=== PATIENT | male | born 1960 | race Caucasian/White ===

== ENCOUNTER 2016-09-06 20:59 | Inpatient (IN) | payer OTHER ==
[2016-09-06] MEDS ORDERED: AZITHROMYCIN 500 MG in SODIUM CHLORIDE 0.9% 250 ML IVPB SCH (23:00)
[2016-09-06] MEDS ORDERED: IPRATROPIUM-ALBUTEROL 3 ML NEB INHALATION PRN (23:52)
[2016-09-07] MEDS: MORPHINE SULFATE 4 MG/ML SYRINGE IVP PRN ×4 (00:18→23:44)
[2016-09-07] MEDS: SODIUM CHLORIDE 0.9% 1,000 ML IV SCH ×3 (00:18→22:04)
[2016-09-07 02:56] VITALS: BMI 22.7
[2016-09-07 07:09] LABS: Basophils # (A) 0.1 k/uL (0-0.2); Basophils % (A) 1 %; CH 28.1; CHCM 31.7; Eosinophils # (A) 0.2 k/uL (0-0.7); Eosinophils % (A) 1 %; HCT 38.3 % (39.0-53.0); HDW 2.51; HGB 12.1 gm/dL (13.0-17.5); Hypochromasia Slight; Luc # (Auto) 0.29; Luc % (Auto) 3; Lymphocytes # (A) 1.7 k/uL (1.0-4.8); Lymphocytes % (A) 15 %; MCH 28.1 pg (25.0-35.0); MCHC 31.5 g/dL (31.0-37.0); MCV 89.2 fL (80.0-100.0); Mean Platelet Volume 6.6; Monocytes % (A) 9 %; Neutrophils % (A) 72 %; RDW 13.5 % (11.5-15.5); WBC 11.1 k/uL (3.8-10.6); WBC (Perox) 11.85
[2016-09-07 07:23] LABS: ALT 23 U/L (21-72); AST 15 U/L (17-59); Alkaline Phosphatase 71 U/L (38-126); Anion Gap 11 mmol/L; Blood Urea Nitrogen 13 mg/dL (9-20); Calcium 8.5 mg/dL (8.4-10.2); Carbon Dioxide 22 mmol/L (22-30); Chloride 108 mmol/L (98-107); Glucose 94 mg/dL (74-99); Non-African American GFR(MDRD) >60 (>60 ml/min/1.73 sqM); Potassium 4.1 mmol/L (3.5-5.1); Sodium 141 mmol/L (137-145); Total Bilirubin 0.6 mg/dL (0.2-1.3); Total Protein 6.2 g/dL (6.3-8.2)
--- NOTE | 2016-09-07 08:16 | XR ---
EXAMINATION TYPE: XR chest 1V portable DATE OF EXAM: 09/07/2016 7:37 AM COMPARISON: NONE HISTORY: COPD, lung mass TECHNIQUE: Single frontal view of the chest is obtained. FINDINGS: Interstitium is increased in the left lung, abnormal increased attenuation in the perihila r location on the left. There is no pneumothorax or pleural effusion. Cardiomediastinal silhouette wi thin normal limits. IMPRESSION: Perihilar increased density, prominence of interstitium on the left, consider chest CT f or better evaluation.
[2016-09-07] MEDS: predniSONE 50 MG TAB PO SCH (08:19)
[2016-09-07] MEDS: IPRATROPIUM-ALBUTEROL 3 ML NEB INHALATION SCH ×4 (08:49→19:30)
--- NOTE | 2016-09-07 11:28 | P.CNPUL ---
History of Present Illness Consult date: 09/07/16 Requesting physician: Heather Jaime Reason for consult: other (Left hilar mass) Chief complaint: Chest pain, shortness of breath, cough, and wheezing. History of present illness: This is a 56-year-old white male, smoker, patient presented to [place] [facility] yesterday with 2 months history of left sided chest pain mostly in the left parasternal area, radiating down to his left hemidiaphragm area. Patient also describes intermittent episodes of cough wheezing, shortness of breath, no fever , no chills, no hemoptysis, no nausea no vomiting no abdominal pain. 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 Upon evaluation in the ER, patient was found to have a left hilar mass and apparently arrangements were made for him to be transferred to [facility] last time. Workup in the ER at [place] was relatively unremarkable except for the abnormal CT of the chest. I did review the CT of the chest, there is evidence of left hilar mass, mediastinal adenopathy, and probably some areas of postobstructive pneumonitis involving the lingula. Patient again denies any hemoptysis, he describes about 14 pound weight loss over the last 2 months. Denies any aches and pains, no headache no blurred vision no dizziness. No dysuria frequency or urgency. Denies any symptoms of depression. Denies any symptoms of diabetes or thyroid disease. Review of Systems 14 point review of systems were obtained, refer to pertinent positives and negatives in HPI. His review of systems is mostly significant for weight loss, left-sided chest pain, cough wheezing and shortness of breath. Past Medical History Past Medical History: No Reported History, COPD History of Any Multi-Drug Resistant Organisms: None Reported Past Surgical History: No Surgical Hx Reported Past Anesthesia/Blood Transfusion Reactions: No Reported Reaction Past Psychological History: No Psychological Hx Reported Smoking Status: Current every day smoker Past Alcohol Use History: None Reported - Past Family History Mother Family Medical History: No Reported History Father Family Medical History: No Reported History Medications and Allergies Allergies Allergy/AdvReac Type Severity Reaction Status Date / Time No Known Allergies Allergy Verified 09/07/16 08:50 Physical Exam Vitals: Vital Signs Temp Pulse Pulse Resp BP Pulse Ox 09/07/16 08:56 68 09/07/16 08:47 68 09/07/16 07:00 98.5 F 67 18 111/71 98 Intake and Output 09/06/16 09/07/16 09/07/16 22:59 06:59 14:59 Intake Total 1280 400 Balance 1280 400 Intake: Intake, IV Titration 800 Amount Azithromycin 500 mg In 250 Sodium Chloride 0.9% 250 ml @ 125 mls/hr IVPB Q24H [facility] Rx#:[id number] Sodium Chloride 0.9% 1, 500 000 ml @ 100 mls/hr IV . Q10H [facility] Rx#:[id number] cefTRIAXone 1,000 mg In 50 Sodium Chloride 0.9% 50 ml @ 100 mls/hr IVPB Q24H [facility] Rx#:[id number] Oral 480 400 Other: # Voids 1 Weight 71.9 kg 71.9 kg Physical Exam: Revealed a 56-year-old white male in no distress HEENT:[Neck is supple.] [No neck masses.] [No thyromegaly.] [No JVD.] Chest: [Diminished breath sound bilaterally, some wheezing on forced expiratory maneuver..] Cardiac Exam: [Normal S1 and S2, no S3 gallop, no murmur.] Abdomen: [Soft, nontender, no megaly, no rebound, no guarding, normal bowel sounds.] Extremities: [No clubbing, no edema, no cyanosis.] Neurological Exam: [No focal neurologic deficit.] Results - Laboratory Findings CBC and BMP: 09/07/16 06:36 09/07/16 06:36 Abnormal lab findings: Abnormal Labs 09/07/16 09/07/16 06:36 06:36 WBC 11.1 H Hgb 12.1 L Hct 38.3 L Neutrophils # 8.0 H Chloride 108 H AST 15 L Total Protein 6.2 L Albumin 3.0 L - Diagnostic Findings Chest x-ray: image reviewed (Chest x-ray is suggestive of a left hilar mass) Assessment and Plan Plan: Impression: 1 left hilar mass strongly suspicious of bronchogenic carcinoma. 2 suspect moderate severe chronic obstructive pulmonary disease 3 postobstructive pneumonitis involving the lingula. 4 chronic tobacco dependence syndrome and nicotine addiction. Recommendation: Agree with the present treatment plan including bronchodilators , antibiotics, steroids, patient will need to have a tissue diagnosis, I will schedule the patient for tentative bronchoscopy at noontime by Dr. Gallego, however the final decision for him to make tomorrow. Discussed the patient's condition with the admitting physician Dr. Jaime, we'll continue to follow. Time with Patient: Greater than 30
--- NOTE | 2016-09-07 13:04 | HP ---
DATE OF ADMISSION: 09/06/2016 HISTORY AND PHYSICAL EXAMINATION/DISCHARGE SUMMARY: This dictation is both admission note and discharge summary. The patient is a very pleasant 56-year-old gentleman who does not have a primary care physician, was seen in [facility]. Subsequently transferred here with I was told patient has pneumonia and COPD exacerbation. Patient also has a hilar mass. Patient will need further evaluation with pulmonology because of which patient was transferred here. Patient was started on IV antibiotics in the form of ceftriaxone and azithromycin. The patient was given antibiotics Zosyn at the other hospital. Today when I evaluated the patient, patient is a very pleasant 56-year-old gentleman was having coughing and because of the cough, patient was having chest pain, because of the cough and chest soreness because of the cough. Because of that reason, the patient was seen at [facility]. Patient has clear to yellowish sputum production. Patient denied any fever or chills. Patient denied any significant shortness of breath. Patient is wheezing on exam. Patient may have a component of chronic obstructive pulmonary disease. CT of the chest that was sent from [place] was reviewed by me and Dr. Bernal, touring production manager. Patient appears to have hilar mass with mediastinal carinal lymphadenopathy significant for possible metastatic lung cancer, consistent with possible metastatic lung cancer. Patient has minimally leukocytosis which appears to be reactive. There is very limited infiltrate with very minimally air bronchogram. The patient most probably has with patchy atelectasis, low suspicion for pneumonia but cannot be completely ruled out. We will ambulate the patient in the hallways and see if he is strong enough and if patient is strong enough to go home, patient will be discharged today. We will get rid of the oxygen and see how his saturations are and we will try to use [employer] funds for his medications. I tried to set up PET scan for next Thursday unable to do that because of his lack of insurance. Because of Thursday we are unable to set up any follow-ups. Patient was clearly instructed to follow with Dr. Bernal and Dr. Gupta. Information will be provided. The patient's main issue is pain, because of coughing for which I am giving him tramadol and Linwood. REVIEW OF SYSTEMS: REVIEW OF SYSTEMS: CONSTITUTIONAL: No fever, no malaise, no fatigue. HEENT: No recent visual problems or hearing problems. Denied any sore throat. CARDIOVASCULAR: No chest pain, orthopnea, PND, no palpitations, no syncope. PULMONARY: As described in HPI. GASTROINTESTINAL: No diarrhea, no nausea, no vomiting, no abdominal pain. Normoactive bowel sounds. NEUROLOGICAL: No headaches, no weakness, no numbness. HEMATOLOGICAL: Denies any bleeding or petechiae. GENITOURINARY: Denies any burning micturition, frequency, or urgency. MUSCULOSKELETAL/RHEUMATOLOGICAL: Denies any joint pain, swelling, or any muscle pain. ENDOCRINE: Denies any polyuria or polydipsia. The rest of the 14 point review of systems is negative. PAST MEDICAL HISTORY: None. PAST SURGICAL HISTORY: None. SOCIAL HISTORY: The patient does smoke. Denied any alcohol abuse or any drug abuse. Used to smoke 1 pack per day until 3 weeks ago, patient has been smoking only 4 cigarettes per day. FAMILY HISTORY: Denied any significant history of cancer in the family. PHYSICAL EXAMINATION: Temperature 98.5, pulse of 67, respiratory rate of 18, blood pressure is 111/71, saturating at 98% on 2 liters of O2 nasal cannula. GENERAL: The patient is alert and oriented x3, not in any acute distress. Well developed, well nourished. HEENT: Pupils are round and equally reacting to light. EOMI. No scleral icterus. No conjunctival pallor. Normocephalic, atraumatic. No pharyngeal erythema. No thyromegaly. CARDIOVASCULAR: S1 and S2 present. No murmurs, rubs, or gallops. PULMONARY: Minimal expiratory wheezing was appreciated. No crackles were appreciated. Patient has some chest wall tenderness. ABDOMEN: Soft, nontender, nondistended, normoactive bowel sounds. No palpable organomegaly. MUSCULOSKELETAL: No joint swelling or deformity. EXTREMITIES: No cyanosis, clubbing, or pedal edema. NEUROLOGICAL: Gross neurological examination did not reveal any focal deficits. SKIN: No rashes. LABORATORY DATA: CBC and BMP abnormal for mildly elevated WBC count of 11,100. CT of the chest as mentioned above. Chest x-ray that was done here showed some infiltrate. Patient initially started on Rocephin and azithromycin. Patient will be discharged today. ASSESSMENT AND PLAN: 1. Chronic obstructive pulmonary disease exacerbation. 2. Chronic obstructive pulmonary disease exacerbation. Patient will be discharged on albuterol ipratropium, weaning dose of steroids and Symbicort, we will try to use indigent funds for that and we will also use gastrointestinal prophylaxis with ranitidine. 3. Possibility of minimal atelectasis versus minimal pneumonia. Patient has a very limited air bronchogram. Patient mostly has tracheobronchitis. Patient will be discharged on levofloxacin for seven days. 4. For chest pain which is musculoskeletal secondary to cough, we will use Linwood, and tramadol and patient will be given MiraLax for possible if he has constipation. 5. Hilar mass with lymphadenopathy. Follow with Dr. Bernal and Dr. Gupta as mentioned above. Patient will need a bronchoscopy. Will get a community case manager to work on insurance. After all pending work-up done, patient will be discharged today. This dictation is both admission note and discharge summary.
[2016-09-07] MEDS ORDERED: AZITHROMYCIN 500 MG TAB PO SCH (21:00)
[2016-09-08] MEDS: predniSONE 50 MG TAB PO SCH (07:54)
[2016-09-08] MEDS: IPRATROPIUM-ALBUTEROL 3 ML NEB INHALATION SCH ×4 (08:58→21:16)
[2016-09-08] MEDS: SODIUM CHLORIDE 0.9% 1,000 ML IV SCH ×2 (09:05→17:04)
[2016-09-08] MEDS: MORPHINE SULFATE 4 MG/ML SYRINGE IVP PRN (10:24)
--- NOTE | 2016-09-08 12:07 | P.PN ---
Subjective Progress note dated 09/08/2016 56-year-old male sent down from [place] emergency room with 2 months of left- sided chest pain mostly in the left parasternal area. The pain apparently radiates to his left [place] diaphragm area. I'll send and met intermittent episodes of cough wheezing shortness of breath. Not coughing up much or any phlegm. Does not have a primary care physician. Heavy smoker in the past up until recently. 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 He was found on evaluation in the emergency room to have a left hilar mass and apparently was sent down to [facility] for additional evaluation and workup. Computed tomography scan of the chest apparently showed a left hilar mass with mediastinal adenopathy and probably some areas of postobstructive pneumonitis involving the lingula. Denies any hemoptysis. Does have about a 14 pound weight loss over the last couple of months. The presumed diagnosis of lung cancer. Objective - Vital Signs Vital signs: Vital Signs Temp 97.8 F 09/08/16 07:00 Pulse 66 09/08/16 09:08 Resp 18 09/08/16 07:00 BP 116/63 09/08/16 07:00 Pulse Ox 99 09/08/16 08:59 Intake & Output 09/07/16 09/08/16 09/08/16 18:59 06:59 18:59 Intake Total 700 1480 Balance 700 1480 Weight 71.9 kg 71.9 kg Intake: Oral 700 1480 Other: # Voids 2 2 - Exam No acute distress, oriented 3. HEENT examination is grossly unremarkable. Mucous membranes are moist. Teeth are in poor repair. Neck supple. Full range of motion. No adenopathy thyromegaly. Neck veins are flat. Cardiovascular examination reveals regular rhythm rate. S1-S2 normal. No S3- S4 or murmur. Pulmonary examination reveals some mild coarse rhonchi and wheezes. Breath sounds diminished. This prolongation on forced maneuver. The patient wheezes and coughs on forced maneuver. Abdomen soft bowel sounds are heard. No masses or tenderness. Extremities are intact. No cyanosis clubbing or edema. - Labs CBC & Chem 7: 09/07/16 06:36 09/07/16 06:36 Labs: Microbiology - Last 24 Hours (Table) 09/07/16 06:36 Blood Culture - Preliminary Blood No Growth after 24 hours Assessment and Plan (1) COPD (chronic obstructive pulmonary disease) Status: Acute (2) Hilar mass Status: Acute Plan: Plan dated 09/08/2016 Patient was placed on bronchodilator steroids and antibiotics. The patient still quite bronchospastic. The patient will get another day or 2 of medication before we anticipate doing bronchoscopy. He was nothing by mouth after midnight. We'll allow him to eat. I'll schedule for Thursday or Thursday. Additional recommendations suggestions are forthcoming. Probably I will do his bronchoscopy on Thursday. Time with Patient: Less than 30
--- NOTE | 2016-09-08 12:08 | PN ---
The patient is a 56-year-old admitted with COPD exacerbation. Patient also has left hilar mass for which patient will need bronchoscopy, which will be scheduled for tomorrow as patient is still bronchospastic. REVIEW OF SYSTEMS: CARDIOVASCULAR: No chest pain, no orthopnea, no PND, no palpitations. RESPIRATORY: Continued shortness of breath. GASTROINTESTINAL: No diarrhea, nausea or vomiting. No abdominal pain. Normoactive bowel sounds. NEUROLOGIC: No headaches, no weakness, no numbness. Medications were reviewed. PHYSICAL EXAMINATION: VITAL SIGNS: Temperature 97.8, pulse of 66, respiratory rate of 18, blood pressure 116/63, saturating at 99% on 2 L of oxygen, which we will cut it down because he is saturating at 99%. GENERAL: The patient is alert and oriented x3, not in any acute distress. Well developed, well nourished. HEENT: Pupils are round and equally reacting to light. EOMI. No scleral icterus. No conjunctival pallor. Normocephalic, atraumatic. No pharyngeal erythema. No thyromegaly. CARDIOVASCULAR: S1 and S2 present. No murmurs, rubs, or gallops. LUNG EXAMINATION: Expiratory wheezing is still appreciated. No crackles are appreciated. Mild decreased air entry into bilateral lung michaels. ABDOMEN: Soft, nontender, nondistended, normoactive bowel sounds. No palpable organomegaly. MUSCULOSKELETAL: No joint swelling or deformity. EXTREMITIES: No cyanosis, clubbing, or pedal edema. NEUROLOGICAL: Gross neurological examination did not reveal any focal deficits. SKIN: No rashes. LAB DATA: None available from today. ASSESSMENT AND PLAN: 1. Acute hypercapnic respiratory failure secondary to chronic obstructive pulmonary disease exacerbation . 2. Possibility of minimal pneumonia versus bronchitis. 3. Chest pain, musculoskeletal secondary to cough. 4. Hilar mass for which patient will undergo bronchoscopy. Plan is to continue with systemic steroids, inhalational treatment, possible bronchoscopy tomorrow. After that, patient can be discharged. Medication reconciliation and discharge medications were taken care of already.
[2016-09-08] MEDS: LEVOFLOXACIN 500 MG TAB PO SCH (12:49)
[2016-09-09] MEDS: MORPHINE SULFATE 4 MG/ML SYRINGE IVP PRN ×3 (00:22→18:30)
[2016-09-09] MEDS: SODIUM CHLORIDE 0.9% 1,000 ML IV SCH ×3 (00:24→18:31)
[2016-09-09 08:51] LABS: CH 28.9; HCT 39.4 % (39.0-53.0); HDW 2.73; HGB 12.7 gm/dL (13.0-17.5); MCH 28.3 pg (25.0-35.0); MCHC 32.2 g/dL (31.0-37.0); Mean Platelet Volume 6.3; RBC 4.48 m/uL (4.30-5.90); RDW 13.5 % (11.5-15.5); WBC 13.4 k/uL (3.8-10.6)
[2016-09-09 09:09] LABS: Anion Gap 12 mmol/L; Blood Urea Nitrogen 13 mg/dL (9-20); Calcium 9.3 mg/dL (8.4-10.2); Carbon Dioxide 27 mmol/L (22-30); Chloride 106 mmol/L (98-107); Glucose 77 mg/dL (74-99); Non-African American GFR(MDRD) >60 (>60 ml/min/1.73 sqM); Potassium 3.9 mmol/L (3.5-5.1); Sodium 145 mmol/L (137-145)
[2016-09-09] MEDS: predniSONE 50 MG TAB PO SCH (09:19)
[2016-09-09] MEDS: IPRATROPIUM-ALBUTEROL 3 ML NEB INHALATION SCH ×4 (10:00→19:10)
[2016-09-09] MEDS: LEVOFLOXACIN 500 MG TAB PO SCH (12:02)
--- NOTE | 2016-09-09 13:28 | P.PN ---
Subjective Progress note dated 09/08/2016 56-year-old male sent down from [place] emergency room with 2 months of left- sided chest pain mostly in the left parasternal area. The pain apparently radiates to his left [place] diaphragm area. I'll send and met intermittent episodes of cough wheezing shortness of breath. Not coughing up much or any phlegm. Does not have a primary care physician. Heavy smoker in the past up until recently. 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 He was found on evaluation in the emergency room to have a left hilar mass and apparently was sent down to [facility] for additional evaluation and workup. Computed tomography scan of the chest apparently showed a left hilar mass with mediastinal adenopathy and probably some areas of postobstructive pneumonitis involving the lingula. Denies any hemoptysis. Does have about a 14 pound weight loss over the last couple of months. The presumed diagnosis of lung cancer.. Progress note dated 09/09/2016 56-year-old male sent down from [place] emergency room with 2 months of left- sided chest pain mostly in the left parasternal area. The pain radiates his left diaphragm area. In addition he had cough wheezing shortness of breath. Not coughing up much in way of phlegm or any blood. He does not have a primary care physician in that area. 70 smoker in the past up until recently. 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 He was found to have a left hilar mass and apparently sent down [facility] for additional evaluation and workup. He is on the schedule for bronchoscopy tomorrow. He is evidence of a left hilar mass with mediastinal adenopathy and probably some areas of postobstructive pneumonitis involving the lingula. He denies any hemoptysis as mentioned above but he does have a history of a 14 pound weight loss and decreased appetite. The presumptive diagnosis is lung cancer. Objective - Vital Signs Vital signs: Vital Signs Temp 97.7 F 09/09/16 07:00 Pulse 80 09/09/16 11:26 Resp 16 09/09/16 08:00 BP 116/66 09/09/16 07:00 Pulse Ox 95 09/09/16 07:00 Intake & Output 09/08/16 09/09/16 09/09/16 18:59 06:59 18:59 Intake Total 800 Balance 800 Weight 71.9 kg Intake: IV 800 Sodium Chloride 0.9% 1, 800 000 ml @ 100 mls/hr IV . Q10H [facility] Rx#:[id number] Other: Voiding Method Toilet # Voids 2 - Exam No acute distress, oriented 3. HEENT examination is grossly unremarkable. Mucous membranes are moist. Teeth are in poor repair. Neck supple. Full range of motion. No adenopathy thyromegaly. Neck veins are flat. Cardiovascular examination reveals regular rhythm rate. S1-S2 normal. No S3- S4 or murmur. Pulmonary examination reveals some mild coarse rhonchi. Wheezes have dissipated. Breath sounds are equal bilaterally but somewhat diminished. There is prolongation of on forced maneuver. Lung sounds are certainly improved compared to yesterday. Abdomen soft bowel sounds are heard. No masses or tenderness. Extremities are intact. No cyanosis clubbing or edema. - Labs CBC & Chem 7: 09/09/16 08:13 09/09/16 08:13 Labs: Abnormal Lab Results - Last 24 Hours (Table) 09/09/16 Range/Units 08:13 WBC 13.4 H (3.8-10.6) k/uL Hgb 12.7 L (13.0-17.5) gm/dL Microbiology - Last 24 Hours (Table) 09/07/16 06:36 Blood Culture - Preliminary Blood No Growth after 48 hours Assessment and Plan (1) COPD (chronic obstructive pulmonary disease) Status: Acute (2) Hilar mass Status: Acute Plan: Plan dated 09/08/2016 Patient was placed on bronchodilator steroids and antibiotics. The patient still quite bronchospastic. The patient will get another day or 2 of medication before we anticipate doing bronchoscopy. He was nothing by mouth after midnight. We'll allow him to eat. I'll schedule for Thursday or Thursday. Additional recommendations suggestions are forthcoming. Probably I will do his bronchoscopy on Thursday. Plan dated 09/09/2016 The patient placed on the Joey scheduled for tomorrow. We'll do his procedure with fluoroscopy. He may have endobronchial disease we may not need fluoroscopy. If not, we'll see if we can biopsy the area in the lingula. In the end, he may benefit from navigational bronchoscopy for Make a diagnosis. Anyway, we will go ahead and try this way first. The patient otherwise is doing better and breathing better. We spoke to him at the bedside today. Time with Patient: Less than 30
[2016-09-09] MEDS ORDERED: ALPRAZolam 0.25 MG TAB PO PRN (15:09)
[2016-09-09] MEDS ORDERED: TEMAZEPAM 15 MG CAP PO PRN (15:09)
[2016-09-09] MEDS: NICOTINE 14MG/24HR PATCH TRANSDERM SCH (18:30)
--- NOTE | 2016-09-09 18:39 | PN ---
DATE OF SERVICE: 09/09/2016 This 56-year-old gentleman admitted with COPD, acute exacerbation, was symptomatic since June. The patient went to [place]. The patient is being followed by Dr. Jose Antonio Babcock in the outpatient setting. The patient was found to have a left hilar mass. The patient was sent to [facility]. Currently the white count is elevated at 11.1. Patient patient is on broad-spectrum IV antibiotics. Dr. Gallego is following the patient closely. Past medical history reviewed. REVIEW OF SYSTEMS: CARDIOVASCULAR SYSTEM: No angina, palpitations. RESPIRATORY SYSTEM: As mentioned earlier. GI: As mentioned earlier. : No dysuria. NERVOUS SYSTEM: No numbness or weakness. Current medications are reviewed and include: 1. DuoNeb q.i.d. and p.r.n. 2. Levaquin 500 mg daily. 3. Prednisone 50 mg daily. PHYSICAL EXAMINATION: Patient is alert and oriented x3. Pulse is 80. Blood pressure 116/66, respiration 18, temperature 97.7, pulse ox 94% on room air. HEENT: Conjunctivae normal. NECK: No jugular venous distention. CARDIOVASCULAR SYSTEM: S1, S2 muffled. RESPIRATORY SYSTEM: Breath sounds diminished at the bases. Bilateral scattered rhonchi and crackles. Expiratory wheezing also present. ABDOMEN: Soft, non-tender. No mass palpable. LEGS: No edema. No swelling. NERVOUS SYSTEM: Higher functions as mentioned earlier. Moves all 4 limbs. No focal motor or sensory deficit. LYMPHATICS: No lymph node palpable in neck, axillae or groin. SKIN: No ulcer, rash, bleeding. LABS: WBC 13.4, hemoglobin 12.7. Sodium 145, potassium 3.9. Albumin 3. ASSESSMENT: 1. Left hilar mass. To rule out bronchogenic malignancy. 2. Chronic obstructive pulmonary disease, acute exacerbation, with acute hypercapnic hypoxic respiratory failure. 3. Possible minimal pneumonia, postobstructive versus purulent tracheobronchitis. 4. Chest pain, musculoskeletal and secondary to cough. 5. Increased white count. 6. Anemia, normocytic. 7. Increased chloride. 8. Hypoalbuminemia with mild to moderate protein-calorie malnutrition. 9. History of chronic obstructive pulmonary disease. 10. History of nicotine dependence, continued, ongoing. 11. FULL CODE. RECOMMENDATIONS AND DISCUSSION: In this 56-year-old gentleman who presented with multiple complex medical issues, we will monitor the patient closely, continue the current medication, continue symptomatic treatment. Otherwise at this time I would recommend DVT prophylaxis, incentive spirometry, empiric antibiotics, repeat labs. Closely follow with Pulmonary. Further recommendations to follow. MTDD
[2016-09-10] MEDS: MORPHINE SULFATE 4 MG/ML SYRINGE IVP PRN ×5 (00:31→22:37)
[2016-09-10] MEDS: IPRATROPIUM-ALBUTEROL 3 ML NEB INHALATION SCH ×4 (07:15→20:31)
[2016-09-10 08:28] LABS: Basophils % (A) 0 %; CH 28.6; CHCM 32.6; Eosinophils % (A) 0 %; HCT 37.8 % (39.0-53.0); HGB 12.2 gm/dL (13.0-17.5); Luc # (Auto) 0.23; Luc % (Auto) 2; Lymphocytes # (A) 2.6 k/uL (1.0-4.8); Lymphocytes % (A) 21 %; MCH 28.5 pg (25.0-35.0); MCHC 32.2 g/dL (31.0-37.0); MCV 88.4 fL (80.0-100.0); Mean Platelet Volume 6.4; Monocytes # (A) 0.9 k/uL (0-1.0); Monocytes % (A) 7 %; Neutrophils # (A) 8.7 k/uL (1.3-7.7); Neutrophils % (A) 70 %; RBC 4.27 m/uL (4.30-5.90); RDW 13.9 % (11.5-15.5); WBC 12.5 k/uL (3.8-10.6); WBC (Perox) 12.62
[2016-09-10] MEDS: PANTOPRAZOLE 40 MG TABLET PO SCH (09:37)
[2016-09-10] MEDS: NICOTINE 14MG/24HR PATCH TRANSDERM SCH (10:38)
[2016-09-10] MEDS: predniSONE 50 MG TAB PO SCH (10:38)
[2016-09-10] MEDS ORDERED: IV FLUID CONTINUATION 1,000 ML IV ONE (11:31)
[2016-09-10] MEDS ORDERED: LIDOCAINE 1% INJ 10MG/ML (20 ML MDV) ONE (11:36)
[2016-09-10] MEDS ORDERED: fentaNYL (PF) 50 MCG/ML 2 ML AMP ONE (11:36)
[2016-09-10] MEDS ORDERED: ETOMIDATE 2 MG/ML 10 ML VIAL ONE (11:36)
[2016-09-10] MEDS ORDERED: LIDOCAINE 2% INJ 20 MG/ML INTRATRACH ONE (11:42)
[2016-09-10] MEDS ORDERED: SODIUM CHLORIDE 0.9% 1,000 ML IV ONE (11:55)
--- NOTE | 2016-09-10 12:00 | P.PN ---
Subjective Principal diagnosis: Left lingula mass Progress note dated 09/08/2016 56-year-old male sent down from [place] emergency room with 2 months of left- sided chest pain mostly in the left parasternal area. The pain apparently radiates to his left ME diaphragm area. I'll send and met intermittent episodes of cough wheezing shortness of breath. Not coughing up much or any phlegm. Does not have a primary care physician. Heavy smoker in the past up until recently. 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 He was found on evaluation in the emergency room to have a left hilar mass and apparently was sent down to [facility] for additional evaluation and workup. Computed tomography scan of the chest apparently showed a left hilar mass with mediastinal adenopathy and probably some areas of postobstructive pneumonitis involving the lingula. Denies any hemoptysis. Does have about a 14 pound weight loss over the last couple of months. The presumed diagnosis of lung cancer.. Progress note dated 09/09/2016 56-year-old male sent down from [place] emergency room with 2 months of left- sided chest pain mostly in the left parasternal area. The pain radiates his left diaphragm area. In addition he had cough wheezing shortness of breath. Not coughing up much in way of phlegm or any blood. He does not have a primary care physician in that area. 70 smoker in the past up until recently. 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 He was found to have a left hilar mass and apparently sent down [facility] for additional evaluation and workup. He is on the schedule for bronchoscopy tomorrow. He is evidence of a left hilar mass with mediastinal adenopathy and probably some areas of postobstructive pneumonitis involving the lingula. He denies any hemoptysis as mentioned above but he does have a history of a 14 pound weight loss and decreased appetite. The presumptive diagnosis is lung cancer. This note dated 09/10/2016 The patient was seen again today in follow-up in the bronchoscopy suite. He is awake and alert in no acute distress. He does have continued shortness of breath with minimal exertion. He is feeling better today as compared to yesterday. Tinea to maintain good O2 saturations in the upper 90s on room air. He's been afebrile. Hemodynamically stable. The plan is for bronchoscopy with biopsy with Dr. Gallego today. Objective - Vital Signs Vital signs: Vital Signs Temp 97.8 F 09/10/16 10:07 Pulse 78 09/10/16 10:07 Resp 18 09/10/16 10:07 BP 131/64 09/10/16 10:07 Pulse Ox 97 09/10/16 07:00 Intake & Output 09/09/16 09/10/16 09/10/16 18:59 06:59 18:59 Weight 71.9 kg 71.9 kg Other: Voiding Method Toilet Toilet # Voids 2 - Exam GENERAL EXAM: Alert, comfortable in no apparent distress. HEAD: Normocephalic. EYES: Normal reaction of pupils, equal size. NOSE: Clear with pink turbinates. THROAT: No erythema or exudates. NECK: No masses, no JVD. CHEST: No chest wall deformity. LUNGS: Equal air entry with coarse rhonchi, diminished. CVS: S1 and S2 normal with no audible murmurs, regular rhythm. ABDOMEN: No hepatosplenomegaly, normal bowel sounds, no guarding or rigidity. SPINE: No scoliosis or deformity SKIN: No rashes CENTRAL NERVOUS SYSTEM: No focal deficits, tone is normal in all 4 extremities. - Labs CBC & Chem 7: 09/10/16 08:04 09/09/16 08:13 Labs: Abnormal Lab Results - Last 24 Hours (Table) 09/10/16 Range/Units 08:04 WBC 12.5 H (3.8-10.6) k/uL RBC 4.27 L (4.30-5.90) m/uL Hgb 12.2 L (13.0-17.5) gm/dL Hct 37.8 L (39.0-53.0) % Neutrophils # 8.7 H (1.3-7.7) k/uL Microbiology - Last 24 Hours (Table) 09/07/16 06:36 Blood Culture - Preliminary Blood No Growth after 72 hours Assessment and Plan Plan: Impression: #1 Acute exacerbation of chronic obstructive pulmonary disease. #2 Left hilar mass. Plan: The patient was seen and evaluated by Dr. Gallego. We did go ahead and perform a bronchoscopy with biopsies of the left lingular area. There was an endobronchial lesion noted and suspicion for bronchogenic carcinoma. We'll await biopsy results. In the interim we will consult oncology as well as radiation oncology as there was significant mass burden obstructing some of the lingula area and possibly a left lower lobe. In the interim we'll continue with his current medications. We'll continue to follow make further recommendations based on his clinical status.
[2016-09-10] MEDS: LEVOFLOXACIN 500 MG TAB PO SCH (17:44)
[2016-09-10 18:05] LABS: RBC, Body Fluid 171000 /uL
--- NOTE | 2016-09-10 20:33 | P.CONS ---
History of Present Illness - Reason for Consult Consult date: 09/10/16 work up for lung cancer Requesting physician: Tanya Lipscomb - Chief Complaint SOB, chest pain and persistent cough - History of Present Illness Mr. Dexter is a very pleasant 56-year-old male who for the last 2-3 months has been complaining of shortness of breath as well as left sided chest pain. Patient has had multiple chest x-rays and was treated for pneumonia without improvement in his symptoms. Patient has noticed a raspy voice, decreased appetite with a 14 pound weight loss in 2 months, denies night sweats but patient states he requires a fan in order to stay cool at night because he is so warm and will sweat. Patient has a persistent, nagging dry cough, he denies hemoptysis. Patient denies any pain with swallowing, indigestion or heartburn, nausea or vomiting, abdominal pain or distention, changes in bowel or bladder habits. 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 Patient's imaging is from Dr Arias. Dr. Bernal's notes reviewed as he reviewed the CT of the chest. He discusses a left hilar mass with mediastinal adenopathy and some areas of postobstructive pneumonitis involving the lingula Review of Systems All systems: negative Constitutional: Reports as per HPI Past Medical History Past Medical History: No Reported History, COPD History of Any Multi-Drug Resistant Organisms: None Reported Past Surgical History: No Surgical Hx Reported Past Anesthesia/Blood Transfusion Reactions: No Reported Reaction Past Psychological History: No Psychological Hx Reported Smoking Status: Current every day smoker Past Alcohol Use History: None Reported - Past Family History Mother Family Medical History: No Reported History Father Family Medical History: No Reported History Medications and Allergies Allergies Allergy/AdvReac Type Severity Reaction Status Date / Time No Known Allergies Allergy Verified 09/07/16 08:50 Physical Exam Vitals: Vital Signs Temp Pulse Pulse Resp BP Pulse Ox 09/10/16 16:44 80 09/10/16 16:34 76 09/10/16 16:00 84 18 09/10/16 15:00 98 F 84 18 117/69 97 09/10/16 13:00 84 18 09/10/16 12:52 77 09/10/16 12:51 97.8 F 98 18 125/80 09/10/16 12:42 100 09/10/16 12:28 97.6 F 101 H 20 158/78 93 L 09/10/16 10:07 97.8 F 78 18 131/64 09/10/16 07:27 80 09/10/16 07:15 84 09/10/16 07:00 97.9 F 84 16 128/83 97 09/10/16 00:00 97 18 09/09/16 23:00 98 F 97 18 123/75 97 Intake and Output 09/10/16 09/10/16 09/10/16 06:59 14:59 22:59 Intake Total 400 Balance 400 Intake: IV 400 Other: Voiding Method Toilet Toilet Toilet Weight 71.9 kg Patient Weight 09/11/16 06:59 Weight 71.9 kg - Constitutional General appearance: average body habitus, cooperative, mild distress - EENT Eyes: anicteric sclerae, EOMI, normal appearance ENT: hearing grossly normal, normal oropharynx - Neck Neck: no lymphadenopathy - Respiratory Respiratory: right: CTA, left: wheezing (expiratory) - Cardiovascular Rhythm: regular Heart sounds: normal: S1, S2 Abnormal Heart Sounds: no systolic murmur, no diastolic murmur, no rub, no S3 Gallop, no S4 Gallop, no click, no other leg Peripheral Edema: bilateral: None - Gastrointestinal General gastrointestinal: no absent bowel sounds, no decreased bowel sounds, no distended, no hepatomegaly, no hyperactive bowel sounds, normal bowel sounds, no organomegaly, no rigid, no scaphoid, soft, no splenomegaly, no tenderness, no umbilical hernia, no ventral hernia - Integumentary Integumentary: normal - Neurologic Neurologic: CNII-XII intact - Musculoskeletal Musculoskeletal: strength equal bilaterally - Psychiatric Psychiatric: A&O x's 3, appropriate affect, intact judgment & insight Results CBC & Chem 7: 09/10/16 08:04 09/09/16 08:13 Labs: Abnormal Lab Results - Last 24 Hours (Table) 09/10/16 Range/Units 08:04 WBC 12.5 H (3.8-10.6) k/uL RBC 4.27 L (4.30-5.90) m/uL Hgb 12.2 L (13.0-17.5) gm/dL Hct 37.8 L (39.0-53.0) % Neutrophils # 8.7 H (1.3-7.7) k/uL Microbiology - Last 24 Hours (Table) 09/10/16 10:00 Fungal Culture - Preliminary Bronchial Washings - Left 09/10/16 10:00 Acid Fast Bacilli Culture - Preliminary Bronchial Washings - Left 09/10/16 10:00 Bronchial Washings Culture - Preliminary Bronchial Washings - Left 09/07/16 06:36 Blood Culture - Preliminary Blood No Growth after 72 hours Chest x-ray: report reviewed Assessment and Plan (1) Hilar mass Narrative/Plan: Patient is status post bronchoscopy with biopsy, pathology pending. Did discuss with the patient that the findings are highly suggestive of malignancy. Did discuss with him that we will discuss treatment modalities, treatment options as well as prognosis once we have confirmed pathological diagnosis as well as staging. all patient's questions were answered to the best my ability at this time. Status: Acute
[2016-09-10] MEDS: SODIUM CHLORIDE 0.9% 1,000 ML IV SCH (20:38)
[2016-09-10] MEDS: BENZOCAINE/MENTHOL LOZENG 1 EACH LOZENGE MUCOUS MEM PRN (21:22)
[2016-09-10] MEDS: BENZONATATE 100 MG CAP PO SCH (21:24)
[2016-09-10] MEDS ORDERED: RX INFO: IV CONTRAST WAS GIVEN 1 EACH MISC MISCELLANE PRN (21:57)
--- NOTE | 2016-09-10 22:33 | PCN ---
DATE OF PROCEDURE: PROCEDURE PERFORMED: Bronchoscopy, airway examination, therapeutic lavage, BAL, brushes left lung, endobronchial biopsies, left lung pool cytology left lung. PREOPERATIVE DIAGNOSIS: Lung cancer. POSTOPERATIVE DIAGNOSIS: Lung cancer. Procedure was done by myself Dr. Gallego as well as Dr. Tanya Lipscomb. DESCRIPTION OF PROCEDURE: The procedure was done in Room #1 anesthesia was provided by Leena Pulido, [employer] there was informed consent. There was universal timeout. Sedation was unconscious sedation with general anesthesia. After the patient was adequately sedated, the bronchoscope was inserted. The patient was adequately sedated and fully monitored, the bronchoscope was inserted through the right nostril. It passed through the right nasopharynx into the oropharynx. The hypopharynx was identified and topicalized. The hypopharyngeal structures, including anterior commissure, true cords, false cords, arytenoids, piriform sinuses, right and left vallecula and epiglottis all appeared normal. After topicalization of the glottic opening, the bronchoscope was inserted through the glottic opening into the trachea. Trachea appeared normal. Anyway, after the trachea was evaluated, tracheal jarek was sharp. The right and left mainstem were topicalized. The right side including right upper lobe and its 3 segments, the right middle lobe and its 2 segments, the right lower lobe and its 5 segments were all found to be normal. On the left side, there was a significant fungating large mass obstructing really pretty much the entire left lung including the left upper lobe, the lingula and the left lower lobe. We expected to see more of an obstruction in the area of the lingula but it was actually more significantly obstructed in the left lower lobe. Anyway, under direct observation and direct visualization, we were able to do endobronchial biopsies in that area. The lesion seemed to be mostly involving the jarek that separates the left upper lobe proper from the left lower lobe. We did multiple biopsies there including 6 or 7 biopsies. Then we did brushes in that area and pool cytology in that area. There was some bleeding, but the bleeding sort of stopped spontaneously. There was no significant bleeding. We made sure that the bleeding had completely stopped before the bronchoscope was withdrawn. The patient tolerated the procedure well and after we were sure there was adequate hemostasis, the bronchoscope was withdrawn. There was no need for fluoro as the lesion was obviously identified with direct visualization.
--- NOTE | 2016-09-10 22:47 | CONS ---
DATE OF CONSULTATION: 09/10/2016 REASON FOR CONSULTATION: Lung cancer originating from the left lung. HISTORY OF PRESENT ILLNESS: Eddie Dexter is a 56-year-old male patient who underwent further management in [facility] after a persistent cough, shortness of breath and chest pain on the left side. Patient was treated with a course of antibiotics and supportive care without improvement. Chest x-ray showed left hilar mass and subsequent CT of the chest performed at that time demonstrated a mass involving the left hilum with associated lymphadenopathy in the mediastinum and associated post-obstructive pneumonitis. Based on the imaging findings, this was consistent with a malignant process and the patient was transferred to [facility] for further management, including bronchoscopy and biopsy. On 09/10/2016, bronchoscopy and biopsy were performed by Dr. Gallego. The findings showed malignant mass in the right upper lobe. Biopsies were taken and pathology is pending at this time. PAST MEDICAL HISTORY: As per HPI. PAST SURGICAL HISTORY: As per HPI. FAMILY HISTORY: Non-contributory for malignancy. MEDICATIONS: 1. Albuterol/ipratropium. 2. Xanax. 3. Levaquin. 4. Morphine sulfate. 5. Habitrol. 6. Protonix. 7. Prednisone. 8. Temazepam. 9. Restoril. SOCIAL HISTORY: Positive for tobacco more than 20 pack/years. Patient is an active smoker. 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 Negative for alcohol use or drug abuse. REVIEW OF SYSTEMS: CONSTITUTIONAL: Negative for fevers, chills, weight loss. Positive for fatigue. HEENT: Negative for odynophagia, dysphagia, neck masses. CARDIOVASCULAR: Positive for chest pain, dyspnea on exertion. PULMONARY: As per HPI. GASTROINTESTINAL: Negative for nausea, vomiting, hematochezia, hematemesis. GENITOURINARY: Negative for incontinence, hematuria, obstructive uropathy. NEUROLOGIC: Negative for severe headaches, loss of consciousness, extremity weakness, nausea, vomiting. PHYSICAL EXAMINATION: Well-developed, well-nourished middle-aged gentleman. No acute distress. Performance status is good to fair. VITAL SIGNS: Temperature 98, pulse 84, respiration 18, blood pressure 117/69. Oxygen saturation 97% on 2 L. HEENT: No scleral icterus. Oral cavity shows mucosal lesions. NECK: No izabela or lymphadenopathy. CHEST: Clear to auscultation with increased breath sounds heard in the left upper lung region. There are no audible wheezes. ABDOMEN: Round, soft, non-tender. There is no organomegaly or masses. HEART: Regular rate and rhythm. EXTREMITIES: No edema. Trace of cyanosis. NEUROLOGICAL EXAMINATION: He is alert and oriented x3. There are no gross deficits. Speech is slow. Gait not assessed. Sensation is intact. ASSESSMENT: [id number]-old male patient with a malignant originating from the left hilum with associated mediastinal lymphadenopathy and post-obstructive pneumonitis based on recent CT imaging from August 2016. Patient underwent bronchoscopy on 09/10/[address] Gallego and the results are pending. Most likely the patient has malignant carcinoma, type unknown at this time. So far respiratory status is stable with the exception of dyspnea on exertion requiring oxygen. RECOMMENDATION: I had a lengthy discussion with the patient and family members regarding appropriate care and management of his malignant mass. I recommended awaiting the final pathology. If this is indeed carcinoma, patient will need staging workup, including outpatient PET scan and MRI of the brain. I will assist patient in obtaining completion of workup once biopsy has been obtained. Patient was also given a tentative appointment to follow up in radiation oncology clinic on 09/17/2016 at 3 p.m. Patient will also undergo medical oncology consultation during this admission. I will continue to follow his case and I will have recommendations after results have become available. PATRICIA
[2016-09-11] MEDS: SODIUM CHLORIDE 0.9% 1,000 ML IV SCH ×3 (02:21→23:32)
[2016-09-11] MEDS: MORPHINE SULFATE 4 MG/ML SYRINGE IVP PRN ×3 (07:40→23:51)
[2016-09-11] MEDS: PANTOPRAZOLE 40 MG TABLET PO SCH (07:42)
[2016-09-11] MEDS: NICOTINE 14MG/24HR PATCH TRANSDERM SCH (07:42)
[2016-09-11] MEDS: predniSONE 50 MG TAB PO SCH (07:42)
[2016-09-11] MEDS: BENZONATATE 100 MG CAP PO SCH ×3 (07:42→21:54)
[2016-09-11] MEDS: IPRATROPIUM-ALBUTEROL 3 ML NEB INHALATION SCH ×4 (07:59→21:13)
[2016-09-11 08:18] LABS: Basophils # (A) 0.1 k/uL (0-0.2); Basophils % (A) 1 %; CH 28.7; CHCM 33.8; Eosinophils # (A) 0.2 k/uL (0-0.7); Eosinophils % (A) 1 %; HCT 37.2 % (39.0-53.0); HGB 12.3 gm/dL (13.0-17.5); Luc # (Auto) 0.27; Luc % (Auto) 2; Lymphocytes # (A) 2.4 k/uL (1.0-4.8); Lymphocytes % (A) 19 %; MCH 28.2 pg (25.0-35.0); MCHC 33.2 g/dL (31.0-37.0); MCV 85.2 fL (80.0-100.0); Mean Platelet Volume 6.4; Monocytes # (A) 0.9 k/uL (0-1.0); Monocytes % (A) 7 %; Neutrophils # (A) 8.8 k/uL (1.3-7.7); Neutrophils % (A) 70 %; RBC 4.36 m/uL (4.30-5.90); RDW 13.7 % (11.5-15.5); WBC 12.6 k/uL (3.8-10.6); WBC (Perox) 12.46
--- NOTE | 2016-09-11 09:15 | CT ---
EXAMINATION TYPE: CT brain w con DATE OF EXAM: 09/11/2016 7:31 AM COMPARISON: Correlation outside CT chest 09/06/2016 HISTORY: 56-year-old male with lung mass CT DLP: 943.80 mGycm Automated exposure control for dose reduction was used. CONTRAST: CT scan of the head is performed with IV Contrast, patient injected with 100 ml mL of Omnipaque 300. FINDINGS: There is no abnormal enhancing mass or midline shift identified. The ventricles and sulci are within normal limits in size. The globes are intact and the visualized sinuses are clear. IMPRESSION: No enhancing intracranial lesion seen. If persistent clinical concern, consider MRI for more sensitiv e evaluation.
--- NOTE | 2016-09-11 09:34 | PN ---
DATE OF SERVICE: 09/10/2016 This 56-year-old gentleman who was admitted with COPD, acute exacerbation as well as possibly lung mass on the left side underwent bronchoscopy by Dr. Gallego. The bronchoscopy revealed significant fungating large mass obstructing really pretty much the anterior left lung including the left upper lobe, the lingula and left lower lobe. Endobronchial biopsy was done. The patient was closely monitored at this time. No chest pain or palpitation. No fever. On exam, alert and oriented x2. Pulse 94, blood pressure 120/63, respirations 16, temperature 98.8, pulse ox 96% on 2 liters. HEENT: Conjunctivae normal. NECK: No jugular venous distention. CARDIOVASCULAR: S1 and S2, muffled. RESPIRATORY: Breath sounds diminished at the bases. Bilateral scattered rhonchi and crackles. ABDOMEN: Soft, nontender. LEGS: No edema, no swelling. NERVOUS SYSTEM: No focal deficits. LABS: WBC 12, hemoglobin 12.2. Lavage was noted. ASSESSMENT: 1. Left hilar mass, possibly bronchogenic malignancy, status post bronchoscopy and biopsy. 2. Chronic obstructive pulmonary disease, acute exacerbation, with hypercapnic hypoxic respiratory failure and acute respiratory failure. 3. Possible postobstructive pneumonia versus acute purulent tracheobronchitis. 4. Chest pain, musculoskeletal secondary to cough. 5. Increased WBC. 6. Anemia, normocytic. 7. chloride. 8. Hypoalbuminemia with mild to moderate protein calorie malnutrition. 9. History of chronic obstructive pulmonary disease. 10. History of nicotine dependence, continued ongoing. 11. FULL CODE. RECOMMENDATIONS AND DISCUSSION: I recommend to continue the current medications, continue monitoring and symptomatic treatment. Continue with bronchodilators. Continue with antibiotics. Closely monitor. Closely follow with multiple consultants. Further recommendations to follow. Await the biopsy reports. Closely follow with Dr. Gallego. [facility] HOSPITALJulia
[2016-09-11] MEDS: LEVOFLOXACIN 500 MG TAB PO SCH (11:30)
--- NOTE | 2016-09-11 11:32 | XR ---
EXAMINATION TYPE: XR chest 1V portable DATE OF EXAM: 09/11/2016 11:25 AM Comparison: 09/07/2016 Clinical History: 56-year-old male pneumonia, lung ca Findings: Heart is normal size. New obliquely oriented opacity in the retrocardiac region and patchy left basil ar opacity. The right lung and pleural space appear clear. No significant pleural effusion seen. Impression: Correlate for possible new left lower lobe atelectasis/collapse and increasing inferior lingular infi ltrate.
--- NOTE | 2016-09-11 15:58 | P.PN ---
Subjective Progress note dated 09/08/2016 56-year-old male sent down from [facility] emergency room with 2 months of left- sided chest pain mostly in the left parasternal area. The pain apparently radiates to his left CA diaphragm area. I'll send and met intermittent episodes of cough wheezing shortness of breath. Not coughing up much or any phlegm. Does not have a primary care physician. Heavy smoker in the past up until recently. 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 He was found on evaluation in the emergency room to have a left hilar mass and apparently was sent down to [facility] for additional evaluation and workup. Computed tomography scan of the chest apparently showed a left hilar mass with mediastinal adenopathy and probably some areas of postobstructive pneumonitis involving the lingula. Denies any hemoptysis. Does have about a 14 pound weight loss over the last couple of months. The presumed diagnosis of lung cancer.. Progress note dated 09/09/2016 56-year-old male sent down from [facility] emergency room with 2 months of left- sided chest pain mostly in the left parasternal area. The pain radiates his left diaphragm area. In addition he had cough wheezing shortness of breath. Not coughing up much in way of phlegm or any blood. He does not have a primary care physician in that area. 70 smoker in the past up until recently. 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 He was found to have a left hilar mass and apparently sent down [facility] for additional evaluation and workup. He is on the schedule for bronchoscopy tomorrow. He is evidence of a left hilar mass with mediastinal adenopathy and probably some areas of postobstructive pneumonitis involving the lingula. He denies any hemoptysis as mentioned above but he does have a history of a 14 pound weight loss and decreased appetite. The presumptive diagnosis is lung cancer Progress note dated 09/11/2016 This 56-year-old male underwent bronchoscopy. The biopsies are still pending. The patient has a history of a left hilar mass and also some lingular collapse. He likely has some postobstructive pneumonitis as well as mediastinal adenopathy which is malignant. He suffered a significant weight loss and is anorexic. Again I just checked the pathology of left date and everything else as far pending. The patient has been seen by medical oncology. We also recommend a radiation oncology consultation. He's had a chest x-ray done subsequent to the procedure he's also had a brain CT.. Objective - Vital Signs Vital signs: Vital Signs Temp 98.6 F 09/11/16 07:00 Pulse 74 09/11/16 11:51 Resp 20 09/11/16 15:46 BP 124/79 09/11/16 07:00 Pulse Ox 98 09/11/16 07:00 Intake & Output 09/10/16 09/11/16 09/11/16 18:59 06:59 18:59 Intake Total 400 1300 200 Balance 400 1300 200 Weight 71.9 kg Intake: IV 400 900 Sodium Chloride 0.9% 1, 900 000 ml @ 100 mls/hr IV . Q10H KEZIA Rx#:[id number] Oral 400 200 Other: Voiding Method Toilet Toilet Toilet # Voids 1 - Exam No acute distress, oriented 3. HEENT examination is grossly unremarkable. Mucous membranes are moist. Teeth are in poor repair. Neck supple. Full range of motion. No adenopathy thyromegaly. Neck veins are flat. Cardiovascular examination reveals regular rhythm rate. S1-S2 normal. No S3- S4 or murmur. Pulmonary examination reveals some mild wheezes. Breath sounds are diminished. Slight prolongation on forced maneuver. All in all, lung sounds have improved from his initial evaluation. Certainly still not back to baseline. Abdomen soft bowel sounds are heard. No masses or tenderness. Extremities are intact. No cyanosis clubbing or edema. - Labs CBC & Chem 7: 09/11/16 07:50 09/09/16 08:13 Labs: Abnormal Lab Results - Last 24 Hours (Table) 09/11/16 Range/Units 07:50 WBC 12.6 H (3.8-10.6) k/uL Hgb 12.3 L (13.0-17.5) gm/dL Hct 37.2 L (39.0-53.0) % Neutrophils # 8.8 H (1.3-7.7) k/uL Microbiology - Last 24 Hours (Table) 09/07/16 06:36 Blood Culture - Preliminary Blood No Growth after 96 hours 09/10/16 10:00 Acid Fast Bacilli Smear - Final Bronchial Washings - Left Acid Fast Bacilli Culture - Preliminary 09/10/16 10:00 Gram Stain - Preliminary Bronchial Washings - Left Bronchial Washings Culture - Preliminary 09/10/16 10:00 Fungal Culture - Preliminary Bronchial Washings - Left Assessment and Plan (1) COPD (chronic obstructive pulmonary disease) Status: Acute (2) Hilar mass Status: Acute Plan: Plan dated 09/08/2016 Patient was placed on bronchodilator steroids and antibiotics. The patient still quite bronchospastic. The patient will get another day or 2 of medication before we anticipate doing bronchoscopy. He was nothing by mouth after midnight. We'll allow him to eat. I'll schedule for Thursday or Thursday. Additional recommendations suggestions are forthcoming. Probably I will do his bronchoscopy on Thursday. Plan dated 09/09/2016 The patient placed on the Joey scheduled for tomorrow. We'll do his procedure with fluoroscopy. He may have endobronchial disease we may not need fluoroscopy. If not, we'll see if we can biopsy the area in the lingula. In the end, he may benefit from navigational bronchoscopy for Make a diagnosis. Anyway, we will go ahead and try this way first. The patient otherwise is doing better and breathing better. We spoke to him at the bedside today. Plan dated 09/11/2016 The patient is doing a bit better. Awaiting the results of his pathology specimens. He had a left hilar mass. There was endobronchial disease. I'm sure we have a diagnosis. He has been seen by medical and possibly radiation oncology. Breathing is improved. We'll continue to follow. Prognosis is guarded though. Time with Patient: Less than 30
[2016-09-11] MEDS: BENZOCAINE/MENTHOL LOZENG 1 EACH LOZENGE MUCOUS MEM PRN (19:41)
--- NOTE | 2016-09-11 22:20 | PN ---
DATE OF SERVICE: 09/11/2016 This 56-year-old gentleman who was admitted with a left hilar mass had a bronchoscopy and biopsy. Patient is still complaining of some intermittent chest pain on the right side. Otherwise, Dr. Gallego is following the patient closely. No fever. On exam, alert and oriented x3. Pulse 84, blood pressure 107/66, respirations 16, temperature 97.7, pulse ox 100% on 2L. HEENT: Conjunctivae normal. NECK: No jugular venous distension. CARDIOVASCULAR: S1 and S2 muffled. RESPIRATORY: Breath sounds diminished in the bases. A few scattered rhonchi and crackles. ABDOMEN: Soft, nontender. LEGS: No edema. No swelling. NERVOUS SYSTEM: No focal deficits. LABS: WBC 6.6, hemoglobin is 12.3. Biopsies are pending. pending. ASSESSMENT: 1. Left hilar mass, possibly bronchogenic malignancy, status post bronchoscopy and biopsy. 2. Chronic obstructive pulmonary disease acute exacerbation with hypercapnic hypoxic respiratory failure as well as acute respiratory failure. 3. Possible post obstructive pneumonia versus acute purulent tracheobronchitis. 4. Chest pain, musculoskeletal, secondary to cough. 5. Increased WBC. 6. Anemia, normocytic. 7. Hypoalbuminemia with mild to moderate protein-calorie malnutrition. 8. History of chronic obstructive pulmonary disease. 9. History of nicotine dependence; continued, ongoing. 10. FULL CODE. RECOMMENDATIONS AND DISCUSSION: I recommend to continue current medications. Continue with monitoring and symptomatic treatment. Otherwise, continue with bronchodilators. Continue with symptomatic treatment. Continue with empiric antibiotics. Otherwise, closely follow. Await biopsy. Further recommendations to follow. MTDD
[2016-09-12 08:15] LABS: Basophils # (A) 0.1 k/uL (0-0.2); Basophils % (A) 0 %; CH 28.4; CHCM 33.2; Eosinophils # (A) 0.1 k/uL (0-0.7); Eosinophils % (A) 1 %; HCT 36.9 % (39.0-53.0); HDW 2.68; HGB 12.2 gm/dL (13.0-17.5); Luc # (Auto) 0.22; Luc % (Auto) 2; Lymphocytes # (A) 2.9 k/uL (1.0-4.8); Lymphocytes % (A) 24 %; MCH 28.4 pg (25.0-35.0); MCV 86.1 fL (80.0-100.0); Mean Platelet Volume 6.3; Monocytes # (A) 0.9 k/uL (0-1.0); Monocytes % (A) 7 %; Neutrophils # (A) 8.1 k/uL (1.3-7.7); Neutrophils % (A) 66 %; RBC 4.29 m/uL (4.30-5.90); WBC 12.3 k/uL (3.8-10.6)
[2016-09-12 08:40] VITALS: BP 123/83; RESP 20; TEMP 97.6
[2016-09-12] MEDS: BENZONATATE 100 MG CAP PO SCH (08:50)
[2016-09-12] MEDS: NICOTINE 14MG/24HR PATCH TRANSDERM SCH (08:50)
[2016-09-12] MEDS: predniSONE 50 MG TAB PO SCH (08:50)
[2016-09-12] MEDS: PANTOPRAZOLE 40 MG TABLET PO SCH (08:50)
[2016-09-12] MEDS: MORPHINE SULFATE 4 MG/ML SYRINGE IVP PRN (08:58)
[2016-09-12] MEDS: IPRATROPIUM-ALBUTEROL 3 ML NEB INHALATION SCH ×3 (09:10→16:58)
[2016-09-12] MEDS: SODIUM CHLORIDE 0.9% 1,000 ML IV SCH (09:58)
--- NOTE | 2016-09-12 13:06 | P.PN ---
Subjective Progress note dated 09/08/2016 56-year-old male sent down from [place] emergency room with 2 months of left- sided chest pain mostly in the left parasternal area. The pain apparently radiates to his left [place] diaphragm area. I'll send and met intermittent episodes of cough wheezing shortness of breath. Not coughing up much or any phlegm. Does not have a primary care physician. Heavy smoker in the past up until recently. 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 He was found on evaluation in the emergency room to have a left hilar mass and apparently was sent down to [facility] for additional evaluation and workup. Computed tomography scan of the chest apparently showed a left hilar mass with mediastinal adenopathy and probably some areas of postobstructive pneumonitis involving the lingula. Denies any hemoptysis. Does have about a 14 pound weight loss over the last couple of months. The presumed diagnosis of lung cancer.. Progress note dated 09/09/2016 56-year-old male sent down from [place] emergency room with 2 months of left- sided chest pain mostly in the left parasternal area. The pain radiates his left diaphragm area. In addition he had cough wheezing shortness of breath. Not coughing up much in way of phlegm or any blood. He does not have a primary care physician in that area. 70 smoker in the past up until recently. 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 He was found to have a left hilar mass and apparently sent down [facility] for additional evaluation and workup. He is on the schedule for bronchoscopy tomorrow. He is evidence of a left hilar mass with mediastinal adenopathy and probably some areas of postobstructive pneumonitis involving the lingula. He denies any hemoptysis as mentioned above but he does have a history of a 14 pound weight loss and decreased appetite. The presumptive diagnosis is lung cancer Progress note dated 09/11/2016 This 56-year-old male underwent bronchoscopy. The biopsies are still pending. The patient has a history of a left hilar mass and also some lingular collapse. He likely has some postobstructive pneumonitis as well as mediastinal adenopathy which is malignant. He suffered a significant weight loss and is anorexic. Again I just checked the pathology of left date and everything else as far pending. The patient has been seen by medical oncology. We also recommend a radiation oncology consultation. He's had a chest x-ray done subsequent to the procedure he's also had a brain CT.. Progress note dated 09/12/2016 56-year-old male who underwent bronchoscopy. The biopsies were positive for squamous cell carcinoma the lung. He presented with a left hilar mass and some lingular collapse. He likely has some postobstructive pneumonitis as well as diffuse mediastinal adenopathy. Radiation therapy and medical oncology both have been consulted. He's had significant weight loss with anorexia. He is hoping to be able to go home. no particular complaints at this time. He is given my card. I do want to see him in the office sometime during my second week in clinic. At that time he'll need a 6 minute walk distance we'll assess his need for oxygen therapy will do pulmonary function testing. Again both radiation oncology and medical oncology is supposed to see him today. Objective - Vital Signs Vital signs: Vital Signs Temp 97.6 F 09/12/16 07:00 Pulse 90 09/12/16 07:00 Resp 20 09/12/16 07:00 BP 123/83 09/12/16 07:00 Pulse Ox 98 09/12/16 07:00 Intake & Output 09/11/16 09/12/16 09/12/16 18:59 06:59 18:59 Intake Total 200 900 Balance 200 900 Intake: IV 900 Sodium Chloride 0.9% 1, 900 000 ml @ 100 mls/hr IV . Q10H KEZIA Rx#:[id number] Oral 200 Other: Voiding Method Toilet Toilet # Voids 1 1 - Exam No acute distress, oriented 3. HEENT examination is grossly unremarkable. Mucous membranes are moist. Teeth are in poor repair. Neck supple. Full range of motion. No adenopathy thyromegaly. Neck veins are flat. Cardiovascular examination reveals regular rhythm rate. S1-S2 normal. No S3- S4 or murmur. Pulmonary examination reveals some mild wheezes. Breath sounds are diminished. Slight prolongation on forced maneuver. All in all, lung sounds have improved from his initial evaluation. Certainly still not back to baseline. Abdomen soft bowel sounds are heard. No masses or tenderness. Extremities are intact. No cyanosis clubbing or edema. - Labs CBC & Chem 7: 09/12/16 07:45 09/09/16 08:13 Labs: Abnormal Lab Results - Last 24 Hours (Table) 09/12/16 Range/Units 07:45 WBC 12.3 H (3.8-10.6) k/uL RBC 4.29 L (4.30-5.90) m/uL Hgb 12.2 L (13.0-17.5) gm/dL Hct 36.9 L (39.0-53.0) % Neutrophils # 8.1 H (1.3-7.7) k/uL Microbiology - Last 24 Hours (Table) 09/10/16 10:00 Gram Stain - Final Bronchial Washings - Left Bronchial Washings Culture - Final 09/07/16 06:36 Blood Culture - Preliminary Blood No Growth after 120 hours Assessment and Plan (1) COPD (chronic obstructive pulmonary disease) Status: Acute (2) Hilar mass Status: Acute Plan: Plan dated 09/08/2016 Patient was placed on bronchodilator steroids and antibiotics. The patient still quite bronchospastic. The patient will get another day or 2 of medication before we anticipate doing bronchoscopy. He was nothing by mouth after midnight. We'll allow him to eat. I'll schedule for Thursday or Thursday. Additional recommendations suggestions are forthcoming. Probably I will do his bronchoscopy on Thursday. Plan dated 09/09/2016 The patient placed on the Joey scheduled for tomorrow. We'll do his procedure with fluoroscopy. He may have endobronchial disease we may not need fluoroscopy. If not, we'll see if we can biopsy the area in the lingula. In the end, he may benefit from navigational bronchoscopy for Make a diagnosis. Anyway, we will go ahead and try this way first. The patient otherwise is doing better and breathing better. We spoke to him at the bedside today. Plan dated 09/11/2016 The patient is doing a bit better. Awaiting the results of his pathology specimens. He had a left hilar mass. There was endobronchial disease. I'm sure we have a diagnosis. He has been seen by medical and possibly radiation oncology. Breathing is improved. We'll continue to follow. Prognosis is guarded though. Plan dated 09/12/2016 The patient now has a diagnosis of squamous cell carcinoma the lung. He is currently in the process of being staged. The patient will need to see me in the office for a 6 minute walk distance so we can assess his oxygen requirements and needs as well as a pulmonary function test. I give the family a car today. He knows to call the office and make an appointment. He's given a wait around to medical oncology and radiation oncology see him today. Additional recommendations suggestions are forthcoming. Prognosis is guarded. Time with Patient: Less than 30
[2016-09-12] MEDS: LEVOFLOXACIN 500 MG TAB PO SCH (14:16)
--- NOTE | 2016-09-12 16:28 | DS ---
DATE OF ADMISSION: 09/06/2016 DATE OF DISCHARGE: DATE OF SERVICE: 09/12/2016 FINAL DIAGNOSES: 1. Left hilar mass, possibly bronchogenic malignancy, status post bronchoscopy and biopsy. 2. Chronic obstructive pulmonary disease, acute exacerbation, with acute hypercapnic hypoxic respiratory failure as well as acute respiratory failure. 3. Possible acute post-obstructive pneumonia versus pneumonia, possibly. 4. Chest pain, musculoskeletal, secondary to cough. 5. Increased white count. 6. Anemia, normocytic. 7. Hypoalbuminemia with mild to moderate protein-calorie malnutrition. 8. History of chronic obstructive pulmonary disease. 9. History of nicotine dependence, continued, ongoing. 10. FULL CODE. DISCHARGE DISPOSITION: The patient will be discharged in stable condition with guarded prognosis. HISTORY OF PRESENT ILLNESS: This 56-year-old gentleman with a past medical history of multiple medical problems was admitted with a left hilar mass. The patient underwent bronchoscopy and biopsy. Final reports are pending. The patient also has multiple complex medical issues, as mentioned earlier. Dr. Gallego recommended outpatient followup. On exam, vitals are stable. CARDIOVASCULAR SYSTEM: S1, S2, muffled. RESPIRATORY SYSTEM: Breath sounds diminished at the bases. A few rhonchi. NERVOUS SYSTEM: No focal deficit. DISCHARGE ADVICE AND MEDICATIONS: 1. Diet is cardiac. 2. Activity limited until followup. 3. Follow up with Dr. Babcock as advised in 2 to 3 days. 4. Follow up with Dr. Bernal in one week. 5. Follow up with Dr. Gupta in one week. 6. Follow up with Dr. Badillo as advised. 7. Albuterol 1 to 2 puffs q.6 p.r.n. 8. Symbicort 160/4.5 two puffs b.i.d. 9. Hydrocodone 10 mg q.4 p.r.n. 10. Atrovent 2 puffs q.i.d. p.r.n. 11. Albuterol Atrovent q.i.d. and p.r.n. 12. Levaquin 500 mg p.o. daily. 13. Habitrol 14 daily. 14. Protonix 40 mg mg daily. 15. Miralax 17 grams daily. 16. Prednisone taper: 40 mg daily for 3 days; 30 mg daily for 3 days; 20 mg daily for 3 days; 10 mg daily for 3 days; then discontinue. 17. Ultram 50 mg q.4 p.r.n.
[2016-09-12 17:58] VITALS: PULSE 90
--- NOTE | 2016-09-12 18:15 | P.PN ---
Subjective Principal diagnosis: new diagnosis of squamous cell non-small cell lung cancer. Patient is seen today in follow-up. He has multiple family members and his spouse at the bedside. Patient's cough is controlled, breathing is stable, he is tolerating oral intake without nausea or vomiting. Pain is controlled Objective - Vital Signs Vital signs: Vital Signs Temp 97.6 F 09/12/16 07:00 Pulse 90 09/12/16 16:00 Resp 20 09/12/16 16:00 BP 123/83 09/12/16 07:00 Pulse Ox 98 09/12/16 07:00 Intake & Output 09/11/16 09/12/16 09/12/16 18:59 06:59 18:59 Intake Total 200 900 Balance 200 900 Intake: IV 900 Sodium Chloride 0.9% 1, 900 000 ml @ 100 mls/hr IV . Q10H KEZIA Rx#:[id number] Oral 200 Other: Voiding Method Toilet Toilet Toilet # Voids 1 1 - Exam Well-developed, thin build male sitting up in the chair, he is in no acute distress, he is alert and oriented 4, no respiratory distress, occasional dry cough, patient is independently ambulatory. - Labs CBC & Chem 7: 09/12/16 07:45 09/09/16 08:13 Labs: Abnormal Lab Results - Last 24 Hours (Table) 09/12/16 Range/Units 07:45 WBC 12.3 H (3.8-10.6) k/uL RBC 4.29 L (4.30-5.90) m/uL Hgb 12.2 L (13.0-17.5) gm/dL Hct 36.9 L (39.0-53.0) % Neutrophils # 8.1 H (1.3-7.7) k/uL Microbiology - Last 24 Hours (Table) 09/10/16 10:00 Gram Stain - Final Bronchial Washings - Left Bronchial Washings Culture - Final 09/07/16 06:36 Blood Culture - Preliminary Blood No Growth after 120 hours Assessment and Plan (1) Hilar mass Status: Acute (2) Squamous cell carcinoma lung Narrative/Plan: it was discussed with the patient and family his diagnosis of what is highly suspect at least stage III non-small cell squamous cell lung cancer. CT of the head was negative. Does need a PET scan to complete staging. This was scheduled and patient will be having that tomorrow at 5 PM here at [facility]. Dr. Gupta discussed pathology, staging and treatment options that are available based on staging. Patient/family know that complete staging is required before entire treatment plan can be discussed and initiated. All questions were answered to their satisfaction. Pt will be contacted for follow-up appointment with Dr. Gupta early next week. Patient is okay for discharge from an oncology standpoint once he is cleared by attending and other consulting physicians. Status: Acute
== END 2016-09-12 18:40 | disposition home or self-care (01) | DRG 166 ==
LOC: 5ONC 22:49
PROVIDERS: ADMIT Internal Medicine; ATTEND Internal Medicine
PROC: 0B988ZX Drainage of Left Upper Lobe Bronchus, Via Natural or Artificial Opening Endoscopic, Diagnostic (ICD-10-PCS; principal; 2016-09-10 11:25)
PROC: 0BBL8ZX Excision of Left Lung, Via Natural or Artificial Opening Endoscopic, Diagnostic (ICD-10-PCS; principal; 2016-09-10 11:25)
PROC: 0B9B8ZX Drainage of Left Lower Lobe Bronchus, Via Natural or Artificial Opening Endoscopic, Diagnostic (ICD-10-PCS; principal; 2016-09-10 11:25)
DX: C34.02 Malignant neoplasm of left main bronchus (principal); J18.9 Pneumonia, unspecified organism; J96.01 Acute respiratory failure with hypoxia; J96.02 Acute respiratory failure with hypercapnia; E44.0 Moderate protein-calorie malnutrition; J44.0 Chronic obstructive pulmonary disease with (acute) lower respiratory infection; J44.1 Chronic obstructive pulmonary disease with (acute) exacerbation; D64.9 Anemia, unspecified; F17.210 Nicotine dependence, cigarettes, uncomplicated
CPT/HCPCS: 31623; 31624; 31625; 70460; 71010; 80048; 80053; 85025; 85027; 87040; 87070; 87102; 87116; 87205; 87206; 87252; 87496; 87498; 87502; 87529; 87798; 88104; 88108; 88305; 88341; 88342; 89050; 94640

== ENCOUNTER → 2016-09-13 | Outpatient (CLI) | payer OTHER ==
--- NOTE | 2016-09-14 12:50 | PE ---
EXAMINATION TYPE: PET CT fusion skull to thigh DATE OF EXAM: 09/13/2016 7:00 PM COMPARISON: CT thorax 09/06/2016 Prior PET/CT: None HISTORY: Lung cancer TECHNIQUE: Following the intravenous administration of 15.07 mCi of F-18 FDG, whole body images are performed from the skull base to the midthigh. Images are reviewed on the computer in the coronal, a xial, and sagittal planes. Reconstructed rotating images are created on independent workstation and reviewed on the computer. A localization and attenuation correction CT is performed in conjunction with the PET scan. DLP: 370.36 mGycm SCAN: Initial Blood glucose: 103 mg/dL Average Mediastinum SUV: 1.33 Average Liver SUV: 1.81 FINDINGS: NECK: No abnormal uptake THORAX: There is marked increased uptake within the mediastinal mass and left infrahilar mass measuri ng 10 SUV. At the superior mediastinum there is a small lymph node with an SUV value 2.75 which could be an early metastatic lesion. Within the superior mediastinum adjacent to the aortic arch and great vessels is a small lymph node with an SUV value 2.75 which can be an early metastatic lesion. More i nferior a pretracheal lymph node and periaortic lymph node are present with SUV values of 5.2 and 4.3 compatible with metastatic lesions aortopulmonic window the measures 8 point for SUV. Additional pre tracheal lymphadenopathy at the level of the jarke measures 5.5 SUV subcarinal lymph node measures 9 .1 SUV. ABDOMEN: The enlarged left adrenal gland has an SUV value of 11.6 compatible with metastatic lesion PELVIS: No abnormal uptake OSSEOUS STRUCTURES: No abnormal uptake LOCALIZATION CT: The ascending thoracic aorta at the level of the main pulmonary artery measures 3.9 cm the main pulmonary artery bifurcation is 2.5 cm. Consolidations in the left lower lung field may b e some postobstructive atelectasis or pneumonia. The large left adrenal gland measures 7.0 x 4.5 cm. The right adrenal gland is normal. Minimal prominence of the bilateral proximal ureters is noted. Wal l thickening of the urinary bladder is not excluded. COMPARISON: None IMPRESSION: 1. Lung cancer with multiple metastatic lymph nodes within the mediastinum. 2. An additional metastatic lesion of a markedly enlarged left adrenal gland is evident.
== END | disposition home or self-care (01) ==
LOC: RADPETMAIN 14:53
PROVIDERS: ATTEND Internal Medicine Hematology & Oncology
DX: C34.90 Malignant neoplasm of unspecified part of unspecified bronchus or lung (principal); E27.8 Other specified disorders of adrenal gland
CPT/HCPCS: 78815; A9552

== ENCOUNTER → 2016-09-15 | Outpatient (CLI) | payer SELFPAY ==
[2016-09-15 12:03] LABS: Basophils % (A) 0 %; CH 28.5; CHCM 32.6; Eosinophils % (A) 0 %; HDW 2.64; HGB 14.7 gm/dL (13.0-17.5); Luc # (Auto) 0.08; Luc % (Auto) 0; Lymphocytes # (A) 1.3 k/uL (1.0-4.8); Lymphocytes % (A) 7 %; MCH 28.8 pg (25.0-35.0); MCHC 32.7 g/dL (31.0-37.0); MCV 88.1 fL (80.0-100.0); Mean Platelet Volume 6.2; Monocytes # (A) 0.6 k/uL (0-1.0); Monocytes % (A) 3 %; Neutrophils # (A) 17.1 k/uL (1.3-7.7); Neutrophils % (A) 89 %; RDW 14.4 % (11.5-15.5); WBC 19.2 k/uL (3.8-10.6); WBC (Perox) 18.06
[2016-09-15 12:09] LABS: Anion Gap 14 mmol/L; Blood Urea Nitrogen 23 mg/dL (9-20); Calcium 9.8 mg/dL (8.4-10.2); Carbon Dioxide 24 mmol/L (22-30); Chloride 102 mmol/L (98-107); Glucose 178 mg/dL (74-99); Non-African American GFR(MDRD) >60 (>60 ml/min/1.73 sqM); Potassium 4.7 mmol/L (3.5-5.1); Sodium 140 mmol/L (137-145)
== END | disposition home or self-care (01) ==
LOC: LABWHC1 11:37
PROVIDERS: ATTEND Nurse Practitioner
DX: J44.9 Chronic obstructive pulmonary disease, unspecified (principal); J18.9 Pneumonia, unspecified organism; R91.8 Other nonspecific abnormal finding of lung field
CPT/HCPCS: 36415; 80048; 85025

== ENCOUNTER → 2016-11-18 | Outpatient (CLI) | payer SELFPAY ==
[2016-11-18 10:52] LABS: Blood Urea Nitrogen 17 mg/dL (9-20); Non-African American GFR(MDRD) >60 (>60 ml/min/1.73 sqM)
--- NOTE | 2016-11-18 12:09 | CT ---
EXAMINATION TYPE: CT ChestAbdPelvis w con DATE OF EXAM: 11/18/2016 COMPARISON: Previous PET/CT dated 09/13/2016. HISTORY: Lung Cancer CT DLP: 707.90 mGycm Automated exposure control for dose reduction was used. TECHNIQUE: Helical acquisition through the abdomen and pelvis was obtained without oral contrast but following the intravenous administration of 100 ml mL of Omnipaque 300. The data was formatted in th e axial, coronal and sagittal projections. FINDINGS: There is been marked improvement in the appearance of the chest with resolution of the lorri ent's left infrahilar mass. Postobstructive pneumonitis has resolved. There has developed a 7.2 mm no ncalcified nodule in the left lingula, best seen on image 33. No other pulmonary nodules are seen. There has been some progression of the patient's mediastinal adenopathy. One aortopulmonary windows l ymph node which previously measured 8.3 mm now measures 9.7 mm. A large right paratracheal lymph node which previously measured 2.6 cm now measures 3 cm. Subcarinal lymph node mass which previously jamaica ured 2.1 cm now measures 2.4 cm. There is still some fullness in the left hilum. There is no pleural or pericardial fluid. The heart is not enlarged. The aorta is normal in caliber. Within the abdomen, the liver is normal in size but fatty infiltrated. The gallbladder is partially c ontracted. The spleen is normal. The right adrenal gland is normal. There is a 5.8 x 4.4 cm left adrenal mass Both kidneys demonstrate function and are morphologically normal. The pancreas is unremarkable. There is no significant retroperitoneal, iliac or inguinal adenopathy. There is minor thickening of the bladder wall. There is no significant diverticular disease and there is no radiographic evidence of diverticulitis. The appendix is not visualized. Small bowel loops are normal. No free fluid and no free air is seen. There is facet arthropathy in the lower lumbar spine. This hypertrophic spondylosis in the dorsal spi ne. No bony destructive lesion is seen.. IMPRESSION: 1. IMPROVEMENT IN THE PATIENT'S LEFT INFRAHILAR MASS. 3. WORSENING MEDIASTINAL ADENOPATHY. 4. STABLE LEFT ADRENAL MASS. 5. MILD THICKENING OF THE BLADDER WALL. 6. MILD DEGENERATIVE CHANGE WITHIN THE SPINE.
== END | disposition home or self-care (01) ==
LOC: RADPROMAIN 09:57
PROVIDERS: ATTEND Internal Medicine Hematology & Oncology
DX: C34.12 Malignant neoplasm of upper lobe, left bronchus or lung (principal); E27.9 Disorder of adrenal gland, unspecified; N32.89 Other specified disorders of bladder; R59.0 Localized enlarged lymph nodes
CPT/HCPCS: 82565; 84520; 71260; 74177; 36415; Q9967

== ENCOUNTER 2017-01-14 10:57 | Inpatient (IN) | payer OTHER ==
[2017-01-14] MEDS ORDERED: SODIUM CHLORIDE 0.9% 1,000 ML IV STA ×2 (11:34→13:40)
[2017-01-14] MEDS ORDERED: HYDROmorphone 1 MG/ML 1 ML SYRINGE IVP STA ×2 (11:34→13:23)
[2017-01-14] MEDS ORDERED: ONDANSETRON 4 MG/2 ML VIAL IVP STA (11:35)
[2017-01-14 12:12] LABS: Basophils # (A) 0.1 k/uL (0-0.2); Basophils % (A) 0 %; CH 29.3; CHCM 32.3; Eosinophils # (A) 0.1 k/uL (0-0.7); Eosinophils % (A) 1 %; HCT 31.4 % (39.0-53.0); HGB 10.2 gm/dL (13.0-17.5); Hypochromasia Slight; Luc # (Auto) 0.27; Luc % (Auto) 2; Lymphocytes % (A) 9 %; MCH 29.6 pg (25.0-35.0); MCHC 32.5 g/dL (31.0-37.0); Mean Platelet Volume 6.9; Monocytes % (A) 9 %; Neutrophils # (A) 9.1 k/uL (1.3-7.7); Neutrophils % (A) 79 %; Poikilocytosis Slight; RBC 3.46 m/uL (4.30-5.90); RDW 15.9 % (11.5-15.5); WBC 11.6 k/uL (3.8-10.6); WBC (Perox) 11.33
--- NOTE | 2017-01-14 12:21 | ED ---
General Adult HPI - General Chief complaint: Weakness Stated complaint: OBSTRUCTIVE PNEUMONIA Time Seen by Provider: 01/14/17 11:05 Source: patient, RN notes reviewed Mode of arrival: wheelchair Limitations: no limitations - History of Present Illness Initial comments: This is a 56-year-old male who presents to the emergency room after having seen his radiologist oncologist today patient comes in because he has had chronic nausea for a month and cannot keep anything down and at this point he is becoming very dehydrated lightheaded and weak. The radiology oncologist wants the patient admitted the hospital because of the symptoms. Patient states he has pain all over his body secondary to his cancer. Patient states he was diagnosed with lung cancer any failed chemotherapy and he was over to get evaluated for possible radiation. Patient denies any fever chills per patient denies any difficulty breathing but he is coughing a bunch lately and coughing up some green sputum. - Related Data Home Medications Medication Instructions Recorded Confirmed Temazepam [Restoril] 30 mg PO HS 10/17/16 01/14/17 Morphine Sulfate 0.25 - 0.5 ml PO Q4H PRN 10/24/16 01/14/17 fentaNYL 25MCG/HR PATCH [Duragesic 75 mcg TRANSDERM Q72H 10/24/16 01/14/17 25MCG/HR] Ciprofloxacin HCl [Cipro] 500 mg PO BID 01/14/17 01/14/17 Metoclopramide HCl [Reglan] 10 mg PO Q6HR PRN 01/14/17 01/14/17 Previous Rx's Medication Instructions Recorded Albuterol Inhaler [Ventolin Hfa 1 - 2 puff INHALATION Q6HR PRN #1 09/07/16 Inhaler] inhaler Budesonide-Formot 160-4.5 Mcg 2 puff INHALATION BID #1 inhaler 09/07/16 [Symbicort 160-4.5 Mcg Inhaler] Ipratropium-Albuterol Nebulize 3 ml INHALATION RT-QID #120 09/12/16 [Duoneb 0.5 mg-3 mg/3 ml Soln] ampul.neb Allergies Allergy/AdvReac Type Severity Reaction Status Date / Time No Known Allergies Allergy Verified 01/14/17 12:27 Review of Systems ROS Statement: Those systems with pertinent positive or pertinent negative responses have been documented in the HPI. ROS Other: All systems not noted in ROS Statement are negative. Past Medical History Past Medical History: Cancer, COPD Additional Past Medical History / Comment(s): lung cancer History of Any Multi-Drug Resistant Organisms: None Reported Past Surgical History: No Surgical Hx Reported Past Anesthesia/Blood Transfusion Reactions: No Reported Reaction Past Psychological History: No Psychological Hx Reported Smoking Status: Former smoker Past Alcohol Use History: None Reported Past Drug Use History: None Reported - Past Family History Mother Family Medical History: No Reported History Father Family Medical History: No Reported History General Exam - General Exam Comments Initial Comments: GENERAL: Patient is well-developed and well-nourished. Patient is nontoxic and well- hydrated and is in mild distress. ENT: Neck is soft and supple. No significant lymphadenopathy is noted. Oropharynx is clear. Moist mucous membranes. Neck has full range of motion without eliciting any pain. EYES: The sclera were anicteric and conjunctiva were pink and moist. Extraocular movements were intact and pupils were equal round and reactive to light. Eyelids were unremarkable. PULMONARY: Unlabored respirations. Good breath sounds bilaterally. No audible rales rhonchi or wheezing was noted. CARDIOVASCULAR: There is a regular rate and rhythm without any murmurs gallops or rubs. ABDOMEN: Soft and nontender with normal bowel sounds. No palpable organomegaly was noted. There is no palpable pulsatile mass. SKIN: Skin is clear with no lesions or rashes and otherwise unremarkable. NEUROLOGIC: Patient is alert and oriented x3. Cranial nerves II through XII are grossly intact. Motor and sensory are also intact. Normal speech, volume and content. Symmetrical smile. MUSCULOSKELETAL: Normal extremities with adequate strength and full range of motion. LYMPHATICS: No significant lymphadenopathy is noted PSYCHIATRIC: Normal psychiatric evaluation. Normal interpersonal interactions appears functionally intact in deals appropriately with others. No signs of depression. No signs of anxiety. Limitations: no limitations Course Vital Signs 01/14/17 01/14/17 01/14/17 11:04 11:07 12:07 Temperature 98.4 F Pulse Rate 100 88 85 Respiratory 18 16 16 Rate Blood Pressure 110/68 126/74 106/73 O2 Sat by Pulse 96 99 98 Oximetry 01/14/17 01/14/17 01/14/17 13:32 13:54 14:30 Temperature 98.2 F Pulse Rate 79 77 78 Respiratory 18 18 18 Rate Blood Pressure 84/56 95/69 114/74 O2 Sat by Pulse 98 98 99 Oximetry 01/14/17 15:26 Temperature Pulse Rate 77 Respiratory 18 Rate Blood Pressure 105/56 O2 Sat by Pulse 98 Oximetry Medical Decision Making - Medical Decision Making EKG shows normal sinus rhythm at 85 bpm PA interval is 152 QRS is 84 QT interval 392 QTC is 466. Patient's EKG shows no ST segment elevation or depression or T wave normalities are noted - Lab Data Result diagrams: 01/14/17 11:40 01/14/17 11:40 Lab Results 01/14/17 01/14/17 01/14/17 Range/Units 11:40 11:40 11:40 WBC 11.6 H (3.8-10.6) k/uL RBC 3.46 L (4.30-5.90) m/uL Hgb 10.2 L (13.0-17.5) gm/dL Hct 31.4 L (39.0-53.0) % MCV 91.0 (80.0-100.0) fL MCH 29.6 (25.0-35.0) pg MCHC 32.5 (31.0-37.0) g/dL RDW 15.9 H (11.5-15.5) % Plt Count 308 (150-450) k/uL Neutrophils % 79 % Lymphocytes % 9 % Monocytes % 9 % Eosinophils % 1 % Basophils % 0 % Neutrophils # 9.1 H (1.3-7.7) k/uL Lymphocytes # 1.0 (1.0-4.8) k/uL Monocytes # 1.0 (0-1.0) k/uL Eosinophils # 0.1 (0-0.7) k/uL Basophils # 0.1 (0-0.2) k/uL Hypochromasia Slight Poikilocytosis Slight PT (9.0-12.0) sec INR (<1.2) APTT (22.0-30.0) sec Sodium 136 L (137-145) mmol/L Potassium 4.0 (3.5-5.1) mmol/L Chloride 99 (98-107) mmol/L Carbon Dioxide 26 (22-30) mmol/L Anion Gap 11 mmol/L BUN 13 (9-20) mg/dL Creatinine 0.80 (0.66-1.25) mg/dL Est GFR (MDRD) Af Amer >60 (>60 ml/min/1.73 sqM) Est GFR (MDRD) Non-Af >60 (>60 ml/min/1.73 sqM) Glucose 112 H (74-99) mg/dL Calcium 9.7 (8.4-10.2) mg/dL Magnesium 1.9 (1.6-2.3) mg/dL Total Bilirubin 0.6 (0.2-1.3) mg/dL AST 18 (17-59) U/L ALT 29 (21-72) U/L Alkaline Phosphatase 85 (38-126) U/L Total Creatine Kinase 35 L (55-170) U/L CK-MB (CK-2) 0.5 (0.0-2.4) ng/mL CK-MB (CK-2) Rel Index 1.4 Troponin I <0.012 (0.000-0.034) ng/mL Total Protein 6.5 (6.3-8.2) g/dL Albumin 3.3 L (3.5-5.0) g/dL 01/14/17 Range/Units 11:40 WBC (3.8-10.6) k/uL RBC (4.30-5.90) m/uL Hgb (13.0-17.5) gm/dL Hct (39.0-53.0) % MCV (80.0-100.0) fL MCH (25.0-35.0) pg MCHC (31.0-37.0) g/dL RDW (11.5-15.5) % Plt Count (150-450) k/uL Neutrophils % % Lymphocytes % % Monocytes % % Eosinophils % % Basophils % % Neutrophils # (1.3-7.7) k/uL Lymphocytes # (1.0-4.8) k/uL Monocytes # (0-1.0) k/uL Eosinophils # (0-0.7) k/uL Basophils # (0-0.2) k/uL Hypochromasia Poikilocytosis PT 12.1 H (9.0-12.0) sec INR 1.2 H (<1.2) APTT 27.2 (22.0-30.0) sec Sodium (137-145) mmol/L Potassium (3.5-5.1) mmol/L Chloride (98-107) mmol/L Carbon Dioxide (22-30) mmol/L Anion Gap mmol/L BUN (9-20) mg/dL Creatinine (0.66-1.25) mg/dL Est GFR (MDRD) Af Amer (>60 ml/min/1.73 sqM) Est GFR (MDRD) Non-Af (>60 ml/min/1.73 sqM) Glucose (74-99) mg/dL Calcium (8.4-10.2) mg/dL Magnesium (1.6-2.3) mg/dL Total Bilirubin (0.2-1.3) mg/dL AST (17-59) U/L ALT (21-72) U/L Alkaline Phosphatase (38-126) U/L Total Creatine Kinase (55-170) U/L CK-MB (CK-2) (0.0-2.4) ng/mL CK-MB (CK-2) Rel Index Troponin I (0.000-0.034) ng/mL Total Protein (6.3-8.2) g/dL Albumin (3.5-5.0) g/dL Disposition Clinical Impression: Lung cancer metastatic to bone, Intractable pain Disposition: ADMITTED IP TO THIS HOSP Referrals: Jose Antonio Babcock DO [Primary Care Provider] - 1-2 days Time of Disposition: 16:09
[2017-01-14 12:23] LABS: INR 1.2 (<1.2); Partial Thromboplastin Time 27.2 sec (22.0-30.0); Prothrombin Time 12.1 sec (9.0-12.0)
--- NOTE | 2017-01-14 12:34 | XR ---
EXAMINATION TYPE: XR chest 2V DATE OF EXAM: 01/14/2017 COMPARISON: 11/03/2016 TECHNIQUE: PA and lateral views submitted. HISTORY: Weakness FINDINGS: The lungs are clear and there is no pneumothorax, pleural effusion, or focal pneumonia. Mediport maru theter noted. Left perihilar subsegmental changes are seen. Arthropathy of the shoulders. IMPRESSION: 1. Left perihilar atelectasis or early infiltrate. Correlate clinically..
--- NOTE | 2017-01-14 13:02 | CT ---
EXAMINATION TYPE: CT brain wo con DATE OF EXAM: 01/14/2017 COMPARISON: Prior CT brain 09/11/2016 HISTORY: Obstructive pneumonia and history of lung cancer CT DLP: 999.80 mGycm Automated exposure control for dose reduction was used. Helical acquisition through the brain FINDINGS: There are soft tissue masses with bone erosion through the inner and outer table of the right parieta l calvarium, left parietal calvarium, frontal calvarium. There is no mass effect. No evident hemorrha ge or hydrocephalus. Brain density is thought to be maintained. IMPRESSION: NONCONTRAST EXAM MAY LIMIT SENSITIVITY. MULTIPLE METASTATIC FOCI TO THE CALVARIUM.
[2017-01-14 13:15] LABS: Creatine Kinase 35 U/L (55-170)
[2017-01-14 13:20] LABS: ALT 29 U/L (21-72); AST 18 U/L (17-59); Alkaline Phosphatase 85 U/L (38-126); Anion Gap 11 mmol/L; Blood Urea Nitrogen 13 mg/dL (9-20); Calcium 9.7 mg/dL (8.4-10.2); Carbon Dioxide 26 mmol/L (22-30); Chloride 99 mmol/L (98-107); Glucose 112 mg/dL (74-99); Magnesium 1.9 mg/dL (1.6-2.3); Non-African American GFR(MDRD) >60 (>60 ml/min/1.73 sqM); Sodium 136 mmol/L (137-145); Total Bilirubin 0.6 mg/dL (0.2-1.3); Total Protein 6.5 g/dL (6.3-8.2)
[2017-01-14 13:26] LABS: Creatine Kinase MB 0.5 ng/mL (0.0-2.4); Troponin I <0.012 ng/mL (0.000-0.034)
[2017-01-14] MEDS ORDERED: SODIUM CHLORIDE 0.9% 1,000 ML IV ONE (14:12)
[2017-01-14] MEDS ORDERED: HYDROmorphone 1 MG/ML 1 ML SYRINGE IVP PRN (14:15)
[2017-01-14 16:55] VITALS: BMI 21.7
[2017-01-14] MEDS ORDERED: MORPHINE ORAL SOLN 20 MG/1 ML ORAL SYRINGE PO PRN (17:12)
[2017-01-14] MEDS ORDERED: ALBUTEROL NEBULIZED 2.5 MG/3 ML INHALATION PRN (17:16)
[2017-01-14] MEDS ORDERED: METOCLOPRAMIDE 10 MG TAB PO PRN (17:16)
[2017-01-14] MEDS ORDERED: ONDANSETRON 4 MG/2 ML VIAL IVP PRN (17:25)
[2017-01-14] MEDS: DEXAMETHASONE 4 MG TAB PO SCH ×2 (17:52→22:03)
[2017-01-14] MEDS ORDERED: ZOLEDRONIC ACID 4 MG in SODIUM CHLORIDE 0.9% 100 ML IV ONE (18:00)
[2017-01-14] MEDS ORDERED: IPRATROPIUM-ALBUTEROL 3 ML NEB INHALATION PRN (18:37)
--- NOTE | 2017-01-14 18:48 | P.HPIM ---
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 Badillo for weakness. He has lost 21 pounds last 2 weeks. He has been nauseous and vomiting. He has been unable to keep any food down. He is able to drink some liquids. He also complains of pain all over. He states that the pain is diffuse and he is unable to further quantify it. He states the pain medications help but nothing else does. He also complains of worsening shortness of breath and wheezing over the past several weeks. He complains of being lightheaded and having a chronic cough. In the emergency department today he underwent extensive evaluation. He was found to have intractable pain, dehydration, and intractable nausea. Request was made for admission. He was initially admitted Dr. Gupta's service they have asked us to take over the admission and they will consult. Review of Systems General: no fever/chills, no rigors, lost 21 pounds in 2 weeks, + decreased appetite, + generalized weakness Eyes: No double vision, no unusual blurry vision, no loss of vision ENT: No rhinorrhea, congestion, no trush Cardiovascular: No chest pain, no palpitations, no syncope, no edema, Noo paroxysmal nocturnal dyspnea, No dizziness Pulmonary: + Shortness of breath, + positive wheezing, + nonproductive cough, no cough, hemoptysis Abdominal: No abdominal pain, no constipation, no diarrhea, no vomiting, no nausea, no distention Genitourinary: No dysuria, no urinary frequency, no hematuria, no unusual discharge/odor Neuro: No unusual paresthesias, no unusual paresis/paralysis, no headache Dermatologic: No unusual rashes, no unusual lesions, no unusual changes in nails Endocrinology: No intolerance to heat/cold, no excessive thirst,] no unusual fatigue Hematologic: No unusual bruising or bleeding, no unusual cervical lymphadenopathy Psychiatric: No changes in mood or behaviors, no changes in sleep pattern Past Medical History Past Medical History: Cancer, COPD Additional Past Medical History / Comment(s): 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 - Past Family History Mother Family Medical History: No Reported History Additional Family Medical History / Comment(s): Negative for lung cancer Father Family Medical History: Myocardial Infarction ([place]) Medications and Allergies Home Medications Medication Instructions Recorded Confirmed Type Temazepam [Restoril] 30 mg PO HS 10/17/16 01/14/17 History Morphine Sulfate 0.25 - 0.5 ml PO Q4H PRN 10/24/16 01/14/17 History fentaNYL 25MCG/HR PATCH [Duragesic 75 mcg TRANSDERM Q72H 10/24/16 01/14/17 History 25MCG/HR] Ciprofloxacin HCl [Cipro] 500 mg PO BID 01/14/17 01/14/17 History Metoclopramide HCl [Reglan] 10 mg PO Q6HR PRN 01/14/17 01/14/17 History Allergies Allergy/AdvReac Type Severity Reaction Status Date / Time No Known Allergies Allergy Verified 01/14/17 12:27 Physical Exam Osteopathic Statement: *. No significant issues noted on an osteopathic structural exam other than those noted in the History and Physical/Consult. Vitals: Vital Signs Temp Pulse Pulse Resp BP BP Pulse Ox 01/14/17 16:51 97.6 F 79 16 112/86 97 01/14/17 16:19 98.1 F 85 18 106/75 96 01/14/17 15:26 77 18 105/56 98 01/14/17 14:30 78 18 114/74 99 01/14/17 13:54 77 18 95/69 98 01/14/17 13:32 98.2 F 79 18 84/56 98 01/14/17 12:07 85 16 106/73 98 01/14/17 11:07 88 16 126/74 99 01/14/17 11:04 98.4 F 100 18 110/68 96 Intake and Output 01/14/17 01/14/17 01/14/17 06:59 14:59 22:59 Other: Weight 64.864 kg 64.864 kg Patient Weight 01/15/17 06:59 Weight 64.864 kg General: non toxic, no distress, appears older than stated age, cachectic, chronically ill-appearing Derm: no rashes, no lesions, no ulcers, no unusual ecchymoses Head: atraumatic, normocephalic, symmetric Eyes: EOMI, no lid lag, anicteric sclera, pupils equal round reactive to light ENT: no post nasal drip, no thrush , nearest patent, no pharyngeal erythema Neck: No thyromegaly, no cervical lymphadenopathy, trachea midline, supple Mouth: no lip lesion, dry mucous membranes Cardiovascular: S1S2 reg, no murmur, positive posterior tibial pulse bilateral, no edema , no JVD, no clubbing, no cyanosis, capillary refill less than 2 seconds, skin tenting Lungs: Diffuse wheezing bilaterally with rales, no accessory muscle use Abdominal: soft, nontender to palpation, no guarding, no appreciable organomegaly, normal bowel sounds Ext: no gross muscle atrophy, muscle strength 5 out of 5 in all 4 extremities grossly, no contractures, Neuro: CN II-XI grossly intact, light touch intact all 4 extremities, finger to nose within normal limits, Psych: Alert, oriented, appropriate affect Results CBC & Chem 7: 01/14/17 11:40 01/14/17 11:40 Labs: Abnormal Lab Results - Last 24 Hours (Table) 01/14/17 01/14/17 01/14/17 Range/Units 11:40 11:40 11:40 WBC 11.6 H (3.8-10.6) k/uL RBC 3.46 L (4.30-5.90) m/uL Hgb 10.2 L (13.0-17.5) gm/dL Hct 31.4 L (39.0-53.0) % RDW 15.9 H (11.5-15.5) % Neutrophils # 9.1 H (1.3-7.7) k/uL PT (9.0-12.0) sec INR (<1.2) Sodium 136 L (137-145) mmol/L Glucose 112 H (74-99) mg/dL Total Creatine Kinase 35 L (55-170) U/L Albumin 3.3 L (3.5-5.0) g/dL 01/14/17 Range/Units 11:40 WBC (3.8-10.6) k/uL RBC (4.30-5.90) m/uL Hgb (13.0-17.5) gm/dL Hct (39.0-53.0) % RDW (11.5-15.5) % Neutrophils # (1.3-7.7) k/uL PT 12.1 H (9.0-12.0) sec INR 1.2 H (<1.2) Sodium (137-145) mmol/L Glucose (74-99) mg/dL Total Creatine Kinase (55-170) U/L Albumin (3.5-5.0) g/dL CT Scan - head: report reviewed Thrombosis Risk Factor Assmnt - DVT/VTE Prophylaxis DVT/VTE Prophylaxis: Pharmacologic Prophylaxis ordered - Choose All That Apply Any of the Below Risk Factors Present?: Yes Each Factor Represents 1 point: Abnormal pulmonary function (COPD), Age 41-60 years Other Risk Factors: Yes Each Risk Factor Represents 2 Points: Malignancy Other congenital or acquired thrombophilia - If yes, enter type in comment: No Thrombosis Risk Factor Assessment Total Risk Factor Score: 4 Thrombosis Risk Factor Assessment Level: Moderate Risk Assessment and Plan (1) Dehydration Narrative/Plan: Secondary to poor oral intake, IV fluids, follow electrolytes Status: Acute (2) COPD with acute exacerbation Narrative/Plan: On steroids with Decadron, initiate Pulmicort via nebulizer, DuoNeb, and as needed albuterol. Placed on Augmentin with possible early infiltrate- he may have a component of postobstructive pneumonia but I feel clinically this is most likely just related to his lung cancer. Status: Acute (3) Lung cancer metastatic to bone Narrative/Plan: Treatment as per oncology recommendation, currently being set up for radiation Status: Acute (4) Intractable pain Narrative/Plan: Continue with oral pain control management as discussed with nurse practitioner. Please do not hesitate to call us if patient has breakthrough pain.. Status: Acute (5) Protein-calorie malnutrition, moderate Narrative/Plan: Discussed with patient small frequent meal, IV fluids, dietitian consult, anti- emetics. Status: Acute (6) Generalized weakness Narrative/Plan: Likely secondary to dehydration, IV fluids, PT/OT consultation, check TSH, check B12 Status: Acute Plan: Surrogate decision-maker: Krupa CODE STATUS: Full DVT prophylaxis: Lovenox Discussed with: Patient, , nurse, and Carol Ann Rosas nurse practitioner Anticipated discharge: 48-[address]: Home A total of 45 minutes was spent on the care of this complex patient more than 50 % of the time was spent in counseling and care coordination.
[2017-01-14] MEDS ORDERED: IPRATROPIUM-ALBUTEROL 3 ML NEB INHALATION SCH (20:00)
[2017-01-14] MEDS ORDERED: SYMBICORT 160-4.5 MCG INHALER INHALATION SCH (20:00)
--- NOTE | 2017-01-14 20:07 | P.CONS ---
History of Present Illness - Reason for Consult Consult date: 01/14/17 metastatic lung adenocarcinoma Requesting physician: Edwin King - Chief Complaint intractable pain - History of Present Illness Mr. Dexter is a very pleasant male pt of Dr. Gupta who was initially seen in consult 09/10/16, he had c/o 3-4 months progressive SOB and left chest pain. He was treated for pneumonia, without success, his voice became raspy, appetite diminished, he lost 14 pounds in 2 months, persistent, nagging dry cough. CT chest from [place] showed a left hilar mass, mediastinal adenopathy and postobstructive pneumonitis involving the lingula, CT brain was negative, bronchoscopy on 09/10/16, path positive for squamous cell cancer, staging PET intense uptake in the left hilar, infrahilar masses, upper mediastinum, AP window, pre-tracheal, carinal and subcarinal nodes, left adrenal gland was also positive, this was confirmed by biopsy to consistent with squamous cell cancer and not an another primary. He had 3 complete cycles of carbo/Gemzar and day 1 of cycle 4, he had dose adjustments with ongoing poor subjective tolerance, hematologically he tolerated fairly well other then severe anemia. On 12/25 chemo was stopped and pt was referred to Rad Onc for evaluation of treatment of residual disease. He missed initial appt due to pain, was being seen by Dr. Badillo today who sent pt in for pain management. CT of head showed bone mets. When seen pt was walking back from bathroom, he c/o pain "every where", 7/10, aching, stabbing, his current pain med regimen was not adequate. He denies fevers, difficulty swallowing, has nausea, poor appetite, fills up fast, mild indigestion, he is SOB on exertion but comfortable, not requiring O2, denies dysuria, diarrhea, swelling or rash. Review of Systems All systems: negative Constitutional: Reports as per HPI Past Medical History Past Medical History: Cancer, COPD Additional Past Medical History / Comment(s): lung cancer met to adrenal gland History of Any Multi-Drug Resistant Organisms: None Reported Past Surgical History: No Surgical Hx Reported Additional Past Surgical History / Comment(s): lung biopsy Past Anesthesia/Blood Transfusion Reactions: No Reported Reaction Past Psychological History: No Psychological Hx Reported Smoking Status: Former smoker Past Alcohol Use History: None Reported Past Drug Use History: None Reported Additional Drug Use History / Comment(s): Pt has not smoked for 1 month. - Past Family History Mother Family Medical History: No Reported History Father Family Medical History: No Reported History Medications and Allergies Home Medications Medication Instructions Recorded Confirmed Type Temazepam [Restoril] 30 mg PO HS 10/17/16 01/14/17 History Morphine Sulfate 0.25 - 0.5 ml PO Q4H PRN 10/24/16 01/14/17 History fentaNYL 25MCG/HR PATCH [Duragesic 75 mcg TRANSDERM Q72H 10/24/16 01/14/17 History 25MCG/HR] Ciprofloxacin HCl [Cipro] 500 mg PO BID 01/14/17 01/14/17 History Metoclopramide HCl [Reglan] 10 mg PO Q6HR PRN 01/14/17 01/14/17 History Allergies Allergy/AdvReac Type Severity Reaction Status Date / Time No Known Allergies Allergy Verified 01/14/17 12:27 Physical Exam Vitals: Vital Signs Temp Pulse Pulse Resp BP BP Pulse Ox 01/14/17 16:51 97.6 F 79 16 112/86 97 01/14/17 16:19 98.1 F 85 18 106/75 96 01/14/17 15:26 77 18 105/56 98 01/14/17 14:30 78 18 114/74 99 01/14/17 13:54 77 18 95/69 98 01/14/17 13:32 98.2 F 79 18 84/56 98 01/14/17 12:07 85 16 106/73 98 01/14/17 11:07 88 16 126/74 99 01/14/17 11:04 98.4 F 100 18 110/68 96 Intake and Output 01/14/17 01/14/17 01/14/17 06:59 14:59 22:59 Other: Weight 64.864 kg 64.864 kg Patient Weight 01/15/17 06:59 Weight 64.864 kg - Constitutional General appearance: cooperative, no acute distress, thin - EENT Eyes: anicteric sclerae, EOMI, PERRLA, normal appearance ENT: hearing grossly normal, normal oropharynx - Neck Neck: no lymphadenopathy, normal ROM - Respiratory Respiratory: bilateral: rhonchi - Cardiovascular Rhythm: regular Heart sounds: normal: S1, S2 Abnormal Heart Sounds: no systolic murmur, no diastolic murmur, no rub, no S3 Gallop, no S4 Gallop, no click, no other leg Peripheral Edema: bilateral: None - Gastrointestinal General gastrointestinal: no absent bowel sounds, no decreased bowel sounds, no distended, no hepatomegaly, no hyperactive bowel sounds, normal bowel sounds, no organomegaly, no rigid, no scaphoid, soft, no splenomegaly, tenderness, no umbilical hernia, no ventral hernia Localized gastrointestinal: tender: LUQ - Integumentary Integumentary: normal - Neurologic Neurologic: CNII-XII intact - Musculoskeletal Musculoskeletal: strength equal bilaterally - Psychiatric Psychiatric: A&O x's 3, appropriate affect, intact judgment & insight Results CBC & Chem 7: 01/14/17 11:40 01/14/17 11:40 Labs: Abnormal Lab Results - Last 24 Hours (Table) 01/14/17 01/14/17 01/14/17 Range/Units 11:40 11:40 11:40 WBC 11.6 H (3.8-10.6) k/uL RBC 3.46 L (4.30-5.90) m/uL Hgb 10.2 L (13.0-17.5) gm/dL Hct 31.4 L (39.0-53.0) % RDW 15.9 H (11.5-15.5) % Neutrophils # 9.1 H (1.3-7.7) k/uL PT (9.0-12.0) sec INR (<1.2) Sodium 136 L (137-145) mmol/L Glucose 112 H (74-99) mg/dL Total Creatine Kinase 35 L (55-170) U/L Albumin 3.3 L (3.5-5.0) g/dL 01/14/17 Range/Units 11:40 WBC (3.8-10.6) k/uL RBC (4.30-5.90) m/uL Hgb (13.0-17.5) gm/dL Hct (39.0-53.0) % RDW (11.5-15.5) % Neutrophils # (1.3-7.7) k/uL PT 12.1 H (9.0-12.0) sec INR 1.2 H (<1.2) Sodium (137-145) mmol/L Glucose (74-99) mg/dL Total Creatine Kinase (55-170) U/L Albumin (3.5-5.0) g/dL Comments: EKG reviewed Chest x-ray: report reviewed CT Scan - head: report reviewed Assessment and Plan (1) Intractable pain Narrative/Plan: Pain related to metastatic disease. Pt current pain med regimen was adjusted- long acting dose increased and immediate acting dose and frequency increased. Pt has also been started on steroids for bone mets and that can be helpful with pain. Pt has been seen by Rad/Onc outpatient, will ask them what plan of care is. Case was discussed with Internal Medicine Status: Acute (2) Protein-calorie malnutrition, moderate Narrative/Plan: Dietitian consult. Discussed with pt smaller more frequent meals and snacking, have bring food from home if he wants. Status: Acute (3) Financial problems Narrative/Plan: Case management and Social Work consults requested Status: Acute (4) Lung cancer metastatic to bone Narrative/Plan: Bone mets new finding. Dexamethasone and zometa prescribed Status: Acute (5) Squamous cell carcinoma lung Narrative/Plan: Bone mets new, Radiation was planning to treat residual disease. Will await recommendations as pt was just seen by Rad/Onc today and the bone mets were identified after that meeting. Status: Chronic
[2017-01-14] MEDS: MORPHINE ORAL SOLN 20 MG/1 ML ORAL SYRINGE PO PRN (20:32)
[2017-01-14] MEDS: PANTOPRAZOLE 40 MG/10 ML VIAL IVP SCH (20:34)
[2017-01-14] MEDS: AMOXIC-POT CLAV 875-125MG 1 EACH TAB PO SCH (20:34)
[2017-01-14] MEDS: BUDESONIDE 1 MG/2 ML NEBU INHALATION SCH (21:29)
[2017-01-14] MEDS: IPRATROPIUM-ALBUTEROL 3 ML NEB INHALATION SCH (21:29)
[2017-01-14] MEDS: TEMAZEPAM 30 MG CAP PO SCH (22:03)
[2017-01-14] MEDS: NYSTATIN 100,000 UNIT/ML SUSP 500,000 UNIT/5 ML CUP PO SCH (22:03)
[2017-01-15 06:35] LABS: Anisocytosis Slight; Basophils % (A) 0 %; CH 29.9; CHCM 31.2; Eosinophils % (A) 0 %; HCT 30.6 % (39.0-53.0); HDW 3.27; HGB 9.5 gm/dL (13.0-17.5); Hypochromasia Moderate; Luc # (Auto) 0.02; Luc % (Auto) 1; Lymphocytes # (A) 0.4 k/uL (1.0-4.8); Lymphocytes % (A) 10 %; MCH 29.7 pg (25.0-35.0); MCV 95.9 fL (80.0-100.0); Mean Platelet Volume 7.9; Monocytes # (A) 0.2 k/uL (0-1.0); Monocytes % (A) 4 %; Neutrophils # (A) 3.4 k/uL (1.3-7.7); Neutrophils % (A) 85 %; RBC 3.19 m/uL (4.30-5.90); RDW 16.1 % (11.5-15.5); WBC (Perox) 3.93
[2017-01-15 06:56] LABS: ALT 26 U/L (21-72); AST 17 U/L (17-59); Alkaline Phosphatase 65 U/L (38-126); Anion Gap 7 mmol/L; Blood Urea Nitrogen 8 mg/dL (9-20); Calcium 8.8 mg/dL (8.4-10.2); Carbon Dioxide 26 mmol/L (22-30); Chloride 106 mmol/L (98-107); Glucose 148 mg/dL (74-99); Magnesium 1.9 mg/dL (1.6-2.3); Non-African American GFR(MDRD) >60 (>60 ml/min/1.73 sqM); Phosphorous 3.7 mg/dL (2.5-4.5); Potassium 4.7 mmol/L (3.5-5.1); Sodium 139 mmol/L (137-145); Total Bilirubin 0.3 mg/dL (0.2-1.3); Total Protein 5.8 g/dL (6.3-8.2)
[2017-01-15] MEDS: BUDESONIDE 1 MG/2 ML NEBU INHALATION SCH ×2 (08:16→19:32)
[2017-01-15] MEDS: IPRATROPIUM-ALBUTEROL 3 ML NEB INHALATION SCH ×4 (08:16→19:32)
--- NOTE | 2017-01-15 09:18 | P.PN ---
Subjective Principal diagnosis: intractable pain from metastatic malignancy Pt seen today in follow up. He ate his entire breakfast, no current nausea, his pain is a little better controlled this am, he is starting to expectorate, little less congestion, he is ambulating to the bathroom, no BM today. Objective - Vital Signs Vital signs: Vital Signs Temp 97.3 F L 01/15/17 07:00 Pulse 71 01/15/17 08:29 Resp 18 01/15/17 07:00 BP 101/72 01/15/17 07:00 Pulse Ox 96 01/15/17 07:00 Intake & Output 01/14/17 01/15/17 01/15/17 18:59 06:59 18:59 Intake Total 1100 Balance 1100 Weight 64.864 kg Intake: IV 200 0.9 @ 20ml/hr 200 Intake, IV Titration 300 Amount Sodium Chloride 0.9% 1, 300 000 ml @ 100 mls/hr IV . Q10H ONE Rx#:[id number] Oral 600 Other: # Voids 2 - Constitutional General appearance: Present: cooperative, no acute distress, thin - EENT Eyes: Present: anicteric sclerae - Respiratory Respiratory: bilateral: rhonchi (better then yesterday) - Cardiovascular Heart sounds: normal: S1, S2 - Gastrointestinal General gastrointestinal: Present: normal bowel sounds - Neurologic Neurologic: Present: CNII-XII intact - Musculoskeletal Musculoskeletal: Present: strength equal bilaterally - Psychiatric Psychiatric: Present: A&O x's 3, appropriate affect, intact judgment & insight - Labs CBC & Chem 7: 01/15/17 06:15 01/15/17 06:15 Labs: Abnormal Lab Results - Last 24 Hours (Table) 01/14/17 01/14/17 01/14/17 Range/Units 11:40 11:40 11:40 WBC 11.6 H (3.8-10.6) k/uL RBC 3.46 L (4.30-5.90) m/uL Hgb 10.2 L (13.0-17.5) gm/dL Hct 31.4 L (39.0-53.0) % RDW 15.9 H (11.5-15.5) % Neutrophils # 9.1 H (1.3-7.7) k/uL Lymphocytes # (1.0-4.8) k/uL PT (9.0-12.0) sec INR (<1.2) Sodium 136 L (137-145) mmol/L BUN (9-20) mg/dL Creatinine (0.66-1.25) mg/dL Glucose 112 H (74-99) mg/dL Total Creatine Kinase 35 L (55-170) U/L Total Protein (6.3-8.2) g/dL Albumin 3.3 L (3.5-5.0) g/dL TSH (0.465-4.680) mIU/L 01/14/17 01/15/17 01/15/17 Range/Units 11:40 06:15 06:15 WBC (3.8-10.6) k/uL RBC 3.19 L (4.30-5.90) m/uL Hgb 9.5 L (13.0-17.5) gm/dL Hct 30.6 L (39.0-53.0) % RDW 16.1 H (11.5-15.5) % Neutrophils # (1.3-7.7) k/uL Lymphocytes # 0.4 L (1.0-4.8) k/uL PT 12.1 H (9.0-12.0) sec INR 1.2 H (<1.2) Sodium (137-145) mmol/L BUN 8 L (9-20) mg/dL Creatinine 0.57 L (0.66-1.25) mg/dL Glucose 148 H (74-99) mg/dL Total Creatine Kinase (55-170) U/L Total Protein 5.8 L (6.3-8.2) g/dL Albumin 2.8 L (3.5-5.0) g/dL TSH 0.353 L (0.465-4.680) mIU/L Assessment and Plan (1) Intractable pain Narrative/Plan: No additional changes to pain management, pt seems to be doing better this AM, he will continue on steroids for now and begin taper on discharge, this islikely helping with the bone pain from metastatic disease Status: Acute (2) Protein-calorie malnutrition, moderate Narrative/Plan: Pt ate much better this AM, Dietitian to see pt and give recommendations Status: Acute (3) Financial problems Narrative/Plan: Social Work consulted, they will likely see pt today Status: Acute (4) Lung cancer metastatic to bone Narrative/Plan: Dr. Gupta reviewed pt PET scan results. Unfortunately pt has widespread metastatic disease to the bones. This has changed the treatment plan. Pt is no longer a candidate for Radiation, Rad/Onc consult cancelled. Pt prognosis has changed as he is stage IV now. Pt tumor however did have high expression of PDL-1 so he is a candidate for pembrolizumab immunotherapy. We will start the process of drug approval [facility]. Status: Acute (5) Squamous cell carcinoma lung Status: Chronic Plan: Pain control and getting pt tolerant of oral intake with DC as soon as symptoms managed so he can begin therapy.
[2017-01-15] MEDS ORDERED: RX INFO: IV CONTRAST WAS GIVEN 1 EACH MISC MISCELLANE PRN (09:22)
[2017-01-15] MEDS: PANTOPRAZOLE 40 MG/10 ML VIAL IVP SCH (09:46)
[2017-01-15] MEDS: ENOXAPARIN 40 MG/0.4 ML SYRINGE SQ SCH (09:46)
[2017-01-15] MEDS: NYSTATIN 100,000 UNIT/ML SUSP 500,000 UNIT/5 ML CUP PO SCH ×4 (09:46→20:52)
[2017-01-15] MEDS: DOCUSATE 100 MG CAP PO SCH ×2 (09:47→20:52)
[2017-01-15] MEDS: DEXAMETHASONE 4 MG TAB PO SCH ×4 (09:48→20:52)
[2017-01-15] MEDS: AMOXIC-POT CLAV 875-125MG 1 EACH TAB PO SCH ×2 (09:49→20:53)
--- NOTE | 2017-01-15 11:24 | CT ---
EXAMINATION TYPE: CT brain w con DATE OF EXAM: 01/15/2017 COMPARISON: 01/14/2017 HISTORY: Patient denies head complaints at time of study. Patient has history of lung CA. CT DLP: 1067 mGycm Automated Exposure Control for Dose Reduction was Utilized. TECHNIQUE: CT scan of the head is performed with IV contrast.,CT scan of the head is performed withou t and with with IV Contrast, patient injected with 100 mL of Omnipaque 300. FINDINGS: No acute intracranial hemorrhage or midline shift. No mass effect, -axial mass, or midline shift. The ventricles and sulci are within normal limits in size. Postcontrast images show no suspici ous enhancing intraparenchymal mass. The globes are intact and the visualized sinuses are well aerate d. Numerous destructive soft tissue metastatic lesions are seen throughout the calvarium and diploic spa ce with the largest enhancing lesion demonstrating cortical breakthrough of the inner and outer table s of the left posterior parietal bone with extension into the soft tissues and abutting the dura. Con fluence of multiple soft tissue masses involve the right frontal bone near the skull vertex with hilario lar distraction of both inner and outer tables and abutment of the dural surface. IMPRESSION: 1. No enhancing intra-axial mass. 2. Multifocal osseous metastasis with the largest lesions of the right frontal bone near the vertex a nd left posterior parietal bone creating cortical erosion of the inner and outer tables with soft tis sreekanth extension and abutment of the dural surface.
[2017-01-15 13:18] LABS: Vitamin B12 >1000 pg/mL (239-931)
[2017-01-15] MEDS: MORPHINE ORAL SOLN 20 MG/1 ML ORAL SYRINGE PO PRN ×2 (14:23→19:30)
--- NOTE | 2017-01-15 14:34 | P.PN ---
Subjective Principal diagnosis: Intractable pain Patient is a 56-year-old male with a history of squamous cell lung cancer stage IV that failed chemotherapy, COPD, and prior tobacco abuse who presented here at the direction of Dr. Badillo for weakness. He has lost 21 pounds last 2 weeks. He has been nauseous and vomiting. He has been unable to keep any food down. He is able to drink some liquids. He also complains of pain all over. He states that the pain is diffuse and he is unable to further quantify it. He states the pain medications help but nothing else does. He also complains of worsening shortness of breath and wheezing over the past several weeks. He complains of being lightheaded and having a chronic cough. In the emergency department today he underwent extensive evaluation. He was found to have intractable pain, dehydration, and intractable nausea. Request was made for admission. He was initially admitted Dr. Gupta's service they have asked us to take over the admission and they will consult Patient has been seen and examined this morning, his pain is better controlled. Was able to tolerate breakfast, no nausea or vomiting. History this pain is 6 out of 10 in intensity. Objective - Vital Signs Vital signs: Vital Signs Temp 97.3 F L 01/15/17 07:00 Pulse 71 01/15/17 08:29 Resp 18 01/15/17 07:00 BP 101/72 01/15/17 07:00 Pulse Ox 96 01/15/17 07:00 Intake & Output 01/14/17 01/15/17 01/15/17 18:59 06:59 18:59 Intake Total 1100 Balance 1100 Weight 64.864 kg Intake: IV 200 0.9 @ 20ml/hr 200 Intake, IV Titration 300 Amount Sodium Chloride 0.9% 1, 300 000 ml @ 100 mls/hr IV . Q10H ONE Rx#:[id number] Oral 600 Other: # Voids 2 - Exam Physical exam: Gen.-Ill appearance, no acute distress. HEENT: Normocephalic and atraumatic, EOMI. Neck supple, trachea midline, no thyromegaly. Cardiovascular exam-normal S1-S2 regular rate. Chest-bilateral end expiratory wheezes, no rales or crackles. Abdomen-soft, nondistended, normoactive bowel sounds. Extremities-no edema or cyanosis, pulses 2+ bilaterally. Skin is warm and dry and intact. Neuro-alert and oriented 3. - Labs CBC & Chem 7: 01/15/17 06:15 01/15/17 06:15 Labs: Abnormal Lab Results - Last 24 Hours (Table) 01/14/17 01/14/17 01/14/17 Range/Units 11:40 11:40 11:40 WBC 11.6 H (3.8-10.6) k/uL RBC 3.46 L (4.30-5.90) m/uL Hgb 10.2 L (13.0-17.5) gm/dL Hct 31.4 L (39.0-53.0) % RDW 15.9 H (11.5-15.5) % Neutrophils # 9.1 H (1.3-7.7) k/uL Lymphocytes # (1.0-4.8) k/uL PT (9.0-12.0) sec INR (<1.2) Sodium 136 L (137-145) mmol/L BUN (9-20) mg/dL Creatinine (0.66-1.25) mg/dL Glucose 112 H (74-99) mg/dL Total Creatine Kinase 35 L (55-170) U/L Total Protein (6.3-8.2) g/dL Albumin 3.3 L (3.5-5.0) g/dL TSH (0.465-4.680) mIU/L 01/14/17 01/15/17 01/15/17 Range/Units 11:40 06:15 06:15 WBC (3.8-10.6) k/uL RBC 3.19 L (4.30-5.90) m/uL Hgb 9.5 L (13.0-17.5) gm/dL Hct 30.6 L (39.0-53.0) % RDW 16.1 H (11.5-15.5) % Neutrophils # (1.3-7.7) k/uL Lymphocytes # 0.4 L (1.0-4.8) k/uL PT 12.1 H (9.0-12.0) sec INR 1.2 H (<1.2) Sodium (137-145) mmol/L BUN 8 L (9-20) mg/dL Creatinine 0.57 L (0.66-1.25) mg/dL Glucose 148 H (74-99) mg/dL Total Creatine Kinase (55-170) U/L Total Protein 5.8 L (6.3-8.2) g/dL Albumin 2.8 L (3.5-5.0) g/dL TSH 0.353 L (0.465-4.680) mIU/L Assessment and Plan (1) Intractable pain Narrative/Plan: Pain improved since admission after fentanyl patch was increased to 100 mics. On by mouth Roxanol. Status: Acute (2) COPD with acute exacerbation Narrative/Plan: Continue with bronchodilators and dexamethasone. Status: Acute (3) Generalized weakness Narrative/Plan: Weakness secondary to cancer. PT evaluation. Status: Acute (4) Protein-calorie malnutrition, moderate Narrative/Plan: Consultations dietitian. Patient takes protein supplements at home. Status: Acute (5) Squamous cell carcinoma lung Narrative/Plan: Oncology managing, not candidate for radiation. Status: Chronic (6) DVT prophylaxis Narrative/Plan: Lovenox subcu. Status: Acute Plan: Possible discharge today or tomorrow after social studies teacher and dietitian evaluate patient and if pain better controlled.
[2017-01-15] MEDS: PANTOPRAZOLE 40 MG TABLET PO SCH (17:54)
[2017-01-15] MEDS: TEMAZEPAM 30 MG CAP PO SCH (21:27)
[2017-01-16 08:43] VITALS: BP 93/59; RESP 16; TEMP 97.4
[2017-01-16] MEDS: NYSTATIN 100,000 UNIT/ML SUSP 500,000 UNIT/5 ML CUP PO SCH ×2 (08:46→13:38)
[2017-01-16] MEDS: DOCUSATE 100 MG CAP PO SCH (08:46)
[2017-01-16] MEDS: ENOXAPARIN 40 MG/0.4 ML SYRINGE SQ SCH (08:46)
[2017-01-16] MEDS: DEXAMETHASONE 4 MG TAB PO SCH ×2 (08:46→12:31)
[2017-01-16] MEDS: PANTOPRAZOLE 40 MG TABLET PO SCH (08:46)
[2017-01-16] MEDS: AMOXIC-POT CLAV 875-125MG 1 EACH TAB PO SCH (08:46)
[2017-01-16] MEDS: BUDESONIDE 1 MG/2 ML NEBU INHALATION SCH (09:56)
[2017-01-16] MEDS: IPRATROPIUM-ALBUTEROL 3 ML NEB INHALATION SCH ×3 (09:56→16:26)
[2017-01-16] MEDS ORDERED: POLYETHYLENE GLYCOL 3350 17 GM POWD.PACK PO SCH (10:45)
--- NOTE | 2017-01-16 11:04 | P.PN ---
Progress Note - Text Patient s/e at bedside. Pain better controlled, tolerating diet without nausea. Wants to stay in the hospital to try new chemo and not as outpatient. Discussed with him that this may not be an option, will d/w Carol Ann. Plan on Discharge this afternoon. Formal note or discharge summary to follow pending course.
[2017-01-16] MEDS: MORPHINE ORAL SOLN 20 MG/1 ML ORAL SYRINGE PO PRN ×2 (12:40→16:18)
[2017-01-16 16:28] VITALS: PULSE 88
--- NOTE | 2017-01-16 22:06 | P.DS ---
Providers Date of admission: 01/14/17 14:12 Expected date of discharge: 01/16/17 Attending physician: Irina Mcintyre DO Consults: 01/14/17 14:12 Consult Physician Urgent Consulting Provider: Shahzad Gupta Consult Reason/Comments: Lung cancer with metastatic disease Do you want consulting provider notified?: Yes 01/14/17 17:36 Consult Physician Routine Consulting Provider: Irina Mcintyre Consult Reason/Comments: Medical Management Do you want consulting provider notified?: Already Contacted Primary care physician: Jose Antonio Babcock - Discharge Diagnosis(es) (1) COPD with acute exacerbation Status: Acute (2) Pneumonia Status: Acute (3) Dehydration Status: Acute (4) Lung cancer metastatic to bone Status: Acute Priority: High (5) Intractable pain Status: Acute Priority: High (6) Protein-calorie malnutrition, moderate Status: Acute Priority: High (7) Generalized weakness Status: Acute Hospital Course: Patient is a 56-year-old male with a history of squamous cell lung cancer stage IV that failed chemotherapy, COPD, and prior tobacco abuse who presented here at the direction of Dr. Badillo for weakness. He has lost 21 pounds last 2 weeks. He has been nauseous and vomiting. He has been unable to keep any food down. He is able to drink some liquids. He also complained of pain all over. He states that the pain is diffuse and he is unable to further quantify it. In the ED he was found to have acute exacerbation of COPD, PNA, dehydration, and generalized weakness. He was started on IVF, antiemetics for his nausea, and his pain regiment was adjusted. He met with the dietitian after admission. He was able to tolerate a diet after admission. His pain was controlled. His breathing improved. with adjustment in his pain meds he was doing much better. He was determined stable for discharge home. He was seen by social work to help with financial issues. His recent PET was reviewed by oncology and he was determined to have diffuse khushbu metastasis. He had been given zometa. He will be started pn PDL-1 therapy for his metastatic cancer. Plan of care was discussed with him and his family. He will follow up with Dr. Gupta once medication approved. VS: reviewed and stable General: non toxic, no distress, appears older than stated age, cachectic, chronically ill-appearing Head: atraumatic, normocephalic, symmetric Eyes: EOMI, no lid lag, anicteric sclera, Cardiovascular: S1S2 reg, no murmur, positive posterior tibial pulse bilateral, no edema , no JVD, no clubbing, no cyanosis, capillary refill less than 2 seconds, skin tenting Lungs: wheezing bilaterally bases, no accessory muscle use Abdominal: soft, nontender to palpation, no guarding, no appreciable organomegaly, normal bowel sounds Ext: no gross muscle atrophy, no contractures, Neuro: CN II-XI grossly intact, light touch intact all 4 extremities, finger to nose within normal limits, Psych: Alert, oriented, appropriate affect A total of 45 minutes was spent on the discharge of this complex patient. Plan - Discharge Summary New Discharge Prescriptions: New Dexamethasone [Hexadrol] 4 mg PO QID #60 tab fentaNYL 100MCG/HR PATCH [Duragesic 100MCG/HR] 1 patch TRANSDERM Q72H #10 patch MORPHINE ORAL SOLN 20mg/mL [Roxanol Oral Soln Conc 20MG/ML] 10 mg PO Q3H PRN #1 bottle PRN Reason: Pain Ranitidine HCl 300 mg PO HS #30 tab Levofloxacin [Levaquin] 750 mg PO DAILY #7 tab Continue Albuterol Inhaler [Ventolin Hfa Inhaler] 1 - 2 puff INHALATION Q6HR PRN #1 inhaler PRN Reason: Shortness Of Breath Or Wheezing Budesonide-Formot 160-4.5 Mcg [Symbicort 160-4.5 Mcg Inhaler] 2 puff INHALATION BID #1 inhaler Ipratropium-Albuterol Nebulize [Duoneb 0.5 mg-3 mg/3 ml Soln] 3 ml INHALATION RT-QID #120 ampul.neb Temazepam [Restoril] 30 mg PO HS Discontinued fentaNYL 25MCG/HR PATCH [Duragesic 25MCG/HR] 75 mcg TRANSDERM Q72H Morphine Sulfate 0.25 - 0.5 ml PO Q4H PRN PRN Reason: Pain Ciprofloxacin HCl [Cipro] 500 mg PO BID Metoclopramide HCl [Reglan] 10 mg PO Q6HR PRN PRN Reason: Heartburn Discharge Medication List Albuterol Inhaler [Ventolin Hfa Inhaler] 1 - 2 puff INHALATION Q6HR PRN #1 inhaler 09/07/16 [Rx] Budesonide-Formot 160-4.5 Mcg [Symbicort 160-4.5 Mcg Inhaler] 2 puff INHALATION BID #1 inhaler 09/07/16 [Rx] Ipratropium-Albuterol Nebulize [Duoneb 0.5 mg-3 mg/3 ml Soln] 3 ml INHALATION RT -QID #120 ampul.neb 09/12/16 [Rx] Temazepam [Restoril] 30 mg PO HS 10/17/16 [History] Dexamethasone [Hexadrol] 4 mg PO QID #60 tab 01/16/17 [Rx] Levofloxacin [Levaquin] 750 mg PO DAILY #7 tab 01/16/17 [Rx] MORPHINE ORAL SOLN 20mg/mL [Roxanol Oral Soln Conc 20MG/ML] 10 mg PO Q3H PRN #1 bottle 01/16/17 [Rx] Ranitidine HCl 300 mg PO HS #30 tab 01/16/17 [Rx] fentaNYL 100MCG/HR PATCH [Duragesic 100MCG/HR] 1 patch TRANSDERM Q72H #10 patch 01/16/17 [Rx] Follow up Appointment(s)/Referral(s): Shahzad Gupta MD [STAFF PHYSICIAN] - 1 Week (they will call you with an appointment ) Jose Antonio Babcock DO [Primary Care Provider] - 01/22/17 1:30 pm Discharge Disposition: HOME SELF-CARE Pending Studies Pending Results: none
== END 2017-01-16 17:35 | disposition home or self-care (01) | DRG 190 ==
LOC: EC 10:57 → 5ONC 14:12
PROVIDERS: ADMIT Internal Medicine Hematology & Oncology; ATTEND Internal Medicine
DX: J44.0 Chronic obstructive pulmonary disease with (acute) lower respiratory infection (principal); J18.9 Pneumonia, unspecified organism; C79.51 Secondary malignant neoplasm of bone; E44.0 Moderate protein-calorie malnutrition; C34.90 Malignant neoplasm of unspecified part of unspecified bronchus or lung; E86.0 Dehydration; D64.9 Anemia, unspecified; J44.1 Chronic obstructive pulmonary disease with (acute) exacerbation; G89.3 Neoplasm related pain (acute) (chronic); Z59.9 Problem related to housing and economic circumstances, unspecified; Z79.51 Long term (current) use of inhaled steroids; Z79.899 Other long term (current) drug therapy; Z82.49 Family history of ischemic heart disease and other diseases of the circulatory system; Z87.891 Personal history of nicotine dependence
CPT/HCPCS: 36415; 70450; 70460; 71020; 80053; 82550; 82553; 82607; 83735; 84100; 84439; 84443; 84484; 85025; 85610; 85730; 93005; 94640

== ENCOUNTER 2017-01-19 22:29 | Inpatient (IN) | payer OTHER ==
[2017-01-20] MEDS ORDERED: ONDANSETRON 4 MG/2 ML VIAL ONE (01:11)
[2017-01-20] MEDS ORDERED: IPRATROPIUM-ALBUTEROL 3 ML NEB INHALATION PRN (02:33)
[2017-01-20] MEDS: IPRATROPIUM-ALBUTEROL 3 ML NEB INHALATION SCH ×5 (02:49→20:03)
[2017-01-20 05:34] VITALS: BMI 21.1
[2017-01-20] MEDS: DEXAMETHASONE 4 MG TAB PO SCH ×3 (08:47→21:23)
[2017-01-20] MEDS: ONDANSETRON 4 MG/2 ML VIAL IVP PRN ×2 (08:47→18:25)
[2017-01-20] MEDS ORDERED: SYMBICORT 160-4.5 MCG INHALER INHALATION SCH ×2 (09:00→11:44)
[2017-01-20] MEDS ORDERED: MORPHINE ORAL SOLN 20 MG/1 ML ORAL SYRINGE PO PRN (11:42)
[2017-01-20] MEDS ORDERED: IV VANCOMYCIN PER PHARMACY 1 EACH MISC MISCELLANE PRN (11:44)
[2017-01-20] MEDS ORDERED: VANCOMYCIN 1,500 MG in SODIUM CHLORIDE 0.9% 250 ML IVPB ONE (12:30)
[2017-01-20] MEDS: MORPHINE ORAL SOLN 10 MG/5 ML CUP PO PRN ×4 (12:36→21:26)
[2017-01-20 12:40] LABS: Anisocytosis Slight; Basophils % (A) 0 %; CH 29.2; CHCM 30.8; Eosinophils # (A) 0.1 k/uL (0-0.7); Eosinophils % (A) 0 %; HCT 33.1 % (39.0-53.0); HDW 3.16; HGB 10.5 gm/dL (13.0-17.5); Hypochromasia Marked; Luc % (Auto) 1; Lymphocytes # (A) 0.6 k/uL (1.0-4.8); Lymphocytes % (A) 4 %; MCH 30.1 pg (25.0-35.0); MCHC 31.8 g/dL (31.0-37.0); MCV 94.8 fL (80.0-100.0); Mean Platelet Volume 6.8; Monocytes # (A) 0.7 k/uL (0-1.0); Monocytes % (A) 5 %; Neutrophils # (A) 12.2 k/uL (1.3-7.7); Neutrophils % (A) 89 %; RBC 3.49 m/uL (4.30-5.90); RDW 16.8 % (11.5-15.5); WBC 13.6 k/uL (3.8-10.6); WBC (Perox) 14.07
[2017-01-20 12:49] LABS: ALT 73 U/L (21-72); AST 48 U/L (17-59); Alkaline Phosphatase 76 U/L (38-126); Amylase <30 U/L (30-110); Anion Gap 10 mmol/L; Blood Urea Nitrogen 16 mg/dL (9-20); Calcium 7.6 mg/dL (8.4-10.2); Carbon Dioxide 24 mmol/L (22-30); Chloride 103 mmol/L (98-107); Glucose 92 mg/dL (74-99); Non-African American GFR(MDRD) >60 (>60 ml/min/1.73 sqM); Potassium 4.2 mmol/L (3.5-5.1); Sodium 137 mmol/L (137-145); Total Bilirubin 0.5 mg/dL (0.2-1.3); Total Protein 6.2 g/dL (6.3-8.2)
--- NOTE | 2017-01-20 13:46 | XR ---
EXAMINATION TYPE: XR chest 2V DATE OF EXAM: 01/20/2017 COMPARISON: 11/03/2016 TECHNIQUE: PA and lateral views submitted. HISTORY: Cough FINDINGS: Mediport catheter again noted. Hyperinflation suggests COPD. Is poor definition of the left seventh r ib laterally. Could not exclude metastases. Subsegmental consolidation within the lateral margin of t he right upper lobe. Hypertrophic and degenerative change of the spine noted. Left hilar soft tissue mass persists. IMPRESSION: 1. Poor definition of the posterior left rib the proximal level of the left seventh rib suspicious fo r metastases. 2. Subsegmental atelectasis or early infiltrate right upper lobe 3. Left hilar soft tissue mass persists.
--- NOTE | 2017-01-20 13:48 | XR ---
EXAMINATION TYPE: XR abdomen 2V DATE OF EXAM: 01/20/2017 COMPARISON: NONE HISTORY: Abdominal pain TECHNIQUE: One view abdominal series FINDINGS: The osseous structures are intact. The bowel gas pattern is nonspecific. Retained fecal debris throu ghout the colon. IMPRESSION: 1. Nonspecific abdomen. Extensive retained fecal debris throughout the colon.
--- NOTE | 2017-01-20 13:57 | US ---
EXAMINATION TYPE: US abdomen comp/pelvis limited DATE OF EXAM: 01/20/2017 COMPARISON: CLINICAL HISTORY: abdominal pain. Generalized abdomen pain. NPO. Stage 4 lung cancer EXAM MEASUREMENTS: Liver Length: 15.3 cm Gallbladder Wall: 0.2 cm CHD: 0.4 cm Spleen: 9.8 cm Right Kidney: 10.7 x 4.8 x 5.1 cm Left Kidney: 10.5 x 4.7 x 4.9 cm Pancreas: Obscured by bowel gas Liver: Appears echogenic and course Gallbladder: wnl as visualized CHD: wnl Spleen: wnl Right Kidney: wnl Left Kidney: wnl Upper IVC: seen Abd Aorta: Obscured by overlying bowel gas Bladder: distended, wnl Bilateral Jets not seen IMPRESSION: 1. Liver appears echogenic and coarse in correlate for fatty infiltration, hepatitis or diffuse hepat ocellular disease.
[2017-01-20] MEDS: SODIUM CHLORIDE 0.9% 1,000 ML IV SCH (13:59)
[2017-01-20] MEDS ORDERED: ALPRAZolam 0.25 MG TAB PO PRN (16:17)
[2017-01-20] MEDS ORDERED: LACTULOSE 20 GM/30 ML CUP PO ONE (16:20)
[2017-01-20] MEDS ORDERED: NA PHOS,M-B/NA PHOS,DI-BA 133 ML ENEMA RECTAL PRN (16:22)
[2017-01-20] MEDS: PIPERACILLIN-TAZOBACTAM 3.375 GM in DEXTROSE/WATER 1 50ML.BAG IVPB SCH (18:12)
[2017-01-20] MEDS: DOCUSATE 100 MG CAP PO SCH (19:16)
[2017-01-20] MEDS: FAMOTIDINE 20 MG TAB PO SCH (19:16)
[2017-01-20] MEDS: SYMBICORT 160-4.5 MCG INHALER INHALATION SCH (20:03)
[2017-01-20] MEDS: TEMAZEPAM 30 MG CAP PO SCH (21:23)
[2017-01-20] MEDS: VANCOMYCIN 1,000 MG in SODIUM CHLORIDE 0.9% 250 ML IVPB SCH (21:25)
[2017-01-21] MEDS: DEXAMETHASONE 4 MG TAB PO SCH ×5 (00:30→20:23)
[2017-01-21] MEDS: PIPERACILLIN-TAZOBACTAM 3.375 GM in DEXTROSE/WATER 1 50ML.BAG IVPB SCH ×3 (00:30→18:07)
[2017-01-21] MEDS: MEGESTROL 400 MG/10 ML CUP PO SCH ×2 (00:30→08:29)
[2017-01-21] MEDS: SODIUM CHLORIDE 0.9% 1,000 ML IV SCH ×2 (03:43→16:36)
[2017-01-21] MEDS: VANCOMYCIN 1,000 MG in SODIUM CHLORIDE 0.9% 250 ML IVPB SCH ×3 (06:06→22:29)
[2017-01-21 07:35] LABS: Anisocytosis Slight; Basophils % (A) 0 %; Eosinophils % (A) 0 %; HCT 31.6 % (39.0-53.0); HDW 3.01; HGB 9.7 gm/dL (13.0-17.5); Hypochromasia Moderate; Luc # (Auto) 0.05; Luc % (Auto) 1; Lymphocytes # (A) 0.4 k/uL (1.0-4.8); Lymphocytes % (A) 6 %; MCH 29.7 pg (25.0-35.0); MCHC 30.6 g/dL (31.0-37.0); Macrocytosis Slight; Mean Platelet Volume 7.3; Monocytes # (A) 0.4 k/uL (0-1.0); Monocytes % (A) 5 %; Neutrophils # (A) 6.4 k/uL (1.3-7.7); Neutrophils % (A) 88 %; RBC 3.26 m/uL (4.30-5.90); RDW 17.8 % (11.5-15.5); WBC 7.3 k/uL (3.8-10.6); WBC (Perox) 7.53
[2017-01-21 07:37] LABS: ALT 53 U/L (21-72); AST 25 U/L (17-59); Alkaline Phosphatase 64 U/L (38-126); Anion Gap 8 mmol/L; Blood Urea Nitrogen 11 mg/dL (9-20); Calcium 7.5 mg/dL (8.4-10.2); Carbon Dioxide 24 mmol/L (22-30); Chloride 107 mmol/L (98-107); Glucose 166 mg/dL (74-99); Non-African American GFR(MDRD) >60 (>60 ml/min/1.73 sqM); Potassium 4.4 mmol/L (3.5-5.1); Sodium 139 mmol/L (137-145); Total Bilirubin 0.3 mg/dL (0.2-1.3); Total Protein 5.5 g/dL (6.3-8.2)
[2017-01-21] MEDS: IPRATROPIUM-ALBUTEROL 3 ML NEB INHALATION SCH ×4 (07:55→19:54)
[2017-01-21] MEDS: SYMBICORT 160-4.5 MCG INHALER INHALATION SCH ×2 (07:55→19:54)
[2017-01-21] MEDS: DOCUSATE 100 MG CAP PO SCH ×2 (08:29→20:23)
[2017-01-21] MEDS: POLYETHYLENE GLYCOL 3350 17 GM POWD.PACK PO SCH (08:29)
[2017-01-21] MEDS: SALT AND SODA MOUTHWASH 1,000 ML PO SCH ×4 (12:06→20:24)
--- NOTE | 2017-01-21 14:17 | HP ---
CHIEF COMPLAINT: 56-year-old white male with lung cancer, metastases to the bone and skull, adrenal glands, admitted due to significant intractable pain and worsening breathing. HISTORY OF PRESENT ILLNESS: 56 -year-old white male with lung cancer Stage IV progressively worsening over the past seven to ten days with significant pain, unable to ambulate. He was sent here by his cancer doctor for treatment as he is severely malnourished and his albumin level 3.2. He is ordered peripheral nutrition. Wait for freight engineer in the morning. Oncology and radiation doctors will be ordered for cancer. Past medical history as mentioned earlier August 2016 diagnosed with lung cancer , Stage IV. Surgery: See old chart. Medicine: See old chart. Allergies are negative. 14 point review of systems negative except for endocrine: He has cachexia. Unable to eat or drink due to severe poor oral nutrition for which he was admitted to the hospital by his oncologist, radiation doctor today, Dr. Badillo. Cardiovascular: S1, S2. Lungs scattered wheeze. Hematological: Negative Homans. Abdomen soft, nontender. No mass or organomegaly. Ophthalmological: Pupils round and reactive to light and accommodation. ASSESSMENT AND PLAN: 1. Protein calorie malnutrition. 2. Stage IV lung cancer. 3. Chronic obstructive pulmonary disease. 4. Nicotine addiction. 5. Moderate protein calorie malnutrition. Will add ( ) to the regimen. ( ) will be done in the morning. Continue with oncology and hematology consults. MTDD
--- NOTE | 2017-01-21 18:07 | P.CONS ---
History of Present Illness - Reason for Consult Consult date: 01/21/17 NSCLC Requesting physician: Maya Breaux - Chief Complaint dehydration, weakness - History of Present Illness Please refer to consult dated 01/14-7 days ago-for complete malignancy history, pt has not started immunotherapy treatment yet, no other changes in his malignancy since 1 week ago. Mr. Rob was brought back to the hospital by his due to anorexia, nausea, abd pain and weakness. This AM pt is eating and tolerating clear liquid diet, he has an appetite, pain is relieved, nausea controlled. He denies headache, can be dizzy when he changes position, denies fever, oral irritation is mild, no chest pain, he has mild SOB with activity and he is orthopenic, he states he slept well with O2 on last night. No ascites, swelling or other physical c/o. Review of Systems 10 point ROS is negative except as stated in HPI Past Medical History Past Medical History: Cancer, COPD Additional Past Medical History / Comment(s): lung cancer met to adrenal gland History of Any Multi-Drug Resistant Organisms: None Reported Past Surgical History: No Surgical Hx Reported Additional Past Surgical History / Comment(s): lung biopsy Past Anesthesia/Blood Transfusion Reactions: No Reported Reaction Past Psychological History: No Psychological Hx Reported Smoking Status: Never smoker Past Alcohol Use History: None Reported Past Drug Use History: None Reported Additional Drug Use History / Comment(s): Pt has not smoked for 1 month. - Past Family History Mother Family Medical History: No Reported History Additional Family Medical History / Comment(s): Negative for lung cancer Father History Unknown: Yes Medications and Allergies Home Medications Medication Instructions Recorded Confirmed Type Temazepam [Restoril] 30 mg PO HS 10/17/16 01/20/17 History Budesonide-Formot 160-4.5 Mcg 2 puff INHALATION RT-BID 01/20/17 01/20/17 History [Symbicort 160-4.5 Mcg Inhaler] MORPHINE ORAL SOLN 20mg/mL 0.5 ml PO Q3H PRN 01/20/17 01/20/17 History [Roxanol Oral Soln Conc 20MG/ML] Allergies Allergy/AdvReac Type Severity Reaction Status Date / Time No Known Allergies Allergy Verified 01/20/17 06:58 Physical Exam Vitals: Vital Signs Temp Pulse Pulse Resp BP Pulse Ox 01/21/17 16:42 98 01/21/17 16:41 97 01/21/17 16:22 87 19 01/21/17 15:51 84 01/21/17 15:41 88 01/21/17 15:00 98.2 F 84 20 123/63 01/21/17 12:17 84 01/21/17 11:59 84 01/21/17 10:17 83 112/65 01/21/17 08:11 84 01/21/17 07:55 80 01/21/17 07:00 97.8 F 79 18 86/61 99 01/21/17 06:08 16 95 01/21/17 02:00 16 94 L 01/21/17 01:00 16 95 01/21/17 00:00 78 16 01/20/17 23:00 16 94 L 01/20/17 22:00 98.5 F 78 16 110/68 95 01/20/17 20:00 17 95 Intake and Output 01/21/17 01/21/17 01/21/17 06:59 14:59 22:59 Intake Total 250 Balance 250 Intake: Intake, IV Titration 250 Amount Vancomycin 1,500 mg In 250 Sodium Chloride 0.9% 250 ml @ 125 mls/hr IVPB ONCE ONE Rx#:[id number] Other: Voiding Method Toilet Toilet Toilet # Voids 2 3 - Constitutional General appearance: cooperative, no acute distress, thin - EENT Eyes: anicteric sclerae, PERRLA, poor dentition, normal appearance ENT: hearing grossly normal, normal oropharynx - Neck Neck: no lymphadenopathy - Respiratory Respiratory: bilateral: wheezing (scattered) - Cardiovascular Rhythm: regular Heart sounds: normal: S1, S2 Abnormal Heart Sounds: no systolic murmur, no diastolic murmur, no rub, no S3 Gallop, no S4 Gallop, no click, no other foot Peripheral Edema: bilateral: 1+ - Gastrointestinal General gastrointestinal: no absent bowel sounds, no decreased bowel sounds, no distended, no hepatomegaly, no hyperactive bowel sounds, normal bowel sounds, no organomegaly, no rigid, no scaphoid, soft, no splenomegaly, no tenderness, no umbilical hernia, no ventral hernia - Neurologic Neurologic: CNII-XII intact - Musculoskeletal Musculoskeletal: generalized weakness, strength equal bilaterally - Psychiatric Psychiatric: A&O x's 3, appropriate affect, intact judgment & insight Results CBC & Chem 7: 01/21/17 06:56 01/21/17 06:56 Labs: Abnormal Lab Results - Last 24 Hours (Table) 01/21/17 01/21/17 Range/Units 06:56 06:56 RBC 3.26 L (4.30-5.90) m/uL Hgb 9.7 L (13.0-17.5) gm/dL Hct 31.6 L (39.0-53.0) % MCHC 30.6 L (31.0-37.0) g/dL RDW 17.8 H (11.5-15.5) % Lymphocytes # 0.4 L (1.0-4.8) k/uL Creatinine 0.64 L (0.66-1.25) mg/dL Glucose 166 H (74-99) mg/dL Calcium 7.5 L (8.4-10.2) mg/dL Total Protein 5.5 L (6.3-8.2) g/dL Albumin 2.7 L (3.5-5.0) g/dL Microbiology - Last 24 Hours (Table) 01/20/17 20:34 Stool Culture - Preliminary Stool Chest x-ray: report reviewed Abdominal x-ray: report reviewed US - abdomen: report reviewed Assessment and Plan (1) Lung cancer metastatic to bone Status: Chronic (2) Squamous cell carcinoma lung Status: Chronic (3) Sleeps in sitting position due to orthopnea Narrative/Plan: Pt states sleeping better with O2, order placed to assesses for home O2 at HS. Status: Acute Plan: Pt is due to start immunotherapy as soon as approved by his insurance. He will be sched by the office [facility] once approved and be contacted with appt date and time. Did talk with pt about having what he needs in the home as he stated lack of fluids/food at home. He was assessed last visit by Social Work for financial assistance, will inquire as to what happened.
[2017-01-21] MEDS: ACETAMINOPHEN TAB 325 MG TAB PO PRN (18:08)
[2017-01-21] MEDS: FAMOTIDINE 20 MG TAB PO SCH (20:23)
[2017-01-21] MEDS: TEMAZEPAM 30 MG CAP PO SCH (20:28)
[2017-01-21] MEDS ORDERED: VANCOMYCIN TROUGH DUE 1 EACH MISC MISCELLANE ONE (21:00)
[2017-01-22] MEDS: PIPERACILLIN-TAZOBACTAM 3.375 GM in DEXTROSE/WATER 1 50ML.BAG IVPB SCH ×3 (00:26→17:25)
[2017-01-22] MEDS: SODIUM CHLORIDE 0.9% 1,000 ML IV SCH ×2 (05:06→20:57)
[2017-01-22] MEDS: VANCOMYCIN 1,000 MG in SODIUM CHLORIDE 0.9% 250 ML IVPB SCH ×3 (05:53→22:34)
[2017-01-22 06:50] LABS: Anion Gap 8 mmol/L; Blood Urea Nitrogen 15 mg/dL (9-20); Calcium 8.4 mg/dL (8.4-10.2); Carbon Dioxide 26 mmol/L (22-30); Chloride 105 mmol/L (98-107); Glucose 163 mg/dL (74-99); Non-African American GFR(MDRD) >60 (>60 ml/min/1.73 sqM); Potassium 4.4 mmol/L (3.5-5.1); Sodium 139 mmol/L (137-145)
[2017-01-22] MEDS: SYMBICORT 160-4.5 MCG INHALER INHALATION SCH ×2 (07:39→18:57)
[2017-01-22] MEDS: IPRATROPIUM-ALBUTEROL 3 ML NEB INHALATION SCH ×4 (07:39→18:57)
[2017-01-22] MEDS: POLYETHYLENE GLYCOL 3350 17 GM POWD.PACK PO SCH (09:30)
[2017-01-22] MEDS: DOCUSATE 100 MG CAP PO SCH ×2 (09:31→20:57)
[2017-01-22] MEDS: MEGESTROL 400 MG/10 ML CUP PO SCH (09:31)
[2017-01-22] MEDS: DEXAMETHASONE 4 MG TAB PO SCH ×4 (09:31→20:57)
[2017-01-22] MEDS: SALT AND SODA MOUTHWASH 1,000 ML PO SCH ×4 (09:32→20:57)
--- NOTE | 2017-01-22 09:52 | CDI ---
In responding to this query, please exercise your independent professional judgment. The [facility] Coding Staff and Clinical Documentation Specialists appreciate your assistance in clarifying documentation, maintaining compliance with coding guidelines, accurately documenting patients condition and capturing severity of illness. The fact that a question is asked does not imply that any particular answer is desired or expected. Communication forms are a method of clarifying documentation and are not made part of the Legal Health Record. Thank you in advance for your clarification. Last Revision, March 2015 Lucian Kim [address] [place] [address] Documentation Clarification Form Date: 01/22/2017 9:29:00 AM From: Tanya Dozier RN, CDS Admit Date: 01/20/2017 12:56:00 AM Patient Name: Eddie Dexter Visit Number: [id number] Dr. Paramjit Brizuela, 56 year old patient admitted for intractable pain. 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 Per Dietitian consult patient has had "poor appetite for 1 month, weight loss of 22 pound over 3 weeks, inadequate energy intake, 89 % of ideal body weight, increased metabolic demands". History/Risk Factors: Clinical Indicators: Total Protein 5.5, Albumin 2.7 BMI 21.1, "severely malnourished" and "Moderate protein calorie malnutrition" per H&P Treatment: Dietitian consult, Ensure compact TID, Magic cup BID, Megace, In your professional opinion, can you please clarify if these findings signify one of the following conditions? Severe Protein-Calorie Malnutrition Moderate Protein-Calorie Malnutrition Mild Protein-Calorie Malnutrition Other condition, please specify Unable to determine Please document in your progress notes and discharge summary in order to capture severity of illness and risk of mortality. Include clinical findings that support your diagnosis. FYI: Press F11 to launch patient chart. Thank you. PATRICIA
--- NOTE | 2017-01-22 11:47 | CONS ---
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 Gallego. A staging PET-CT scan showed a left hilar mass, lymphadenopathy in the hilum and mediastinum and distant metastasis to the left adrenal gland stage IV (T3 N2 M1 B). The patient was treated under the supervision of Dr. Gupta with carboplatin and Gemzar chemotherapy starting in September and most recently completed in November 2016. Patient had a difficult time with 3rd cycle of chemotherapy with subsequent nausea, vomiting, fatigue and dehydration. Patient subsequently admitted approximately 1 week ago for dehydration, of poor performance status and respiratory inflammation versus infection. Managed with supportive care and antibiotic therapy. Patient's overall performance status continued to decline and was readmitted on 01/19/2017. A chest x-ray from 01/20/2017 showed subsegmental atelectasis or early infiltrate in the right upper lobe. There was a suspicion for metastasis involving the ribs and the left hilar soft-tissue mass was known and persists on imaging. Prior CT scan of the brain from 01/15/2017 showed no enhancing intra-axial masses. There were skull metastases particularly in the right frontal bone. There was an associated soft tissue extension with the associated bony lesion. Patient is admitted and receiving best supportive care including IV hydration, nutritional support and antibiotic therapy. Overall performance status has slightly improved. PAST MEDICAL HISTORY: As per HPI. PAST SURGICAL HISTORY: As per HPI. FAMILY HISTORY: Noncontributory for malignancy. MEDICATIONS: Alprazolam, budesonide, dexamethasone, docusate, famotidine, fentanyl, ipratropium- albuterol, Megace, morphine, Zofran. REVIEW OF SYSTEMS: CONSTITUTIONAL: Positive for fatigue. Negative for fevers, chills. Positive for generalized weakness. HEENT: Negative for odynophagia, dysphagia, neck masses. CHEST: Positive for chest pain in the left upper chest with shortness of breath and cough and blood-tinged sputum. CARDIOVASCULAR: Positive for dyspnea on exertion. Negative for orthopnea, leg edema. GASTROINTESTINAL: Positive for nausea and vomiting. Negative for hematemesis and incontinence. GENITOURINARY: Negative for incontinence, hematuria, obstructive uropathy. NEUROLOGIC: Positive for headache, falls. Negative for seizure activity, loss of consciousness and extremity weakness. LABORATORY DATA: CBC from 01/21/2017 showed WBC of 7.3, hemoglobin of 9.7, hematocrit 31.6. Platelet count of 232,008. Basic metabolic profile from 01/21/2017 showed a sodium of 139, potassium 4.4, BUN 11, creatinine 0.64, calcium 7.5, AST and ALT normal at 25 and 53. PHYSICAL EXAM: Well-developed, well-nourished, middle-aged gentleman in no acute distress. Performance status is fair. VITAL SIGNS: Pulse 88, O2 saturation 97% on room air, respiratory rate 16, pulse 72. Patient is afebrile. HEENT exam shows no mucosal lesions. Neck is supple. No adenopathy. Sclerae is nonicteric. Chest is clear with increased breath sounds heard throughout the bilateral lower lobe regions. Heart is regular rate and rhythm. Abdomen is round, soft, nontender. There is no organomegaly or masses. Extremities shows no edema or cyanosis. Neurologic exam shows no gross deficits. 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 Diagnosed by bronchoscopy and treated with 3/4 cycles of chemotherapy from September to November of 2016. Patient tolerated third cycle of chemotherapy poorly with subsequent fatigue, lethargy, nausea requiring inpatient support and supportive care. Patient also had a pulmonary infiltrate and has been treated with antibiotics. Currently, he is readmitted with declining performance status. Chest x-ray showed questionable infiltrate and known lung mass. Prior CT head shows a new osseous metastasis with a soft tissue extension. Currently patient is asymptomatic regarding head pain. He does report pain in the chest which is left upper chest which could be related to the known lung mass. He denies abdominal pain at this time. RECOMMENDATIONS: Discussed with the patient and regarding proper plan of action and appropriate care. I recommend continue with the inpatient management for best supportive care in an attempt to previous performance status. Patient will also follow with Dr. Gupta to ascertain whether he is a candidate for further systemic therapy based on his performance status. In addition, palliative radiation therapy can be instituted at any time, particularly as an outpatient basis, directed to the left upper lobe mass which is known. Also radiation therapy could be delivered to the areas of bone metastasis with a soft tissue component, particularly if the patient has symptoms related to these findings. I will continue to follow his case on an inpatient and outpatient basis as well. GISELLE / SHUN: [id number] / PATRICIA
--- NOTE | 2017-01-22 13:02 | P.GSCN ---
History of Present Illness Consult date: 01/22/17 Reason for Consult: Malnutrition History of present illness: Patient was previously diagnosed with colon cancer. He's had a poor appetite. Apparently he is responded to medical therapy. There was question of whether he needed a PEG tube. Past Medical History Past Medical History: Cancer, COPD Additional Past Medical History / Comment(s): lung cancer met to adrenal gland History of Any Multi-Drug Resistant Organisms: None Reported Past Surgical History: No Surgical Hx Reported Additional Past Surgical History / Comment(s): lung biopsy Past Anesthesia/Blood Transfusion Reactions: No Reported Reaction Past Psychological History: No Psychological Hx Reported Smoking Status: Never smoker Past Alcohol Use History: None Reported Past Drug Use History: None Reported Additional Drug Use History / Comment(s): Pt has not smoked for 1 month. - Past Family History Mother Family Medical History: No Reported History Additional Family Medical History / Comment(s): Negative for lung cancer Father History Unknown: Yes Family Medical History: No Reported History Medications and Allergies Home Medications Medication Instructions Recorded Confirmed Type Temazepam [Restoril] 30 mg PO HS 10/17/16 01/20/17 History Budesonide-Formot 160-4.5 Mcg 2 puff INHALATION RT-BID 01/20/17 01/20/17 History [Symbicort 160-4.5 Mcg Inhaler] MORPHINE ORAL SOLN 20mg/mL 0.5 ml PO Q3H PRN 01/20/17 01/20/17 History [Roxanol Oral Soln Conc 20MG/ML] Allergies Allergy/AdvReac Type Severity Reaction Status Date / Time No Known Allergies Allergy Verified 01/20/17 06:58 Surgical - Exam Vital Signs Temp Pulse Resp BP Pulse Ox 97.6 F 76 16 121/64 99 01/20/17 00:58 01/20/17 00:58 01/20/17 00:58 01/20/17 00:58 01/20/17 00:58 - General well developed, no distress - Eyes PERRL - ENT normal pinna - Neck no masses - Cardiovascular Rhythm: regular - Abdomen Abdomen: soft, non tender Results - Labs 01/21/17 06:56 01/22/17 05:30 Abnormal Lab Results - Last 24 Hours (Table) 01/22/17 Range/Units 05:30 Glucose 163 H (74-99) mg/dL Diabetes panel 01/22/17 Range/Units 05:30 Sodium 139 (137-145) mmol/L Potassium 4.4 (3.5-5.1) mmol/L Chloride 105 (98-107) mmol/L Carbon Dioxide 26 (22-30) mmol/L BUN 15 (9-20) mg/dL Creatinine 0.70 (0.66-1.25) mg/dL Glucose 163 H (74-99) mg/dL Calcium 8.4 (8.4-10.2) mg/dL Calcium panel 01/22/17 Range/Units 05:30 Calcium 8.4 (8.4-10.2) mg/dL Pituitary panel 01/22/17 Range/Units 05:30 Sodium 139 (137-145) mmol/L Potassium 4.4 (3.5-5.1) mmol/L Chloride 105 (98-107) mmol/L Carbon Dioxide 26 (22-30) mmol/L BUN 15 (9-20) mg/dL Creatinine 0.70 (0.66-1.25) mg/dL Glucose 163 H (74-99) mg/dL Calcium 8.4 (8.4-10.2) mg/dL Adrenal panel 01/22/17 Range/Units 05:30 Sodium 139 (137-145) mmol/L Potassium 4.4 (3.5-5.1) mmol/L Chloride 105 (98-107) mmol/L Carbon Dioxide 26 (22-30) mmol/L BUN 15 (9-20) mg/dL Creatinine 0.70 (0.66-1.25) mg/dL Glucose 163 H (74-99) mg/dL Calcium 8.4 (8.4-10.2) mg/dL Assessment and Plan Plan: Recent diagnosis of lung cancer. Patiently undergoing immunotherapy. If he has malnutrition and has poor oral intake we can place a PEG tube at that time. Currently he'll be observed.
--- NOTE | 2017-01-22 16:18 | CONS ---
CONSULTATION Date of Consultation: DATE OF SERVICE: 01/21/2017. REASON FOR CONSULTATION: Bacteremia. HISTORY OF PRESENT ILLNESS: The patient is a 56-year-old, male, with past medical history significant for stage IV lung cancer with mets to the skull adrenal gland and bone who was recently admitted to this facility where the patient was treated for generalized weakness and debility. The patient on Thursday last week. However, the patient started getting worse by Thursday. He was feeling very weak and tired and no energy. The patient was complaining of pain in the left lower ribcage area. Some pain in the abdominal area. The pain described to be dull, aching, 5 to 6 out of 10 and no radiation. The patient did feel nauseated but no vomiting. Has been feeling anorexic. The patient did have some cough and bringing up some sputum but no hemoptysis and no worsening of the same. With these symptoms, the patient presented to [facility] where the patient was evaluated. The patient subsequently has been transferred to the [facility] for further evaluation. The patient did have a chest x-ray, which showed left hilar soft tissue mass persists with right upper lobe infiltrate and question of pneumonia and left 7th rib metastasis. The patient also had an ultrasound which was negative for any acute disease. The patient blood cultures that were drawn at the [facility] came with positive gram-positive cocci. The patient was started on vancomycin in addition to Zosyn and ID was consulted for further recommendation regarding antibiotic therapy. The patient has been here at this facility no fever has been recorded and has been breathing comfortably on room air. The patient also did have elevated white count 13.6 that came down to 7.3 as of this morning. REVIEW OF SYSTEMS: Constitutional: Positive for weakness and some chills. EYES: No complaint. ENT: No complaint. Respiratory: As per HPI. Cardiovascular: No complaint. : No complaint. Gastrointestinal: as per HPI. Musculoskeletal: As per HPI. Integument: No complaint. Psychological: No complaint. Endocrine: No complaint. Neurological: No complaint. PAST MEDICAL HISTORY: Significant for metastatic lung cancer, COPD. PAST SURGICAL HISTORY:: Lung biopsy. SOCIAL HISTORY: Remote history of smoking. No drinking or drug use. FAMILY HISTORY: No pertinent findings were noticed. ALLERGIES: No known drug allergies. MEDICATIONS: Include the patient is currently on: 1. Tylenol. 2. DuoNeb. 3. Xanax. 4. Colace. 5. Pepcid. 6. Symbicort. 7. Colace. 8. Pepcid. 9. Duragesic patch. 10.Vancomycin pharmacy to dose. 11.Piptazobactam. PHYSICAL EXAMINATION: Blood pressure 123/63 with a pulse of 84, temperature 98.2. General description is a middle aged male up in the bed in no distress. No tachypnea, no accessory muscles of respiration use. HEENT: Pallor. No scleral icterus. Oral mucosal membranes dry. NECK: Trachea central. No thyromegaly. LUNGS: Unlabored breathing. No decreased breath sounds at the bases. No wheeze. Heart: S1, S2 regular rate and rhythm. ABDOMEN: Soft. Mild tenderness. No rebound, rigidity, no organomegaly. Extremities: No edema of the feet. SKIN: no rash or mass palpable. Neurological: Patient is awake, alert, oriented, times three. Mood and affect normal. LABS: Hemoglobin 9.7, white count 7.3, admission white count 13.6, BUN of 11, creatinine 0.64. Blood cultures at [facility] was positive for gram-positive cocci. DIAGNOSTIC IMPRESSION AND PLAN: Patient with a positive blood culture with gram-positive cocci in a patient who does have stage IV lung cancer this facility with some left upper lobe with question of possible pneumonia versus skin contamination especially if the organism is finalized as coagulase negative Staph. The did have however, left side looks clean. No evidence of any cellulitis. PLAN: 1. Blood cultures will be repeated to make sure no evidence of any persistent bacteremia. 2. Obtain sputum for gram stain culture and sensitivity. 3. The patient will be continued on Vancomycin, pharmacy to dose while waiting for the culture to finalize. Thank you for this consultation. Will follow this patient with you. MMODL / IJN: [id number] /
--- NOTE | 2017-01-22 17:45 | PN ---
PROGRESS NOTE Date of Service: SUBJECTIVE: A 56-year-old, white male admitted with dehydration pneumonia, lung cancer with metastatic disease to the bones. Dr. Badillo or his partner will be in today to discuss palliative chemotherapy. Possible Marinol will be started for poor appetite and possible TPN. Await oncology and radiation oncology consultation and nutrition consult. PT/OT. GISELLE / SHUN: [id number] /
[2017-01-22] MEDS: FAMOTIDINE 20 MG TAB PO SCH (20:56)
[2017-01-22] MEDS: TEMAZEPAM 30 MG CAP PO SCH (21:05)
[2017-01-23] MEDS: PIPERACILLIN-TAZOBACTAM 3.375 GM in DEXTROSE/WATER 1 50ML.BAG IVPB SCH ×3 (00:30→18:07)
[2017-01-23] MEDS ORDERED: VANCOMYCIN TROUGH DUE 1 EACH MISC MISCELLANE ONE (05:00)
[2017-01-23 06:02] LABS: Anion Gap 10 mmol/L; Blood Urea Nitrogen 18 mg/dL (9-20); Calcium 8.8 mg/dL (8.4-10.2); Carbon Dioxide 24 mmol/L (22-30); Chloride 105 mmol/L (98-107); Glucose 160 mg/dL (74-99); Non-African American GFR(MDRD) >60 (>60 ml/min/1.73 sqM); Potassium 4.4 mmol/L (3.5-5.1); Sodium 139 mmol/L (137-145)
[2017-01-23] MEDS: VANCOMYCIN 1,000 MG in SODIUM CHLORIDE 0.9% 250 ML IVPB SCH (06:24)
[2017-01-23] MEDS: SODIUM CHLORIDE 0.9% 1,000 ML IV SCH ×2 (06:26→20:52)
[2017-01-23] MEDS: IPRATROPIUM-ALBUTEROL 3 ML NEB INHALATION SCH ×4 (07:05→20:47)
[2017-01-23] MEDS: SYMBICORT 160-4.5 MCG INHALER INHALATION SCH ×2 (07:05→20:47)
[2017-01-23] MEDS: DEXAMETHASONE 4 MG TAB PO SCH ×4 (07:59→20:54)
[2017-01-23] MEDS: MEGESTROL 400 MG/10 ML CUP PO SCH (07:59)
[2017-01-23] MEDS: SALT AND SODA MOUTHWASH 1,000 ML PO SCH ×4 (07:59→22:12)
[2017-01-23] MEDS: DOCUSATE 100 MG CAP PO SCH ×2 (07:59→20:53)
[2017-01-23] MEDS: POLYETHYLENE GLYCOL 3350 17 GM POWD.PACK PO SCH (07:59)
[2017-01-23] MEDS: ACETAMINOPHEN TAB 325 MG TAB PO PRN (08:10)
--- NOTE | 2017-01-23 13:58 | PN ---
PROGRESS NOTE DATE OF SERVICE: 01/22/2017 REASON FOR FOLLOWUP: Bacteremia, possible pneumonia. INTERVAL HISTORY: The patient is afebrile. He is breathing comfortably. He did have some cough and bringing up some sputum. No chest pain, no abdominal pain, no nausea, no vomiting. PHYSICAL EXAMINATION: Blood pressure is 111/70 with a pulse of 78, temperature 97.8, He is 98% on 2 L. GENERAL DESCRIPTION: Middle-aged male, up in bed in no distress. RESPIRATORY SYSTEM: Unlabored breathing. Decreased breath sounds in the bases. HEART: S1, S2. Regular rate. ABDOMEN: Soft. No tenderness. LABS: BUN of 15 with the creatinine of 0.70. Culture done here has been pending so far. IMPRESSION: Patient admitted to the hospital with generalized weakness with question of possible pneumonia in a patient who did have a stage IV lung cancer without culture done at [facility], positive for the gram-positive. We are waiting for final ID of that positive blood culture. Blood culture here is negative so far. He is currently covered with vanco and Zosyn that will be continued, adjusting it further on the basis of the culture report. MMODL / IJN: [id number] /
[2017-01-23] MEDS: VANCOMYCIN 1,250 MG in SODIUM CHLORIDE 0.9% 250 ML IVPB SCH ×2 (15:17→22:12)
--- NOTE | 2017-01-23 17:55 | PN ---
PROGRESS NOTE SUBJECTIVE: 36-year-old white male. He was [[facility] ]with metastatic colon cancer throughout the liver. He has severe jaundice. He is requesting comfort care at this time although apparently there are some family difficulties about this, who wants something else for the patient. Hemoglobin is 9.7, white count 7.3. Sodium and potassium normal. ASSESSMENT: Metastatic colon cancer. The patient may need PEG tube placement versus comfort care. Awaiting family recommendations/ MMODL / IJN: [id number] /
[2017-01-23] MEDS: MORPHINE ORAL SOLN 10 MG/5 ML CUP PO PRN (18:15)
[2017-01-23] MEDS: FAMOTIDINE 20 MG TAB PO SCH (20:52)
[2017-01-23] MEDS: TEMAZEPAM 30 MG CAP PO SCH (20:53)
[2017-01-24] MEDS: PIPERACILLIN-TAZOBACTAM 3.375 GM in DEXTROSE/WATER 1 50ML.BAG IVPB SCH ×4 (00:17→23:27)
[2017-01-24] MEDS: VANCOMYCIN 1,250 MG in SODIUM CHLORIDE 0.9% 250 ML IVPB SCH (06:03)
--- NOTE | 2017-01-24 06:04 | PN ---
PROGRESS NOTE DATE OF SERVICE: 01/23/2017. REASON FOR FOLLOWUP: Pneumonia and bacteremia. INTERVAL HISTORY: The patient is afebrile. Has been breathing more comfortably. Denies significant chest pain. Occasional cough, less productive. No abdominal pain. No nausea, vomiting or any diarrhea. PHYSICAL EXAMINATION: On examination, blood pressure 116/55 with a pulse of 82, temperature 98. He is 99% on room air. General description is a middle aged male up in the chair in no distress. RESPIRATORY SYSTEM: Unlabored breathing with decreased breath sounds at the bases. No wheeze. HEART: S1, S2. Regular rate and rhythm. ABDOMEN: Soft, no tenderness. LABS: BUN of 18 with a creatinine 0.80. Vanco was 14. Blood culture has been negative. Sputum culture currently pending. DIAGNOSTIC IMPRESSION AND PLAN: The patient with positive blood culture in outpatient facility. Blood culture has been negative so far in a patient with possible pneumonia. Currently covered with vancomycin and Zosyn, will adjust antibiotic further based on the culture report. Continue supportive care. MMODL / IJN: [id number] /
[2017-01-24 07:06] LABS: Anion Gap 5 mmol/L; Blood Urea Nitrogen 18 mg/dL (9-20); Calcium 8.3 mg/dL (8.4-10.2); Carbon Dioxide 29 mmol/L (22-30); Chloride 105 mmol/L (98-107); Glucose 178 mg/dL (74-99); Non-African American GFR(MDRD) >60 (>60 ml/min/1.73 sqM); Potassium 4.4 mmol/L (3.5-5.1); Sodium 139 mmol/L (137-145)
[2017-01-24] MEDS: MEGESTROL 400 MG/10 ML CUP PO SCH (09:09)
[2017-01-24] MEDS: DOCUSATE 100 MG CAP PO SCH ×2 (09:09→20:47)
[2017-01-24] MEDS: DEXAMETHASONE 4 MG TAB PO SCH ×4 (09:09→20:47)
[2017-01-24] MEDS: POLYETHYLENE GLYCOL 3350 17 GM POWD.PACK PO SCH (09:10)
[2017-01-24] MEDS: SALT AND SODA MOUTHWASH 1,000 ML PO SCH ×4 (09:11→20:47)
[2017-01-24] MEDS: IPRATROPIUM-ALBUTEROL 3 ML NEB INHALATION SCH ×4 (09:49→19:30)
[2017-01-24] MEDS: SYMBICORT 160-4.5 MCG INHALER INHALATION SCH ×2 (09:49→19:30)
[2017-01-24] MEDS: ACETAMINOPHEN TAB 325 MG TAB PO PRN (16:11)
[2017-01-24] MEDS: SODIUM CHLORIDE 0.9% 1,000 ML IV SCH (17:14)
[2017-01-24] MEDS: TEMAZEPAM 30 MG CAP PO SCH (20:46)
[2017-01-24] MEDS: FAMOTIDINE 20 MG TAB PO SCH (20:47)
[2017-01-24] MEDS ORDERED: VANCOMYCIN TROUGH DUE 1 EACH MISC MISCELLANE ONE (21:00)
--- NOTE | 2017-01-24 21:56 | PN ---
PROGRESS NOTE DATE OF SERVICE: 01/24/2017. REASON FOR FOLLOW UP: 1. Positive blood culture. 2. Pneumonia. INTERVAL HISTORY: The patient is afebrile. He is breathing comfortably. He did have some cough, but less productive. No chest pain. No abdominal pain, no nausea or any vomiting, diarrhea. EXAMINATION: Blood pressure 105/56 with a pulse of 67, temperature 99.4. He is 99% on 2 L nasal cannula. General description is a middle aged male, lying in bed, in no distress. Respiratory system unlabored breathing. Coarse breath sounds in the bases. No wheeze. Heart is S1, S2. Regular rate and rhythm. Abdomen soft, no tenderness. LABS: BUN of 18, creatinine 0.63. Blood cultures done were negative. The blood cultures that were done at the [facility] finalized Staphylococcus hominis, sputum with Jeanie albicans. DIAGNOSTIC IMPRESSION AND PLAN: 1. Patient with a positive blood culture at [facility] more likely skin contamination as he has no clinical disease to go along with it. Blood culture done has been negative. Vanco will be discontinued. 2. Patient with pneumonia currently on Zosyn. Sputum showing Jeanie albicans. Likely colonized. Has noticed as no organism has been grown hopefully he will be able to finish therapy with oral antibiotic in the form of Augmentin. MMODL / IJN: [id number] /
[2017-01-25] MEDS: SODIUM CHLORIDE 0.9% 1,000 ML IV SCH ×2 (04:39→23:31)
[2017-01-25 07:31] LABS: Anion Gap 6 mmol/L; Blood Urea Nitrogen 21 mg/dL (9-20); Calcium 8.5 mg/dL (8.4-10.2); Carbon Dioxide 26 mmol/L (22-30); Chloride 104 mmol/L (98-107); Glucose 219 mg/dL (74-99); Non-African American GFR(MDRD) >60 (>60 ml/min/1.73 sqM); Potassium 4.5 mmol/L (3.5-5.1); Sodium 136 mmol/L (137-145)
[2017-01-25] MEDS: DOCUSATE 100 MG CAP PO SCH ×2 (08:25→23:32)
[2017-01-25] MEDS: POLYETHYLENE GLYCOL 3350 17 GM POWD.PACK PO SCH (08:25)
[2017-01-25] MEDS: DEXAMETHASONE 4 MG TAB PO SCH ×4 (08:25→23:32)
[2017-01-25] MEDS: PIPERACILLIN-TAZOBACTAM 3.375 GM in DEXTROSE/WATER 1 50ML.BAG IVPB SCH ×3 (08:25→23:46)
[2017-01-25] MEDS: MEGESTROL 400 MG/10 ML CUP PO SCH (08:25)
[2017-01-25] MEDS: SALT AND SODA MOUTHWASH 1,000 ML PO SCH ×4 (08:26→23:33)
[2017-01-25] MEDS: IPRATROPIUM-ALBUTEROL 3 ML NEB INHALATION SCH ×4 (09:37→19:39)
[2017-01-25] MEDS: SYMBICORT 160-4.5 MCG INHALER INHALATION SCH ×3 (09:37→19:39)
--- NOTE | 2017-01-25 11:45 | PN ---
PROGRESS NOTE DATE OF SERVICE: 01/24/17 I am covering for Dr. Paramjit Brizuela. INTERVAL HISTORY: This 56-year-old gentleman admitted with metastatic colon cancer also had pneumonia and bacteremia. Patient on broad-spectrum IV antibiotics. The patient is on IV vancomycin and Zosyn. The patient is feeling slightly better. Patient closely monitored. PAST MEDICAL HISTORY: Past medical history reviewed. REVIEW OF SYSTEMS: Cardio system: No angina or palpitations. Respiratory As mentioned earlier. GI: As mentioned earlier. : No dysuria. Central nervous system: Diffusely weak. CURRENT MEDICATIONS ARE: Reviewed and include: 1. Tylenol 650 q.4h p.r.n. 2. DuoNeb q.i.d. and p.r.n. 3. Xanax. 4. Symbicort b.i.d. 5. Maxitrol. 6. Duragesic patch. 7. Morphine sulfate. 8. Zosyn. 9. Restoril. PHYSICAL EXAM: Patient is alert, oriented times three. Pulse 76, blood pressure 118/60, respiratory 20, temperature is 97.2, pulse ox 98% on room air. HEENT: Conjunctivae normal. Neck: No jugular venous distention. Cardiovascular: S1, S2. Respiratory: Breath sounds diminished at the bases. A few scattered rhonchi and crackles. ABDOMEN: Soft, nontender. Legs: No edema. No swelling. Central nervous system: No focal deficits. LABS: WBC 7.8, hemoglobin 9.7. Other are noted. ASSESSMENT: 1. Acute pneumonia. 2. Anemia normocytic. 3. Metastatic lung cancer. 4. Chronic obstructive pulmonary disease exacerbation. 5. Jeanie in the sputum. RECOMMENDATIONS AND DISCUSSION: In this 56-year-old gentleman presents with multiple complex medical issues, we will monitor the patient closely. Continue symptomatic treatment. Continue IV antibiotics. Increase ambulation. The patient is able to ambulate. The patient might be able to go home once cleared by Infectious Disease. Please note that the sputum culture showed Jeanie. Continue current medications. Further recommendations to follow. MMODL / IJN: [id number] /
[2017-01-25] MEDS: ACETAMINOPHEN TAB 325 MG TAB PO PRN (16:54)
--- NOTE | 2017-01-25 20:00 | XR ---
EXAMINATION TYPE: XR chest 1V portable DATE OF EXAM: 01/25/2017 COMPARISON: 01/20/2017 INDICATION: Short of breath TECHNIQUE: Single frontal view of the chest is obtained. FINDINGS: The heart size is normal. The pulmonary vasculature is increasing in prominence.. Some mild plate atelectasis is developing at the left midlung Port is present on the right with the tip in the superior vena cava region IMPRESSION: 1. Conical correlation recommended for volume overload. 2. Mild left lower lobe plate atelectasis
[2017-01-25] MEDS: FAMOTIDINE 20 MG TAB PO SCH (23:32)
[2017-01-25] MEDS: TEMAZEPAM 30 MG CAP PO SCH (23:35)
[2017-01-26] MEDS: SODIUM CHLORIDE 0.9% 1,000 ML IV SCH ×3 (05:11→17:58)
--- NOTE | 2017-01-26 08:16 | PN ---
PROGRESS NOTE DATE OF SERVICE: 01/25/2007 I am covering for Dr. Brizuela. INTERVAL HISTORY: This 56-year-old gentleman admitted with metastatic cancer also on broad-spectrum IV antibiotics for acute pneumonia. Yesterday the patient is feeling weak and tired and clammy for some time. The patient improved significantly. Patient on IV Zosyn. At this time the patient is keen on going home. Dr. Obrien is following the patient closely as well as surgery. PAST MEDICAL HISTORY: Past medical history reviewed. REVIEW OF SYSTEMS: Cardiovascular: No angina or palpitations. Respiratory: As mentioned earlier. Gastrointestinal: No nausea or vomiting. no dysuria, no retention. Nervous system: No numbness or weakness. CURRENT MEDICATIONS: Reviewed and include: 1. Tylenol 650 q.4h p.r.n. 2. DuoNeb q.i.d. and p.r.n. 3. Xanax 0.25 b.i.d. 4. Symbicort b.i.d. 5. Pepcid. 6. Fentanyl patch. 7. Morphine sulfate. 8. Zosyn 3.375 IV q.8h. 9. Restoril p.r.n. PHYSICAL EXAMINATION: Patient is alert oriented times three. Pulse 83, blood pressure 156/72, temp is 98.1, pulse ox 98% on room air. HEENT: Conjunctivae normal. Neck no jugular venous distention. No carotid bruit. Cardiovascular S1, S2. Respiratory breath sounds diminished in the bases. Bilateral scattered rhonchi and crackles. Expiratory wheezing also present. Abdomen is soft, nontender. Legs no edema. Central nervous system: No focal deficits. LABORATORY DATA: Sodium 136. ASSESSMENT: 1. Acute pneumonia on IV antibiotics. 2. Anemia normocytic. 3. Metastatic lung cancer. 4. Chronic obstructive pulmonary disease acute exacerbation. 5. Jeanie in sputum. RECOMMENDATIONS AND DISCUSSION: Continue the current medications. Continue symptomatic treatment. Continue with broad spectrum IV antibiotics. Increase ambulation. Continue to monitor. Dr. Brizuela will follow. Dyspnea office thank. MMODL / ALEAN: [id number] /
[2017-01-26] MEDS: MEGESTROL 400 MG/10 ML CUP PO SCH (08:40)
[2017-01-26] MEDS: POLYETHYLENE GLYCOL 3350 17 GM POWD.PACK PO SCH (08:40)
[2017-01-26] MEDS: DEXAMETHASONE 4 MG TAB PO SCH ×4 (08:40→22:27)
[2017-01-26] MEDS: DOCUSATE 100 MG CAP PO SCH ×2 (08:40→20:31)
[2017-01-26] MEDS: PIPERACILLIN-TAZOBACTAM 3.375 GM in DEXTROSE/WATER 1 50ML.BAG IVPB SCH ×2 (08:40→16:57)
[2017-01-26] MEDS: SALT AND SODA MOUTHWASH 1,000 ML PO SCH ×4 (08:41→22:27)
[2017-01-26] MEDS: SYMBICORT 160-4.5 MCG INHALER INHALATION SCH ×3 (09:06→19:41)
[2017-01-26] MEDS: IPRATROPIUM-ALBUTEROL 3 ML NEB INHALATION SCH ×4 (09:06→19:33)
--- NOTE | 2017-01-26 12:37 | PN ---
PROGRESS NOTE DATE OF SERVICE: 01/25/2017. REASON FOR FOLLOW UP: 1. Positive blood cultures. 2. Pneumonia. INTERVAL HISTORY: The patient is afebrile. He is breathing more comfortably. Denies significant chest pain or shortness of breath. Very minimal cough, not brining up any sputum. No nausea, vomiting. No abdominal pain or any diarrhea. EXAMINATION: Blood pressure is 111/52 with a pulse of 70, temperature of 98.7. He is 97% on room air. General description is a middle-aged male lying in bed in no distress. RESPIRATORY SYSTEM: Unlabored breathing. Clear to auscultation anteriorly. HEART: S1, S2. Regular rate and rhythm. ABDOMEN: Soft, no tenderness. LAB: BUN of 21, creatinine is 0.60. DIAGNOSTIC IMPRESSION AND PLAN: 1. Patient with a positive blood culture for Staphylococcus hominis likely contamination. No need for further workup for the same. 2. Possible pneumonia. Sputum so far gram-negative pathogen although plan to finish therapy with oral Augmentin. Continue supportive care. MMODL / IJN: [id number] /
[2017-01-26 15:48] LABS: ALT 43 U/L (21-72); AST 15 U/L (17-59); Alkaline Phosphatase 88 U/L (38-126); Anion Gap 6 mmol/L; Blood Urea Nitrogen 23 mg/dL (9-20); Calcium 8.3 mg/dL (8.4-10.2); Carbon Dioxide 27 mmol/L (22-30); Chloride 101 mmol/L (98-107); Glucose 261 mg/dL (74-99); Magnesium 2.2 mg/dL (1.6-2.3); Non-African American GFR(MDRD) >60 (>60 ml/min/1.73 sqM); Potassium 4.5 mmol/L (3.5-5.1); Sodium 134 mmol/L (137-145); Total Bilirubin 0.2 mg/dL (0.2-1.3); Total Protein 5.5 g/dL (6.3-8.2)
[2017-01-26 15:54] LABS: Anisocytosis Slight; Basophils # (A) 0.1 k/uL (0-0.2); Basophils % (A) 0 %; CH 30.4; CHCM 31.9; Eosinophils % (A) 0 %; HCT 34.1 % (39.0-53.0); HDW 2.67; HGB 10.6 gm/dL (13.0-17.5); Luc # (Auto) 0.12; Luc % (Auto) 1; Lymphocytes # (A) 0.5 k/uL (1.0-4.8); Lymphocytes % (A) 3 %; MCH 29.8 pg (25.0-35.0); MCHC 31.1 g/dL (31.0-37.0); MCV 95.8 fL (80.0-100.0); Macrocytosis Slight; Mean Platelet Volume 8.3; Monocytes # (A) 0.8 k/uL (0-1.0); Monocytes % (A) 4 %; Neutrophils # (A) 17.3 k/uL (1.3-7.7); Neutrophils % (A) 92 %; RBC 3.56 m/uL (4.30-5.90); RDW 19.2 % (11.5-15.5); WBC 18.8 k/uL (3.8-10.6); WBC (Perox) 19.16
[2017-01-26] MEDS ORDERED: VANCOMYCIN 1,000 MG in SODIUM CHLORIDE 0.9% 250 ML IVPB STA (16:30)
--- NOTE | 2017-01-26 16:43 | XR ---
EXAMINATION TYPE: XR chest 2V DATE OF EXAM: 01/26/2017 COMPARISON: 01/25/2017 INDICATION: COPD, hilar mass TECHNIQUE: Frontal and lateral views of the chest are obtained. FINDINGS: The heart size is normal. The pulmonary vasculature is normal. Port is present on the right with the tip in the superior vena c jennifer region. Streak opacities within the left base compatible some atelectasis, increasing from prior study.. No obvious hilar mass is evident. IMPRESSION: 1. Left basilar atelectasis.
[2017-01-26] MEDS ORDERED: VANCOMYCIN 1,250 MG in SODIUM CHLORIDE 0.9% 250 ML IVPB SCH (17:00)
--- NOTE | 2017-01-26 17:02 | CT ---
EXAMINATION TYPE: CT chest wo con DATE OF EXAM: 01/26/2017 COMPARISON: 11/18/2016 HISTORY: Patient has no complaints at time of study. Follow up for pneumonia. CT DLP: 216.8 mGycm, Automated exposure control for dose reduction was used. CONTRAST: Performed injected with 0 mL of Omnipaque 350. TECHNIQUE: Axial images were obtained at 5 mm thick sections. Reconstructed images are reviewed on [employer] computer in the coronal plane. FINDINGS: Portion of the thyroid visualized is normal. Small area of pneumonitis in the periphery of the right upper lobe. Series 4 image 14. Additional are a of pneumonitis within the right middle lobe. Series 4 image 25. Left infrahilar mass surrounding th e lower lobe and lingular bronchus appears to be present. Some peribronchial thickening is present. L ingular infiltrate is present. Differential could include underlying mass. Pneumonia is considered le ss likely. Postobstructive pneumonia could be considered. Findings have worsened in the left infrahil ar region compared to the previous study. Mediastinal lymphadenopathy is increased over the interval. Small nodular densities in the periphery of the lingula. Series 3 image 35. There is a 1.2 cm lymph node adjacent to the aortic arch. There is an enlarged pretracheal lymph nod e measuring 2.6 cm a smaller shotty lymph nodes in the aortopulmonic window. There is an enlarged sub carinal lymph node measuring 2.2 cm. Additional pretracheal node is somewhat prominent 1.3 cm. The ascending aorta diameter at the level of the main pulmonary artery is 3.5 cm. The main pulmonary artery diameter at the bifurcation is 3.[address] sections are obtained through the upper abdomen. There is marked enlargement of the left a drenal gland measuring 4.9 cm transverse dimension. Upper abdomen is otherwise unremarkable. Adrenal gland is enlarged over the interval IMPRESSIONS: 1. Findings suggestive for recurrent infrahilar mass which is increasing in size, enlarging mediastin al lymph nodes and enlarging left adrenal gland.
[2017-01-26 17:31] LABS: Appearance,Urine Clear (Clear); Bilirubin,Urine Negative (Negative); Glucose,Urine (UA) 3+ (Negative); Ketones,Urine Negative (Negative); Leukocyte Esterase,Urine Negative (Negative); Nitrite,Urine Negative (Negative); PH, Urine 7.5 (5.0-8.0); Protein,Urine Negative (Negative); Specific Gravity,Urine 1.014 (1.001-1.035); UA Billing (MACRO vs. MICRO) CHEM; Urobilinogen,Urine <2.0 mg/dL (<2.0)
[2017-01-26] MEDS: VANCOMYCIN 1,250 MG in SODIUM CHLORIDE 0.9% 250 ML IVPB SCH (20:27)
[2017-01-26] MEDS: FAMOTIDINE 20 MG TAB PO SCH (20:31)
[2017-01-26] MEDS ORDERED: FLUCONAZOLE 100 MG TAB PO ONE (22:00)
[2017-01-26] MEDS ORDERED: SODIUM CHLORIDE 0.9% 500 ML IV ONE (22:34)
[2017-01-26] MEDS: TEMAZEPAM 30 MG CAP PO SCH (23:11)
[2017-01-27] MEDS: PIPERACILLIN-TAZOBACTAM 3.375 GM in DEXTROSE/WATER 1 50ML.BAG IVPB SCH ×4 (00:52→23:56)
[2017-01-27] MEDS: VANCOMYCIN 1,250 MG in SODIUM CHLORIDE 0.9% 250 ML IVPB SCH ×3 (04:37→21:24)
[2017-01-27 07:30] LABS: Anisocytosis Slight; Basophils % (A) 0 %; CH 29.1; CHCM 30.1; Eosinophils % (A) 0 %; HCT 33.9 % (39.0-53.0); HDW 2.69; HGB 10.6 gm/dL (13.0-17.5); Hypochromasia Marked; Luc # (Auto) 0.12; Luc % (Auto) 1; Lymphocytes # (A) 0.5 k/uL (1.0-4.8); Lymphocytes % (A) 3 %; MCH 30.4 pg (25.0-35.0); MCHC 31.5 g/dL (31.0-37.0); MCV 96.8 fL (80.0-100.0); Macrocytosis Slight; Mean Platelet Volume 7.4; Monocytes # (A) 0.8 k/uL (0-1.0); Monocytes % (A) 4 %; Neutrophils # (A) 19.7 k/uL (1.3-7.7); Neutrophils % (A) 93 %; RDW 18.4 % (11.5-15.5); WBC 21.3 k/uL (3.8-10.6); WBC (Perox) 22.23
[2017-01-27 07:46] LABS: Anion Gap 8 mmol/L; Blood Urea Nitrogen 20 mg/dL (9-20); Calcium 8.3 mg/dL (8.4-10.2); Carbon Dioxide 27 mmol/L (22-30); Chloride 102 mmol/L (98-107); Glucose 159 mg/dL (74-99); Non-African American GFR(MDRD) >60 (>60 ml/min/1.73 sqM); Potassium 4.4 mmol/L (3.5-5.1); Sodium 137 mmol/L (137-145)
[2017-01-27] MEDS: POLYETHYLENE GLYCOL 3350 17 GM POWD.PACK PO SCH (07:54)
[2017-01-27] MEDS: DEXAMETHASONE 4 MG TAB PO SCH ×4 (07:54→21:24)
[2017-01-27] MEDS: MEGESTROL 400 MG/10 ML CUP PO SCH (07:54)
[2017-01-27] MEDS: DOCUSATE 100 MG CAP PO SCH ×2 (07:54→21:24)
[2017-01-27] MEDS: SALT AND SODA MOUTHWASH 1,000 ML PO SCH ×4 (07:55→22:56)
--- NOTE | 2017-01-27 08:11 | PN ---
PROGRESS NOTE SUBJECTIVE: 56-year-old, white male, who was eating breakfast and feeling better this morning but now is more somnolent this afternoon. Medications have been changed for pain. Since he has been admitted he is on his regular home pain medicine. He has been treated for pneumonia and positive blood cultures for sepsis secondary to pneumonia. That could be contamination. Remains on Zosyn. He has elevated lactic acid. White count 18.8 today. What I am going to do is add vancomycin to his regimen and await further labs and then will do a CT scan of the chest to reassess his pneumonia. LUNGS: Transmitted upper sounds. HEMATOLOGICAL: Negative Homans. PSYCH: Fair mood and affect. NEUROLOGIC: Alert and oriented x3. When I examined him this morning he was up in the bed eating and talking normal. Possibly fluid bolus will be given if he appears to be dehydrated on his lab work or BNP is normal. Await CT of the chest report also. Prognosis extremely guarded. Possibly will be sent home once cleared from Infectious Disease standpoint. MMODL / IJN: [id number] /
[2017-01-27] MEDS: SYMBICORT 160-4.5 MCG INHALER INHALATION SCH ×2 (08:19→18:32)
[2017-01-27] MEDS: IPRATROPIUM-ALBUTEROL 3 ML NEB INHALATION SCH ×4 (08:19→18:34)
--- NOTE | 2017-01-27 11:17 | PN ---
PROGRESS NOTE SUBJECTIVE: 56-year-old, white male admitted with dehydration, pneumonia. He has metastatic cancer. He wants to go to rehab area since he is still on IV antibiotics. He feels weak and wants to get up and maybe go to [facility] in [place] up by where he lives. Vital signs are reviewed. Positive lactic acid is reviewed. Labs reviewed. Add vancomycin back to his Unasyn for broad-spectrum antibiotics and positive lactic acid. Fluid boluses given last night also for positive lactic acid. He is awake and alert. He is talking appropriately today. CARDIOVASCULAR: S1, S2. LUNGS: Scattered rhonchi and wheeze. HEMATOLOGIC: Negative Homans. ASSESSMENT: 1. Metastatic cancer. 2. Pneumonia. 3. Dehydration. 4. Sepsis secondary to pneumonia. Continue with vancomycin and Zosyn. Possible rehab center with IV antibiotics with a PICC line in 2-3 days. MMODL / IJN: [id number] /
--- NOTE | 2017-01-27 11:34 | PN ---
PROGRESS NOTE DATE OF SERVICE: 01/26/2017. REASON FOR FOLLOW UP: 1. Positive blood culture. 2. Possible pneumonia. INTERVAL HISTORY: The patient is afebrile. He was seen later on this afternoon and the patient said he was not feeling very great, though denies any chest pain or shortness of breath. He did have some cough, but not bringing up any sputum. No abdominal pain or any diarrhea. PHYSICAL EXAMINATION: Blood pressure is 114/63 with a pulse of 68, temperature 97.9. He is at 99% on 2 L nasal cannula. General description is a middle-aged male, lying in bed in no distress. RESPIRATORY SYSTEM: Unlabored breathing with decreased breath sounds at the bases. HEART: S1, S2. Regular rate and rhythm. ABDOMEN: Soft, no tenderness. LABS: Hemoglobin is 10.6, white count of 18.8 with a BUN of 23, creatinine 0.60. Blood cultures from yesterday are negative so far. DIAGNOSTIC IMPRESSION AND PLAN: 1. Patient with a positive blood culture of Staphylococcus hominis not taken in the hospital, blood culture here has been negative. Likely contamination and no need for therapy for the same. 2. Patient with possible pneumonia, sputum has been showing a Jeanie albicans and patient did have elevated white count with a question of possible . Nystatin swish and swallow and Diflucan will be added and will repeat a CBC tomorrow. MMODL / IJN: [id number] /
[2017-01-27] MEDS: SODIUM CHLORIDE 0.9% 1,000 ML IV SCH ×2 (18:17→20:57)
[2017-01-27] MEDS: FAMOTIDINE 20 MG TAB PO SCH (21:24)
[2017-01-27] MEDS: TEMAZEPAM 30 MG CAP PO SCH (21:24)
--- NOTE | 2017-01-27 22:49 | PN ---
PROGRESS NOTE DATE OF SERVICE: 01/27/2017 REASON FOR FOLLOW UP: Pneumonia possible postobstructive. INTERVAL HISTORY: The patient was noticed to have elevated lactic acid yesterday for which a CT scan of the chest has been done which is now showing left infrahilar mass surrounding the lower lobe and lingular bronchus appears to be present. Some peribronchial thickening and underlying mass in the differential. Pneumonia less likely but possible aspiration pneumonia not entirely excluded. Vancomycin was added. White count still elevated. However, the patient is also on dexamethasone. The patient remains to be feeling weak and tired. Denies any chest pain. He did have a cough but not bringing up any sputum. No abdominal pain. No nausea, no vomiting and no diarrhea. EXAMINATION: Blood pressure is 124/78, pulse of 82, temperature 97.9, he is 99% on 2 L nasal cannula. General description is a middle aged male, lying in bed, in no distress. RESPIRATORY SYSTEM: Unlabored breathing. Coarse breath sounds bilaterally. No wheezes. Heart is S1, S2. Regular rate and rhythm. Abdomen soft. No tenderness. Extremities: No edema of the feet. LABS: Hemoglobin 10.6, 1.3 with a BUN of 20, creatinine 1.64. Blood cultures repeated today so far negative. Urine is negative. DIAGNOSTIC IMPRESSION AND PLAN: The patient admitted to the hospital with weakness. The patient will also have an outpatient blood culture positive with Staphylococcus hominis, blood culture here has been negative. The patient did have stage IV lung cancer now with worsening infiltrate seen on the CT, likely worsening cancer, underlying pneumonia less likely but cannot be entirely excluded. Did have jump in the white count that could be related to the steroids the patient is already on or . Diflucan will be continued. The patient needs to be reevaluated by Pulmonary and Oncology Services. Continue supportive care. MMODL / IJN: [id number] /
[2017-01-28] MEDS: VANCOMYCIN 1,250 MG in SODIUM CHLORIDE 0.9% 250 ML IVPB SCH ×3 (04:38→20:03)
[2017-01-28] MEDS: IPRATROPIUM-ALBUTEROL 3 ML NEB INHALATION SCH ×4 (07:40→20:15)
[2017-01-28] MEDS: SYMBICORT 160-4.5 MCG INHALER INHALATION SCH ×2 (07:40→20:15)
--- NOTE | 2017-01-28 08:18 | CDI ---
In responding to this query, please exercise your independent professional judgment. The [facility] Coding Staff and Clinical Documentation Specialists appreciate your assistance in clarifying documentation, maintaining compliance with coding guidelines, accurately documenting patients condition and capturing severity of illness. The fact that a question is asked does not imply that any particular answer is desired or expected. Communication forms are a method of clarifying documentation and are not made part of the Legal Health Record. Thank you in advance for your clarification. Last Revision, March 2015 Lucian Kim [address] [place] [address] Documentation Clarification Form Date: 01/22/2017 9:29:00 AM From: Tanya Dozier RN, CDS Admit Date: 01/20/2017 12:56:00 AM Patient Name: Eddie Dexter Visit Number: [id number] Dr. Paramjit Brizuela, 56 year old patient admitted for intractable pain. 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 Per Dietitian consult patient has had "poor appetite for 1 month, weight loss of 22 pound over 3 weeks, inadequate energy intake, 89 % of ideal body weight, increased metabolic demands". History/Risk Factors: Clinical Indicators: Total Protein 5.5, Albumin 2.7 BMI 21.1, "severely malnourished" and "Moderate protein calorie malnutrition" per H&P, 01/26 Albumin 2.8, Total Protein 5.5 Treatment: Dietitian consult, Ensure compact TID, Magic cup BID, Megace, In your professional opinion, can you please clarify if these findings signify one of the following conditions? Severe Protein-Calorie Malnutrition Moderate Protein-Calorie Malnutrition Mild Protein-Calorie Malnutrition Other condition, please specify Unable to determine Please document in your progress notes and discharge summary in order to capture severity of illness and risk of mortality. Include clinical findings that support your diagnosis. FYI: Press F11 to launch patient chart. Thank you. PATRICIA
[2017-01-28] MEDS: PIPERACILLIN-TAZOBACTAM 3.375 GM in DEXTROSE/WATER 1 50ML.BAG IVPB SCH ×2 (08:57→16:03)
[2017-01-28] MEDS: DEXAMETHASONE 4 MG TAB PO SCH ×4 (08:58→22:01)
[2017-01-28] MEDS: MEGESTROL 400 MG/10 ML CUP PO SCH (08:58)
[2017-01-28] MEDS: SALT AND SODA MOUTHWASH 1,000 ML PO SCH ×4 (08:59→21:59)
[2017-01-28] MEDS: DOCUSATE 100 MG CAP PO SCH ×2 (08:59→20:34)
[2017-01-28] MEDS: POLYETHYLENE GLYCOL 3350 17 GM POWD.PACK PO SCH (08:59)
[2017-01-28] MEDS ORDERED: VANCOMYCIN TROUGH DUE 1 EACH MISC MISCELLANE ONE (11:00)
[2017-01-28 12:34] LABS: ALT 98 U/L (21-72); AST 45 U/L (17-59); Alkaline Phosphatase 91 U/L (38-126); Anion Gap 11 mmol/L; Blood Urea Nitrogen 28 mg/dL (9-20); Calcium 8.3 mg/dL (8.4-10.2); Carbon Dioxide 26 mmol/L (22-30); Chloride 99 mmol/L (98-107); Glucose 298 mg/dL (74-99); Non-African American GFR(MDRD) >60 (>60 ml/min/1.73 sqM); Potassium 4.4 mmol/L (3.5-5.1); Sodium 136 mmol/L (137-145); Total Bilirubin 0.4 mg/dL (0.2-1.3); Total Protein 5.9 g/dL (6.3-8.2)
[2017-01-28 12:37] LABS: Anisocytosis Slight; CH 30.6; CHCM 31.8; HCT 35.9 % (39.0-53.0); HDW 2.64; HGB 11.1 gm/dL (13.0-17.5); MCH 29.8 pg (25.0-35.0); MCHC 30.9 g/dL (31.0-37.0); MCV 96.6 fL (80.0-100.0); Macrocytosis Slight; Mean Platelet Volume 8.1; RBC 3.72 m/uL (4.30-5.90); RDW 19.2 % (11.5-15.5); WBC 24.4 k/uL (3.8-10.6)
[2017-01-28] MEDS: SODIUM CHLORIDE 0.9% 1,000 ML IV SCH (19:20)
--- NOTE | 2017-01-28 19:20 | PN ---
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 He was diagnosed with bronchoscopy and biopsy in September 2016. Patient started systemic chemotherapy from September 2016 to November 2016 under the supervision of Dr. Gupta. The patient tolerated chemotherapy fairly well, with last cycle including symptoms of declining performance status with nausea, vomiting and decreased appetite. Patient was recently admitted with a chest x-ray showing infiltrates requiring antibiotics and supportive care. Further imaging including CT scan of the brain shows skull metastasis; however, patient denied pain relating to his skull metastasis. Follow-up CT scan of the chest from 01/26/2017 was compared to imaging from 11/18/2016. The findings show interval enlargement of the known left hilar mass and associated mediastinal lymph nodes. There is also interval enlargement of the known left adrenal gland metastasis, which now measures 4.9 cm. Currently the patient denies interval increased shortness of breath, chest pain, hemoptysis, skull pain and abdominal pain. He is receiving ( ) of supportive care. He has met with Dr. Gupta and [facility] Rosas of Medical Oncology regarding consideration for immunotherapy on an outpatient basis. If the patient is not a candidate for any form of immunotherapy or systemic chemotherapy, then palliative radiation therapy can be instituted. CURRENT MEDICATIONS: 1. Acetaminophen. 2. Alprazolam. 3. Symbicort. 4. Dexamethasone. 5. Colace. 6. Pepcid. 7. Fentanyl 100 mcg patch. 8. Ipratropium-albuterol. 9. Megace. 10.Morphine. 11.Zofran. 12.Zosyn. 13.Miralax. 14.Restoril. PHYSICAL EXAM: Well-developed, well-nourished, middle-aged gentleman, in no acute distress. Performance status is fair. Pulse 73, oxygen saturation 98%. Temperature 98.2, blood pressure 118/69. HEENT examination is within normal limits. Sclerae are anicteric. Oral cavity shows no mucosal lesions. Neck is without palpable adenopathy. CHEST: Clear with decreased ( ) heard in the left lung region. There are no audible wheezes. Heart is regular rate and rhythm. Abdomen is round, soft, non-tender. There is no organomegaly or masses. Extremities show no edema, tenderness or cyanosis. Neurologic exam shows no gross deficits. 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 He was treated with systemic chemotherapy under the supervision of Dr. Gupta from September 2016 to November 2016. ( ) patient tolerated last cycle of chemotherapy poorly secondary to decline in performance status, including nausea, weight loss. Subsequently admitted for decline in his performance status. He was noted to have a pulmonary infiltrate and is receiving antibiotic and best supportive care. CT imaging shows progression of his metastasis, particularly in the bone of the skull, which is asymptomatic. He also has interval enlargement of left hilar mass, mediastinal lymph nodes and left adrenal gland. Patient does not have associated pain or symptoms in there regions; however, he is receiving best supportive care for pneumonia as well. Overall performance status is fair. He is in the process of starting immunotherapy under the supervision of Dr. Gupta once discharged; however, hospitalization has been prolonged. RECOMMENDATIONS: I had a lengthy discussion with the patient regarding current medical status and management. I do agree with continued close followup with Dr. Gupta regarding immunotherapy options. I also recommend inpatient rehabilitation in the meantime. The patient is not a candidate for chemotherapy or immunotherapy; therefore palliative radiation therapy can be considered. I will continue follow his case as well. MMODL / IJN: [id number] /
[2017-01-28] MEDS: FAMOTIDINE 20 MG TAB PO SCH (20:34)
[2017-01-28] MEDS: TEMAZEPAM 30 MG CAP PO SCH (20:35)
[2017-01-28 20:38] LABS: Glucose,Whole Blood 233 mg/dL (75-99)
[2017-01-28] MEDS: INSULIN LISPRO (humaLOG) 300 UNIT/3 ML VIAL SQ SCH (21:59)
[2017-01-29] MEDS: PIPERACILLIN-TAZOBACTAM 3.375 GM in DEXTROSE/WATER 1 50ML.BAG IVPB SCH ×3 (00:53→16:49)
[2017-01-29] MEDS: VANCOMYCIN 1,250 MG in SODIUM CHLORIDE 0.9% 250 ML IVPB SCH ×3 (04:26→21:46)
[2017-01-29 07:30] LABS: Glucose,Whole Blood 171 mg/dL (75-99)
[2017-01-29 07:39] LABS: Anisocytosis Slight; Basophils % (A) 0 %; CHCM 32.3; Eosinophils % (A) 0 %; HCT 35.1 % (39.0-53.0); HDW 2.58; Luc # (Auto) 0.07; Luc % (Auto) 0; Lymphocytes # (A) 0.4 k/uL (1.0-4.8); Lymphocytes % (A) 2 %; MCH 30.3 pg (25.0-35.0); MCHC 31.5 g/dL (31.0-37.0); MCV 96.2 fL (80.0-100.0); Macrocytosis Slight; Mean Platelet Volume 8.1; Monocytes # (A) 0.7 k/uL (0-1.0); Monocytes % (A) 4 %; Neutrophils # (A) 19.1 k/uL (1.3-7.7); Neutrophils % (A) 94 %; RBC 3.65 m/uL (4.30-5.90); RDW 19.3 % (11.5-15.5); WBC 20.4 k/uL (3.8-10.6); WBC (Perox) 21.03
[2017-01-29 07:54] LABS: ALT 91 U/L (21-72); AST 21 U/L (17-59); Alkaline Phosphatase 82 U/L (38-126); Anion Gap 8 mmol/L; Blood Urea Nitrogen 26 mg/dL (9-20); Calcium 8.3 mg/dL (8.4-10.2); Carbon Dioxide 25 mmol/L (22-30); Chloride 100 mmol/L (98-107); Glucose 184 mg/dL (74-99); Non-African American GFR(MDRD) >60 (>60 ml/min/1.73 sqM); Potassium 4.5 mmol/L (3.5-5.1); Sodium 133 mmol/L (137-145); Total Bilirubin 0.3 mg/dL (0.2-1.3); Total Protein 5.7 g/dL (6.3-8.2)
[2017-01-29] MEDS: SYMBICORT 160-4.5 MCG INHALER INHALATION SCH ×2 (08:17→20:20)
[2017-01-29] MEDS: IPRATROPIUM-ALBUTEROL 3 ML NEB INHALATION SCH ×4 (08:17→20:20)
[2017-01-29] MEDS: MEGESTROL 400 MG/10 ML CUP PO SCH (09:11)
[2017-01-29] MEDS: SALT AND SODA MOUTHWASH 1,000 ML PO SCH ×4 (09:12→21:42)
[2017-01-29] MEDS: DOCUSATE 100 MG CAP PO SCH ×2 (09:12→21:39)
[2017-01-29] MEDS: DEXAMETHASONE 4 MG TAB PO SCH ×4 (09:12→21:39)
[2017-01-29] MEDS: POLYETHYLENE GLYCOL 3350 17 GM POWD.PACK PO SCH ×2 (09:12→09:13)
--- NOTE | 2017-01-29 09:26 | CONS ---
CONSULTATION DATE OF SERVICE: 01/28/2017 HISTORY OF PRESENT ILLNESS: The patient is a 56-year-old male, recently diagnosed in August of this year with squamous cell lung cancer stage IV, where recently he has been having problems with increased intractable pain and difficulty with ambulation and anorexia. He also noted to have problems with metastatic disease to the bone and left adrenal gland. He is from [facility]. He had not been following with PCP and had significant history of smoking for many years, 1 pack daily, and recently quit smoking for one month now. 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 He is seen. He is sitting up in a chair. Nursing students are drawing blood from him. He is voicing no particular distress at this time. He has not ever had any surgeries and prior to his recent diagnosis had not been on any home medications. He denies any problems with nausea, vomiting, diarrhea, or constipation. He denies any problems with chest pain. He states that his breathing is okay right now. He is not on any oxygen at this time. ALLERGIES: Patient's allergies are none known. MEDICATIONS: Home medications include fentanyl patch 100 mcg every 72 hours; Restoril 30 mg at bedtime; Zantac 300 mg at bedtime; morphine, Roxanol 0.5 mL every 3 hours as needed; Levaquin 750 mg daily; DuoNeb nebulizer treatments q.i.d.; Hexadrol 4 mg q.i.d.; Symbicort 160/4.5 two puffs twice a day and albuterol inhaler as needed. SOCIAL HISTORY: Patient is . 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 He has been a smoker for many years, one pack daily. He quit smoking about 1 month ago. He denies any recreational drugs, alcohol, or marijuana. FAMILY HISTORY: Significant for father having an HI. Mother history is unknown, but no history of cancer. PAST SURGICAL HISTORY: Past surgical history is port to right chest and bronchoscopy and biopsy of lung. PAST MEDICAL HISTORY: 1. Essentially negative until he was diagnosed with lung cancer, squamous cell, stage IV. 2. COPD. REVIEW OF SYSTEMS: Completed with patient. Head to toe assessment was done and is negative other than what was noted in his HPI. PHYSICAL EXAMINATION: His vital signs show temperature 98.2, heart rate 75, blood pressure 118/69, oxygen saturation on room air 98%. LABS: WBC 24.4, hemoglobin 11.1, hematocrit 35.9, platelets 168. Sodium is 136, potassium 4.4, chloride 99, carbon dioxide 26, BUN 28, creatinine is 0.72. Glucose 298. Calcium is 8.3. Total bilirubin 0.4, AST 45, ALT 98, alkaline phosphatase 91. Total protein 5.9. Albumin 3.3. Blood cultures with no growth. Sputum showed Jeanie. GENERAL: Patient is a 56-year-old male, sitting up in chair, appears in no acute respiratory distress at this time. HEENT: Head is atraumatic, normocephalic. Pupils are reactive. Mucous membranes are moist. Neck is supple. Trach is midline. Lung sounds diminished throughout with port to right upper chest. CARDIOVASCULAR: S1, S2 is heard, tachy. ABDOMEN: Soft. Bowel sounds are heard. Nontender. EXTREMITIES: With no significant edema. He is able to move all extremities. NEUROLOGIC: He is awake, alert. IMPRESSION: 1. Stage IV squamous cell lung cancer. 2. Possible post obstruction pneumonia. 3. Protein calorie malnutrition, moderate. 4. Acute exacerbation of chronic obstructive pulmonary disease. 5. Dehydration. 6. Sepsis. 7. Anemia. 8. Jeanie in sputum. 9. Dehydration with weakness, on admission. PLAN: The patient should continue with his present medications. Oxygen to be titrated to keep sats 92% or better. Continue with GI and DVT prophylaxis. The patient is waiting for immunotherapy to be approved by insurance. Continue with antibiotics as ordered. Continue with smoking cessation. Thank you for the consultation. We will continue to follow patient closely with you. Dr. Toribio has been made aware of patient's case. MMODL / IJN: [id number] /
--- NOTE | 2017-01-29 10:32 | PN ---
PROGRESS NOTE DATE OF SERVICE: 01/28/2017 REASON FOR FOLLOWUP: Possible pneumonia. INTERVAL HISTORY: The patient is afebrile. Has been breathing more comfortably. Patient denies significant chest pain. Minimal cough. Not bringing up any sputum. No nausea, vomiting, or any diarrhea. PHYSICAL EXAMINATION: On examination, blood pressure is 119/67 with a pulse 86, temperature 98.2. He is 98% on room air. General description is a middle age male lying in bed in no distress. RESPIRATORY SYSTEM; Unlabored breathing with decreased breath sounds in the bases. No wheeze. HEART: S1, S2. Regular rate and rhythm. ABDOMEN: Soft. No tenderness. LABS: White cell count 24,000. DIAGNOSTIC IMPRESSION AND PLAN: Patient with metastatic lung cancer now with worsening of the tumor and a question of possible pneumonia though clinically not behaving as such. Patient with no fever. Elevated white count could be related to steroid effect. Plus-minus oral thrush on nystatin swish and swallow. Diflucan will be added. Will keep the patient on the Zosyn at this point. Repeat sputum has been ordered. Continue supportive care. MMODL / IJN: [id number] /
[2017-01-29 11:12] LABS: Glucose,Whole Blood 288 mg/dL (75-99)
[2017-01-29 11:15] LABS: Hemoglobin A1C 5.5 % (4.2-6.1)
[2017-01-29] MEDS: MORPHINE ORAL SOLN 10 MG/5 ML CUP PO PRN (12:21)
[2017-01-29] MEDS: INSULIN LISPRO (humaLOG) 300 UNIT/3 ML VIAL SQ SCH ×3 (12:24→21:43)
[2017-01-29] MEDS ORDERED: diphenhydrAMINE 25 MG CAP PO PRN (13:43)
--- NOTE | 2017-01-29 15:23 | PN ---
PROGRESS NOTE DATE OF SERVICE: 01/29/2017 The patient has been hemodynamically stable. He is less short of breath. His blood pressure is 137/70, respiratory rate of 14, pulse rate of 60, temperature 97.7 degrees Fahrenheit. HEENT is unremarkable. Chest with decreased breath sounds on the left with wheeze, inspiratory and expiratory. Cardiovascular system reveals an S1, S2. Abdomen is soft. There is no pedal edema. IMPRESSION: Postobstructive pneumonia is less likely. Progression of metastatic disease with partial obstruction of the left sided airway is more likely. Continue antibiotics per Infectious Disease. Agree with possible discharge planning. Depending on how he does, we shall make further changes to his care. He was counseled regarding his condition and this approach. . LELAL / IJN: [id number] /
[2017-01-29] MEDS: SODIUM CHLORIDE 0.9% 1,000 ML IV SCH ×7 (16:49→21:52)
[2017-01-29 16:57] LABS: Glucose,Whole Blood 258 mg/dL (75-99)
[2017-01-29 21:30] LABS: Glucose,Whole Blood 218 mg/dL (75-99)
[2017-01-29] MEDS: FAMOTIDINE 20 MG TAB PO SCH (21:39)
[2017-01-29] MEDS: NYSTATIN 100,000 UNIT/ML SUSP 500,000 UNIT/5 ML CUP PO SCH (21:41)
[2017-01-29] MEDS: TEMAZEPAM 30 MG CAP PO SCH (21:43)
[2017-01-29 23:21] LABS: Glucose,Whole Blood 194 mg/dL (75-99)
[2017-01-29 23:28] VITALS: TEMP 98.5
--- NOTE | 2017-01-29 23:35 | P.PN ---
Subjective The patient overall feels better compared to his admission. He states that pain is reduced. He is able to get out of bed, bear weight and walk short distances. Appetite is somewhat improved Objective - Vital Signs Vital signs: Vital Signs Temp 97.9 F 01/29/17 15:00 Pulse 72 01/29/17 20:35 Resp 18 01/29/17 15:00 BP 125/70 01/29/17 15:00 Pulse Ox 100 01/29/17 15:00 Intake & Output 01/29/17 01/29/17 01/30/17 06:59 18:59 06:59 Intake Total 1765 Balance 1765 Intake: IV 1175 Piperacillin-Tazobactam 3 50 .375 gm In Dextrose/Water 1 50ml.bag @ 12.5 mls/hr IVPB Q8HR KEZIA Rx#: [id number] Sodium Chloride 0.9% 1, 625 000 ml @ 75 mls/hr IV . [id number] KEZIA Rx#:[id number] Vancomycin 1,250 mg In 500 Sodium Chloride 0.9% 250 ml @ 125 mls/hr IVPB Q8H KEZIA Rx#:[id number] Oral 590 Other: Voiding Method Toilet Toilet # Voids 1 3 - Constitutional General appearance: Present: no acute distress - EENT Eyes: Present: EOMI, PERRLA ENT: Present: hearing grossly normal, normal oropharynx - Respiratory Respiratory: bilateral: CTA - Cardiovascular Rhythm: regular Heart sounds: normal: S1, S2 - Gastrointestinal General gastrointestinal: Present: normal bowel sounds, soft - Integumentary Integumentary: Present: normal - Neurologic Neurologic: Present: CNII-XII intact - Musculoskeletal Musculoskeletal: Present: generalized weakness, strength equal bilaterally - Psychiatric Psychiatric: Present: A&O x's 3, appropriate affect - Labs CBC & Chem 7: 01/29/17 07:05 01/29/17 07:05 Labs: Abnormal Lab Results - Last 24 Hours (Table) 01/29/17 01/29/17 01/29/17 Range/Units 07:05 07:05 07:18 WBC 20.4 H (3.8-10.6) k/uL RBC 3.65 L (4.30-5.90) m/uL Hgb 11.0 L (13.0-17.5) gm/dL Hct 35.1 L (39.0-53.0) % RDW 19.3 H (11.5-15.5) % Neutrophils # 19.1 H (1.3-7.7) k/uL Lymphocytes # 0.4 L (1.0-4.8) k/uL Sodium 133 L (137-145) mmol/L BUN 26 H (9-20) mg/dL Glucose 184 H (74-99) mg/dL POC Glucose (mg/dL) 171 H (75-99) mg/dL Plasma Lactic Acid Clif (0.7-2.0) mmol/L Calcium 8.3 L (8.4-10.2) mg/dL ALT 91 H (21-72) U/L Total Protein 5.7 L (6.3-8.2) g/dL Albumin 3.1 L (3.5-5.0) g/dL 01/29/17 01/29/17 01/29/17 Range/Units 11:10 16:54 17:29 WBC (3.8-10.6) k/uL RBC (4.30-5.90) m/uL Hgb (13.0-17.5) gm/dL Hct (39.0-53.0) % RDW (11.5-15.5) % Neutrophils # (1.3-7.7) k/uL Lymphocytes # (1.0-4.8) k/uL Sodium (137-145) mmol/L BUN (9-20) mg/dL Glucose (74-99) mg/dL POC Glucose (mg/dL) 288 H 258 H (75-99) mg/dL Plasma Lactic Acid Clif 2.2 H* (0.7-2.0) mmol/L Calcium (8.4-10.2) mg/dL ALT (21-72) U/L Total Protein (6.3-8.2) g/dL Albumin (3.5-5.0) g/dL 01/29/17 01/29/17 01/29/17 Range/Units 21:29 22:03 23:09 WBC (3.8-10.6) k/uL RBC (4.30-5.90) m/uL Hgb (13.0-17.5) gm/dL Hct (39.0-53.0) % RDW (11.5-15.5) % Neutrophils # (1.3-7.7) k/uL Lymphocytes # (1.0-4.8) k/uL Sodium (137-145) mmol/L BUN (9-20) mg/dL Glucose (74-99) mg/dL POC Glucose (mg/dL) 218 H 194 H (75-99) mg/dL Plasma Lactic Acid Clif 3.1 H* (0.7-2.0) mmol/L Calcium (8.4-10.2) mg/dL ALT (21-72) U/L Total Protein (6.3-8.2) g/dL Albumin (3.5-5.0) g/dL Microbiology - Last 24 Hours (Table) 01/25/17 14:15 Blood Culture - Preliminary Blood No Growth after 96 hours 01/25/17 13:55 Blood Culture - Preliminary Blood No Growth after 96 hours Assessment and Plan (1) Pneumonia Narrative/Plan: The patient was found to have bacteremia, which is presumably related to pneumonia. He is currently on broad-spectrum antibiotics, and is improved clinically. W BC has been normal. Defer to the admitting service and infectious diseases, for continued antibiotics including transitioned to oral for outpatient therapy Status: Acute (2) Intractable pain Narrative/Plan: The patient states that his pain is better. This is cancer related, due to multiple areas of bone metastasis. He is on long-acting opioids, states that he is not really needing to use breakthrough pain medications. I suspect that this is due to the onset of affect of the IV bisphosphonate Status: Acute (3) Squamous cell carcinoma lung Narrative/Plan: The patient has stage IV disease, and has progressed on first-line chemotherapy. The plan is for second line treatment with immunotherapy, consisting of PD-L1 inhibitor. We're in the process of obtaining this for him, It was discussed with the patient, that if he is transferred to rehab , he likely will not be able to treat him while he is deciding there, due to coverage issues Status: Chronic
--- NOTE | 2017-01-29 23:47 | CT ---
EXAM: CT Head Without Intravenous Contrast CLINICAL HISTORY: Reason: Injury, status post fall. There is a history of lung cancer. TECHNIQUE: Axial computed tomography images of the head/brain without intravenous contrast. CTDI is 59.58 mGy and DLP is 1166.34 mGy-cm (including millwright topogram). This CT exam was performed using one or more of the following dose reduction techniques: automated exposure control, adjustment of the mA and/or kV according to patient size, and/or use of iterative reconstruction technique. COMPARISON: Recent 01/15/[address] FINDINGS: Brain: Stable. No hemorrhage. No midline shift, mass effect or edema. Ventricles: Unremarkable. No hydrocephalus. Bones/joints: There are again multifocal lytic and destructive osseous lesions including associated soft tissue components most notably at the right vertex and left posterior parietal levels. No acute fracture. Soft tissues: See above. Sinuses: Unremarkable as visualized. No acute sinusitis. Mastoid air cells: Unremarkable as visualized. No mastoid effusion. IMPRESSION: 1. No acute intracranial sequela from trauma seen. 2. Multifocal osseous metastatic disease is again present. EXAM: CT Cervical Spine Without Intravenous Contrast CLINICAL HISTORY: Reason: fell hit head TECHNIQUE: Axial computed tomography images of the cervical spine without intravenous contrast. CTDI is 31.13 mGy and DLP is 856.17 mGy-cm. This CT exam was performed using one or more of the following dose reduction techniques: automated exposure control, adjustment of the mA and/or kV according to patient size, and/or use of iterative reconstruction technique. COMPARISON: No relevant prior studies available. FINDINGS: Vertebrae: Vertebral body heights and alignment are maintained, without acute fracture. Well-defined ossification the posterior midline soft tissues at C5-6 consistent with remote injury. There is nonspecific straightening of the normal cervical lordosis. Discs/spinal canal/neural foramina: Degenerative changes greatest at the C5-6 and C6-7 levels, with moderate central canal stenosis at both levels. Multilevel foraminal stenosis, most notably right-sided at C5-6 through C7-T1, and left-sided at C6-7. Soft tissues: The prevertebral soft tissues are within normal limits. Lymph nodes: As partially included there is mediastinal adenopathy including right pretracheal, presumably related to the patient's history of lung cancer. Lung apices: Unremarkable as visualized. IMPRESSION: 1. Degenerative changes, without acute osseous abnormality seen, as above. 2. Clinical clearance of the cervical spine is still recommended. 3. Mediastinal adenopathy presumably related to the patient's known lung cancer.
[2017-01-29] MEDS ORDERED: SODIUM CHLORIDE 0.9% 1,000 ML IV ONE (23:52)
--- NOTE | 2017-01-29 23:54 | CT ---
EXAM: CT Orbits Without Intravenous Contrast CLINICAL HISTORY: Reason: Injury, status post fall. History of lung cancer. TECHNIQUE: Axial computed tomography images of the orbits without intravenous contrast. Axial soft tissue, coronal bone and soft tissue windows were provided. CTDI is 31.41 mGy and DLP is 430.38 mGy-cm. This CT exam was performed using one or more of the following dose reduction techniques: automated exposure control, adjustment of the mA and/or kV according to patient size, and/or use of iterative reconstruction technique. COMPARISON: 01/15/[address] exams. FINDINGS: Orbits: Globes and orbits are intact. Sinuses: Trace posterior left ethmoid mucosal thickening. No air-fluid levels. Bones/joints: There are again multiple lytic osseous lesions present including involvement of the left supraorbital region without associated intraorbital extension. Soft tissues: Now included are scattered small bilateral parotid gland calcifications. There is a small right cheek subcutaneous calcification without surrounding fat stranding to suggest a small foreign body. This could be correlated clinically. IMPRESSION: 1. No evidence of acute global or orbital injury. 2. Multifocal osseous metastatic disease. 3. Additional findings, including small bilateral parotid gland calcifications, and small right cheek subcutaneous calcification, as above.
[2017-01-30] MEDS: PIPERACILLIN-TAZOBACTAM 3.375 GM in DEXTROSE/WATER 1 50ML.BAG IVPB SCH ×2 (01:33→10:02)
[2017-01-30] MEDS: SODIUM CHLORIDE 0.9% 1,000 ML IV SCH ×4 (03:17→10:01)
[2017-01-30] MEDS: VANCOMYCIN 1,250 MG in SODIUM CHLORIDE 0.9% 250 ML IVPB SCH ×2 (05:07→12:14)
[2017-01-30 07:16] VITALS: BP 126/71; RESP 12
[2017-01-30 07:32] LABS: Glucose,Whole Blood 138 mg/dL (75-99)
[2017-01-30] MEDS: SYMBICORT 160-4.5 MCG INHALER INHALATION SCH (07:48)
[2017-01-30] MEDS: IPRATROPIUM-ALBUTEROL 3 ML NEB INHALATION SCH ×3 (07:48→16:37)
[2017-01-30] MEDS: INSULIN LISPRO (humaLOG) 300 UNIT/3 ML VIAL SQ SCH ×2 (08:10→12:14)
[2017-01-30 08:20] LABS: Anisocytosis Slight; Basophils % (A) 0 %; CH 29.8; CHCM 31.3; Eosinophils % (A) 0 %; HCT 33.9 % (39.0-53.0); HDW 2.56; HGB 10.8 gm/dL (13.0-17.5); Hypochromasia Slight; Luc # (Auto) 0.08; Luc % (Auto) 1; Lymphocytes # (A) 0.4 k/uL (1.0-4.8); Lymphocytes % (A) 3 %; MCH 30.4 pg (25.0-35.0); MCHC 31.9 g/dL (31.0-37.0); MCV 95.5 fL (80.0-100.0); Macrocytosis Slight; Mean Platelet Volume 7.7; Monocytes # (A) 0.7 k/uL (0-1.0); Monocytes % (A) 5 %; Neutrophils # (A) 13.9 k/uL (1.3-7.7); Neutrophils % (A) 92 %; RBC 3.55 m/uL (4.30-5.90); RDW 18.4 % (11.5-15.5); WBC 15.1 k/uL (3.8-10.6); WBC (Perox) 15.21
[2017-01-30] MEDS ORDERED: FLUCONAZOLE 100 MG TAB PO SCH (09:00)
--- NOTE | 2017-01-30 09:09 | PN ---
PROGRESS NOTE DATE OF SERVICE: 01/29/2017. REASON FOR FOLLOWUP VISIT: Possible pneumonia. INTERVAL HISTORY: The patient is afebrile. Has been breathing comfortably. Denies significant chest pain. Very minimal cough. Just drainage. No abdominal pain. No nausea, vomiting, diarrhea. EXAMINATION: Blood pressure 125/70 with a pulse of 68 beats per minute. Temperature 97.9. He is 100% on 2 L nasal cannula. General description is a middle aged male up in the bed in no distress. RESPIRATORY SYSTEM: Unlabored breathing. Decreased breath sounds at the bases. No wheeze. Heart: S1, S2 regular rate and rhythm. Abdomen soft. No tenderness. LABS: Hemoglobin is 11, white count 20,000, BUN of 26, creatinine 0.68. DIAGNOSTIC IMPRESSION AND PLAN: Patient admitted to the hospital with weakness, lethargy with a question of pneumonia, positive blood culture. Repeat cultures has been negative. The patient likely had an extension for progression of his underlying lung cancer. Clinically doubt any postobstructive pneumonia. Possibly component of oropharyngeal candidiasis for which Diflucan Nystatin swish and swallow will be added. As further antibiotic therapy, able to be discharged on a short course of oral Augmentin. Continue supportive care. MMODL / IJN: [id number] /
--- NOTE | 2017-01-30 09:33 | PN ---
PROGRESS NOTE SUBJECTIVE: Eddie Dexter admitted with dehydration and pneumonia, remains on broad-spectrum antibiotics. White count of 20,000. Awaiting Infectious Disease recommendations for possible discharge home in the morning. CARDIOVASCULAR: S1, S2. PSYCH: Fair mood and affect. NEUROLOGIC: Alert and oriented x3. PULMONARY: Scattered rhonchi and wheeze. ASSESSMENT: 1. Dehydration. 2. Pneumonia. 3. Metastatic cancer. 4. Generalized debility. Switch to oral antibiotics, oral steroids and possible are chemotherapy, radiation therapy as an outpatient. MMODL / IJN: [id number] /
[2017-01-30] MEDS: DEXAMETHASONE 4 MG TAB PO SCH ×2 (10:03→12:19)
[2017-01-30] MEDS: MEGESTROL 400 MG/10 ML CUP PO SCH (10:04)
[2017-01-30] MEDS: NYSTATIN 100,000 UNIT/ML SUSP 500,000 UNIT/5 ML CUP PO SCH ×2 (10:04→12:19)
[2017-01-30] MEDS: DOCUSATE 100 MG CAP PO SCH (10:04)
[2017-01-30] MEDS: SALT AND SODA MOUTHWASH 1,000 ML PO SCH ×2 (10:05→12:19)
[2017-01-30] MEDS: POLYETHYLENE GLYCOL 3350 17 GM POWD.PACK PO SCH (10:05)
[2017-01-30 11:44] LABS: Glucose,Whole Blood 166 mg/dL (75-99)
--- NOTE | 2017-01-30 14:17 | P.DS ---
Providers Date of admission: 01/20/17 00:56 Expected date of discharge: 01/30/17 Attending physician: Paramjit Brizuela Consults: 01/20/17 16:16 Consult Physician Routine Consulting Provider: Shahzad Gupta Consult Reason/Comments: Lung CA Do you want consulting provider notified?: Yes 01/20/17 22:51 Consult Physician Routine Consulting Provider: Mckay Badillo Consult Reason/Comments: lung cancer Do you want consulting provider notified?: Yes 01/21/17 07:31 Consult Physician Routine Consulting Provider: Kodak Obrien Consult Reason/Comments: positive blood cultures Do you want consulting provider notified?: Yes 01/21/17 13:37 Consult Physician Urgent Consulting Provider: Mckay Badilol Consult Reason/Comments: radiation rx Do you want consulting provider notified?: Yes 01/22/17 08:16 Consult Physician Routine Consulting Provider: Juan Pablo Lorenzo Consult Reason/Comments: poss peg tube Do you want consulting provider notified?: Already Contacted 01/28/17 07:02 Consult Physician Routine Consulting Provider: Verona Sotelo Consult Reason/Comments: pneumonia Do you want consulting provider notified?: Yes Primary care physician: [facility] Course: 56 year cachexic white male with lung cancer stage IV progressively worsening over the past 7-10 significant pain, unable to ambulate sent to hospital from oncology doctor has had a poor appetite appetite improved pain reduced able to ambulate was felt to be ready for discharge impression discharge Present on admission oropharyngeal candidiasis Lung cancer with metastatic to the bone bacteremia ruled out Present on admission intractable pain suspect due to multiple areas of bone and adrenal metastasis Squamous cell carcinoma of the lung stage IV Present on admission moderate protein calorie malnutrition suspect due to poor caloric intake Sleeps in sitting position due to orthopnea Chronic debility due to chronic illness stage IV lung cancer with metastasis to the bone and adrenal glands Chronic nicotine dependency 1 pack a day greater than 20 years recently quit within the last month Acute exacerbation COPD Present on admission clinical dehydration Postobstructive pneumonia not ruled out The above impression and plan of care have been discussed and directed by signing physician. Melita Graham nurse practitioner acting as scribe for signing physician. Plan - Discharge Summary New Discharge Prescriptions: New Fluconazole [Diflucan] 100 mg PO DAILY #7 tablet Fluconazole [Diflucan] 100 mg PO DAILY tab Nystatin 100,000 Unit/ml Susp [Mycostatin Oral Susp] 500,000 unit PO QID # 300 dose Amoxicillin/Potassium Clav [Augmentin 875-125 Tablet] 1 tab PO Q12HR #14 tab Continue Albuterol Inhaler [Ventolin Hfa Inhaler] 1 - 2 puff INHALATION Q6HR PRN #1 inhaler PRN Reason: Shortness Of Breath Or Wheezing Ipratropium-Albuterol Nebulize [Duoneb 0.5 mg-3 mg/3 ml Soln] 3 ml INHALATION RT-QID #120 ampul.neb Temazepam [Restoril] 30 mg PO HS Dexamethasone [Hexadrol] 4 mg PO QID #60 tab fentaNYL 100MCG/HR PATCH [Duragesic 100MCG/HR] 1 patch TRANSDERM Q72H #10 patch Ranitidine HCl 300 mg PO HS #30 tab Levofloxacin [Levaquin] 750 mg PO DAILY #7 tab MORPHINE ORAL SOLN 20mg/mL [Roxanol Oral Soln Conc 20MG/ML] 0.5 ml PO Q3H PRN PRN Reason: Pain Budesonide-Formot 160-4.5 Mcg [Symbicort 160-4.5 Mcg Inhaler] 2 puff INHALATION RT-BID Discharge Medication List Albuterol Inhaler [Ventolin Hfa Inhaler] 1 - 2 puff INHALATION Q6HR PRN #1 inhaler 09/07/16 [Rx] Ipratropium-Albuterol Nebulize [Duoneb 0.5 mg-3 mg/3 ml Soln] 3 ml INHALATION RT -QID #120 ampul.neb 09/12/16 [Rx] Temazepam [Restoril] 30 mg PO HS 10/17/16 [History] Dexamethasone [Hexadrol] 4 mg PO QID #60 tab 01/16/17 [Rx] Levofloxacin [Levaquin] 750 mg PO DAILY #7 tab 01/16/17 [Rx] Ranitidine HCl 300 mg PO HS #30 tab 01/16/17 [Rx] fentaNYL 100MCG/HR PATCH [Duragesic 100MCG/HR] 1 patch TRANSDERM Q72H #10 patch 01/16/17 [Rx] Budesonide-Formot 160-4.5 Mcg [Symbicort 160-4.5 Mcg Inhaler] 2 puff INHALATION RT-BID 01/20/17 [History] MORPHINE ORAL SOLN 20mg/mL [Roxanol Oral Soln Conc 20MG/ML] 0.5 ml PO Q3H PRN [History] Amoxicillin/Potassium Clav [Augmentin 875-125 Tablet] 1 tab PO Q12HR #14 tab 01/08 [Rx] Fluconazole [Diflucan] 100 mg PO DAILY tab 01/30/17 [Rx] Fluconazole [Diflucan] 100 mg PO DAILY #7 tablet 01/30/17 [Rx] Nystatin 100,000 Unit/ml Susp [Mycostatin Oral Susp] 500,000 unit PO QID #300 dose 01/30/17 [Rx] Follow up Appointment(s)/Referral(s): Shahzad Gupta MD [STAFF PHYSICIAN] - 1 Week (OFFICE WILL CALL PT WITH APPT DATE AND TIME TO BEGIN IMMUNOTHERAPY) [facility], [NON-STAFF] - As Needed Mckay Badillo MD [STAFF PHYSICIAN] - 01/28/17 12:30 pm Paramjit Brizuela MD [STAFF PHYSICIAN] - 1 Week Discharge Disposition: HOME WITH HOME HEALTH SERVICES
--- NOTE | 2017-01-30 15:39 | PN ---
PROGRESS NOTE DATE OF SERVICE: 01/30/2017 REASON FOR FOLLOWUP: Possible pneumonia and thrush with oropharyngeal candidiasis. INTERVAL HISTORY: The patient is afebrile, has been breathing comfortably with minimal cough. Denies any chest pain. No abdominal pain. No nausea, vomiting or any diarrhea. PHYSICAL EXAMINATION: Blood pressure is 126/71 with a pulse of 68, temperature 98.5. He is 95% on room air. General description is a middle-aged male lying in bed in no distress. RESPIRATORY SYSTEM: Unlabored breathing with mild expiratory wheeze. HEART: S1, S2. Regular rate and rhythm. ABDOMEN: Soft. No tenderness. LABS: White count down to 15,000. Cultures remain negative. DIAGNOSTIC IMPRESSION AND PLAN: 1. Patient with lung cancer with worsening ( ) also ( ) pneumonia. Antibiotic can be switched over to a short course oral Augmentin at discharge. 2. Patient with thrush and possible oropharyngeal candidiasis. Nystatin Swish and Swallow and Diflucan for about 10 days. MMODL / IJN: [id number] /
[2017-01-30 16:39] VITALS: PULSE 78
== END 2017-01-30 17:50 | disposition home health service (06) | DRG 180 ==
LOC: 5ONC 01-20 00:56
PROVIDERS: ADMIT Family Medicine; ATTEND Family Medicine
DX: C34.90 Malignant neoplasm of unspecified part of unspecified bronchus or lung (principal); J18.9 Pneumonia, unspecified organism; A41.9 Sepsis, unspecified organism; B37.0 Candidal stomatitis; E44.0 Moderate protein-calorie malnutrition; C79.51 Secondary malignant neoplasm of bone; C79.72 Secondary malignant neoplasm of left adrenal gland; J44.0 Chronic obstructive pulmonary disease with (acute) lower respiratory infection; J44.1 Chronic obstructive pulmonary disease with (acute) exacerbation; C18.9 Malignant neoplasm of colon, unspecified; E86.0 Dehydration; G89.3 Neoplasm related pain (acute) (chronic); F17.200 Nicotine dependence, unspecified, uncomplicated; R53.1 Weakness; R06.01 Orthopnea; D64.9 Anemia, unspecified; R53.81 Other malaise; Z68.21 Body mass index [BMI] 21.0-21.9, adult; Z79.891 Long term (current) use of opiate analgesic; Z79.51 Long term (current) use of inhaled steroids; Z79.899 Other long term (current) drug therapy; Z82.49 Family history of ischemic heart disease and other diseases of the circulatory system
CPT/HCPCS: 70450; 70480; 71010; 71020; 71250; 72125; 74020; 76700; 76857; 80048; 80053; 80202; 81003; 82150; 83036; 83605; 83690; 83735; 83880; 84439; 84443; 85025; 85027; 87040; 87045; 87046; 87070; 87086; 87205; 94640; 94760

== ENCOUNTER 2017-03-04 15:02 | Inpatient (IN) | payer OTHER ==
--- NOTE | 2017-03-04 15:54 | ED ---
General Adult HPI - General Chief complaint: Shortness of Breath Stated complaint: diff breathing Time Seen by Provider: 03/04/17 15:05 Source: patient, EMS, RN notes reviewed Mode of arrival: EMS Limitations: no limitations - History of Present Illness Initial comments: This a 56-year-old male presents emergency Department for any difficulty breathing. Patient also complains of increased fluid in his legs. Patient has stage IV lung cancer and is being treated by Dr. Gupta currently. Patient went to [facility] today because of increased swelling and difficulty breathing. Patient states she also has a cough patient denies any fever chills per patient denies any chest pain or palpitations. Patient was diagnosed with 2 lobe pneumonia and was started on Levaquin and Zosyn. Patient wanted to be admitted to our facility because his oncologist go see her. Patient states since leaving the other hospital he has felt fine he does not feel that the short of breath is any worsening was when he first presented. Patient denies any abdominal pain patient denies nausea vomiting diarrhea. - Related Data Home Medications Medication Instructions Recorded Confirmed Budesonide-Formot 160-4.5 Mcg 2 puff INHALATION RT-BID 01/20/17 03/04/17 [Symbicort 160-4.5 Mcg Inhaler] Albuterol Inhaler [Ventolin Hfa 1 - 2 puff INHALATION RT-QID PRN 03/04/17 Inhaler] Albuterol Nebulized [Ventolin 2.5 mg INHALATION RT-QID PRN 03/04/17 03/04/17 Nebulized] Cephalexin [Keflex] 500 mg PO TID 03/04/17 03/04/17 Previous Rx's Medication Instructions Recorded fentaNYL 100MCG/HR PATCH 1 patch TRANSDERM Q72H #10 patch 01/16/17 [Duragesic 100MCG/HR] Nystatin 100,000 Unit/ml Susp 500,000 unit PO QID #300 dose 01/30/17 [Mycostatin Oral Susp] Allergies Allergy/AdvReac Type Severity Reaction Status Date / Time No Known Allergies Allergy Verified 03/04/17 15:44 Review of Systems ROS Statement: Those systems with pertinent positive or pertinent negative responses have been documented in the HPI. ROS Other: All systems not noted in ROS Statement are negative. Past Medical History Past Medical History: Cancer, COPD Additional Past Medical History / Comment(s): lung cancer met to adrenal gland History of Any Multi-Drug Resistant Organisms: None Reported Past Surgical History: No Surgical Hx Reported Additional Past Surgical History / Comment(s): lung biopsy Past Anesthesia/Blood Transfusion Reactions: No Reported Reaction Past Psychological History: No Psychological Hx Reported Smoking Status: Former smoker Past Alcohol Use History: None Reported Past Drug Use History: None Reported - Past Family History Mother Family Medical History: No Reported History Additional Family Medical History / Comment(s): Negative for lung cancer Father History Unknown: Yes Family Medical History: No Reported History General Exam - General Exam Comments Initial Comments: GENERAL: Patient is well-developed and well-nourished. Patient is nontoxic and well- hydrated and is in mild distress. ENT: Neck is soft and supple. No significant lymphadenopathy is noted. Oropharynx is clear. Moist mucous membranes. Neck has full range of motion without eliciting any pain. EYES: The sclera were anicteric and conjunctiva were pink and moist. Extraocular movements were intact and pupils were equal round and reactive to light. Eyelids were unremarkable. PULMONARY: Patient has crackles in the left base CARDIOVASCULAR: There is a regular rate and rhythm without any murmurs gallops or rubs. ABDOMEN: Soft and nontender with normal bowel sounds. No palpable organomegaly was noted. There is no palpable pulsatile mass. SKIN: Skin is clear with no lesions or rashes and otherwise unremarkable. NEUROLOGIC: Patient is alert and oriented x3. Cranial nerves II through XII are grossly intact. Motor and sensory are also intact. Normal speech, volume and content. Symmetrical smile. MUSCULOSKELETAL: Normal extremities with adequate strength and full range of motion. No lower extremity swelling or edema. No calf tenderness. LYMPHATICS: No significant lymphadenopathy is noted PSYCHIATRIC: Normal psychiatric evaluation. Normal interpersonal interactions appears functionally intact in deals appropriately with others. No signs of depression. No signs of anxiety. N Limitations: no limitations Course Vital Signs 03/04/17 03/04/17 15:05 16:34 Temperature 97.2 F L Pulse Rate 101 H 97 Respiratory 18 20 Rate Blood Pressure 117/59 111/75 O2 Sat by Pulse 100 99 Oximetry Medical Decision Making - Lab Data Lab Results 03/04/17 Range/Units 16:15 Plasma Lactic Acid Clif 1.2 (0.7-2.0) mmol/L Disposition Clinical Impression: Pneumonia Disposition: ADMITTED IP TO THIS HOSP Referrals: Jose Antonio Babcock DO [Primary Care Provider] - 1-2 days Time of Disposition: 17:24
[2017-03-04] MEDS ORDERED: PNEUMONIA PROTOCOL UTILIZED 1 EACH MISC PO PRN (17:24)
[2017-03-04] MEDS ORDERED: IPRATROPIUM-ALBUTEROL 3 ML NEB INHALATION PRN (18:02)
[2017-03-04] MEDS ORDERED: VANCOMYCIN IV PER PHARMACY 1 EACH MISC MISCELLANE PRN (18:03)
--- NOTE | 2017-03-04 18:08 | P.HPIM ---
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 where earlier if he presented with complaints of chest pain worsening shortness of breath and bilateral lower extremity swelling worsening over the last 2 weeks. The patient is followed in oncology clinic by Dr. Gupta, the patient has previously been hospitalized here for anorexia dehydration and possible postobstructive pneumonia. The patient has become increasingly fatigued and weak, and needing more help to complete his daily ADLs , patient's is at bedside and reports increasing confusion, memory lapses. She reports a recent PET scan approximately 6 weeks ago that revealed some metastasis to his skull. In the ER at [place] of the patient had a chest x- ray that was consistent with worsening left lower lobe consult station suspicious for both pneumonia and atelectasis subsequent CT of the chest showed worsening adenopathy left hilar mass and adenopathy and new multifocal consolidations concerning for bilateral multifocal pneumonia and underlying neoplasm versus lytic left rib lesion a large left adrenal mass. Remarkable labs included a leukocytosis of 12.12 elevated NT proBNP at 399 hemoglobin and hematocrit at 8.1 and 26.1 respectively and a platelet at 1 33,000, he was started on empiric treatment with IV Levaquin and Zosyn and given a dose of Lasix and then transferred here to [facility]. Review of Systems Constitutional: Patient reports fever, no chills, decreased weight changes, increasing anorexia Eyes: Patient reports no double vision, reports darkening vision Y ENT: Patient reports no rhinorrhea, no post nasal drip, no sore throat Cardiovascular: Per HPI, no edema, no palpitations, pre- syncope, no orthopnea, no paroxysmal nocturnal dyspnea. Respiratory: Per HPI Gastrointestinal: Patient reports no nausea, no vomiting, no constipation, no diarrhea Genitourinary: Patient reports no dysuria, no urinary frequency, no hematuria. Musculoskeletal: Patient reports no unusual joint pain, no joint swelling or weakness. Patient reports no muscular pain. Psychiatric: Patient reports no changes in mood, no sleeping problems. Patient reports no changes in memory. Endocrine: Patient reports no thirst, no polyuria, no cold intolerance, no heat intolerance. Neurological: Patient reports no unusual paresthesias, no seizures, no paresis , no paralysis, no facila droop, no headache. Heme/Lymphatic: Patient reports no easy bruising, no bleeding tendency, no lymphadenopathy. Allergic/ Immunologic: Patient reports no recent allergic reactions or immunologic history. Skin: Patient reports no rashes or unusual lesions. Past Medical History Past Medical History: Cancer, COPD Additional Past Medical History / Comment(s): lung cancer met to adrenal gland History of Any Multi-Drug Resistant Organisms: None Reported Past Surgical History: No Surgical Hx Reported Additional Past Surgical History / Comment(s): lung biopsy Past Anesthesia/Blood Transfusion Reactions: No Reported Reaction Past Psychological History: No Psychological Hx Reported Smoking Status: Former smoker Past Alcohol Use History: None Reported Past Drug Use History: None Reported - Past Family History Mother Family Medical History: No Reported History Additional Family Medical History / Comment(s): Negative for lung cancer Father History Unknown: Yes Family Medical History: No Reported History Medications and Allergies Home Medications Medication Instructions Recorded Confirmed Type fentaNYL 100MCG/HR PATCH 1 patch TRANSDERM Q72H #10 patch 01/16/17 03/04/17 Rx [Duragesic 100MCG/HR] Budesonide-Formot 160-4.5 Mcg 2 puff INHALATION RT-BID 01/20/17 03/04/17 History [Symbicort 160-4.5 Mcg Inhaler] Nystatin 100,000 Unit/ml Susp 500,000 unit PO QID #300 dose 01/30/17 03/04/17 Rx [Mycostatin Oral Susp] Albuterol Inhaler [Ventolin Hfa 1 - 2 puff INHALATION RT-QID PRN 03/04/17 History Inhaler] Albuterol Nebulized [Ventolin 2.5 mg INHALATION RT-QID PRN 03/04/17 03/04/17 History Nebulized] Cephalexin [Keflex] 500 mg PO TID 03/04/17 03/04/17 History Allergies Allergy/AdvReac Type Severity Reaction Status Date / Time No Known Allergies Allergy Verified 03/04/17 15:44 Physical Exam Vitals: Vital Signs Temp Pulse Resp BP Pulse Ox 03/04/17 17:39 107 H 20 131/68 100 03/04/17 16:34 97 20 111/75 99 03/04/17 15:05 97.2 F L 101 H 18 117/59 100 Intake and Output 03/04/17 03/04/17 03/04/17 06:59 14:59 22:59 Other: Weight 68.492 kg Patient Weight 03/05/17 06:59 Weight 68.492 kg Constitutional: No acute distress, conversant, pleasant Eyes: Anicteric sclerae, moist conjunctiva, no lid-lag, PERRLA ENMT: NC/AT,Oropharynx clear, no erythema, exudates Neck:Supple, FROM, no masses, or JVD, No carotid bruits; No thyromegaly Lungs: b/l rales, diminished in the bases, poor aeration Cardiovascular: Heart regular in rate and rhythm, No murmurs, gallops, or rubs no peripheral edema Abdominal: Soft Nontender, nom distended, no guarding, no rebound or rigidity, Normoactive bowel sounds No hepatomegaly, No splenomegaly, No palpable mass No abdominal wall hernia noted Skin: Normal temperature, tone, texture, turgor, No induration No subcutaneous nodules, No rash, lesions, No ulcers Extremities:+2 bilateal LE pitting edema, +2 DP/PT pulses Bilaterally Psychiatric: Alert and oriented to person, place and time, Appropriate affect Intact judgement Neuro: Muscles Strength 5/5 in all 4 extremities, Sensation to light touch grossly present throughout, Cranial nerves II-XII grossly intact. No focal sensory deficits Results CBC & Chem 7: 03/05/17 07:10 03/05/17 07:10 Assessment and Plan (1) Sepsis Status: Acute (2) Stage IV squamous cell carcinoma of lung Status: Acute (3) Healthcare-associated pneumonia Status: Acute (4) Dyspnea Status: Acute (5) Symptomatic anemia Status: Acute (6) Thrombocytopenia Status: Acute Plan: The patient is admitted to the medical floor anticipated greater than TWO midnight stay with sepsis secondary to healthcare associated versus postobstructive pneumonia due to underlying stage IV squamous cell lung cancer, we'll continue empiric therapy with IV Levaquin and Zosyn we'll add vancomycin to regimen, check blood cultures and sputum cultures. We'll consult oncology Dr. Gupta for further recommendations, as a patient does have elevated protein BNP will order echocardiogram and continue diuresis with Lasix 40 mg IV twice a day, encouraged low-sodium diet fluid restriction. We'll continue to trend cardiac enzymes initial troponins and EKG negative for acute ischemia. Discussed the patient's CODE STATUS with the patient and his family and introduced options such as hospice and palliative care given his extremely poor prognosis which they seem to be interested and then will consult case management for possible hospice referral. However would like the patient to discuss this fully with his oncologist Dr. Gupta. Continue to follow his clinical course
[2017-03-04] MEDS ORDERED: VANCOMYCIN 1,500 MG in SODIUM CHLORIDE 0.9% 250 ML IVPB ONE (18:30)
[2017-03-04] MEDS: IPRATROPIUM-ALBUTEROL 3 ML NEB INHALATION SCH (20:13)
[2017-03-04] MEDS: FUROSEMIDE 10 MG/ML 4 ML VIAL IV SCH (21:47)
[2017-03-04] MEDS: guaiFENesin 600 MG TABLET.ER PO SCH (21:48)
[2017-03-04] MEDS ORDERED: ACETAMINOPHEN TAB 325 MG TAB PO PRN (23:57)
[2017-03-05] MEDS: IPRATROPIUM-ALBUTEROL 3 ML NEB INHALATION SCH ×6 (00:03→19:52)
[2017-03-05] MEDS: HYDROmorphone 1 MG/ML 1 ML SYRINGE IVP PRN ×2 (00:10→07:19)
[2017-03-05] MEDS: PIPERACILLIN-TAZOBACTAM 3.375 GM in DEXTROSE/WATER 1 50ML.BAG IVPB SCH ×3 (00:10→16:37)
[2017-03-05] MEDS: VANCOMYCIN 1,250 MG in SODIUM CHLORIDE 0.9% 250 ML IVPB SCH ×3 (04:25→21:22)
[2017-03-05] MEDS: LEVOFLOXACIN 750MG-D5W PMX 750 MG in DEXTROSE/WATER 1 150ML.BAG IVPB SCH (06:20)
[2017-03-05 07:41] LABS: ALT 35 U/L (21-72); AST 19 U/L (17-59); Alkaline Phosphatase 71 U/L (38-126); Anion Gap 10 mmol/L; Blood Urea Nitrogen 21 mg/dL (9-20); Calcium 9.7 mg/dL (8.4-10.2); Carbon Dioxide 26 mmol/L (22-30); Chloride 101 mmol/L (98-107); Glucose 102 mg/dL (74-99); Non-African American GFR(MDRD) >60 (>60 ml/min/1.73 sqM); Sodium 137 mmol/L (137-145); Total Bilirubin 0.2 mg/dL (0.2-1.3); Total Protein 5.6 g/dL (6.3-8.2)
[2017-03-05 07:42] LABS: Anisocytosis Slight; Basophils % (A) 0 %; CH 30.3; Eosinophils % (A) 0 %; HCT 28.3 % (39.0-53.0); HDW 3.08; Hypochromasia Slight; Luc # (Auto) 0.15; Luc % (Auto) 1; Lymphocytes # (A) 0.8 k/uL (1.0-4.8); Lymphocytes % (A) 6 %; MCH 29.8 pg (25.0-35.0); MCHC 31.4 g/dL (31.0-37.0); MCV 94.9 fL (80.0-100.0); Macrocytosis Slight; Mean Platelet Volume 7.5; Monocytes # (A) 0.9 k/uL (0-1.0); Monocytes % (A) 6 %; Neutrophils # (A) 12.8 k/uL (1.3-7.7); Neutrophils % (A) 87 %; RBC 2.98 m/uL (4.30-5.90); RDW 19.1 % (11.5-15.5); WBC 14.7 k/uL (3.8-10.6); WBC (Perox) 15.28
[2017-03-05 07:44] LABS: HGB 8.9 gm/dL (13.0-17.5)
[2017-03-05] MEDS: guaiFENesin 600 MG TABLET.ER PO SCH ×2 (08:05→21:22)
[2017-03-05] MEDS: FUROSEMIDE 10 MG/ML 4 ML VIAL IV SCH ×2 (08:05→21:22)
--- NOTE | 2017-03-05 08:23 | XR ---
EXAMINATION TYPE: XR chest 2V DATE OF EXAM: 03/05/2017 COMPARISON: Prior chest x-ray 01/26/[address] 03/04/2017 HISTORY: Pneumonia TECHNIQUE: Frontal and lateral views of the chest are obtained. FINDINGS: Interval development of abnormal density within the left hemithorax appears bandlike in th e left hilar region, rounded in the left lower lobe laterally. There is volume loss with elevation of the left hemidiaphragm. No other significant interval change. IMPRESSION: Findings may represent pneumonia, correlate, follow-up to resolution.
[2017-03-05] MEDS ORDERED: IPRATROPIUM-ALBUTEROL 3 ML NEB INHALATION PRN (09:08)
[2017-03-05] MEDS ORDERED: MORPHINE SULFATE 4 MG/ML SYRINGE IVP PRN (09:25)
--- NOTE | 2017-03-05 10:07 | ECHOF ---
Referral Reason:elevated BNP and lower extremity swelling MEASUREMENTS -------- HEIGHT: 152.4 cm WEIGHT: 68.5 kg BP: IVSd: 1.2 cm (0.6 - 1.1) LVIDd: 4.0 cm (3.9 - 5.3) LVPWd: 1.1 cm (0.6 - 1.1) IVSs: 1.2 cm LVIDs: 3.6 cm LVPWs: 1.0 cm LA Diam: 3.5 cm (2.7 - 3.8) LAESV Index (A-L): 22.43 ml/m Ao Diam: 3.0 cm (2.0 - 3.7) AV Cusp: 2.0 cm (1.5 - 2.6) LA Diam: 3.3 cm (2.7 - 3.8) MV E Harjeet: 0.59 m/s MV DecT: 231 ms MV A Harjeet: 0.79 m/s MV E/A Ratio: 0.75 FINDINGS -------- Undetermined rhythm. This was a technically adequate study. The left ventricular size is normal. There is mild concentric left ventricular hypertrophy. Overall left ventricular systolic function is moderately impaired with, an EF between 35 - 40 %. Apical septum LV wall motion is hypokinetic. Inferior basal Hypokinesis The right ventricle is normal in size. Normal LA size by volume 22+/-6 ml/m2. The right atrial size is normal. The aortic valve is trileaflet, and appears structurally normal. No aortic stenosis or regurgitation. Mild mitral regurgitation is present. Mild tricuspid regurgitation present. There is no evidence of pulmonary hypertension. The right ventricular systolic pressure, as measured by Doppler, is {RVSP}. The pulmonic valve was not well visualized. The aortic root size is normal. There is no pericardial effusion. CONCLUSIONS -------- 1. The left ventricular size is normal. 2. The aortic root size is normal. 3. There is no pericardial effusion. 4. There is mild concentric left ventricular hypertrophy. 5. Inferior basal Hypokinesis 6. The aortic valve is trileaflet, and appears structurally normal. No aortic stenosis or regurgitation. 7. Mild mitral regurgitation is present. 8. Mild tricuspid regurgitation present. 9. There is no evidence of pulmonary hypertension. 10. The right ventricular systolic pressure, as measured by Doppler, is {RVSP}. 11. The pulmonic valve was not well visualized. STRUCTURAL METAL WORKER: Ariella Montoya RDCS
--- NOTE | 2017-03-05 10:43 | P.PN ---
Subjective Progress Note Date: 03/05/17 Principal diagnosis: The patient is a 56-year-old male with a history of stage IV squamous cell metastatic cancer that presented with complaints of worsening dyspnea was found to have elevated white count CT consistent with a multifocal pneumonia patient has been hospitalized within the last 2 months for postobstructive pneumonia. He was started on empiric IV antibiotics with Levaquin and Zosyn prior to being transferred from [facility] in [place], I added vancomycin to regimen check blood cultures, and started the patient on scheduled breathing treatments Lasix for diuresis. Oncology Dr. Gupta has been consulted as well as pulmonary for further recommendations. His echocardiogram was consistent with a normal ejection fraction. The patient is having some issues with pain control will attempt to get a suitable cocktail Patient today denies any significant improvement of his symptoms, complain of severe thoracic and lumbar back pain, was previously on fentanyl patch 100 g patient does have pathology consistent with stage IV squamous cell carcinoma with metastatic lesions to multifocal osseous sites. Patient afebrile overnight , leukocytosis slightly worse Objective - Vital Signs Vital signs: Vital Signs Temp 97.9 F 03/05/17 07:00 Pulse 126 H 03/05/17 08:14 Resp 18 03/05/17 07:00 BP 106/65 03/05/17 07:00 Pulse Ox 100 03/05/17 08:04 Intake & Output 03/04/17 03/05/17 03/05/17 18:59 06:59 18:59 Weight 68.492 kg Other: Voiding Method Urinal # Voids 2 # Bowel Movements 2 - Exam Constitutional: No acute distress, conversant, pleasant Eyes: Anicteric sclerae, moist conjunctiva, no lid-lag, PERRLA ENMT: NC/AT,Oropharynx clear, no erythema, exudates Neck:Supple, FROM, no masses, or JVD, No carotid bruits; No thyromegaly Lungs: Extremely poor aeration on the left with noted Rales and rhonchi on the right Cardiovascular: Heart regular in rate and rhythm, No murmurs, gallops, or rubs no peripheral edema Abdominal: Soft Nontender, nom distended, no guarding, no rebound or rigidity, Normoactive bowel sounds No hepatomegaly, No splenomegaly, No palpable mass No abdominal wall hernia noted Skin: Normal temperature, tone, texture, turgor, No induration No subcutaneous nodules, No rash, lesions, No ulcers Extremities/MSK: Range of motion and mobility extremely limited secondary to pain + +3 bilateral lower extremity pitting edema extending from the feet up to the distal thigh area bilaterally Psychiatric: Alert and oriented to person, place and time, Appropriate affect Intact judgement Neuro: Muscles Strength 5/5 in all 4 extremities, Sensation to light touch grossly present throughout, Cranial nerves II-XII grossly intact. No focal sensory deficits - Labs CBC & Chem 7: 03/05/17 07:10 03/05/17 07:10 Labs: Abnormal Lab Results - Last 24 Hours (Table) 03/05/17 03/05/17 Range/Units 07:10 07:10 WBC 14.7 H (3.8-10.6) k/uL RBC 2.98 L (4.30-5.90) m/uL Hgb 8.9 L D (13.0-17.5) gm/dL Hct 28.3 L (39.0-53.0) % RDW 19.1 H (11.5-15.5) % Neutrophils # 12.8 H (1.3-7.7) k/uL Lymphocytes # 0.8 L (1.0-4.8) k/uL BUN 21 H (9-20) mg/dL Glucose 102 H (74-99) mg/dL Total Protein 5.6 L (6.3-8.2) g/dL Albumin 2.7 L (3.5-5.0) g/dL Assessment and Plan (1) Sepsis Narrative/Plan: Likely secondary to multifocal healthcare associated versus postobstructive pneumonia * Leukocytosis worsening slightly going up to 14.7 from 12.2 we'll continue current antibiotic regimen with vancomycin and Zosyn and Levaquin Status: Acute (2) Healthcare-associated pneumonia Status: Acute (3) Dyspnea Narrative/Plan: Continue with supplemental oxygen as needed continue with scheduled and when necessary breathing treatments Status: Acute (4) Cancer-related pain Narrative/Plan: We'll continue fentanyl patch * We'll add Neurontin 300 mg by mouth 3 times a day and MS Contin 15 mg by mouth twice a day * PTOT is also consulted Status: Acute (5) Symptomatic anemia Narrative/Plan: Likely secondary to underlying malignancy Status: Chronic (6) Stage IV squamous cell carcinoma of lung Narrative/Plan: Oncology Dr. Gupta consulted Patient has stage IV squamous cell lung carcinoma with metastasis to adrenal gland and multiple osseous sites, patient is a possible candidate for hospice will defer to his oncologist Status: Acute (7) Thrombocytopenia Status: Resolved
--- NOTE | 2017-03-05 11:37 | P.CNPUL ---
<Tanya Lipscomb - Last Filed: 03/05/17 11:11> History of Present Illness Consult date: 03/05/17 Requesting physician: Irina Mcintyre Reason for consult: abnormal CXR/CT Chief complaint: Shortness of breath, weakness, lower extremity edema History of present illness: This is a very pleasant 56-year-old gentleman who follows with us in the office for chronic obstructive pulmonary disease and squamous cell carcinoma lung cancer. This was diagnosed in August 2016 via bronchoscopy with brushings and wash of the left upper lobe and lingula. A follow-up PET scan revealed evidence of lung cancer with multiple metastatic lymph nodes within the mediastinum along with a metastatic lesion in the left adrenal gland. He was recently admitted here for a fall. Computed tomography scan of the orbits status post fall revealed multifocal osseous metastatic disease. The patient had received 3 cycles of carboplatin and Gemzar but became quite weak with severe anemia and the treatments were stopped. He was recently started on immunotherapy of Keytruda and has received 1 dose thus far. The patient re- presented here again yesterday with continued complaints of worsening shortness of breath, worsening lower extremity edema and progressive weakness. A computed tomography scan done at [facility] revealed evidence of a left lung pneumonia and probable progression of the lung cancer. He is seen today in consultation on the oncology unit. He is currently awake and alert. He is quite dyspneic on minimal exertion. He is maintaining good O2 saturations in the high 90s on room air. He's been afebrile. He is quite tachycardic in the 120s. Current white count 14.7. Hemoglobin 8.9. Creatinine 0.85. He has been receiving Lasix 40 mg IV push every 12 hours. He is diuresing. The edema has improved today as compared to yesterday. He's also been initiated on bronchodilators and antibiotics in the form of Levaquin, vancomycin and Zosyn. Review of Systems Constitutional: Reports anorexia, Reports fatigue, Reports poor appetite, Reports weakness, Reports weight loss Eyes: denies blurred vision, denies bulging eye, denies decreased vision Ears: deny: decreased hearing Ears, nose, mouth and throat: Reports mouth pain Breasts: absent: gynecomastia Cardiovascular: Reports lightheadedness, Reports rapid heart beat, Reports shortness of breath Respiratory: Reports congestion, Reports cough, Reports dyspnea, Reports hemoptysis Gastrointestinal: Reports loss of appetite Genitourinary: Reports urinary frequency Musculoskeletal: Reports gait dysfunction, Reports myalgias Musculoskeletal: bilateral: ankle swelling Integumentary: Reports color changes Neurological: Reports weakness Psychiatric: Reports depression Endocrine: Reports fatigue, Reports weight change Hematologic/Lymphatic: Reports as per HPI Allergic/Immunologic: Reports as per HPI Past Medical History Past Medical History: Cancer, COPD Additional Past Medical History / Comment(s): 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, bones History of Any Multi-Drug Resistant Organisms: None Reported Past Surgical History: No Surgical Hx Reported Additional Past Surgical History / Comment(s): lung biopsy Past Anesthesia/Blood Transfusion Reactions: No Reported Reaction Past Psychological History: No Psychological Hx Reported Smoking Status: Former smoker Past Alcohol Use History: None Reported Past Drug Use History: None Reported - Past Family History Mother Family Medical History: No Reported History Additional Family Medical History / Comment(s): Negative for lung cancer Father History Unknown: Yes Family Medical History: No Reported History Medications and Allergies Home Medications Medication Instructions Recorded Confirmed Type fentaNYL 100MCG/HR PATCH 1 patch TRANSDERM Q72H #10 patch 01/16/17 03/04/17 Rx [Duragesic 100MCG/HR] Budesonide-Formot 160-4.5 Mcg 2 puff INHALATION RT-BID 01/20/17 03/04/17 History [Symbicort 160-4.5 Mcg Inhaler] Nystatin 100,000 Unit/ml Susp 500,000 unit PO QID #300 dose 01/30/17 03/04/17 Rx [Mycostatin Oral Susp] Albuterol Inhaler [Ventolin Hfa 1 - 2 puff INHALATION RT-QID PRN 03/04/17 History Inhaler] Albuterol Nebulized [Ventolin 2.5 mg INHALATION RT-QID PRN 03/04/17 03/04/17 History Nebulized] Cephalexin [Keflex] 500 mg PO TID 03/04/17 03/04/17 History Allergies Allergy/AdvReac Type Severity Reaction Status Date / Time No Known Allergies Allergy Verified 03/04/17 15:44 Physical Exam Vitals: Vital Signs Temp Pulse Pulse Resp BP BP Pulse Ox 03/05/17 08:14 126 H 03/05/17 08:04 130 H 100 03/05/17 07:00 97.9 F 118 H 18 106/65 97 03/05/17 00:16 100 03/05/17 00:03 104 H 100 03/04/17 22:51 98.7 F 113 H 18 107/69 98 03/04/17 19:52 98.2 F 104 H 16 110/64 99 03/04/17 18:05 97.1 F L 108 H 20 115/62 100 03/04/17 17:39 107 H 20 131/68 100 03/04/17 16:34 97 20 111/75 99 03/04/17 15:05 97.2 F L 101 H 18 117/59 100 Intake and Output 03/04/17 03/05/17 03/05/17 22:59 06:59 14:59 Other: Voiding Method Urinal Urinal # Voids 2 2 # Bowel Movements 2 Weight 68.492 kg GENERAL EXAM: Weak, cachectic. HEAD: Normocephalic. EYES: Normal reaction of pupils, equal size. NOSE: Clear with pink turbinates. THROAT: No erythema or exudates. NECK: No masses, no JVD. CHEST: No chest wall deformity. LUNGS: Equal air entry with scattered rhonchi more so on the left lung. Diminished.. CVS: S1 and S2 normal with no audible murmurs, regular rhythm. ABDOMEN: No hepatosplenomegaly, normal bowel sounds, no guarding or rigidity. SPINE: No scoliosis or deformity SKIN: Changes of chronic venous stations was healed lesions of the lower extremities. CENTRAL NERVOUS SYSTEM: No focal deficits, tone is normal in all 4 extremities. Extremities: There is 2-3+ lower extremity peripheral edema. No clubbing, no cyanosis. Peripheral pulses are intact. Results - Laboratory Findings CBC and BMP: 03/05/17 07:10 03/05/17 07:10 Abnormal lab findings: Abnormal Labs 03/05/17 03/05/17 07:10 07:10 WBC 14.7 H RBC 2.98 L Hgb 8.9 L D Hct 28.3 L RDW 19.1 H Neutrophils # 12.8 H Lymphocytes # 0.8 L BUN 21 H Glucose 102 H Total Protein 5.6 L Albumin 2.7 L - Diagnostic Findings Chest x-ray: image reviewed CT scan - chest: image reviewed Assessment and Plan Plan: Impression: #1 Dyspnea, multifactorial in a patient with a known history of squamous cell carcinoma of the left lung, acute exacerbation of chronic obstructive pulmonary disease, suspect underlying left lung pneumonia versus progression of lung cancer. 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 Diagnosed in August 2016. The patient did undergo 3 rounds of carboplatin and Gemzar and developed severe anemia, weakness and treatment was stopped. He has since had one treatment of immunotherapy. Most recent computed tomography scan of the chest reveals progression of disease including a large right paratracheal lymph node measuring 3 cm. There is also enlarged subcarinal lymph nodes. Fullness in the left hilum.. 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 #4 Acute exacerbation of chronic obstructive pulmonary disease. #5 Chronic and ongoing tobacco dependence. Plan: The patient was seen and evaluated by Dr. Sands. His chest x-ray, CAT scan and labs were all reviewed. We'll go ahead and continue with the current treatment including IV Lasix, IV Solu-Medrol, bronchodilators and antibiotics in the form of Levaquin, vancomycin and Zosyn. His pain is being controlled with morphine and fentanyl. The patient's overall prognosis remains quite poor. He did have discussions this morning with Dr. Gupta. The patient is considering comfort care at this point. He states he is tired of being in the hospital and tired of feeling so weak and short of breath. His is here at the bedside as well. They will let us know their wishes once decided. In the interim we'll continue with full supportive care. We will continue to follow and make further recommendations based on his clinical status. Time with Patient: Greater than 30 <Leah Sands - Last Filed: 03/05/17 11:51> Physical Exam Vitals: Vital Signs Temp Pulse Pulse Resp BP BP Pulse Ox 03/05/17 08:14 126 H 03/05/17 08:04 130 H 100 03/05/17 07:00 97.9 F 118 H 18 106/65 97 03/05/17 00:16 100 03/05/17 00:03 104 H 100 03/04/17 22:51 98.7 F 113 H 18 107/69 98 03/04/17 19:52 98.2 F 104 H 16 110/64 99 03/04/17 18:05 97.1 F L 108 H 20 115/62 100 03/04/17 17:39 107 H 20 131/68 100 03/04/17 16:34 97 20 111/75 99 03/04/17 15:05 97.2 F L 101 H 18 117/59 100 Intake and Output 03/04/17 03/05/17 03/05/17 22:59 06:59 14:59 Other: Voiding Method Urinal Urinal # Voids 2 2 # Bowel Movements 2 Weight 68.492 kg Results - Laboratory Findings CBC and BMP: 03/05/17 07:10 03/05/17 07:10 Abnormal lab findings: Abnormal Labs 03/05/17 03/05/17 07:10 07:10 WBC 14.7 H RBC 2.98 L Hgb 8.9 L D Hct 28.3 L RDW 19.1 H Neutrophils # 12.8 H Lymphocytes # 0.8 L BUN 21 H Glucose 102 H Total Protein 5.6 L Albumin 2.7 L Assessment and Plan Plan: The patient is seen in the joint evaluation with Tanya Quiros NP. I tested information above. I evaluated this patient. I examined this patient. Unfortunately care is a very poor prognosis. He has stage IV squamous cell carcinoma of the lung. He has progressed despite systemic chemotherapy and currently is receiving immunotherapy. He has abnormalities in his left upper lobe which probably is consistent with a pneumonia, and the possibility of post obstructive pneumonia of the left upper lobe cannot be completely excluded. There is also evidence of disease progression based on the CAT scan findings. He has also developed increased lower extremities edema which probably is multifactorial. It could be nutritional versus CHF and the possibility of a DVT of the lower extremities cannot be completely ruled out. For all this reasons, the patient's condition needs to be optimized for now. He was placed on diuretics. He'll be placed on a combination of bronchodilators and steroids. He'll be placed on a broad-spectrum antibiotic with accommodation of Zosyn and Levaquin. He is also on vancomycin. Goals of treatment needs to be discussed with him again along with his . Unfortunately care is a very poor prognosis. Otherwise, the rest of the information as mentioned above.
[2017-03-05] MEDS: ACETAMINOPHEN TAB 325 MG TAB PO SCH ×2 (11:53→16:40)
[2017-03-05] MEDS: MORPHINE SULFATE ER 15 MG TABLET PO SCH ×2 (11:56→21:22)
[2017-03-05] MEDS: methylPREDNISolone SOD SUCCI 40 MG/ML 1 ML VIAL IV SCH ×2 (11:56→16:38)
--- NOTE | 2017-03-05 14:36 | US ---
EXAMINATION TYPE: US venous doppler duplex LE DATE OF EXAM: 03/05/2017 2:00 PM COMPARISON: NONE CLINICAL HISTORY: edema. SIDE PERFORMED: Bilateral TECHNIQUE: The lower extremity deep venous system is examined utilizing real time linear array sonog moises with graded compression, doppler sonography and color-flow sonography. VESSELS IMAGED: External Iliac Vein (EIV) Common Femoral Vein Deep Femoral Vein Greater Saphenous Vein * Femoral Vein Popliteal Vein Small Saphenous Vein * Proximal Calf Veins (* superficial vessels) Right Leg: Negative for DVT Left Leg: Negative for DVT Edema channels present within the legs. IMPRESSION: Grayscale, color doppler, spectral doppler imaging performed of the deep veins of the lo wer extremities. There is normal flow, compressibility, vascular waveforms. No evident deep venous arthrosis at or above the knees
[2017-03-05] MEDS: GABAPENTIN 300 MG CAP PO SCH ×2 (17:30→21:22)
--- NOTE | 2017-03-06 00:01 | P.CONS ---
History of Present Illness - Reason for Consult Consult date: 03/05/17 metastatic lung cancer. Shortness f breath. Lung infiltrate - History of Present Illness Mr. Dexter is a very pleasant male pt who was initially seen in consult 09/10/16, he had c/o 3-4 months progressive SOB and left chest pain. He was treated for pneumonia, without success, his voice became raspy, appetite diminished, he lost 14 pounds in 2 months, persistent, nagging dry cough. CT chest from [place] showed a left hilar mass, mediastinal adenopathy and postobstructive pneumonitis involving the lingula, CT brain was negative, bronchoscopy on 09/10/16, path positive for squamous cell cancer, staging PET intense uptake in the left hilar, infrahilar masses, upper mediastinum, AP window, pre-tracheal, carinal and subcarinal nodes, left adrenal gland was also positive, this was confirmed by biopsy to consistent with squamous cell cancer and not an another primary. He had 3 complete cycles of carbo/Gemzar and day 1 of cycle 4, he had dose adjustments with ongoing poor subjective tolerance, hematologically he tolerated fairly well other then severe anemia. On 12/25 chemo was stopped and pt was referred to Rad Onc for evaluation of treatment of residual disease. However the patient continued to have significant pain. He had a PET scan done, which unfortunately revealed progression with multiple bone metastasis including the skull, and bilateral rib cage. Therefore there is no indication for radiation. The patient was started on IV bisphosphonates, and immunotherapy with Keytruda . He started Keytruda on 01/20/17 and is status post 2 cycles. He was last seen in the office on 02/23/17. He was tolerating treatment well with improvement in his pain. He did have his bilateral lower axillary swelling, or Doppler was negative on that day. The patient stated that over the last week or so, he has been getting progressively short of breath. He has developed a cough which is mostly dry with occasional production of small amounts of whitish phlegm. He has not had any fever or chills. He is also complaining of generalized malaise as well as fairly generalized pain affecting his shoulders back and chest wall. Due to the above, he went to the emergency room at [facility] on 03/04. Apparently he had a CT scan there which showed possible progression in the lung. He was then transferred here for further evaluation. He is continued to have persistent lower extremity despite Lasix. Chest x-ray, as well as CT at [facility] showed bilateral lung infiltrates, suspicious for pneumonia. Patient has been started on antibiotics Consultfor further evaluation and recommendations Review of Systems Constitutional: Reports fatigue, Reports poor appetite, Reports weakness Eyes: denies blurred vision, denies pain Ears: deny: decreased hearing, ear discharge, earache, tinnitus Ears, nose, mouth and throat: Denies headache, Denies sore throat Cardiovascular: Reports dyspnea on exertion, Reports edema, Reports shortness of breath Respiratory: Reports dyspnea Gastrointestinal: Reports constipation Genitourinary: Reports as per HPI Musculoskeletal: Reports as per HPI (polyarthralgia), Reports muscle weakness Integumentary: Denies pruritus, Denies rash Neurological: Reports weakness Psychiatric: Denies anxiety, Denies depression Endocrine: Reports fatigue, Reports weight change Hematologic/Lymphatic: Reports as per HPI Past Medical History Past Medical History: Cancer, COPD Additional Past Medical History / Comment(s): 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, bones History of Any Multi-Drug Resistant Organisms: None Reported Past Surgical History: No Surgical Hx Reported Additional Past Surgical History / Comment(s): lung biopsy Past Anesthesia/Blood Transfusion Reactions: No Reported Reaction Past Psychological History: No Psychological Hx Reported Smoking Status: Former smoker Past Alcohol Use History: None Reported Past Drug Use History: None Reported - Past Family History Mother Family Medical History: No Reported History Additional Family Medical History / Comment(s): Negative for lung cancer Father History Unknown: Yes Family Medical History: No Reported History Medications and Allergies Home Medications Medication Instructions Recorded Confirmed Type fentaNYL 100MCG/HR PATCH 1 patch TRANSDERM Q72H #10 patch 01/16/17 03/04/17 Rx [Duragesic 100MCG/HR] Budesonide-Formot 160-4.5 Mcg 2 puff INHALATION RT-BID 01/20/17 03/04/17 History [Symbicort 160-4.5 Mcg Inhaler] Nystatin 100,000 Unit/ml Susp 500,000 unit PO QID #300 dose 01/30/17 03/04/17 Rx [Mycostatin Oral Susp] Albuterol Inhaler [Ventolin Hfa 1 - 2 puff INHALATION RT-QID PRN 03/04/17 History Inhaler] Albuterol Nebulized [Ventolin 2.5 mg INHALATION RT-QID PRN 03/04/17 03/04/17 History Nebulized] Cephalexin [Keflex] 500 mg PO TID 03/04/17 03/04/17 History Allergies Allergy/AdvReac Type Severity Reaction Status Date / Time No Known Allergies Allergy Verified 03/04/17 15:44 Physical Exam Vitals: Vital Signs Temp Pulse Pulse Resp BP BP Pulse Ox 03/05/17 15:00 97.5 F L 106 H 18 100/59 96 03/05/17 12:19 122 H 03/05/17 12:09 120 H 03/05/17 08:14 126 H 03/05/17 08:04 130 H 100 03/05/17 07:00 97.9 F 118 H 18 106/65 97 03/05/17 00:16 100 03/05/17 00:03 104 H 100 03/04/17 22:51 98.7 F 113 H 18 107/69 98 03/04/17 19:52 98.2 F 104 H 16 110/64 99 03/04/17 18:05 97.1 F L 108 H 20 115/62 100 03/04/17 17:39 107 H 20 131/68 100 Intake and Output 03/05/17 03/05/17 03/05/17 06:59 14:59 22:59 Intake Total 300 Balance 300 Intake: Intake, IV Titration 300 Amount Piperacillin-Tazobactam 3 50 .375 gm In Dextrose/Water 1 50ml.bag @ 12.5 mls/hr IVPB Q8HR KEZIA Rx#: [id number] Vancomycin 1,250 mg In 250 Sodium Chloride 0.9% 250 ml @ 125 mls/hr IVPB Q8H KEZIA Rx#:[id number] Other: Voiding Method Urinal Urinal Urinal # Voids 2 # Bowel Movements 2 Weight 68.492 kg Patient Weight 03/06/17 06:59 Weight 68.492 kg - Constitutional General appearance: mild distress - EENT Eyes: EOMI, PERRLA ENT: hearing grossly normal, normal oropharynx - Neck Neck: no lymphadenopathy Thyroid: bilateral: normal size - Respiratory Respiratory: bilateral: CTA - Cardiovascular Rhythm: regular Heart sounds: normal: S1, S2 - Gastrointestinal General gastrointestinal: normal bowel sounds, soft - Integumentary Integumentary: normal - Neurologic Neurologic: CNII-XII intact - Musculoskeletal Musculoskeletal: generalized weakness, strength equal bilaterally - Psychiatric Psychiatric: A&O x's 3, appropriate affect Results CBC & Chem 7: 03/05/17 07:10 03/05/17 07:10 Labs: Abnormal Lab Results - Last 24 Hours (Table) 03/05/17 03/05/17 Range/Units 07:10 07:10 WBC 14.7 H (3.8-10.6) k/uL RBC 2.98 L (4.30-5.90) m/uL Hgb 8.9 L D (13.0-17.5) gm/dL Hct 28.3 L (39.0-53.0) % RDW 19.1 H (11.5-15.5) % Neutrophils # 12.8 H (1.3-7.7) k/uL Lymphocytes # 0.8 L (1.0-4.8) k/uL BUN 21 H (9-20) mg/dL Glucose 102 H (74-99) mg/dL Total Protein 5.6 L (6.3-8.2) g/dL Albumin 2.7 L (3.5-5.0) g/dL Chest x-ray: report reviewed Assessment and Plan (1) Pneumonia Narrative/Plan: The pt has presented with progressive SOB, and new b/l lung infiltrates.Infection is the main concern, and thus the pt has been started on antibiotics appropriately. However, there is also concern for pneumonitis due to Keytruda. The pt did not report much improvement with antibiotics. I will thus start him on steroids for possible medication induced pneumonitis. Case discussed with Pulmonary Medicine Status: Acute (2) Squamous cell carcinoma lung Narrative/Plan: The pt has stage IV disease with multiple bone mets, including the skull. He reports worsening of pain, and increase in fatigue and malaise. CT scans at [facility] apparently showed progression ( though it is unknown which scan it was compared to). These could represent progression, but can also occur due to increased inflammation at tumor sites due to Keytruda effect ( including apparent increase in size of lesions). Thus at this time it is not possible to define if he is progressing or actually responding. He feels very poorly at this time. I discussed options , including comfort care, including info visit with Hospice. It is possible that he may feel much better, with steroids and antibiotics if this is medication effect or pneumonia, and thus be able to continue treatment. It was decided that he would continue current management, and see how he feels over the next 1-2 days Status: Chronic (3) Cancer-related pain Narrative/Plan: I will resume Fentanyl, which he was on at home. I will also stop Dilaudid and start IV morphine, as he was on Roxanol at home Status: Acute
[2017-03-06] MEDS ORDERED: DOCUSATE 100 MG CAP PO PRN (00:02)
[2017-03-06] MEDS: PIPERACILLIN-TAZOBACTAM 3.375 GM in DEXTROSE/WATER 1 50ML.BAG IVPB SCH ×4 (00:26→23:15)
[2017-03-06] MEDS: methylPREDNISolone SOD SUCCI 40 MG/ML 1 ML VIAL IV SCH ×4 (00:26→23:16)
[2017-03-06] MEDS: ACETAMINOPHEN TAB 325 MG TAB PO SCH ×5 (00:27→23:14)
[2017-03-06] MEDS: VANCOMYCIN 1,250 MG in SODIUM CHLORIDE 0.9% 250 ML IVPB SCH ×2 (05:11→14:19)
[2017-03-06 05:29] LABS: Anisocytosis Slight; Basophils % (A) 0 %; CH 30.2; CHCM 32.1; Eosinophils % (A) 0 %; HCT 25.1 % (39.0-53.0); HDW 3.03; HGB 7.8 gm/dL (13.0-17.5); Hypochromasia Slight; Luc # (Auto) 0.03; Luc % (Auto) 0; Lymphocytes # (A) 0.7 k/uL (1.0-4.8); Lymphocytes % (A) 7 %; MCH 29.2 pg (25.0-35.0); MCHC 30.9 g/dL (31.0-37.0); MCV 94.5 fL (80.0-100.0); Macrocytosis Slight; Mean Platelet Volume 7.2; Monocytes # (A) 0.3 k/uL (0-1.0); Monocytes % (A) 4 %; Neutrophils # (A) 7.9 k/uL (1.3-7.7); Neutrophils % (A) 88 %; RBC 2.66 m/uL (4.30-5.90); WBC 8.9 k/uL (3.8-10.6); WBC (Perox) 9.31
[2017-03-06 05:37] LABS: ALT 38 U/L (21-72); AST 17 U/L (17-59); Alkaline Phosphatase 64 U/L (38-126); Anion Gap 9 mmol/L; Blood Urea Nitrogen 30 mg/dL (9-20); Calcium 9.2 mg/dL (8.4-10.2); Carbon Dioxide 28 mmol/L (22-30); Chloride 99 mmol/L (98-107); Glucose 165 mg/dL (74-99); Non-African American GFR(MDRD) >60 (>60 ml/min/1.73 sqM); Potassium 3.7 mmol/L (3.5-5.1); Sodium 136 mmol/L (137-145); Total Bilirubin 0.1 mg/dL (0.2-1.3); Total Protein 5.2 g/dL (6.3-8.2)
[2017-03-06] MEDS: LEVOFLOXACIN 750MG-D5W PMX 750 MG in DEXTROSE/WATER 1 150ML.BAG IVPB SCH (07:49)
[2017-03-06] MEDS: GABAPENTIN 300 MG CAP PO SCH ×3 (07:50→21:56)
[2017-03-06] MEDS: guaiFENesin 600 MG TABLET.ER PO SCH ×2 (07:50→20:22)
[2017-03-06] MEDS: FUROSEMIDE 10 MG/ML 4 ML VIAL IV SCH ×2 (07:50→20:22)
--- NOTE | 2017-03-06 08:06 | CDI ---
In responding to this query, please exercise your independent professional judgment. The [facility] Coding Staff and Clinical Documentation Specialists appreciate your assistance in clarifying documentation, maintaining compliance with coding guidelines, accurately documenting patients condition and capturing severity of illness. The fact that a question is asked does not imply that any particular answer is desired or expected. Communication forms are a method of clarifying documentation and are not made part of the Legal Health Record. Thank you in advance for your clarification. Last Revision, March 2015 Lucian Kim [address] [place] [address] Documentation Clarification Form Date: 03/06/2017 7:53:00 AM From: Tanya Dozier RN, CDS Admit Date: 03/04/2017 5:24:00 PM Patient Name: Eddie Dexter Visit Number: [id number] Dr. Devon Worthy: 56 year old patient admitted for Sepsis and pneumonia -hospital acquired versus post obstructive due to lung cancer. Patient has Stage 4 squamous cell lung cancer. He has lost 14 pounds in 2 months, 91% of ideal body weight. "ongoing weight loss and protein calorie malnutrition secondary to cancer" documented in Hem/Onc consult note. History/Risk Factors: Stage 4 lung cancer, chemotherapy, weight loss 14 pounds in 2 months, recent extraction of teeth Clinical Indicators: Dietitian: 91% of ideal body weight, weight loss 14 pounds in 2 months, unintended, Albumin 2.7, Total Protein 5.6, Current BMI 21.7 Treatment: Dietitian consult, Megace, Magic cup BID with meals In your professional opinion, can you please clarify if these findings signify one of the following conditions? Mild Protein-Calorie Malnutrition Moderate Protein-Calorie Malnutrition Severe Protein-Calorie Malnutrition Other condition, please specify Unable to determine Please document in your progress notes and discharge summary in order to capture severity of illness and risk of mortality. Include clinical findings that support your diagnosis. FYI: Press F11 to launch patient chart. Thank you. PATRICIA
[2017-03-06] MEDS: IPRATROPIUM-ALBUTEROL 3 ML NEB INHALATION SCH ×4 (08:25→20:01)
[2017-03-06] MEDS: MORPHINE SULFATE ER 15 MG TABLET PO SCH ×2 (09:24→20:21)
--- NOTE | 2017-03-06 10:11 | P.PN ---
<Radha Masters M - Last Filed: 03/06/17 09:57> Subjective Progress Note Date: 03/06/17 Principal diagnosis: Shortness of breath, weakness, lower extremity edema This is a very pleasant 56-year-old gentleman who follows with us in the office for chronic obstructive pulmonary disease and squamous cell carcinoma lung cancer. This was diagnosed in August 2016 via bronchoscopy with brushings and wash of the left upper lobe and lingula. A follow-up PET scan revealed evidence of lung cancer with multiple metastatic lymph nodes within the mediastinum along with a metastatic lesion in the left adrenal gland. He was recently admitted here for a fall. Computed tomography scan of the orbits status post fall revealed multifocal osseous metastatic disease. The patient had received 3 cycles of carboplatin and Gemzar but became quite weak with severe anemia and the treatments were stopped. He was recently started on immunotherapy of Keytruda and has received 1 dose thus far. The patient re- presented here again yesterday with continued complaints of worsening shortness of breath, worsening lower extremity edema and progressive weakness. A computed tomography scan done at [facility] revealed evidence of a left lung pneumonia and probable progression of the lung cancer. He is seen today in consultation on the oncology unit. He is currently awake and alert. He is quite dyspneic on minimal exertion. He is maintaining good O2 saturations in the high 90s on room air. He's been afebrile. He is quite tachycardic in the 120s. Current white count 14.7. Hemoglobin 8.9. Creatinine 0.85. He has been receiving Lasix 40 mg IV push every 12 hours. He is diuresing. The edema has improved today as compared to yesterday. He's also been initiated on bronchodilators and antibiotics in the form of Levaquin, vancomycin and Zosyn. On 03/06/2017 patient is reevaluated on oncology floor. Clinically he seems to have slightly improved since yesterday in terms of his weakness, shortness of breath and phlegm production. He is bringing up some blood tinged thick yellow sputum, we will try to send a specimen today for Gram stain and culture. No fevers, no chills overnight. He states he was able to sleep last night and feels much rested today. His white count is down to 8.9 today from 14.7, myoglobin is down to 7.8 from 8.9 with no obvious signs of bleeding. Lung sounds are diminished to absent over left middle and lower lobe, good air entry on the right with a few scattered crackles, but no wheezes no rhonchi. Bilateral lower extremity edema has slightly improved, still about 3+ pitting edema. Venous Doppler studies were negative for DVT on 03/05/2017. Patient states he was able to fit his feet into his slippers today. He is on DuoNeb 4 times a day and when necessary, IV Solu-Medrol and broad-spectrum antibiotic coverage in the form of vancomycin and Levaquin. Blood cultures have shown no growth in 24 hours. Objective - Vital Signs Vital signs: Vital Signs Temp 97.6 F 03/06/17 07:00 Pulse 95 03/06/17 07:00 Resp 18 03/06/17 07:00 BP 98/58 03/06/17 07:00 Pulse Ox 97 03/06/17 07:00 Intake & Output 03/05/17 03/06/17 03/06/17 18:59 06:59 18:59 Intake Total 300 1010 Balance 300 1010 Weight 68.492 kg Intake: IV 300 Piperacillin-Tazobactam 3 50 .375 gm In Dextrose/Water 1 50ml.bag @ 12.5 mls/hr IVPB Q8HR [facility] Rx#: [id number] Vancomycin 1,250 mg In 250 Sodium Chloride 0.9% 250 ml @ 125 mls/hr IVPB Q8H [facility] Rx#:[id number] Intake, IV Titration 300 Amount Piperacillin-Tazobactam 3 50 .375 gm In Dextrose/Water 1 50ml.bag @ 12.5 mls/hr IVPB Q8HR [facility] Rx#: [id number] Vancomycin 1,250 mg In 250 Sodium Chloride 0.9% 250 ml @ 125 mls/hr IVPB Q8H [facility] Rx#:[id number] Oral 710 Other: Voiding Method Urinal Toilet # Voids 2 - Exam GENERAL EXAM: Weak, cachectic. HEAD: Normocephalic. EYES: Normal reaction of pupils, equal size. NOSE: Clear with pink turbinates. THROAT: No erythema or exudates. NECK: No masses, no JVD. CHEST: No chest wall deformity. LUNGS: diminished to no air entry on the left side, few scat crackles on the right CVS: S1 and S2 normal with no audible murmurs, regular rhythm. ABDOMEN: No hepatosplenomegaly, normal bowel sounds, no guarding or rigidity. SPINE: No scoliosis or deformity SKIN: Changes of chronic venous stations was healed lesions of the lower extremities. CENTRAL NERVOUS SYSTEM: No focal deficits, tone is normal in all 4 extremities. Extremities: There is 2-3+ lower extremity peripheral edema. No clubbing, no cyanosis. Peripheral pulses are intact. - Labs CBC & Chem 7: 03/06/17 05:20 03/06/17 05:20 Labs: Abnormal Lab Results - Last 24 Hours (Table) 03/06/17 03/06/17 Range/Units 05:20 05:20 RBC 2.66 L (4.30-5.90) m/uL Hgb 7.8 L (13.0-17.5) gm/dL Hct 25.1 L (39.0-53.0) % MCHC 30.9 L (31.0-37.0) g/dL RDW 19.0 H (11.5-15.5) % Neutrophils # 7.9 H (1.3-7.7) k/uL Lymphocytes # 0.7 L (1.0-4.8) k/uL Sodium 136 L (137-145) mmol/L BUN 30 H (9-20) mg/dL Glucose 165 H (74-99) mg/dL Total Bilirubin 0.1 L (0.2-1.3) mg/dL Total Protein 5.2 L (6.3-8.2) g/dL Albumin 2.5 L (3.5-5.0) g/dL Microbiology - Last 24 Hours (Table) 03/05/17 00:10 Gram Stain - Preliminary Sputum 03/04/17 18:55 Blood Culture - Preliminary Blood No Growth after 24 hours Assessment and Plan Plan: Assessment and Plan Plan: Impression: #1 Dyspnea, multifactorial in a patient with a known history of squamous cell carcinoma of the left lung, acute exacerbation of chronic obstructive pulmonary disease, suspect underlying left lung pneumonia versus progression of lung cancer. 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 Diagnosed in August 2016. The patient did undergo 3 rounds of carboplatin and Gemzar and developed severe anemia, weakness and treatment was stopped. He has since had one treatment of immunotherapy. Most recent computed tomography scan of the chest reveals progression of disease including a large right paratracheal lymph node measuring 3 cm. There is also enlarged subcarinal lymph nodes. Fullness in the left hilum.. 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 #4 Acute exacerbation of chronic obstructive pulmonary disease. #5 Chronic and ongoing tobacco dependence. Plan: We'll go ahead and continue with the current treatment including IV Lasix, IV Solu-Medrol, bronchodilators and antibiotics in the form of Levaquin and vancomycin. His pain is being controlled with morphine and fentanyl. The patient's overall prognosis remains quite poor. Patient had a visit with the hospice fuels sales representative this morning. The patient is considering comfort care at this point. He did slightly improve with the shortness of breath and weakness since yesterday. We'll continue with full supportive care. We will continue to follow and make further recommendations based on his clinical status. I performed a history & physical examination of the patient and discussed their management with my nurse practitioner, Radha Masters. I reviewed the nurse practitioner's note and agree with the documented findings and plan of care. <Leah Sands - Last Filed: 03/06/17 16:04> Objective - Vital Signs Vital signs: Vital Signs Temp 97.7 F 03/06/17 15:00 Pulse 109 H 03/06/17 15:00 Resp 18 03/06/17 15:00 BP 102/55 03/06/17 15:00 Pulse Ox 96 03/06/17 15:00 Intake & Output 03/05/17 03/06/17 03/06/17 18:59 06:59 18:59 Intake Total 300 1010 200 Balance 300 1010 200 Weight 68.492 kg Intake: IV 300 50 Piperacillin-Tazobactam 3 50 50 .375 gm In Dextrose/Water 1 50ml.bag @ 12.5 mls/hr IVPB Q8HR [facility] Rx#: [id number] Vancomycin 1,250 mg In 250 Sodium Chloride 0.9% 250 ml @ 125 mls/hr IVPB Q8H [facility] Rx#:[id number] Intake, IV Titration 300 150 Amount Levofloxacin 750Mg-D5w 150 Pmx 750 mg In Dextrose/ Water 1 150ml.bag @ 100 mls/hr IVPB Q24H [facility] Rx#: [id number] Piperacillin-Tazobactam 3 50 .375 gm In Dextrose/Water 1 50ml.bag @ 12.5 mls/hr IVPB Q8HR [facility] Rx#: [id number] Vancomycin 1,250 mg In 250 Sodium Chloride 0.9% 250 ml @ 125 mls/hr IVPB Q8H [facility] Rx#:[id number] Oral 710 Other: Voiding Method Urinal Toilet Toilet # Voids 2 - Labs CBC & Chem 7: 03/06/17 05:20 03/06/17 05:20 Labs: Abnormal Lab Results - Last 24 Hours (Table) 03/06/17 03/06/17 Range/Units 05:20 05:20 RBC 2.66 L (4.30-5.90) m/uL Hgb 7.8 L (13.0-17.5) gm/dL Hct 25.1 L (39.0-53.0) % MCHC 30.9 L (31.0-37.0) g/dL RDW 19.0 H (11.5-15.5) % Neutrophils # 7.9 H (1.3-7.7) k/uL Lymphocytes # 0.7 L (1.0-4.8) k/uL Sodium 136 L (137-145) mmol/L BUN 30 H (9-20) mg/dL Glucose 165 H (74-99) mg/dL Total Bilirubin 0.1 L (0.2-1.3) mg/dL Total Protein 5.2 L (6.3-8.2) g/dL Albumin 2.5 L (3.5-5.0) g/dL Microbiology - Last 24 Hours (Table) 03/05/17 00:10 Gram Stain - Preliminary Sputum Sputum Culture - Preliminary Jeanie albicans 03/04/17 18:55 Blood Culture - Preliminary Blood No Growth after 24 hours Assessment and Plan Plan: This is a joint evaluation that was done along with a nurse practitioner. I do a test of the information mentioned above. I think the patient is feeling better today. His been diuresing very well with IV Lasix. There is improvement in lower extremities edema. Doppler of the lower extremities negative for any DVTs. The patient is less short of breath. He is considering hospice care. We'll continue to follow.
[2017-03-06] MEDS ORDERED: VANCOMYCIN TROUGH DUE 1 EACH MISC MISCELLANE ONE (11:00)
[2017-03-06] MEDS ORDERED: MORPHINE SULFATE 10 MG/ML SYRINGE IVP PRN (13:29)
--- NOTE | 2017-03-06 14:42 | P.PN ---
Subjective Progress Note Date: 03/06/17 Principal diagnosis: ZANDRA Objective - Vital Signs Vital signs: Vital Signs Temp 97.6 F 03/06/17 07:00 Pulse 104 H 03/06/17 12:24 Resp 18 03/06/17 07:00 BP 98/58 03/06/17 07:00 Pulse Ox 97 03/06/17 07:00 Intake & Output 03/05/17 03/06/17 03/06/17 18:59 06:59 18:59 Intake Total 300 1010 200 Balance 300 1010 200 Weight 68.492 kg Intake: IV 300 50 Piperacillin-Tazobactam 3 50 50 .375 gm In Dextrose/Water 1 50ml.bag @ 12.5 mls/hr IVPB Q8HR [facility] Rx#: [id number] Vancomycin 1,250 mg In 250 Sodium Chloride 0.9% 250 ml @ 125 mls/hr IVPB Q8H [facility] Rx#:[id number] Intake, IV Titration 300 150 Amount Levofloxacin 750Mg-D5w 150 Pmx 750 mg In Dextrose/ Water 1 150ml.bag @ 100 mls/hr IVPB Q24H [facility] Rx#: [id number] Piperacillin-Tazobactam 3 50 .375 gm In Dextrose/Water 1 50ml.bag @ 12.5 mls/hr IVPB Q8HR [facility] Rx#: [id number] Vancomycin 1,250 mg In 250 Sodium Chloride 0.9% 250 ml @ 125 mls/hr IVPB Q8H [facility] Rx#:[id number] Oral 710 Other: Voiding Method Urinal Toilet Toilet # Voids 2 - Constitutional General appearance: Present: cooperative, no acute distress, thin - EENT Eyes: Present: anicteric sclerae, normal appearance ENT: Present: normal oropharynx - Neck Neck: Absent: lymphadenopathy, normal ROM, other, rigidity, stridor, thyromegaly - Respiratory Respiratory: right: CTA, left: rhonchi, wheezing - Cardiovascular Rhythm: regular Heart sounds: normal: S1, S2 - Peripheral edema leg Peripheral Edema: bilateral: 3+, Pitting, Other (slight weeping) - Gastrointestinal General gastrointestinal: Present: normal bowel sounds, soft - Integumentary Integumentary: Present: normal - Neurologic Neurologic: Present: CNII-XII intact - Musculoskeletal Musculoskeletal: Present: generalized weakness, strength equal bilaterally - Psychiatric Psychiatric: Present: A&O x's 3, appropriate affect, intact judgment & insight - Labs CBC & Chem 7: 03/06/17 05:20 03/06/17 05:20 Labs: Abnormal Lab Results - Last 24 Hours (Table) 03/06/17 03/06/17 Range/Units 05:20 05:20 RBC 2.66 L (4.30-5.90) m/uL Hgb 7.8 L (13.0-17.5) gm/dL Hct 25.1 L (39.0-53.0) % MCHC 30.9 L (31.0-37.0) g/dL RDW 19.0 H (11.5-15.5) % Neutrophils # 7.9 H (1.3-7.7) k/uL Lymphocytes # 0.7 L (1.0-4.8) k/uL Sodium 136 L (137-145) mmol/L BUN 30 H (9-20) mg/dL Glucose 165 H (74-99) mg/dL Total Bilirubin 0.1 L (0.2-1.3) mg/dL Total Protein 5.2 L (6.3-8.2) g/dL Albumin 2.5 L (3.5-5.0) g/dL Microbiology - Last 24 Hours (Table) 03/05/17 00:10 Gram Stain - Preliminary Sputum Sputum Culture - Preliminary Jeanie albicans 03/04/17 18:55 Blood Culture - Preliminary Blood No Growth after 24 hours Assessment and Plan (1) Cancer-related pain Narrative/Plan: Pain medications adjusted, patient pain better controlled today. Status: Acute (2) Dyspnea Narrative/Plan: Patient is being treated for pneumonia with antibiotics, patient has also been placed on steroids. It is difficult to determine if patient has infection or pneumonitis side effect from immunotherapy. Pt was started on abx and did not seem to improve initially, steroids were started yesterday and he is doing much better. Recommendation is to complete antibiotic course, steroids will be tapered over the next month. Pulmonary is following. Status: Acute (3) Stage IV squamous cell carcinoma of lung Narrative/Plan: Patient is status post first cycle of pembrolizumab. the progressive findings on imaging can be related to inflammatory process in tumors secondary to treatment with immunotherapy so, it cannot be determined with absolute certainty that the patient is progressing. Today the patient appears stable and improved. Discussed with the patient and his family immunotherapy treatment , pneumonia versus pneumonitis, further treatment versus hospice. all of the patient and his family's questions were answered to their satisfaction. They would also like information about hospice services, case management consult has already been placed. Status: Chronic Plan: Patient is okay from a hematology/oncology standpoint to be discharged once he is cleared by Attending and other Consulting services. Follow-up appointment has been placed in the chart for patient Time with Patient: Greater than 30
--- NOTE | 2017-03-06 16:09 | P.PN ---
Subjective Progress Note Date: 03/06/17 Principal diagnosis: The patient is a 56-year-old male with a history of stage IV squamous cell metastatic cancer that presented with complaints of worsening dyspnea was found to have elevated white count CT consistent with a multifocal pneumonia patient has been hospitalized within the last 2 months for postobstructive pneumonia. He was started on empiric IV antibiotics with Levaquin and Zosyn prior to being transferred from [facility] in [place], I added vancomycin to regimen check blood cultures, and started the patient on scheduled breathing treatments Lasix for diuresis. Oncology Dr. Gupta has been consulted . The patient had received 3 cycles of carboplatin and Gemzar but became quite weak with severe anemia and the treatments were stopped. He was recently started on immunotherapy of Keytruda and has received 1 dose thus far. Patient today reports significant improvement , pain is much more well controlled today and current regimen and his lower extremity swelling is much more improved. patient does have pathology consistent with stage IV squamous cell carcinoma with metastatic lesions to multifocal osseous sites. Patient afebrile overnight,, no acute events overnight Patient recently had a discussion with hospice but is not amenable to continuing with palliative or hospice care at this time and would like to proceed with treatment. Objective - Vital Signs Vital signs: Vital Signs Temp 97.7 F 03/06/17 15:00 Pulse 109 H 03/06/17 15:00 Resp 18 03/06/17 15:00 BP 102/55 03/06/17 15:00 Pulse Ox 96 03/06/17 15:00 Intake & Output 03/05/17 03/06/17 03/06/17 18:59 06:59 18:59 Intake Total 300 1010 200 Balance 300 1010 200 Weight 68.492 kg Intake: IV 300 50 Piperacillin-Tazobactam 3 50 50 .375 gm In Dextrose/Water 1 50ml.bag @ 12.5 mls/hr IVPB Q8HR [facility] Rx#: [id number] Vancomycin 1,250 mg In 250 Sodium Chloride 0.9% 250 ml @ 125 mls/hr IVPB Q8H [facility] Rx#:[id number] Intake, IV Titration 300 150 Amount Levofloxacin 750Mg-D5w 150 Pmx 750 mg In Dextrose/ Water 1 150ml.bag @ 100 mls/hr IVPB Q24H [facility] Rx#: [id number] Piperacillin-Tazobactam 3 50 .375 gm In Dextrose/Water 1 50ml.bag @ 12.5 mls/hr IVPB Q8HR [facility] Rx#: [id number] Vancomycin 1,250 mg In 250 Sodium Chloride 0.9% 250 ml @ 125 mls/hr IVPB Q8H [facility] Rx#:[id number] Oral 710 Other: Voiding Method Urinal Toilet Toilet # Voids 2 - Exam Constitutional: No acute distress, conversant, pleasant Eyes: Anicteric sclerae, moist conjunctiva, no lid-lag, PERRLA ENMT: NC/AT,Oropharynx clear, no erythema, exudates Neck:Supple, FROM, no masses, or JVD, No carotid bruits; No thyromegaly Lungs: Extremely poor aeration on the left with noted Rales and rhonchi on the right Cardiovascular: Heart regular in rate and rhythm, No murmurs, gallops, or rubs no peripheral edema Abdominal: Soft Nontender, nom distended, no guarding, no rebound or rigidity, Normoactive bowel sounds No hepatomegaly, No splenomegaly, No palpable mass No abdominal wall hernia noted Skin: Normal temperature, tone, texture, turgor, No induration No subcutaneous nodules, No rash, lesions, No ulcers Extremities/MSK: Range of motion and mobility extremely limited secondary to pain + +3 bilateral lower extremity pitting edema extending from the feet up to the knees bilaterally, improved lower extremity swelling Psychiatric: Alert and oriented to person, place and time, Appropriate affect Intact judgement Neuro: Muscles Strength 5/5 in all 4 extremities, Sensation to light touch grossly present throughout, Cranial nerves II-XII grossly intact. No focal sensory deficits - Labs CBC & Chem 7: 03/06/17 05:20 03/06/17 05:20 Labs: Abnormal Lab Results - Last 24 Hours (Table) 03/06/17 03/06/17 Range/Units 05:20 05:20 RBC 2.66 L (4.30-5.90) m/uL Hgb 7.8 L (13.0-17.5) gm/dL Hct 25.1 L (39.0-53.0) % MCHC 30.9 L (31.0-37.0) g/dL RDW 19.0 H (11.5-15.5) % Neutrophils # 7.9 H (1.3-7.7) k/uL Lymphocytes # 0.7 L (1.0-4.8) k/uL Sodium 136 L (137-145) mmol/L BUN 30 H (9-20) mg/dL Glucose 165 H (74-99) mg/dL Total Bilirubin 0.1 L (0.2-1.3) mg/dL Total Protein 5.2 L (6.3-8.2) g/dL Albumin 2.5 L (3.5-5.0) g/dL Microbiology - Last 24 Hours (Table) 03/05/17 00:10 Gram Stain - Preliminary Sputum Sputum Culture - Preliminary Jeanie albicans 03/04/17 18:55 Blood Culture - Preliminary Blood No Growth after 24 hours Assessment and Plan (1) Sepsis Narrative/Plan: Likely secondary to multifocal healthcare associated versus postobstructive pneumonia * Leukocytosis resolved we'll continue current antibiotic regimen with vancomycin and Zosyn and Levaquin Status: Acute (2) Healthcare-associated pneumonia Status: Acute (3) Acute systolic heart failure Narrative/Plan: * Echocardiogram with EF of 35-40%, will consult cardiology * Continue diuresis with Lasix 40 mg IV twice a day Status: Acute (4) COPD with acute exacerbation Narrative/Plan: * Continue breathing treatments and steroids Status: Acute (5) Dyspnea Narrative/Plan: Multifactorial secondary to pneumonia superimposed on COPD exacerbation and systolic CHF exacerbation * Continue with supplemental oxygen as needed continue with scheduled bronchodilator and when necessary breathing treatments Status: Acute (6) Stage IV squamous cell carcinoma of lung Narrative/Plan: Oncology Dr. Gupta consulted Patient has stage IV squamous cell lung carcinoma with metastasis to adrenal gland and multiple osseous sites, patient is a possible candidate for hospice will defer to his oncologist Status: Chronic (7) Thrombocytopenia Status: Resolved (8) Cancer-related pain Narrative/Plan: * Pain well controlled today We'll continue fentanyl patch * Continue Neurontin 300 mg by mouth 3 times a day and MS Contin 15 mg by mouth twice a day * PTOT is also consulted Status: Acute (9) Symptomatic anemia Narrative/Plan: Likely secondary to underlying malignancy Status: Chronic
[2017-03-07] MEDS: ACETAMINOPHEN TAB 325 MG TAB PO SCH ×4 (05:05→23:20)
[2017-03-07] MEDS: LEVOFLOXACIN 750MG-D5W PMX 750 MG in DEXTROSE/WATER 1 150ML.BAG IVPB SCH (05:06)
[2017-03-07 05:56] LABS: Anisocytosis Slight; Basophils % (A) 0 %; CH 28.8; CHCM 31.1; Eosinophils # (A) 0.1 k/uL (0-0.7); Eosinophils % (A) 1 %; HCT 23.9 % (39.0-53.0); HDW 3.34; HGB 7.3 gm/dL (13.0-17.5); Hypochromasia Moderate; Luc # (Auto) 0.13; Luc % (Auto) 1; Lymphocytes # (A) 0.8 k/uL (1.0-4.8); Lymphocytes % (A) 7 %; MCH 28.3 pg (25.0-35.0); MCHC 30.5 g/dL (31.0-37.0); MCV 92.9 fL (80.0-100.0); Mean Platelet Volume 7.1; Monocytes # (A) 0.6 k/uL (0-1.0); Monocytes % (A) 5 %; Neutrophils # (A) 9.9 k/uL (1.3-7.7); Neutrophils % (A) 86 %; RBC 2.58 m/uL (4.30-5.90); RDW 17.8 % (11.5-15.5); WBC 11.5 k/uL (3.8-10.6); WBC (Perox) 11.84
[2017-03-07] MEDS: VANCOMYCIN 1,000 MG in SODIUM CHLORIDE 0.9% 250 ML IVPB SCH ×4 (06:22→20:32)
[2017-03-07 06:34] LABS: ALT 36 U/L (21-72); AST 14 U/L (17-59); Alkaline Phosphatase 59 U/L (38-126); Anion Gap 11 mmol/L; Blood Urea Nitrogen 32 mg/dL (9-20); Calcium 8.5 mg/dL (8.4-10.2); Carbon Dioxide 28 mmol/L (22-30); Chloride 101 mmol/L (98-107); Glucose 164 mg/dL (74-99); Non-African American GFR(MDRD) >60 (>60 ml/min/1.73 sqM); Potassium 3.3 mmol/L (3.5-5.1); Sodium 140 mmol/L (137-145); Total Bilirubin <0.1 mg/dL (0.2-1.3)
[2017-03-07] MEDS: IPRATROPIUM-ALBUTEROL 3 ML NEB INHALATION SCH ×4 (07:44→20:02)
[2017-03-07] MEDS ORDERED: POTASSIUM CHLORIDE ER 20 MEQ TAB.ER PO SCH (10:15)
[2017-03-07] MEDS: methylPREDNISolone SOD SUCCI 40 MG/ML 1 ML VIAL IV SCH ×2 (10:26→17:36)
[2017-03-07] MEDS: FUROSEMIDE 10 MG/ML 4 ML VIAL IV SCH ×2 (10:27→20:32)
[2017-03-07] MEDS: GABAPENTIN 300 MG CAP PO SCH ×3 (10:28→20:32)
[2017-03-07] MEDS: guaiFENesin 600 MG TABLET.ER PO SCH ×2 (10:28→20:33)
[2017-03-07] MEDS: MORPHINE SULFATE ER 15 MG TABLET PO SCH ×2 (10:38→20:33)
--- NOTE | 2017-03-07 10:50 | P.PN ---
<Tanya Lipscomb - Last Filed: 03/07/17 10:41> Subjective Progress Note Date: 03/07/17 Principal diagnosis: Squamous cell carcinoma of the lung, COPD exacerbation. This is a very pleasant 56-year-old gentleman who follows with us in the office for chronic obstructive pulmonary disease and squamous cell carcinoma lung cancer. This was diagnosed in August 2016 via bronchoscopy with brushings and wash of the left upper lobe and lingula. A follow-up PET scan revealed evidence of lung cancer with multiple metastatic lymph nodes within the mediastinum along with a metastatic lesion in the left adrenal gland. He was recently admitted here for a fall. Computed tomography scan of the orbits status post fall revealed multifocal osseous metastatic disease. The patient had received 3 cycles of carboplatin and Gemzar but became quite weak with severe anemia and the treatments were stopped. He was recently started on immunotherapy of Keytruda and has received 1 dose thus far. The patient re- presented here again yesterday with continued complaints of worsening shortness of breath, worsening lower extremity edema and progressive weakness. A computed tomography scan done at [facility] revealed evidence of a left lung pneumonia and probable progression of the lung cancer. He is seen today in consultation on the oncology unit. He is currently awake and alert. He is quite dyspneic on minimal exertion. He is maintaining good O2 saturations in the high 90s on room air. He's been afebrile. He is quite tachycardic in the 120s. Current white count 14.7. Hemoglobin 8.9. Creatinine 0.85. He has been receiving Lasix 40 mg IV push every 12 hours. He is diuresing. The edema has improved today as compared to yesterday. He's also been initiated on bronchodilators and antibiotics in the form of Levaquin, vancomycin and Zosyn. On 03/06/2017 patient is reevaluated on oncology floor. Clinically he seems to have slightly improved since yesterday in terms of his weakness, shortness of breath and phlegm production. He is bringing up some blood tinged thick yellow sputum, we will try to send a specimen today for Gram stain and culture. No fevers, no chills overnight. He states he was able to sleep last night and feels much rested today. His white count is down to 8.9 today from 14.7, myoglobin is down to 7.8 from 8.9 with no obvious signs of bleeding. Lung sounds are diminished to absent over left middle and lower lobe, good air entry on the right with a few scattered crackles, but no wheezes no rhonchi. Bilateral lower extremity edema has slightly improved, still about 3+ pitting edema. Venous Doppler studies were negative for DVT on 03/05/2017. Patient states he was able to fit his feet into his slippers today. He is on DuoNeb 4 times a day and when necessary, IV Solu-Medrol and broad-spectrum antibiotic coverage in the form of vancomycin and Levaquin. Blood cultures have shown no growth in 24 hours. The patient is seen again today 03/07/2017 in follow-up on the oncology unit. He is doing better today. He is up ambulating in his room he is feeling stronger today as compared to yesterday. he still has some issues with dyspnea on exertion. He has been seen by oncology. The plan is to resume his Keytruda after he recovers from this acute episode. White count 11.5. Hemoglobin 7.3. Platelet count 216,000. Objective - Vital Signs Vital signs: Vital Signs Temp 97.5 F L 03/07/17 08:20 Pulse 108 H 03/07/17 08:51 Resp 20 03/07/17 08:20 BP 108/58 03/07/17 08:20 Pulse Ox 99 03/07/17 08:20 Intake & Output 03/06/17 03/07/17 03/07/17 18:59 06:59 18:59 Intake Total 200 590 236 Balance 200 590 236 Intake: IV 50 Piperacillin-Tazobactam 3 50 .375 gm In Dextrose/Water 1 50ml.bag @ 12.5 mls/hr IVPB Q8HR [facility] Rx#: [id number] Intake, IV Titration 150 Amount Levofloxacin 750Mg-D5w 150 Pmx 750 mg In Dextrose/ Water 1 150ml.bag @ 100 mls/hr IVPB Q24H [facility] Rx#: [id number] Oral 590 [id number] Other: Voiding Method Toilet Toilet Toilet # Voids 2 - Exam GENERAL EXAM: Weak, cachectic. HEAD: Normocephalic. EYES: Normal reaction of pupils, equal size. NOSE: Clear with pink turbinates. THROAT: No erythema or exudates. NECK: No masses, no JVD. CHEST: No chest wall deformity. LUNGS: diminished to no air entry on the left side, few scat crackles on the right CVS: S1 and S2 normal with no audible murmurs, regular rhythm. ABDOMEN: No hepatosplenomegaly, normal bowel sounds, no guarding or rigidity. SPINE: No scoliosis or deformity SKIN: Changes of chronic venous stations was healed lesions of the lower extremities. CENTRAL NERVOUS SYSTEM: No focal deficits, tone is normal in all 4 extremities. Extremities: There is 2-3+ lower extremity peripheral edema. No clubbing, no cyanosis. Peripheral pulses are intact. - Labs CBC & Chem 7: 03/07/17 05:50 03/07/17 05:50 Labs: Abnormal Lab Results - Last 24 Hours (Table) 03/07/17 03/07/17 Range/Units 05:50 05:50 WBC 11.5 H (3.8-10.6) k/uL RBC 2.58 L (4.30-5.90) m/uL Hgb 7.3 L (13.0-17.5) gm/dL Hct 23.9 L (39.0-53.0) % MCHC 30.5 L (31.0-37.0) g/dL RDW 17.8 H (11.5-15.5) % Neutrophils # 9.9 H (1.3-7.7) k/uL Lymphocytes # 0.8 L (1.0-4.8) k/uL Potassium 3.3 L (3.5-5.1) mmol/L BUN 32 H (9-20) mg/dL Glucose 164 H (74-99) mg/dL Total Bilirubin <0.1 L (0.2-1.3) mg/dL AST 14 L (17-59) U/L Total Protein 5.0 L (6.3-8.2) g/dL Albumin 2.5 L (3.5-5.0) g/dL Microbiology - Last 24 Hours (Table) 03/05/17 00:10 Gram Stain - Final Sputum Sputum Culture - Final Jeanie albicans 03/04/17 18:55 Blood Culture - Preliminary Blood No Growth after 48 hours Assessment and Plan Plan: Impression: #1 Dyspnea, multifactorial in a patient with a known history of squamous cell carcinoma of the left lung, acute exacerbation of chronic obstructive pulmonary disease, suspect underlying left lung pneumonia versus progression of lung cancer. 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 Diagnosed in August 2016. The patient did undergo 3 rounds of carboplatin and Gemzar and developed severe anemia, weakness and treatment was stopped. He has since had one treatment of immunotherapy. Most recent computed tomography scan of the chest reveals progression of disease including a large right paratracheal lymph node measuring 3 cm. There is also enlarged subcarinal lymph nodes. Fullness in the left hilum.. 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 #4 Acute exacerbation of chronic obstructive pulmonary disease. #5 Chronic and ongoing tobacco dependence. Plan: The patient was seen and evaluated by Dr. Sands. We'll go ahead and continue with the current treatment including IV Lasix, IV Solu-Medrol, bronchodilators and antibiotics in the form of Levaquin, vancomycin and Zosyn. His pain is being controlled with 1 fentanyl. The patient's overall prognosis remains quite poor. The plan however is to resume every 2 once he recovers from this acute episode. In the interim we'll continue full supportive care. We'll continue to follow. <Leah Sands - Last Filed: 03/07/17 10:58> Objective - Vital Signs Vital signs: Vital Signs Temp 97.5 F L 03/07/17 08:20 Pulse 108 H 03/07/17 08:51 Resp 20 03/07/17 08:20 BP 108/58 03/07/17 08:20 Pulse Ox 99 03/07/17 08:20 Intake & Output 03/06/17 03/07/17 03/07/17 18:59 06:59 18:59 Intake Total 200 590 236 Balance 200 590 236 Intake: IV 50 Piperacillin-Tazobactam 3 50 .375 gm In Dextrose/Water 1 50ml.bag @ 12.5 mls/hr IVPB Q8HR [facility] Rx#: [id number] Intake, IV Titration 150 Amount Levofloxacin 750Mg-D5w 150 Pmx 750 mg In Dextrose/ Water 1 150ml.bag @ 100 mls/hr IVPB Q24H [facility] Rx#: [id number] Oral 590 236 Other: Voiding Method Toilet Toilet Toilet # Voids 2 - Labs CBC & Chem 7: 03/07/17 05:50 03/07/17 05:50 Labs: Abnormal Lab Results - Last 24 Hours (Table) 03/07/17 03/07/17 Range/Units 05:50 05:50 WBC 11.5 H (3.8-10.6) k/uL RBC 2.58 L (4.30-5.90) m/uL Hgb 7.3 L (13.0-17.5) gm/dL Hct 23.9 L (39.0-53.0) % MCHC 30.5 L (31.0-37.0) g/dL RDW 17.8 H (11.5-15.5) % Neutrophils # 9.9 H (1.3-7.7) k/uL Lymphocytes # 0.8 L (1.0-4.8) k/uL Potassium 3.3 L (3.5-5.1) mmol/L BUN 32 H (9-20) mg/dL Glucose 164 H (74-99) mg/dL Total Bilirubin <0.1 L (0.2-1.3) mg/dL AST 14 L (17-59) U/L Total Protein 5.0 L (6.3-8.2) g/dL Albumin 2.5 L (3.5-5.0) g/dL Microbiology - Last 24 Hours (Table) 03/05/17 00:10 Gram Stain - Final Sputum Sputum Culture - Final Jeanie albicans 03/04/17 18:55 Blood Culture - Preliminary Blood No Growth after 48 hours Assessment and Plan Plan: This is a joint evaluation that was done along with the nurse practitioner. Discussed the case with oncology. Patient is slowly improving. Lower extremity edema is also improved. Continue antibiotics. The patient is being considered for another round of treatment if he recovers from this acute pneumonia and fluid overload. For now we'll continue to treatment. We'll follow.
[2017-03-07] MEDS: POTASSIUM CHLORIDE ER 20 MEQ TAB.ER PO SCH (11:16)
[2017-03-07] MEDS: PIPERACILLIN-TAZOBACTAM 3.375 GM in DEXTROSE/WATER 1 50ML.BAG IVPB SCH ×3 (11:16→23:50)
--- NOTE | 2017-03-07 11:24 | P.PN ---
Subjective Progress Note Date: 03/07/17 Principal diagnosis: The patient is a 56-year-old male with a history of stage IV squamous cell metastatic cancer that presented with complaints of worsening dyspnea was found to have elevated white count CT consistent with a multifocal pneumonia patient has been hospitalized within the last 2 months for postobstructive pneumonia. He was started on empiric IV antibiotics with Levaquin and Zosyn prior to being transferred from [facility] in [place], I added vancomycin to regimen check blood cultures, and started the patient on scheduled breathing treatments Lasix for diuresis. Oncology Dr. Gupta has been consulted . The patient had received 3 cycles of carboplatin and Gemzar but became quite weak with severe anemia and the treatments were stopped. He was recently started on immunotherapy of Keytruda and has received 1 dose thus far. The plan is to restart keytruda after follow-up in the oncology clinic as an outpatient. It was thought that the patient's presenting symptoms are multifactorial etiology with pneumonia superimposed on a COPD exacerbation further superimposed on acute CHF exacerbation. Ejection fraction on echocardiogram is 35-40% Patient today reports significant improvement , pain is much more well controlled today and current regimen and his lower extremity swelling is much more improved. patient does have pathology consistent with stage IV squamous cell carcinoma with metastatic lesions to multifocal osseous sites. Patient afebrile overnight,, no acute events overnight Patient recently had a discussion with hospice but is not amenable to continuing with palliative or hospice care at this time and would like to proceed with treatment. Objective - Vital Signs Vital signs: Vital Signs Temp 97.5 F L 03/07/17 08:20 Pulse 108 H 03/07/17 08:51 Resp 20 03/07/17 08:20 BP 108/58 03/07/17 08:20 Pulse Ox 99 03/07/17 08:20 Intake & Output 03/06/17 03/07/17 03/07/17 18:59 06:59 18:59 Intake Total 200 590 236 Balance 200 590 236 Intake: IV 50 Piperacillin-Tazobactam 3 50 .375 gm In Dextrose/Water 1 50ml.bag @ 12.5 mls/hr IVPB Q8HR [facility] Rx#: [id number] Intake, IV Titration 150 Amount Levofloxacin 750Mg-D5w 150 Pmx 750 mg In Dextrose/ Water 1 150ml.bag @ 100 mls/hr IVPB Q24H [facility] Rx#: [id number] Oral 590 236 Other: Voiding Method Toilet Toilet Toilet # Voids 2 - Exam Constitutional: No acute distress, conversant, pleasant Eyes: Anicteric sclerae, moist conjunctiva, no lid-lag, PERRLA ENMT: NC/AT,Oropharynx clear, no erythema, exudates Neck:Supple, FROM, no masses, or JVD, No carotid bruits; No thyromegaly Lungs: Extremely poor aeration on the left with noted Rales and rhonchi on the right Cardiovascular: Heart regular in rate and rhythm, No murmurs, gallops, or rubs no peripheral edema Abdominal: Soft Nontender, nom distended, no guarding, no rebound or rigidity, Normoactive bowel sounds No hepatomegaly, No splenomegaly, No palpable mass No abdominal wall hernia noted Skin: Normal temperature, tone, texture, turgor, No induration No subcutaneous nodules, No rash, lesions, No ulcers Extremities/MSK: Range of motion and mobility extremely limited secondary to pain + +3 bilateral lower extremity pitting edema extending from the feet up to the knees bilaterally, improved lower extremity swelling Psychiatric: Alert and oriented to person, place and time, Appropriate affect Intact judgement Neuro: Muscles Strength 5/5 in all 4 extremities, Sensation to light touch grossly present throughout, Cranial nerves II-XII grossly intact. No focal sensory deficits - Labs CBC & Chem 7: 03/07/17 05:50 03/07/17 05:50 Labs: Abnormal Lab Results - Last 24 Hours (Table) 03/07/17 03/07/17 Range/Units 05:50 05:50 WBC 11.5 H (3.8-10.6) k/uL RBC 2.58 L (4.30-5.90) m/uL Hgb 7.3 L (13.0-17.5) gm/dL Hct 23.9 L (39.0-53.0) % MCHC 30.5 L (31.0-37.0) g/dL RDW 17.8 H (11.5-15.5) % Neutrophils # 9.9 H (1.3-7.7) k/uL Lymphocytes # 0.8 L (1.0-4.8) k/uL Potassium 3.3 L (3.5-5.1) mmol/L BUN 32 H (9-20) mg/dL Glucose 164 H (74-99) mg/dL Total Bilirubin <0.1 L (0.2-1.3) mg/dL AST 14 L (17-59) U/L Total Protein 5.0 L (6.3-8.2) g/dL Albumin 2.5 L (3.5-5.0) g/dL Microbiology - Last 24 Hours (Table) 03/05/17 00:10 Gram Stain - Final Sputum Sputum Culture - Final Jeanie albicans 03/04/17 18:55 Blood Culture - Preliminary Blood No Growth after 48 hours Assessment and Plan (1) Sepsis Narrative/Plan: Likely secondary to multifocal healthcare associated versus postobstructive pneumonia * Leukocytosis resolved we'll continue current antibiotic regimen with vancomycin and Zosyn and Levaquin Status: Acute (2) Healthcare-associated pneumonia Status: Acute (3) Acute systolic heart failure Narrative/Plan: * Echocardiogram with EF of 35-40%, will consult cardiology * Continue diuresis with Lasix 40 mg IV twice a day, added Zaroxolyn 5 mg to hopefully potentiate diuresis effect Status: Acute (4) COPD with acute exacerbation Narrative/Plan: * Continue breathing treatments and steroids Status: Acute (5) Dyspnea Narrative/Plan: Multifactorial secondary to pneumonia superimposed on COPD exacerbation and systolic CHF exacerbation * Continue with supplemental oxygen as needed continue with scheduled bronchodilator and when necessary breathing treatments Status: Acute (6) Stage IV squamous cell carcinoma of lung Narrative/Plan: Oncology Dr. Gupta consulted Patient has stage IV squamous cell lung carcinoma with metastasis to adrenal gland and multiple osseous sites, patient is a possible candidate for hospice will defer to his oncologist Status: Chronic (7) Cancer-related pain Narrative/Plan: * Pain well controlled today We'll continue fentanyl patch * Continue Neurontin 300 mg by mouth 3 times a day and MS Contin 15 mg by mouth twice a day * PTOT is also consulted Status: Acute (8) Symptomatic anemia Narrative/Plan: Likely secondary to underlying malignancy Status: Chronic (9) Hypokalemia Narrative/Plan: * Likely secondary to initiation of diuresis for his CHF exacerbation * Started on 40 mEq daily we'll continue to monitor Status: Acute
[2017-03-07] MEDS: METOLAZONE 5 MG TAB PO SCH (14:20)
[2017-03-07] MEDS: LISINOPRIL 5 MG TAB PO SCH (15:40)
[2017-03-07] MEDS: SPIRONOLACTONE 25 MG TAB PO SCH (21:08)
[2017-03-07] MEDS ORDERED: HYDROcodone/APAP 5-325MG 1 EACH TAB PO STA (23:27)
[2017-03-08] MEDS: methylPREDNISolone SOD SUCCI 40 MG/ML 1 ML VIAL IV SCH ×2 (00:19→08:25)
[2017-03-08] MEDS: LEVOFLOXACIN 750MG-D5W PMX 750 MG in DEXTROSE/WATER 1 150ML.BAG IVPB SCH (04:52)
[2017-03-08] MEDS: VANCOMYCIN 1,000 MG in SODIUM CHLORIDE 0.9% 250 ML IVPB SCH ×3 (06:03→22:23)
[2017-03-08] MEDS: ACETAMINOPHEN TAB 325 MG TAB PO SCH ×4 (06:03→23:56)
[2017-03-08 07:26] LABS: Anion Gap 14 mmol/L; Blood Urea Nitrogen 49 mg/dL (9-20); Calcium 9.3 mg/dL (8.4-10.2); Carbon Dioxide 25 mmol/L (22-30); Chloride 101 mmol/L (98-107); Glucose 149 mg/dL (74-99); Non-African American GFR(MDRD) >60 (>60 ml/min/1.73 sqM); Potassium 4.1 mmol/L (3.5-5.1); Sodium 140 mmol/L (137-145)
[2017-03-08 07:34] LABS: Anisocytosis Slight; CH 30.2; CHCM 31.7; HCT 29.1 % (39.0-53.0); HDW 3.06; Hypochromasia Moderate; MCH 29.8 pg (25.0-35.0); MCHC 31.2 g/dL (31.0-37.0); MCV 95.7 fL (80.0-100.0); Macrocytosis Slight; Mean Platelet Volume 7.3; RBC 3.05 m/uL (4.30-5.90); RDW 19.1 % (11.5-15.5); WBC 20.9 k/uL (3.8-10.6)
[2017-03-08] MEDS: IPRATROPIUM-ALBUTEROL 3 ML NEB INHALATION SCH ×4 (07:53→21:08)
[2017-03-08] MEDS: GABAPENTIN 300 MG CAP PO SCH ×3 (08:05→20:48)
[2017-03-08] MEDS: POTASSIUM CHLORIDE ER 20 MEQ TAB.ER PO SCH (08:06)
[2017-03-08] MEDS: guaiFENesin 600 MG TABLET.ER PO SCH ×2 (08:06→20:48)
[2017-03-08] MEDS: METOLAZONE 5 MG TAB PO SCH (08:06)
[2017-03-08] MEDS: LISINOPRIL 5 MG TAB PO SCH (08:06)
[2017-03-08] MEDS: SPIRONOLACTONE 25 MG TAB PO SCH ×2 (08:07→20:48)
[2017-03-08] MEDS: FUROSEMIDE 10 MG/ML 4 ML VIAL IV SCH ×2 (08:10→20:48)
[2017-03-08 08:11] LABS: HGB 9.1 gm/dL (13.0-17.5)
[2017-03-08] MEDS: PIPERACILLIN-TAZOBACTAM 3.375 GM in DEXTROSE/WATER 1 50ML.BAG IVPB SCH ×3 (08:25→23:52)
[2017-03-08] MEDS: MORPHINE SULFATE ER 15 MG TABLET PO SCH (08:25)
--- NOTE | 2017-03-08 10:01 | P.PN ---
Subjective Progress Note Date: 03/07/17 The patient states that he feels better in terms of his bleeding. Overall he also feels slightly stronger. Lower extremity swelling has diminished. He is able to ambulate around the room with greater ease. Objective - Vital Signs Vital signs: Vital Signs Temp 97.6 F 03/08/17 07:30 Pulse 104 H 03/08/17 08:05 Resp 24 03/08/17 07:31 BP 97/62 03/08/17 07:30 Pulse Ox 97 03/08/17 07:30 Intake & Output 03/07/17 03/08/17 03/08/17 18:59 06:59 18:59 Intake Total 536 890 Balance 536 890 Weight 68.492 kg Intake: IV 300 50 Piperacillin-Tazobactam 3 50 50 .375 gm In Dextrose/Water 1 50ml.bag @ 12.5 mls/hr IVPB Q8HR [facility] Rx#: [id number] Vancomycin 1,250 mg In 250 Sodium Chloride 0.9% 250 ml @ 125 mls/hr IVPB Q8H [facility] Rx#:[id number] Intake, IV Titration 250 Amount Vancomycin 1,000 mg In 250 Sodium Chloride 0.9% 250 ml @ 125 mls/hr IVPB Q8H [facility] Rx#:[id number] Oral 236 590 Other: Voiding Method Toilet Toilet Toilet Bedside Commode # Voids 2 # Bowel Movements 1 - Constitutional General appearance: Present: no acute distress - EENT Eyes: Present: EOMI, PERRLA ENT: Present: hearing grossly normal, normal oropharynx - Respiratory Respiratory: bilateral: wheezing - Cardiovascular Rhythm: regular Heart sounds: normal: S1, S2 - Gastrointestinal General gastrointestinal: Present: normal bowel sounds, soft - Integumentary Integumentary: Present: normal - Neurologic Neurologic: Present: CNII-XII intact - Musculoskeletal Musculoskeletal Comment(s): Bilateral 2+ lower extremity edema Musculoskeletal: Present: generalized weakness - Psychiatric Psychiatric: Present: A&O x's 3, appropriate affect - Labs CBC & Chem 7: 03/08/17 07:00 03/08/17 07:00 Labs: Abnormal Lab Results - Last 24 Hours (Table) 03/08/17 03/08/17 Range/Units 07:00 07:00 WBC 20.9 H (3.8-10.6) k/uL RBC 3.05 L (4.30-5.90) m/uL Hgb 9.1 L D (13.0-17.5) gm/dL Hct 29.1 L (39.0-53.0) % RDW 19.1 H (11.5-15.5) % BUN 49 H (9-20) mg/dL Glucose 149 H (74-99) mg/dL Microbiology - Last 24 Hours (Table) 03/04/17 18:55 Blood Culture - Preliminary Blood No Growth after 72 hours 03/05/17 00:10 Gram Stain - Final Sputum Sputum Culture - Final Jeanie albicans Assessment and Plan (1) Pneumonia Narrative/Plan: The patient's breathing is improved with antibiotics and steroids. Case was discussed with pulmonary medicine. The question is whether this is an infectious pneumonia, versus drug-induced. They indicated that infiltrative changes were more prominent on one side rather than diffuse. Therefore clinically and infectious pneumonia was felt to be more likely. Continue antibiotics for the admitting service and pulmonary medicine. Case discussed also with the admitting service. I will change his IV steroids to oral and start steroid taper on discharge Status: Acute (2) Squamous cell carcinoma lung Narrative/Plan: The patient did meet with hospice yesterday, but has decided to continue active treatment. I again discussed with him, that infectious pneumonia/COPD exacerbation is felt to be more likely but drug-induced pneumonitis obviously cannot be totally ruled out. In this situation, resuming treatment and thus rechallenge with the same medication could cause recurrence. The patient expressed understanding of the same, and is accepting of that risk. Treatment will be resumed as an outpatient, once the patient's steroid dose has been reduced appropriately according to his taper Status: Chronic (3) Cancer-related pain Narrative/Plan: This is overall controlled on his current regimen at this time. Status: Acute
[2017-03-08] MEDS ORDERED: ALTEPLASE 2 MG VIAL (CATHFLO) IV STA (10:15)
--- NOTE | 2017-03-08 12:17 | P.PN ---
Subjective Progress Note Date: 03/08/17 Principal diagnosis: The patient is a 56-year-old male with a history of stage IV squamous cell metastatic cancer that presented with complaints of worsening dyspnea was found to have elevated white count CT consistent with a multifocal pneumonia patient has been hospitalized within the last 2 months for postobstructive pneumonia. He was started on empiric IV antibiotics with Levaquin and Zosyn prior to being transferred from [facility] in [place], added vancomycin to regimen check blood cultures, and started the patient on scheduled breathing treatments Lasix for diuresis. Oncology Dr. Gupta has been consulted . The patient had received 3 cycles of carboplatin and Gemzar but became quite weak with severe anemia and the treatments were stopped. He was recently started on immunotherapy of Keytruda and has received 1 dose thus far. The plan is to restart keytruda after follow-up in the oncology clinic as an outpatient. It was thought that the patient's presenting symptoms are multifactorial etiology with pneumonia superimposed on a COPD exacerbation further superimposed on acute CHF exacerbation. Ejection fraction on echocardiogram is 35-40% Patient today reports significant improvement of his lower extremity swelling, pain is not well controlled today and current regimen, patient apparently has not been taking the MS Contin I prescribed earlier this hospitalization due to concerns of potential adverse reaction, patient does have pathology consistent with stage IV squamous cell carcinoma with metastatic lesions to multifocal osseous sites. Patient afebrile overnight,, no acute events overnight Patient recently had a discussion with hospice but is not amenable to continuing with palliative or hospice care at this time and would like to proceed with treatment. Objective - Vital Signs Vital signs: Vital Signs Temp 97.6 F 03/08/17 07:30 Pulse 104 H 03/08/17 08:05 Resp 24 03/08/17 07:31 BP 97/62 03/08/17 07:30 Pulse Ox 97 03/08/17 07:30 Intake & Output 03/07/17 03/08/17 03/08/17 18:59 06:59 18:59 Intake Total 536 890 Balance 536 890 Weight 68.492 kg 72.5 kg Intake: IV 300 50 Piperacillin-Tazobactam 3 50 50 .375 gm In Dextrose/Water 1 50ml.bag @ 12.5 mls/hr IVPB Q8HR [facility] Rx#: [id number] Vancomycin 1,250 mg In 250 Sodium Chloride 0.9% 250 ml @ 125 mls/hr IVPB Q8H [facility] Rx#:[id number] Intake, IV Titration 250 Amount Vancomycin 1,000 mg In 250 Sodium Chloride 0.9% 250 ml @ 125 mls/hr IVPB Q8H [facility] Rx#:[id number] Oral 236 590 Other: Voiding Method Toilet Toilet Toilet Bedside Commode # Voids 2 # Bowel Movements 1 - Exam Constitutional: No acute distress, conversant, pleasant Eyes: Anicteric sclerae, moist conjunctiva, no lid-lag, PERRLA ENMT: NC/AT,Oropharynx clear, no erythema, exudates Neck:Supple, FROM, no masses, or JVD, No carotid bruits; No thyromegaly Lungs: Extremely poor aeration on the left with noted Rales and rhonchi on the right Cardiovascular: Heart regular in rate and rhythm, No murmurs, gallops, or rubs no peripheral edema Abdominal: Soft Nontender, nom distended, no guarding, no rebound or rigidity, Normoactive bowel sounds No hepatomegaly, No splenomegaly, No palpable mass No abdominal wall hernia noted Skin: Normal temperature, tone, texture, turgor, No induration No subcutaneous nodules, No rash, lesions, No ulcers Extremities/MSK: Range of motion and mobility extremely limited secondary to pain + +3 bilateral lower extremity pitting edema extending from the feet up to the knees bilaterally, improved lower extremity swelling Psychiatric: Alert and oriented to person, place and time, Appropriate affect Intact judgement Neuro: Muscles Strength 5/5 in all 4 extremities, Sensation to light touch grossly present throughout, Cranial nerves II-XII grossly intact. No focal sensory deficits - Labs CBC & Chem 7: 03/08/17 07:00 03/08/17 07:00 Labs: Abnormal Lab Results - Last 24 Hours (Table) 03/08/17 03/08/17 Range/Units 07:00 07:00 WBC 20.9 H (3.8-10.6) k/uL RBC 3.05 L (4.30-5.90) m/uL Hgb 9.1 L D (13.0-17.5) gm/dL Hct 29.1 L (39.0-53.0) % RDW 19.1 H (11.5-15.5) % BUN 49 H (9-20) mg/dL Glucose 149 H (74-99) mg/dL Microbiology - Last 24 Hours (Table) 03/04/17 18:55 Blood Culture - Preliminary Blood No Growth after 72 hours 03/05/17 00:10 Gram Stain - Final Sputum Sputum Culture - Final Jeanie albicans Assessment and Plan (1) Sepsis Narrative/Plan: Likely secondary to multifocal healthcare associated versus postobstructive pneumonia * Leukocytosis resolved we'll continue current antibiotic regimen with vancomycin and Zosyn and Levaquin * will consult infectious disease for further recommendations Status: Acute (2) Healthcare-associated pneumonia Status: Acute (3) Acute systolic heart failure Narrative/Plan: * Echocardiogram with EF of 35-40%, will consult cardiology * Continue diuresis with Lasix 40 mg IV twice a day, added Zaroxolyn 5 mg to hopefully potentiate diuresis effect Status: Acute (4) COPD with acute exacerbation Narrative/Plan: * Continue breathing treatments and steroids Status: Acute (5) Dyspnea Narrative/Plan: Multifactorial secondary to pneumonia superimposed on COPD exacerbation and systolic CHF exacerbation * Continue with supplemental oxygen as needed continue with scheduled bronchodilator and when necessary breathing treatments Status: Acute (6) Stage IV squamous cell carcinoma of lung Narrative/Plan: Oncology Dr. Gupta consulted Patient has stage IV squamous cell lung carcinoma with metastasis to adrenal gland and multiple osseous sites, patient is a possible candidate for hospice will defer to his oncologist Status: Chronic (7) Cancer-related pain Narrative/Plan: * Pain well controlled today We'll continue fentanyl patch * Continue Neurontin 300 mg by mouth 3 times a day and start Oxycontin 15 mg PO BID, consult for pain management placed * PTOT is also consulted Status: Acute (8) Symptomatic anemia Narrative/Plan: * Likely secondary to underlying malignancy Status: Chronic (9) Hypokalemia Narrative/Plan: * now resolved * Likely secondary to initiation of diuresis for his CHF exacerbation * Started on 40 mEq daily we'll continue to monitor Status: Acute
[2017-03-08] MEDS: oxyCODONE ER 15 MG TAB.ER.12H PO SCH ×2 (12:22→22:24)
--- NOTE | 2017-03-08 15:51 | P.PN ---
Subjective Progress Note Date: 03/08/17 This is a very pleasant 56-year-old gentleman who follows with us in the office for chronic obstructive pulmonary disease and squamous cell carcinoma lung cancer. This was diagnosed in August 2016 via bronchoscopy with brushings and wash of the left upper lobe and lingula. A follow-up PET scan revealed evidence of lung cancer with multiple metastatic lymph nodes within the mediastinum along with a metastatic lesion in the left adrenal gland. He was recently admitted here for a fall. Computed tomography scan of the orbits status post fall revealed multifocal osseous metastatic disease. The patient had received 3 cycles of carboplatin and Gemzar but became quite weak with severe anemia and the treatments were stopped. He was recently started on immunotherapy of Keytruda and has received 1 dose thus far. The patient re- presented here again yesterday with continued complaints of worsening shortness of breath, worsening lower extremity edema and progressive weakness. A computed tomography scan done at [facility] revealed evidence of a left lung pneumonia and probable progression of the lung cancer. He is seen today in consultation on the oncology unit. He is currently awake and alert. He is quite dyspneic on minimal exertion. He is maintaining good O2 saturations in the high 90s on room air. He's been afebrile. He is quite tachycardic in the 120s. Current white count 14.7. Hemoglobin 8.9. Creatinine 0.85. He has been receiving Lasix 40 mg IV push every 12 hours. He is diuresing. The edema has improved today as compared to yesterday. He's also been initiated on bronchodilators and antibiotics in the form of Levaquin, vancomycin and Zosyn. On 03/06/2017 patient is reevaluated on oncology floor. Clinically he seems to have slightly improved since yesterday in terms of his weakness, shortness of breath and phlegm production. He is bringing up some blood tinged thick yellow sputum, we will try to send a specimen today for Gram stain and culture. No fevers, no chills overnight. He states he was able to sleep last night and feels much rested today. His white count is down to 8.9 today from 14.7, myoglobin is down to 7.8 from 8.9 with no obvious signs of bleeding. Lung sounds are diminished to absent over left middle and lower lobe, good air entry on the right with a few scattered crackles, but no wheezes no rhonchi. Bilateral lower extremity edema has slightly improved, still about 3+ pitting edema. Venous Doppler studies were negative for DVT on 03/05/2017. Patient states he was able to fit his feet into his slippers today. He is on DuoNeb 4 times a day and when necessary, IV Solu-Medrol and broad-spectrum antibiotic coverage in the form of vancomycin and Levaquin. Blood cultures have shown no growth in 24 hours. The patient is seen again today 03/07/2017 in follow-up on the oncology unit. He is doing better today. He is up ambulating in his room he is feeling stronger today as compared to yesterday. he still has some issues with dyspnea on exertion. He has been seen by oncology. The plan is to resume his Keytruda after he recovers from this acute episode. White count 11.5. Hemoglobin 7.3. Platelet count 216,000. On 03/08/2017 the patient is complaining some back pain for which she was given OxyContin. Pain has subsided. Having some difficulties with mobility and ambulation. He is weak. He has some tremors even at rest. Mental status is good and the patient has no confusion. COPD exacerbation is improving and the patient is less congested and wheezy compared to yesterday. Still on diuretics with improvement in the lower extremity edema. He is tolerating his diet. No nausea or vomiting. No abdominal pain. No abdominal distention. No falls. His white cell count is elevated at 20.9 and this could be potentially steroid effect. BNP is also up at 49 with a creatinine of 1.1 and it can be diuretic effect. He is currently on Lasix 40 mg every 12 hours. We will also continue his Zosyn and vancomycin and Levaquin combination in addition to systemic steroids were the patient is currently on prednisone burst taper. accompanies to be also monitored. Sputum was positive for Jeanie albicans. Objective - Vital Signs Vital signs: Vital Signs Temp 97.5 F L 03/08/17 15:00 Pulse 98 03/08/17 15:00 Resp 20 03/08/17 15:00 BP 106/61 03/08/17 15:00 Pulse Ox 98 03/08/17 15:00 Intake & Output 03/07/17 03/08/17 03/08/17 18:59 06:59 18:59 Intake Total 536 890 300 Balance 536 890 300 Weight 68.492 kg 72.5 kg Intake: IV 300 50 50 Piperacillin-Tazobactam 3 50 50 50 .375 gm In Dextrose/Water 1 50ml.bag @ 12.5 mls/hr IVPB Q8HR [facility] Rx#: [id number] Vancomycin 1,250 mg In 250 Sodium Chloride 0.9% 250 ml @ 125 mls/hr IVPB Q8H [facility] Rx#:[id number] Intake, IV Titration 250 250 Amount Vancomycin 1,000 mg In 250 250 Sodium Chloride 0.9% 250 ml @ 125 mls/hr IVPB Q8H [facility] Rx#:[id number] Oral 236 590 Other: Voiding Method Toilet Toilet Toilet Bedside Commode # Voids 2 # Bowel Movements 1 - Exam GENERAL EXAM: Weak, cachectic. HEAD: Normocephalic. EYES: Normal reaction of pupils, equal size. NOSE: Clear with pink turbinates. THROAT: No erythema or exudates. NECK: No masses, no JVD. CHEST: No chest wall deformity. LUNGS: diminished to no air entry on the left side, few scat crackles on the right CVS: S1 and S2 normal with no audible murmurs, regular rhythm. ABDOMEN: No hepatosplenomegaly, normal bowel sounds, no guarding or rigidity. SPINE: No scoliosis or deformity SKIN: Changes of chronic venous stations was healed lesions of the lower extremities. CENTRAL NERVOUS SYSTEM: No focal deficits, tone is normal in all 4 extremities. Extremities: There is 2-3+ lower extremity peripheral edema. No clubbing, no cyanosis. Peripheral pulses are intact. Neurology was gradually improving and the patient is being diuresed - Labs CBC & Chem 7: 03/08/17 07:00 03/08/17 07:00 Labs: Abnormal Lab Results - Last 24 Hours (Table) 03/08/17 03/08/17 Range/Units 07:00 07:00 WBC 20.9 H (3.8-10.6) k/uL RBC 3.05 L (4.30-5.90) m/uL Hgb 9.1 L D (13.0-17.5) gm/dL Hct 29.1 L (39.0-53.0) % RDW 19.1 H (11.5-15.5) % BUN 49 H (9-20) mg/dL Glucose 149 H (74-99) mg/dL Microbiology - Last 24 Hours (Table) 03/04/17 18:55 Blood Culture - Preliminary Blood No Growth after 72 hours Assessment and Plan Plan: Impression: #1 Dyspnea, multifactorial in a patient with a known history of squamous cell carcinoma of the left lung, acute exacerbation of chronic obstructive pulmonary disease, suspect underlying left lung pneumonia versus progression of lung cancer. The patient is slowly improving. He is less short of breath compared to the day of hospitalization. He is still on broad-spectrum antibiotic steroids and diuretics. 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 Diagnosed in August 2016. The patient did undergo 3 rounds of carboplatin and Gemzar and developed severe anemia, weakness and treatment was stopped. He has since had one treatment of immunotherapy. Most recent computed tomography scan of the chest reveals progression of disease including a large right paratracheal lymph node measuring 3 cm. There is also enlarged subcarinal lymph nodes. Fullness in the left hilum.. 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 #4 Acute exacerbation of chronic obstructive pulmonary disease. #5 Chronic and ongoing tobacco dependence. Plan The plan is to optimize the patient's volume status. The plan is to treat his pneumonia and discharge this patient home. Is interested in further treatment with immunotherapy. I doubt the findings currently are a side effect of Keytruda and is very much worthwhile to continue the treatment and assess the patient's clinical response with understanding that his overall prognosis poor based on the presence of stage IV squamous cell carcinoma of the lung. His baseline performance and functional status progressively getting worse and the patient is gradually losing ground on treatment.
[2017-03-08] MEDS: predniSONE 20 MG TAB PO SCH ×2 (17:07→22:24)
--- NOTE | 2017-03-08 22:37 | PN ---
PROGRESS NOTE This patient is admitted with respiratory distress. The patient had bilateral significant leg edema. The patient had a mild to moderately impaired left ventricular systolic function. Clinically there is no evidence of any significant congestive heart failure. The patient's BNP level is 795 which is not significantly elevated. There is no increase in jugular venous pressure. The first and second heart sounds are normal. Lungs are clear to auscultation and percussion. IMPRESSION: Bilateral leg edema could be secondary to hypoalbuminemia. No evidence of any deep vein thrombosis. There is no evidence of any significant right-sided heart failure. Her BNP level is only 795 pounds. We will continue the patient on the current diuretic treatment. Follow up BUN and creatinine. MMODL / IJN: [id number] /
[2017-03-09] MEDS ORDERED: VANCOMYCIN TROUGH DUE 1 EACH MISC MISCELLANE ONE (05:00)
[2017-03-09] MEDS: ACETAMINOPHEN TAB 325 MG TAB PO SCH ×4 (05:56→23:56)
[2017-03-09] MEDS: VANCOMYCIN 1,000 MG in SODIUM CHLORIDE 0.9% 250 ML IVPB SCH ×2 (05:56→06:39)
[2017-03-09] MEDS: LEVOFLOXACIN 750MG-D5W PMX 750 MG in DEXTROSE/WATER 1 150ML.BAG IVPB SCH (06:35)
[2017-03-09 06:43] LABS: ALT 39 U/L (21-72); AST 20 U/L (17-59); Alkaline Phosphatase 98 U/L (38-126); Anion Gap 11 mmol/L; Blood Urea Nitrogen 57 mg/dL (9-20); Calcium 9.2 mg/dL (8.4-10.2); Carbon Dioxide 26 mmol/L (22-30); Chloride 98 mmol/L (98-107); Non-African American GFR(MDRD) >60 (>60 ml/min/1.73 sqM); Potassium 4.7 mmol/L (3.5-5.1); Sodium 135 mmol/L (137-145); Total Bilirubin 0.2 mg/dL (0.2-1.3)
[2017-03-09 06:44] LABS: Glucose 224 mg/dL (74-99)
[2017-03-09] MEDS: IPRATROPIUM-ALBUTEROL 3 ML NEB INHALATION SCH ×4 (07:21→20:14)
[2017-03-09] MEDS: oxyCODONE ER 15 MG TAB.ER.12H PO SCH (08:37)
[2017-03-09] MEDS: SPIRONOLACTONE 25 MG TAB PO SCH ×2 (08:38→20:11)
[2017-03-09] MEDS: METOLAZONE 5 MG TAB PO SCH (08:38)
[2017-03-09] MEDS: LISINOPRIL 5 MG TAB PO SCH (08:38)
[2017-03-09] MEDS: predniSONE 20 MG TAB PO SCH ×3 (08:38→22:11)
[2017-03-09] MEDS: POTASSIUM CHLORIDE ER 20 MEQ TAB.ER PO SCH (08:38)
[2017-03-09] MEDS: guaiFENesin 600 MG TABLET.ER PO SCH ×2 (08:38→20:11)
[2017-03-09] MEDS: PIPERACILLIN-TAZOBACTAM 3.375 GM in DEXTROSE/WATER 1 50ML.BAG IVPB SCH ×3 (08:38→23:56)
[2017-03-09] MEDS: GABAPENTIN 300 MG CAP PO SCH ×3 (08:38→22:11)
[2017-03-09] MEDS: FUROSEMIDE 10 MG/ML 4 ML VIAL IV SCH ×2 (08:39→20:10)
--- NOTE | 2017-03-09 10:26 | P.PN ---
Subjective Progress Note Date: 03/09/17 Principal diagnosis: Squamous cell carcinoma of the lung, COPD exacerbation. This is a very pleasant 56-year-old gentleman who follows with us in the office for chronic obstructive pulmonary disease and squamous cell carcinoma lung cancer. This was diagnosed in August 2016 via bronchoscopy with brushings and wash of the left upper lobe and lingula. A follow-up PET scan revealed evidence of lung cancer with multiple metastatic lymph nodes within the mediastinum along with a metastatic lesion in the left adrenal gland. He was recently admitted here for a fall. Computed tomography scan of the orbits status post fall revealed multifocal osseous metastatic disease. The patient had received 3 cycles of carboplatin and Gemzar but became quite weak with severe anemia and the treatments were stopped. He was recently started on immunotherapy of Keytruda and has received 1 dose thus far. The patient re- presented here again yesterday with continued complaints of worsening shortness of breath, worsening lower extremity edema and progressive weakness. A computed tomography scan done at [facility] revealed evidence of a left lung pneumonia and probable progression of the lung cancer. He is seen today in consultation on the oncology unit. He is currently awake and alert. He is quite dyspneic on minimal exertion. He is maintaining good O2 saturations in the high 90s on room air. He's been afebrile. He is quite tachycardic in the 120s. Current white count 14.7. Hemoglobin 8.9. Creatinine 0.85. He has been receiving Lasix 40 mg IV push every 12 hours. He is diuresing. The edema has improved today as compared to yesterday. He's also been initiated on bronchodilators and antibiotics in the form of Levaquin, vancomycin and Zosyn. On 03/06/2017 patient is reevaluated on oncology floor. Clinically he seems to have slightly improved since yesterday in terms of his weakness, shortness of breath and phlegm production. He is bringing up some blood tinged thick yellow sputum, we will try to send a specimen today for Gram stain and culture. No fevers, no chills overnight. He states he was able to sleep last night and feels much rested today. His white count is down to 8.9 today from 14.7, myoglobin is down to 7.8 from 8.9 with no obvious signs of bleeding. Lung sounds are diminished to absent over left middle and lower lobe, good air entry on the right with a few scattered crackles, but no wheezes no rhonchi. Bilateral lower extremity edema has slightly improved, still about 3+ pitting edema. Venous Doppler studies were negative for DVT on 03/05/2017. Patient states he was able to fit his feet into his slippers today. He is on DuoNeb 4 times a day and when necessary, IV Solu-Medrol and broad-spectrum antibiotic coverage in the form of vancomycin and Levaquin. Blood cultures have shown no growth in 24 hours. The patient is seen again today 03/07/2017 in follow-up on the oncology unit. He is doing better today. He is up ambulating in his room he is feeling stronger today as compared to yesterday. he still has some issues with dyspnea on exertion. He has been seen by oncology. The plan is to resume his Keytruda after he recovers from this acute episode. White count 11.5. Hemoglobin 7.3. Platelet count 216,000. On 03/08/2017 the patient is complaining some back pain for which she was given OxyContin. Pain has subsided. Having some difficulties with mobility and ambulation. He is weak. He has some tremors even at rest. Mental status is good and the patient has no confusion. COPD exacerbation is improving and the patient is less congested and wheezy compared to yesterday. Still on diuretics with improvement in the lower extremity edema. He is tolerating his diet. No nausea or vomiting. No abdominal pain. No abdominal distention. No falls. His white cell count is elevated at 20.9 and this could be potentially steroid effect. BNP is also up at 49 with a creatinine of 1.1 and it can be diuretic effect. He is currently on Lasix 40 mg every 12 hours. We will also continue his Zosyn and vancomycin and Levaquin combination in addition to systemic steroids were the patient is currently on prednisone burst taper. accompanies to be also monitored. Sputum was positive for Jeanie albicans. The patient was seen again today 03/09/2017 in follow-up on the oncology floor. He is awake and alert in no acute distress. He is currently sitting up in a chair at the bedside. He states his breathing is better today as compared to yesterday. He still has ongoing issues with lower extremity weakness and generalized fatigue. His appetite is better. He denies any worsening shortness of breath, cough or congestion. No fever, chills or night sweats. maintaining good O2 saturations up to 100% on 2 L/m per nasal cannula. He's been afebrile. Hemodynamically stable. Objective - Vital Signs Vital signs: Vital Signs Temp 97.7 F 03/09/17 07:00 Pulse 88 03/09/17 07:32 Resp 16 03/09/17 07:00 BP 116/70 03/09/17 07:00 Pulse Ox 100 03/09/17 07:24 Intake & Output 03/08/17 03/09/17 03/09/17 18:59 06:59 18:59 Intake Total 300 1077 Output Total 400 300 Balance 300 677 -300 Weight 72.5 kg Intake: IV 50 600 Piperacillin-Tazobactam 3 50 100 .375 gm In Dextrose/Water 1 50ml.bag @ 12.5 mls/hr IVPB Q8HR [facility] Rx#: [id number] Vancomycin 1,000 mg In 500 Sodium Chloride 0.9% 250 ml @ 125 mls/hr IVPB Q8H [facility] Rx#:[id number] Intake, IV Titration 250 Amount Vancomycin 1,000 mg In 250 Sodium Chloride 0.9% 250 ml @ 125 mls/hr IVPB Q8H [facility] Rx#:[id number] Oral 477 Output: Urine 400 300 Other: Voiding Method Toilet Bedside Commode Bedside Commode Bedside Commode # Voids 3 # Bowel Movements 1 - Exam GENERAL EXAM: Weak, cachectic. HEAD: Normocephalic. EYES: Normal reaction of pupils, equal size. NOSE: Clear with pink turbinates. THROAT: No erythema or exudates. NECK: No masses, no JVD. CHEST: No chest wall deformity. LUNGS: diminished to no air entry on the left side, few scattered crackles on the right CVS: S1 and S2 normal with no audible murmurs, regular rhythm. ABDOMEN: No hepatosplenomegaly, normal bowel sounds, no guarding or rigidity. SPINE: No scoliosis or deformity SKIN: Changes of chronic venous stations was healed lesions of the lower extremities. CENTRAL NERVOUS SYSTEM: No focal deficits, tone is normal in all 4 extremities. Extremities: There is 2-3+ lower extremity peripheral edema. No clubbing, no cyanosis. Peripheral pulses are intact. - Labs CBC & Chem 7: 03/08/17 07:00 03/09/17 05:55 Labs: Abnormal Lab Results - Last 24 Hours (Table) 03/09/17 03/09/17 Range/Units 05:55 05:55 Sodium 135 L (137-145) mmol/L BUN 57 H (9-20) mg/dL Glucose 224 H (74-99) mg/dL Total Protein 6.0 L (6.3-8.2) g/dL Albumin 3.0 L (3.5-5.0) g/dL Vancomycin Trough 37.1 H* ug/mL Microbiology - Last 24 Hours (Table) 03/04/17 18:55 Blood Culture - Preliminary Blood No Growth after 96 hours Assessment and Plan Plan: Impression: #1 Dyspnea, multifactorial in a patient with a known history of squamous cell carcinoma of the left lung, acute exacerbation of chronic obstructive pulmonary disease, suspect underlying left lung pneumonia versus progression of lung cancer. 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 Diagnosed in August 2016. The patient did undergo 3 rounds of carboplatin and Gemzar and developed severe anemia, weakness and treatment was stopped. He has since had one treatment of immunotherapy. Most recent computed tomography scan of the chest reveals progression of disease including a large right paratracheal lymph node measuring 3 cm. There is also enlarged subcarinal lymph nodes. Fullness in the left hilum.. 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 #4 Acute exacerbation of chronic obstructive pulmonary disease. #5 Chronic and ongoing tobacco dependence. Plan: The patient was seen and evaluated by Dr. Bernal. We'll go ahead and continue with the current treatment including IV Lasix, oral prednisone, bronchodilators and antibiotics in the form of Levaquin, vancomycin and Zosyn. We will repeat his chest x-ray today. His pain is being controlled with fentanyl. The patient' s overall prognosis remains quite poor. The plan however is to resume Keytruda once he recovers from this acute episode. In the interim we'll continue full supportive care. We'll continue to follow. I, the cosigning physician, performed a history & physical examination of the patient. Lungs sounds continue with few scattered expiratory wheeze, more so on the left lung base. Diminished. I discussed the assessment and plan with my nurse practitioner, Tanya Lipscomb. I reviewed her note and agree with the documented findings and plan of care.
--- NOTE | 2017-03-09 10:59 | P.CON ---
Consult Note - . Consult date: 03/09/17 Assessment/Plan:: Patient seen and examined at bedside, full chart and EMR reviewed. Mr. Dexter is a 56-year-old male with a past medical history of lung cancer with multiple metastases. He has undergone chemo with some benefit but more recently was started on Keytruda, which he believes caused severe pain and swelling in his feet. He was started on [place] in August when diagnosed but his opioids have quickly been escalated in six months to a 100 mcg fentanyl patch which is helping him. In the hospital, his pain has been uncontrolled and PCP has started oxycontin, although it has not been administered today. Patient denies ADEs to opioids. Physical exam demonstrates a malnourished male, with mild tenderness to palpation over his anterior chest and decreased sensation over his bilateral feet, worst on the dorsa. Imaging was reviewed. Impression: 1. lung cancer with metastasis 2. chronic pain syndrome Plan: Continue fentanyl patch at same dose for now, as his chronic opioids have been escalated extensively and very quickly in the last six months. Stop Oxycontin and start oxycodone 10 mg po q6h for breakthrough pain. Use of two long-acting opioids is not indicated for this patient and could potentially increase his risk of respiratory depression. Thank you for the consult. I spent 40 minutes total in the care of this patient.
[2017-03-09 11:25] VITALS: BMI 22.9
--- NOTE | 2017-03-09 11:45 | XR ---
EXAMINATION TYPE: XR chest 1V portable DATE OF EXAM: 03/09/2017 COMPARISON: 03/05/2017 HISTORY: Follow-up abnormal x-ray TECHNIQUE: Single frontal view of the chest is obtained. FINDINGS: There is a elevated left hemidiaphragm and left lower lobe consolidation and small effusio n. The right lung is clear. Subsegmental changes in the right upper lobe. Mediport catheter noted. Ar thropathy of the shoulders. IMPRESSION: 1. Left lower lobe infiltrate and small effusion.
--- NOTE | 2017-03-09 12:51 | P.CONS ---
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 He has been treated with carboplatin and Gemzar but developed anemia and weakness. Patient has been living at home with his and had home care in place. He states he developed increased lower extremity edema that extended above his knees for about 2 weeks. He states it felt like there was a cast on his legs. He had so much pain in his legs that he could not walk. It took his home care nurse and to help him into the car to come into [facility] for evaluation. CT of the chest showed worsening adenopathy left hilar mass and adenopathy and new multifocal consolidations concerning for bilateral multifocal pneumonia and underlying neoplasm versus lytic left rib lesion a large left adrenal mass. He was then transferred to [facility] emergency center found to be afebrile with a white count of 14.7 which is now 20.9. Lactic acid was 1.2. Patient was diagnosed with sepsis, postobstructive pneumonia secondary to stage IV squamous cell lung cancer and started on Levaquin, Zosyn and vancomycin. Patient states he was on Keflex at home prior to admission for his lungs and states he has been on and off antibiotics since August. Blood culture showing no growth at 96 hours and sputum is positive for Jeanie albicans. Patient has been followed in consultation by Dr. Gupta with concern for infectious pneumonia most likely versus drug-induced pneumonia. Plan is to resume chemotherapy as an outpatient. Patient did meet with hospice for informational meeting and made a choice to continue chemotherapy. Patient has been followed by Dr. Sands for COPD exacerbation and has been on steroids currently on oral prednisone. Cardiology has seen the patient for lower leg edema secondary to hypoalbuminemia. Ultrasound of bilateral lower extremities was negative for DVT. Echocardiogram reveals EF of 35%-40%, mild mitral regurgitation, mild tricuspid regurgitation. No evidence of pulmonary hypertension. He has been on IV Lasix and Aldactone and he states his lower extremity edema is improved and does not extend above his knee. He is able to walk a very short distance but he continues to have significant pain in both ankles. Patient did have a fall at home about 3 weeks ago at which time he said that everything just blacked out on him but he denies any injury. Note that there was other concerns from the patient's that he had increasing confusion and memory lapses. He had a PET scan 6 weeks ago that revealed metastases to his skull. Discharge plan is for him to return home with his and home care in place in the next 1-2 days according to the patient. Review of Systems All systems: negative Constitutional: Reports fatigue, Denies chills, Denies fever, Denies poor appetite Eyes: denies blurred vision, denies pain Ears, nose, mouth and throat: Denies dental pain, Denies headache, Denies mouth pain, Denies sore throat Cardiovascular: Reports decreased exercise tolerance, Reports dyspnea on exertion, Reports shortness of breath, Reports syncope, Denies chest pain Respiratory: Denies cough Gastrointestinal: Denies abdominal pain, Denies diarrhea, Denies nausea, Denies vomiting Musculoskeletal: Denies myalgias Integumentary: Reports sores, Denies pruritus Neurological: Reports weakness, Denies numbness Psychiatric: Denies anxiety, Denies depression Endocrine: Denies fatigue, Denies weight change Past Medical History Past Medical History: Cancer, COPD Additional Past Medical History / Comment(s): Squamous cell lung cancer with metastasis adrenal glan and bones History of Any Multi-Drug Resistant Organisms: None Reported Past Surgical History: No Surgical Hx Reported Additional Past Surgical History / Comment(s): lung biopsy, right anterior port placement Past Anesthesia/Blood Transfusion Reactions: No Reported Reaction Past Psychological History: No Psychological Hx Reported Smoking Status: Former smoker Past Alcohol Use History: None Reported Additional Past Alcohol Use History / Comment(s): Patient was smoker one pack per day for 30 years and quit on 2016. He denies any medical marijuana, marijuana, street drug or alcohol use. He lives at home with his . He has home care in place. 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 Past Drug Use History: None Reported - Past Family History Mother Family Medical History: No Reported History Additional Family Medical History / Comment(s): Negative for lung cancer Father History Unknown: Yes Family Medical History: No Reported History Medications and Allergies Home Medications Medication Instructions Recorded Confirmed Type fentaNYL 100MCG/HR PATCH 1 patch TRANSDERM Q72H #10 patch 01/16/17 03/04/17 Rx [Duragesic 100MCG/HR] Budesonide-Formot 160-4.5 Mcg 2 puff INHALATION RT-BID 01/20/17 03/04/17 History [Symbicort 160-4.5 Mcg Inhaler] Nystatin 100,000 Unit/ml Susp 500,000 unit PO QID #300 dose 01/30/17 03/04/17 Rx [Mycostatin Oral Susp] Albuterol Inhaler [Ventolin Hfa 1 - 2 puff INHALATION RT-QID PRN 03/04/17 History Inhaler] Albuterol Nebulized [Ventolin 2.5 mg INHALATION RT-QID PRN 03/04/17 03/04/17 History Nebulized] Cephalexin [Keflex] 500 mg PO TID 03/04/17 03/04/17 History Furosemide [Lasix] 40 mg PO DAILY #30 tablet 03/11/17 Rx Gabapentin [Neurontin] 300 mg PO TID #90 cap 03/11/17 Rx Levofloxacin [Levaquin] 750 mg PO Q24H #5 tab 03/11/17 Rx Lisinopril [Zestril] 5 mg PO DAILY #30 tab 03/11/17 Rx Metoprolol Tartrate [Lopressor] 12.5 mg PO BID #30 tab 03/11/17 Rx SILVER sulfADIAZINE CREAM 1 applic TOPICAL BID #30 applic 03/11/17 Rx [Silvadene Cream] Spironolactone [Aldactone] 25 mg PO BID #30 tab 03/11/17 Rx predniSONE 10 mg PO DAILY #45 tab 03/11/17 Rx Allergies Allergy/AdvReac Type Severity Reaction Status Date / Time morphine AdvReac Swelling Verified 03/08/17 12:28 Physical Exam Vitals: Vital Signs Temp Pulse Pulse Pulse Resp BP Pulse Ox 03/09/17 07:32 88 03/09/17 07:24 88 100 03/09/17 07:00 97.7 F 95 16 116/70 100 03/08/17 23:00 97.9 F 92 16 106/64 98 03/08/17 21:27 92 03/08/17 21:08 96 03/08/17 15:00 97.5 F L 98 20 106/61 98 Intake and Output 03/08/17 03/09/17 03/09/17 22:59 06:59 14:59 Intake Total 777 300 Output Total 400 300 Balance 777 -100 -300 Intake: IV 300 300 Piperacillin-Tazobactam 3 50 50 .375 gm In Dextrose/Water 1 50ml.bag @ 12.5 mls/hr IVPB Q8HR KEZIA Rx#: [id number] Vancomycin 1,000 mg In 250 250 Sodium Chloride 0.9% 250 ml @ 125 mls/hr IVPB Q8H KEZIA Rx#:[id number] Oral 477 Output: Urine 400 300 Other: Voiding Method Toilet Bedside Commode Bedside Commode Bedside Commode # Voids 3 Weight 72.5 kg Patient Weight 03/10/17 06:59 Weight 72.5 kg Gen: This is a thin-appearing 56-year-old male. He is sitting up in a recliner with legs in a dependent position. He appears to be in no acute respiratory distress. He is not currently using oxygen. HEENT: Head is atraumatic, normocephalic. Pupils equal, round. Sclerae is anicteric. Conjunctiva pink. Mucous membranes of the mouth are dry. Patient is edentulous. He states he had his last 3 teeth pulled before he started chemotherapy. He does not have dentures. NECK: Supple. No JVD. No lymphadenopathy. No thyromegaly. LUNGS: Diminished with scattered crackles throughout and end expiratory wheeze. No intercostal retractions. HEART: Regular rate and rhythm. No murmur. Port noted in the anterior upper right chest wall. No tenderness, erythema or drainage noted. ABDOMEN: Soft. Bowel sounds are present. No masses. No tenderness. EXTREMITIES: +1 bilateral pedal edema. With multiple small abrasions noted from scratching. No drainage noted at this time. Patchy thick patches of skin on the dorsal surface of the foot and around ankle bilaterally. NEUROLOGICAL: Patient is awake, alert and oriented x3. Cranial nerves 2 through 12 are grossly intact. Results Results: Laboratory Results WBC 20.9 k/uL (3.8-10.6) H 03/08/17 07:00 RBC 3.05 m/uL (4.30-5.90) L 03/08/17 07:00 Hgb 9.1 gm/dL (13.0-17.5) L D 03/08/17 07:00 Hct 29.1 % (39.0-53.0) L 03/08/17 07:00 MCV 95.7 fL (80.0-100.0) 03/08/17 07:00 MCH 29.8 pg (25.0-35.0) 03/08/17 07:00 MCHC 31.2 g/dL (31.0-37.0) 03/08/17 07:00 RDW 19.1 % (11.5-15.5) H 03/08/17 07:00 Plt Count 283 k/uL (150-450) 03/08/17 07:00 Neutrophils % 86 % 03/07/17 05:50 Lymphocytes % 7 % 03/07/17 05:50 Monocytes % 5 % 03/07/17 05:50 Eosinophils % 1 % 03/07/17 05:50 Basophils % 0 % 03/07/17 05:50 Neutrophils # 9.9 k/uL (1.3-7.7) H 03/07/17 05:50 Lymphocytes # 0.8 k/uL (1.0-4.8) L 03/07/17 05:50 Monocytes # 0.6 k/uL (0-1.0) 03/07/17 05:50 Eosinophils # 0.1 k/uL (0-0.7) 03/07/17 05:50 Basophils # 0.0 k/uL (0-0.2) 03/07/17 05:50 Hypochromasia Moderate 03/08/17 07:00 Anisocytosis Slight 03/08/17 07:00 Macrocytosis Slight 03/08/17 07:00 Sodium 135 mmol/L (137-145) L 03/09/17 05:55 Potassium 4.7 mmol/L (3.5-5.1) 03/09/17 05:55 Chloride 98 mmol/L (98-107) 03/09/17 05:55 Carbon Dioxide 26 mmol/L (22-30) 03/09/17 05:55 Anion Gap 11 mmol/L 03/09/17 05:55 BUN 57 mg/dL (9-20) H 03/09/17 05:55 Creatinine 0.90 mg/dL (0.66-1.25) 03/09/17 05:55 Est GFR (MDRD) Af Amer >60 (>60 ml/min/1.73 sqM) 03/09/17 05:55 Est GFR (MDRD) Non-Af >60 (>60 ml/min/1.73 sqM) 03/09/17 05:55 Glucose 224 mg/dL (74-99) H 03/09/17 05:55 Plasma Lactic Acid Clif 1.2 mmol/L (0.7-2.0) 03/04/17 16:15 Calcium 9.2 mg/dL (8.4-10.2) 03/09/17 05:55 Magnesium 2.0 mg/dL (1.6-2.3) 03/07/17 05:52 Total Bilirubin 0.2 mg/dL (0.2-1.3) 03/09/17 05:55 AST 20 U/L (17-59) 03/09/17 05:55 ALT 39 U/L (21-72) 03/09/17 05:55 Alkaline Phosphatase 98 U/L (38-126) 03/09/17 05:55 NT-Pro-B Natriuret Pep 797 pg/mL 03/07/17 15:40 Total Protein 6.0 g/dL (6.3-8.2) L 03/09/17 05:55 Albumin 3.0 g/dL (3.5-5.0) L 03/09/17 05:55 Vancomycin Trough 37.1 ug/mL H* 03/09/17 05:55 Blood Type O Positive 03/04/17 18:55 Blood Type Recheck No 03/04/17 18:55 Antibody Screen NEGATIVE 03/04/17 18:55 Spec Expiration Date 03/07/2017235403/04/17 18:55 CBC & Chem 7: 03/10/17 05:10 03/11/17 05:10 Labs: Abnormal Lab Results - Last 24 Hours (Table) 03/09/17 03/09/17 Range/Units 05:55 05:55 Sodium 135 L (137-145) mmol/L BUN 57 H (9-20) mg/dL Glucose 224 H (74-99) mg/dL Total Protein 6.0 L (6.3-8.2) g/dL Albumin 3.0 L (3.5-5.0) g/dL Vancomycin Trough 37.1 H* ug/mL Microbiology - Last 24 Hours (Table) 03/04/17 18:55 Blood Culture - Preliminary Blood No Growth after 96 hours Assessment and Plan Plan: This is a 56-year-old male who presented to the hospital with lower extremity edema but also diagnosed with gram-negative pneumonia and sepsis with acute systolic heart failure. He is currently on antibiotics the form of Levaquin, Zosyn and vancomycin. Only Levaquin will be continued. Plan is for discharge home and patient will follow-up with oncology to complete more chemotherapy treatments. Continue supportive care. Further recommendations as patient progresses. The above dictated assessment and findings were discussed with Dr. Tejeda. The impression and plan of care have been directed as dictated. Betsy Olmstead nurse practitioner acting as scribe for Dr. Tejeda.
--- NOTE | 2017-03-09 13:59 | P.PN ---
Subjective Progress Note Date: 03/09/17 Mr. 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 He presented to the hospital with increasing shortness of breath and lower extremity edema. We are seeing him today in follow-up. He is currently receiving lasix 40 mg IV BID. His lower extremity edema remains significant. He states his shortness of breath has improved and he is no longer requiring oxygen around the clock only PRN. Blood pressure 116/70 with heart rate 95. BUN 57, Cr 0.9, potassium 4.7, BNP 797. Echocardiogram performed this admission reveals decreased LV function with EF 35-40% with inferior wall hypokinesis, there is no old for comparison. The patient denies history of heart failure that he is aware of. 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 Chest xray on admission reveals pneumonia, repeat has been ordered for this morning. Objective - Vital Signs Vital signs: Vital Signs Temp 97.7 F 03/09/17 07:00 Pulse 88 03/09/17 07:32 Resp 16 03/09/17 07:00 BP 116/70 03/09/17 07:00 Pulse Ox 100 03/09/17 07:24 Intake & Output 03/08/17 03/09/17 03/09/17 18:59 06:59 18:59 Intake Total 300 1077 Output Total 400 300 Balance 300 677 -300 Weight 72.5 kg Intake: IV 50 600 Piperacillin-Tazobactam 3 50 100 .375 gm In Dextrose/Water 1 50ml.bag @ 12.5 mls/hr IVPB Q8HR [facility] Rx#: [id number] Vancomycin 1,000 mg In 500 Sodium Chloride 0.9% 250 ml @ 125 mls/hr IVPB Q8H [facility] Rx#:[id number] Intake, IV Titration 250 Amount Vancomycin 1,000 mg In 250 Sodium Chloride 0.9% 250 ml @ 125 mls/hr IVPB Q8H [facility] Rx#:[id number] Oral 477 Output: Urine 400 300 Other: Voiding Method Toilet Bedside Commode Bedside Commode Bedside Commode # Voids 3 # Bowel Movements 1 - Exam GENERAL: Cachectic, in no acute distress. NECK: Supple without JVD or thyromegaly. LUNGS: Breath sounds clear to auscultation bilaterally. Respiration equal and unlabored. Exipiratory wheezes throughout, no rales or rhonchi. Diminished air entry. HEART: Regular rate and rhythm without murmurs, rubs or gallops. S1 and S2 heard. EXTREMITIES: Normal range of motion, significant b/l lower extremity edema up to mid leg, 2+ pitting. No clubbing or cyanosis. Peripheral pulses intact and weak. - Labs CBC & Chem 7: 03/10/17 05:10 03/10/17 05:10 Labs: Abnormal Lab Results - Last 24 Hours (Table) 03/09/17 03/09/17 Range/Units 05:55 05:55 Sodium 135 L (137-145) mmol/L BUN 57 H (9-20) mg/dL Glucose 224 H (74-99) mg/dL Total Protein 6.0 L (6.3-8.2) g/dL Albumin 3.0 L (3.5-5.0) g/dL Vancomycin Trough 37.1 H* ug/mL Microbiology - Last 24 Hours (Table) 03/04/17 18:55 Blood Culture - Preliminary Blood No Growth after 96 hours Assessment and Plan Plan: ASSESSMENT 1. Cardiomyopathy, unsure if ischemic or non-ischemic. 2. Increased dyspnea with rest and exertion, improving 3. Bilateral lower extremity swelling PLAN Continue diuresis with IV lasix 40 mg BID. Strict I&O's with daily weights. Nurse Practitioner note has been reviewed, I agree with a documented findings and plan of care. Patient was seen and examined.
[2017-03-09] MEDS ORDERED: ONDANSETRON 4 MG/2 ML VIAL IVP PRN (14:57)
--- NOTE | 2017-03-09 17:34 | P.PN ---
Subjective Progress Note Date: 03/09/17 Principal diagnosis: Pneumonia and shortness of breath This is a [id number] with her to [facility] for the presented with symptoms of shortness of breath. On evaluation patient was found to have bilateral pneumonia. Patient has been admitted here started on IV Zosyn and Levaquin. Today patient says he is short of breath. That has improved some but also complains of swelling in his lower extremities. Which he describes as painful when he stands up. Objective - Vital Signs Vital signs: Vital Signs Temp 97.7 F 03/09/17 07:00 Pulse 88 03/09/17 07:32 Resp 16 03/09/17 07:00 BP 116/70 03/09/17 07:00 Pulse Ox 100 03/09/17 07:24 Intake & Output 03/08/17 03/09/17 03/09/17 18:59 06:59 18:59 Intake Total 300 1077 Output Total 400 300 Balance 300 677 -300 Weight 72.5 kg 72.5 kg Intake: IV 50 600 Piperacillin-Tazobactam 3 50 100 .375 gm In Dextrose/Water 1 50ml.bag @ 12.5 mls/hr IVPB Q8HR [facility] Rx#: [id number] Vancomycin 1,000 mg In 500 Sodium Chloride 0.9% 250 ml @ 125 mls/hr IVPB Q8H [facility]IA Rx#:[id number] Intake, IV Titration 250 Amount Vancomycin 1,000 mg In 250 Sodium Chloride 0.9% 250 ml @ 125 mls/hr IVPB Q8H [facility] Rx#:[id number] Oral 477 Output: Urine 400 300 Other: Voiding Method Toilet Bedside Commode Bedside Commode Bedside Commode # Voids 3 # Bowel Movements 1 - Exam gen:alert and oriented lungs:some crackles, some wheezes heart:s1s2 abdomen:soft and depressible,non tender ext:positive edema - Labs CBC & Chem 7: 03/08/17 07:00 03/09/17 05:55 Labs: Abnormal Lab Results - Last 24 Hours (Table) 03/09/17 03/09/17 Range/Units 05:55 05:55 Sodium 135 L (137-145) mmol/L BUN 57 H (9-20) mg/dL Glucose 224 H (74-99) mg/dL Total Protein 6.0 L (6.3-8.2) g/dL Albumin 3.0 L (3.5-5.0) g/dL Vancomycin Trough 37.1 H* ug/mL Microbiology - Last 24 Hours (Table) 03/04/17 18:55 Blood Culture - Preliminary Blood No Growth after 96 hours Assessment and Plan (1) Dyspnea Narrative/Plan: System review is better. Continue IV antibiotics. Seems to be improving at this time. Continue IV antibiotic treatment. Status: Acute (2) Edema Narrative/Plan: Coronary on IV Lasix. Patient describes that he has been improving. Status: Acute (3) Pneumonia Narrative/Plan: Quarterly and continue Zosyn and Levaquin Dr. Niño to follow-up today Discussed with Dr. Ellison Status: Acute (4) Stage IV squamous cell carcinoma of lung Status: Chronic (5) Acute systolic heart failure Narrative/Plan: Continue IV Lasix at this time. Monitor daily weight. EF 35-40% Status: Acute Plan: Continue IV antibiotics and IV diuresis at this time. Patient continues to improve We'll monitor on a daily basis
--- NOTE | 2017-03-09 19:01 | P.CON ---
Consult Note - . 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 He has been treated with carboplatin and Gemzar but developed anemia and weakness. Patient has been living at home with his and had home care in place. He states he developed increased lower extremity edema that extended above his knees for about 2 weeks. He states it felt like there was a cast on his legs. He had so much pain in his legs that he could not walk. It took his home care nurse and to help him into the car to come into [facility] for evaluation. CT of the chest showed worsening adenopathy left hilar mass and adenopathy and new multifocal consolidations concerning for bilateral multifocal pneumonia and underlying neoplasm versus lytic left rib lesion a large left adrenal mass. He was then transferred to [facility] emergency center found to be afebrile with a white count of 14.7 which is now 20.9. Lactic acid was 1.2. Patient was diagnosed with sepsis, postobstructive pneumonia secondary to stage IV squamous cell lung cancer and started on Levaquin, Zosyn and vancomycin. Patient states he was on Keflex at home prior to admission for his lungs and states he has been on and off antibiotics since August. Blood culture showing no growth at 96 hours and sputum is positive for Jeanie albicans. Patient has been followed in consultation by Dr. Gupta with concern for infectious pneumonia most likely versus drug-induced pneumonia. Plan is to resume chemotherapy as an outpatient. Patient did meet with hospice for informational meeting and made a choice to continue chemotherapy. Patient has been followed by Dr. Sands for COPD exacerbation and has been on steroids currently on oral prednisone. Cardiology has seen the patient for lower leg edema secondary to hypoalbuminemia. Ultrasound of bilateral lower extremities was negative for DVT. Echocardiogram reveals EF of 35%-40%, mild mitral regurgitation, mild tricuspid regurgitation. No evidence of pulmonary hypertension. He has been on IV Lasix and Aldactone and he states his lower extremity edema is improved and does not extend above his knee. He is able to walk a very short distance but he continues to have significant pain in both ankles. Patient did have a fall at home about 3 weeks ago at which time he said that everything just blacked out on him but he denies any injury. Note that there was other concerns from the patient's that he had increasing confusion and memory lapses. He had a PET scan 6 weeks ago that revealed metastases to his skull. Discharge plan is for him to return home with his and home care in place in the next 1-2 days according to the patient. Please see the consult note as dictated by [employer]GE[employer] Mrs Betsy Olmstead. At this time the patient is feeling poorly. He has some nausea. Requested the nurse to provide him with some Zofran. He does have some lower extremity irritation for which Silvadene will be applied and the wrap in place. Hopefully he will tolerate this without too much difficulty.
[2017-03-09] MEDS ORDERED: VANCOMYCIN 1,000 MG in SODIUM CHLORIDE 0.9% 250 ML IVPB SCH (22:00)
[2017-03-10] MEDS: ACETAMINOPHEN TAB 325 MG TAB PO SCH ×4 (05:14→23:50)
[2017-03-10] MEDS: LEVOFLOXACIN 750 MG TAB PO SCH (05:16)
[2017-03-10] MEDS: PIPERACILLIN-TAZOBACTAM 3.375 GM in DEXTROSE/WATER 1 50ML.BAG IVPB SCH (07:45)
[2017-03-10] MEDS: predniSONE 20 MG TAB PO SCH ×3 (07:47→21:57)
[2017-03-10] MEDS: guaiFENesin 600 MG TABLET.ER PO SCH ×2 (07:47→20:14)
[2017-03-10] MEDS: GABAPENTIN 300 MG CAP PO SCH ×3 (07:47→21:57)
[2017-03-10] MEDS: FUROSEMIDE 10 MG/ML 4 ML VIAL IV SCH ×2 (07:48→20:15)
[2017-03-10] MEDS: POTASSIUM CHLORIDE ER 20 MEQ TAB.ER PO SCH (07:48)
[2017-03-10] MEDS: SPIRONOLACTONE 25 MG TAB PO SCH ×2 (07:48→20:15)
[2017-03-10] MEDS: METOLAZONE 5 MG TAB PO SCH (07:49)
[2017-03-10] MEDS: IPRATROPIUM-ALBUTEROL 3 ML NEB INHALATION SCH ×4 (07:54→19:17)
[2017-03-10 09:02] LABS: Anisocytosis Slight; CH 29.3; CHCM 31.2; HDW 3.05; HGB 9.7 gm/dL (13.0-17.5); Hypochromasia Moderate; MCH 28.5 pg (25.0-35.0); MCHC 30.3 g/dL (31.0-37.0); MCV 94.1 fL (80.0-100.0); Mean Platelet Volume 7.3; RDW 18.3 % (11.5-15.5); WBC 21.6 k/uL (3.8-10.6)
[2017-03-10 09:04] LABS: Glucose 174 mg/dL (74-99); Total Protein 6.2 g/dL (6.3-8.2)
[2017-03-10 09:05] LABS: ALT 38 U/L (21-72); AST 17 U/L (17-59); Alkaline Phosphatase 86 U/L (38-126); Anion Gap 12 mmol/L; Blood Urea Nitrogen 54 mg/dL (9-20); Calcium 9.4 mg/dL (8.4-10.2); Carbon Dioxide 29 mmol/L (22-30); Chloride 94 mmol/L (98-107); Non-African American GFR(MDRD) >60 (>60 ml/min/1.73 sqM); Sodium 135 mmol/L (137-145); Total Bilirubin 0.2 mg/dL (0.2-1.3)
--- NOTE | 2017-03-10 10:02 | P.PN ---
Subjective Progress Note Date: 03/10/17 Principal diagnosis: Pneumonia and shortness of breath This is a [id number] with her to [facility] for the presented with symptoms of shortness of breath. On evaluation patient was found to have bilateral pneumonia. Patient has been admitted here started on IV Zosyn and Levaquin. Today's patient is feeling better. Denies any shortness of breath. Pain in lower extremity is better with dressing in place stay patient with good appetite with no nausea and vomiting.. Objective - Vital Signs Vital signs: Vital Signs Temp 98 F 03/10/17 07:00 Pulse 97 03/10/17 08:30 Resp 18 03/10/17 07:00 BP 102/59 03/10/17 07:00 Pulse Ox 95 03/10/17 07:00 Intake & Output 03/09/17 03/10/17 03/10/17 18:59 06:59 18:59 Intake Total 200 2330 Output Total 300 500 Balance -100 1830 Weight 72.5 kg Intake: IV 50 300 Piperacillin-Tazobactam 3 50 50 .375 gm In Dextrose/Water 1 50ml.bag @ 12.5 mls/hr IVPB Q8HR [facility] Rx#: [id number] Vancomycin 1,000 mg In 250 Sodium Chloride 0.9% 250 ml @ 125 mls/hr IVPB Q8H [facility] Rx#:[id number] Intake, IV Titration 150 Amount Levofloxacin 750Mg-D5w 150 Pmx 750 mg In Dextrose/ Water 1 150ml.bag @ 100 mls/hr IVPB Q24H [facility] Rx#: [id number] Oral 2030 Output: Urine 300 500 Other: Voiding Method Bedside Commode Toilet # Voids 2 - Exam gen:alert and oriented lungs:some crackles, some wheezes heart:s1s2 abdomen:soft and depressible,non tender ext:positive edema - Labs CBC & Chem 7: 03/10/17 05:10 03/10/17 05:10 Labs: Abnormal Lab Results - Last 24 Hours (Table) 03/10/17 03/10/17 Range/Units 05:10 05:10 WBC 21.6 H (3.8-10.6) k/uL RBC 3.40 L (4.30-5.90) m/uL Hgb 9.7 L (13.0-17.5) gm/dL Hct 32.0 L (39.0-53.0) % MCHC 30.3 L (31.0-37.0) g/dL RDW 18.3 H (11.5-15.5) % Sodium 135 L (137-145) mmol/L Chloride 94 L (98-107) mmol/L BUN 54 H (9-20) mg/dL Glucose 174 H (74-99) mg/dL Total Protein 6.2 L (6.3-8.2) g/dL Albumin 3.2 L (3.5-5.0) g/dL Microbiology - Last 24 Hours (Table) 03/04/17 18:55 Blood Culture - Preliminary Blood No Growth after 120 hours Assessment and Plan (1) Dyspnea Narrative/Plan: Respiratory status improved today.. Continue IV antibiotic treatment. Status: Acute (2) Edema Narrative/Plan: on IV Lasix. Patient describes that he has been improving. Status: Acute (3) Pneumonia Narrative/Plan: Quarterly and continue Levaquin Dr. Niño to follow-up today Discussed with Dr. Ellison Case discussed with Dr. Tejeda. Currently on Levaquin Status: Acute (4) Stage IV squamous cell carcinoma of lung Narrative/Plan: On Keytruda, has recieved 2 cycles Status: Chronic (5) Acute systolic heart failure Status: Acute Plan: We'll discuss with consultants patient seems to be better today. Plan will be to be discharged soon on oral antibiotics.
[2017-03-10] MEDS: LISINOPRIL 5 MG TAB PO SCH (10:14)
--- NOTE | 2017-03-10 11:15 | P.PN ---
Subjective Progress Note Date: 03/10/17 Mr. 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 He presented to the hospital with increasing shortness of breath and lower extremity edema. We are seeing him today in follow-up. He is currently receiving lasix 40 mg IV BID. His lower extremity edema remains significant. He has agreed to allow staff to wrap his legs and he is more compliant with elevating his legs while sitting. He states his shortness of breath has improved and he is no longer requiring oxygen around the clock only PRN. Blood pressure 102/59 with heart rate 97. BUN 54, Cr 0.99, potassium 4.0, BNP 797. Echocardiogram performed this admission reveals decreased LV function with EF 35-40% with inferior wall hypokinesis, there is no old for comparison. The patient denies history of heart failure that he is aware of. 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 Repeat chest xray reveals ongoing left lower lobe infiltrate. Right lung is clear. His current cardiac medication includes Lasix 40 mg IV twice a day, lisinopril 5 mg daily, Aldactone 25 mg twice a day. Objective - Vital Signs Vital signs: Vital Signs Temp 98 F 03/10/17 07:00 Pulse 97 03/10/17 08:30 Resp 18 03/10/17 07:00 BP 102/59 03/10/17 07:00 Pulse Ox 95 03/10/17 07:00 Intake & Output 03/09/17 03/10/17 03/10/17 18:59 06:59 18:59 Intake Total 200 2330 Output Total 300 500 Balance -100 1830 Weight 72.5 kg Intake: IV 50 300 Piperacillin-Tazobactam 3 50 50 .375 gm In Dextrose/Water 1 50ml.bag @ 12.5 mls/hr IVPB Q8HR [facility] Rx#: [id number] Vancomycin 1,000 mg In 250 Sodium Chloride 0.9% 250 ml @ 125 mls/hr IVPB Q8H [facility] Rx#:[id number] Intake, IV Titration 150 Amount Levofloxacin 750Mg-D5w 150 Pmx 750 mg In Dextrose/ Water 1 150ml.bag @ 100 mls/hr IVPB Q24H [facility] Rx#: [id number] Oral 2030 Output: Urine 300 500 Other: Voiding Method Bedside Commode Toilet # Voids 2 - Exam GENERAL: Cachectic, in no acute distress. NECK: Supple without JVD or thyromegaly. LUNGS: Expiratory wheezing throughout. Rhonchi left lower lobe. No rales. Diminished air entry. HEART: Regular rate and rhythm without murmurs, rubs or gallops. S1 and S2 heard. EXTREMITIES: Normal range of motion, significant b/l lower extremity edema up to mid leg, 2+ pitting. No clubbing or cyanosis. Peripheral pulses intact and weak. - Labs CBC & Chem 7: 03/10/17 05:10 03/10/17 05:10 Labs: Abnormal Lab Results - Last 24 Hours (Table) 03/10/17 03/10/17 Range/Units 05:10 05:10 WBC 21.6 H (3.8-10.6) k/uL RBC 3.40 L (4.30-5.90) m/uL Hgb 9.7 L (13.0-17.5) gm/dL Hct 32.0 L (39.0-53.0) % MCHC 30.3 L (31.0-37.0) g/dL RDW 18.3 H (11.5-15.5) % Sodium 135 L (137-145) mmol/L Chloride 94 L (98-107) mmol/L BUN 54 H (9-20) mg/dL Glucose 174 H (74-99) mg/dL Total Protein 6.2 L (6.3-8.2) g/dL Albumin 3.2 L (3.5-5.0) g/dL Microbiology - Last 24 Hours (Table) 03/04/17 18:55 Blood Culture - Preliminary Blood No Growth after 120 hours Assessment and Plan Plan: ASSESSMENT 1. Cardiomyopathy, unsure if ischemic or non-ischemic. 2. Increased dyspnea with rest and exertion, improving 3. Bilateral lower extremity swelling PLAN His fluid balance continues to be in the positive and weight is not changing. Continue diuresis with IV lasix 40 mg BID. Strict I&O's with daily weights. Add low dose beta lionel for cardiomyopathy. Nurse Practitioner note has been reviewed, I agree with a documented findings and plan of care. Patient was seen and examined.
--- NOTE | 2017-03-10 11:20 | P.PN ---
Progress Note - Text Progress Note Date: 03/10/17 Patient seen and evaluated this AM, much improved after addition of breakthrough opioids. Recommend discharging with fentanyl patch at current dose and oxycodone 10 mg (or Percocet 10/325) up to q8h prn pain. Gabapentin should continue to be uptitrated as an outpatient provided the patient does not experience side effects. Will sign off; please call back with any further questions.
[2017-03-10] MEDS: METOPROLOL TARTRATE 12.5 MG TAB PO SCH ×2 (13:34→21:57)
--- NOTE | 2017-03-10 13:56 | P.PN ---
Subjective Progress Note Date: 03/10/17 Principal diagnosis: Shortness of breath, weakness, lower extremity edema This is a very pleasant 56-year-old gentleman who follows with us in the office for chronic obstructive pulmonary disease and squamous cell carcinoma lung cancer. This was diagnosed in August 2016 via bronchoscopy with brushings and wash of the left upper lobe and lingula. A follow-up PET scan revealed evidence of lung cancer with multiple metastatic lymph nodes within the mediastinum along with a metastatic lesion in the left adrenal gland. He was recently admitted here for a fall. Computed tomography scan of the orbits status post fall revealed multifocal osseous metastatic disease. The patient had received 3 cycles of carboplatin and Gemzar but became quite weak with severe anemia and the treatments were stopped. He was recently started on immunotherapy of Keytruda and has received 1 dose thus far. The patient re- presented here again yesterday with continued complaints of worsening shortness of breath, worsening lower extremity edema and progressive weakness. A computed tomography scan done at [facility] revealed evidence of a left lung pneumonia and probable progression of the lung cancer. He is seen today in consultation on the oncology unit. He is currently awake and alert. He is quite dyspneic on minimal exertion. He is maintaining good O2 saturations in the high 90s on room air. He's been afebrile. He is quite tachycardic in the 120s. Current white count 14.7. Hemoglobin 8.9. Creatinine 0.85. He has been receiving Lasix 40 mg IV push every 12 hours. He is diuresing. The edema has improved today as compared to yesterday. He's also been initiated on bronchodilators and antibiotics in the form of Levaquin, vancomycin and Zosyn. On 03/06/2017 patient is reevaluated on oncology floor. Clinically he seems to have slightly improved since yesterday in terms of his weakness, shortness of breath and phlegm production. He is bringing up some blood tinged thick yellow sputum, we will try to send a specimen today for Gram stain and culture. No fevers, no chills overnight. He states he was able to sleep last night and feels much rested today. His white count is down to 8.9 today from 14.7, myoglobin is down to 7.8 from 8.9 with no obvious signs of bleeding. Lung sounds are diminished to absent over left middle and lower lobe, good air entry on the right with a few scattered crackles, but no wheezes no rhonchi. Bilateral lower extremity edema has slightly improved, still about 3+ pitting edema. Venous Doppler studies were negative for DVT on 03/05/2017. Patient states he was able to fit his feet into his slippers today. He is on DuoNeb 4 times a day and when necessary, IV Solu-Medrol and broad-spectrum antibiotic coverage in the form of vancomycin and Levaquin. Blood cultures have shown no growth in 24 hours. The patient is seen again today 03/07/2017 in follow-up on the oncology unit. He is doing better today. He is up ambulating in his room he is feeling stronger today as compared to yesterday. he still has some issues with dyspnea on exertion. He has been seen by oncology. The plan is to resume his Keytruda after he recovers from this acute episode. White count 11.5. Hemoglobin 7.3. Platelet count 216,000. On 03/08/2017 the patient is complaining some back pain for which she was given OxyContin. Pain has subsided. Having some difficulties with mobility and ambulation. He is weak. He has some tremors even at rest. Mental status is good and the patient has no confusion. COPD exacerbation is improving and the patient is less congested and wheezy compared to yesterday. Still on diuretics with improvement in the lower extremity edema. He is tolerating his diet. No nausea or vomiting. No abdominal pain. No abdominal distention. No falls. His white cell count is elevated at 20.9 and this could be potentially steroid effect. BNP is also up at 49 with a creatinine of 1.1 and it can be diuretic effect. He is currently on Lasix 40 mg every 12 hours. We will also continue his Zosyn and vancomycin and Levaquin combination in addition to systemic steroids were the patient is currently on prednisone burst taper. accompanies to be also monitored. Sputum was positive for Jeanie albicans. The patient was seen again today 03/09/2017 in follow-up on the oncology floor. He is awake and alert in no acute distress. He is currently sitting up in a chair at the bedside. He states his breathing is better today as compared to yesterday. He still has ongoing issues with lower extremity weakness and generalized fatigue. His appetite is better. He denies any worsening shortness of breath, cough or congestion. No fever, chills or night sweats. maintaining good O2 saturations up to 100% on 2 L/m per nasal cannula. He's been afebrile. Hemodynamically stable. On 03/10/2017 patient is resting in a recliner, denies any respiratory distress. He states his breathing is much improved but he is just feeling rundown overall. Lung sounds are clear diminished at the bases, no rhonchi, no wheezes, no rales. He remains on room air with O2 saturations are 95%. No febrile episodes. No significant sputum production. No chills or night sweats. White count is trending up, it's up to 21.6 today, patient remains on steroids, which were switched to oral. Bilateral lower leg edema is much improved, pt's legs are Steven wrapped. Patient remains on IV Lasix every 12 hours , has lost total of 6.9 kg in last 48 hours. Infectious disease service was consulted regarding patient's persistent leukocytosis. Patient was treated with Levaquin and Zosyn and vancomycin initially for possible infectious pneumonia. Blood cultures showed no growth after 120 hours, sputum cultures positive for Jeanie albicans. Per infectious disease service recommendation antibiotic coverage has been De-escalated to just Levaquin. Yesterday patient was complaining of nausea and vomiting and was treated with IV Zofran. No episodes of emesis or nausea today. Objective - Vital Signs Vital signs: Vital Signs Temp 98 F 03/10/17 07:00 Pulse 97 03/10/17 13:38 Resp 18 03/10/17 07:00 BP 110/55 03/10/17 13:38 Pulse Ox 95 03/10/17 07:00 Intake & Output 03/09/17 03/10/17 03/10/17 18:59 06:59 18:59 Intake Total 200 2330 Output Total 300 500 Balance -100 1830 Weight 72.5 kg 65.6 kg Intake: IV 50 300 Piperacillin-Tazobactam 3 50 50 .375 gm In Dextrose/Water 1 50ml.bag @ 12.5 mls/hr IVPB Q8HR [facility] Rx#: [id number] Vancomycin 1,000 mg In 250 Sodium Chloride 0.9% 250 ml @ 125 mls/hr IVPB Q8H [facility] Rx#:[id number] Intake, IV Titration 150 Amount Levofloxacin 750Mg-D5w 150 Pmx 750 mg In Dextrose/ Water 1 150ml.bag @ 100 mls/hr IVPB Q24H [facility] Rx#: [id number] Oral 2030 Output: Urine 300 500 Other: Voiding Method Bedside Commode Toilet Toilet # Voids 2 - Exam GENERAL EXAM: Weak, cachectic. HEAD: Normocephalic. EYES: Normal reaction of pupils, equal size. NOSE: Clear with pink turbinates. THROAT: No erythema or exudates. NECK: No masses, no JVD. CHEST: No chest wall deformity. LUNGS: diminished to no air entry on the left side, few scat crackles on the right CVS: S1 and S2 normal with no audible murmurs, regular rhythm. ABDOMEN: No hepatosplenomegaly, normal bowel sounds, no guarding or rigidity. SPINE: No scoliosis or deformity SKIN: Changes of chronic venous stations was healed lesions of the lower extremities. CENTRAL NERVOUS SYSTEM: No focal deficits, tone is normal in all 4 extremities. Extremities: There is 2-3+ lower extremity peripheral edema. No clubbing, no cyanosis. Peripheral pulses are intact. - Labs CBC & Chem 7: 03/10/17 05:10 03/10/17 05:10 Labs: Abnormal Lab Results - Last 24 Hours (Table) 03/10/17 03/10/17 Range/Units 05:10 05:10 WBC 21.6 H (3.8-10.6) k/uL RBC 3.40 L (4.30-5.90) m/uL Hgb 9.7 L (13.0-17.5) gm/dL Hct 32.0 L (39.0-53.0) % MCHC 30.3 L (31.0-37.0) g/dL RDW 18.3 H (11.5-15.5) % Sodium 135 L (137-145) mmol/L Chloride 94 L (98-107) mmol/L BUN 54 H (9-20) mg/dL Glucose 174 H (74-99) mg/dL Total Protein 6.2 L (6.3-8.2) g/dL Albumin 3.2 L (3.5-5.0) g/dL Microbiology - Last 24 Hours (Table) 03/04/17 18:55 Blood Culture - Preliminary Blood No Growth after 120 hours Assessment and Plan Plan: Assessment and Plan Plan: Impression: #1 Dyspnea, multifactorial in a patient with a known history of squamous cell carcinoma of the left lung, acute exacerbation of chronic obstructive pulmonary disease, suspect underlying left lung pneumonia versus progression of lung cancer. 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 Diagnosed in August 2016. The patient did undergo 3 rounds of carboplatin and Gemzar and developed severe anemia, weakness and treatment was stopped. He has since had one treatment of immunotherapy. Most recent computed tomography scan of the chest reveals progression of disease including a large right paratracheal lymph node measuring 3 cm. There is also enlarged subcarinal lymph nodes. Fullness in the left hilum.. 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 #4 Acute exacerbation of chronic obstructive pulmonary disease. #5 Chronic and ongoing tobacco dependence. Plan: Patient continues to improve from a pulmonary standpoint, no significant sputum production, no fevers, no chills. Sputum culture is positive for Jeanie, blood cultures negative. Antibiotic coverage has been D escalated to just Levaquin per ID service. No nausea or vomiting today.tinea with oral prednisone , IV Lasix, bronchodilators. Patient's overall prognosis remains quite poor. Plan is to resume Q Trula once he fully recovers from this acute illness. Anticipate discharge in the next 24 hours. I performed a history & physical examination of the patient and discussed their management with my nurse practitioner, Radha Masters. I reviewed the nurse practitioner's note and agree with the documented findings and plan of care.
[2017-03-10] MEDS: NYSTATIN 100,000 UNIT/ML SUSP 500,000 UNIT/5 ML CUP PO SCH ×2 (17:02→21:57)
--- NOTE | 2017-03-10 21:41 | P.PN ---
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 He has been treated with carboplatin and Gemzar but developed anemia and weakness. Patient has been living at home with his and had home care in place. He states he developed increased lower extremity edema that extended above his knees for about 2 weeks. He states it felt like there was a cast on his legs. He had so much pain in his legs that he could not walk. It took his home care nurse and to help him into the car to come into [facility] for evaluation. CT of the chest showed worsening adenopathy left hilar mass and adenopathy and new multifocal consolidations concerning for bilateral multifocal pneumonia and underlying neoplasm versus lytic left rib lesion a large left adrenal mass. He was then transferred to [facility] emergency center found to be afebrile with a white count of 14.7 which is now 20.9. Lactic acid was 1.2. Patient was diagnosed with sepsis, postobstructive pneumonia secondary to stage IV squamous cell lung cancer and started on Levaquin, Zosyn and vancomycin. Patient states he was on Keflex at home prior to admission for his lungs and states he has been on and off antibiotics since August. Blood culture showing no growth at 96 hours and sputum is positive for Jeanie albicans. Patient has been followed in consultation by Dr. Gupta with concern for infectious pneumonia most likely versus drug-induced pneumonia. Plan is to resume chemotherapy as an outpatient. Patient did meet with hospice for informational meeting and made a choice to continue chemotherapy. Patient has been followed by Dr. Sands for COPD exacerbation and has been on steroids currently on oral prednisone. Cardiology has seen the patient for lower leg edema secondary to hypoalbuminemia. Ultrasound of bilateral lower extremities was negative for DVT. Echocardiogram reveals EF of 35%-40%, mild mitral regurgitation, mild tricuspid regurgitation. No evidence of pulmonary hypertension. He has been on IV Lasix and Aldactone and he states his lower extremity edema is improved and does not extend above his knee. He is able to walk a very short distance but he continues to have significant pain in both ankles. Patient did have a fall at home about 3 weeks ago at which time he said that everything just blacked out on him but he denies any injury. Note that there was other concerns from the patient's that he had increasing confusion and memory lapses. He had a PET scan 6 weeks ago that revealed metastases to his skull. Patient is feeling slightly better today. Is able to eat some food. Is less short of breath and less uncomfortable. Objective - Vital Signs Vital signs: Vital Signs Temp 97.7 F 03/10/17 15:00 Pulse 99 03/10/17 19:25 Resp 16 03/10/17 15:00 BP 94/64 03/10/17 15:00 Pulse Ox 97 03/10/17 15:00 Intake & Output 03/10/17 03/10/17 03/11/17 06:59 18:59 06:59 Intake Total 2330 50 Output Total 500 Balance 1830 50 Weight 65.6 kg Intake: IV 300 50 Piperacillin-Tazobactam 3 50 50 .375 gm In Dextrose/Water 1 50ml.bag @ 12.5 mls/hr IVPB Q8HR [facility] Rx#: [id number] Vancomycin 1,000 mg In 250 Sodium Chloride 0.9% 250 ml @ 125 mls/hr IVPB Q8H [facility] Rx#:[id number] Oral 2030 Output: Urine 500 Other: Voiding Method Toilet Toilet Urinal # Voids 2 - Exam Gen: This is a thin-appearing 56-year-old male. He is sitting up in a recliner with legs in a dependent position. He appears to be in no acute respiratory distress. He is not currently using oxygen. HEENT: Head is atraumatic, normocephalic. Pupils equal, round. Sclerae is anicteric. Conjunctiva pink. Mucous membranes of the mouth are dry. Patient is edentulous. He states he had his last 3 teeth pulled before he started chemotherapy. He does not have dentures. NECK: Supple. No JVD. No lymphadenopathy. No thyromegaly. LUNGS: Diminished with scattered crackles throughout and end expiratory wheeze. No intercostal retractions. HEART: Regular rate and rhythm. No murmur. Port noted in the anterior upper right chest wall. No tenderness, erythema or drainage noted. ABDOMEN: Soft. Bowel sounds are present. No masses. No tenderness. EXTREMITIES: +1 bilateral pedal edema. With multiple small abrasions noted from scratching. With utilization of Silvadene wrap there is no evidence of improvement. Edema is improved. He is much less uncomfortable. He is pleasantly surprised with this wrapping process, he was very concerned it was the cause pain and is actually comforted him NEUROLOGICAL: Patient is awake, alert and oriented x3 - Labs CBC & Chem 7: 03/10/17 05:10 03/10/17 05:10 Labs: Abnormal Lab Results - Last 24 Hours (Table) 03/10/17 03/10/17 Range/Units 05:10 05:10 WBC 21.6 H (3.8-10.6) k/uL RBC 3.40 L (4.30-5.90) m/uL Hgb 9.7 L (13.0-17.5) gm/dL Hct 32.0 L (39.0-53.0) % MCHC 30.3 L (31.0-37.0) g/dL RDW 18.3 H (11.5-15.5) % Sodium 135 L (137-145) mmol/L Chloride 94 L (98-107) mmol/L BUN 54 H (9-20) mg/dL Glucose 174 H (74-99) mg/dL Total Protein 6.2 L (6.3-8.2) g/dL Albumin 3.2 L (3.5-5.0) g/dL Microbiology - Last 24 Hours (Table) 03/04/17 18:55 Blood Culture - Final Blood No Growth after 144 hours Laboratory Results WBC 21.6 k/uL (3.8-10.6) H 03/10/17 05:10 RBC 3.40 m/uL (4.30-5.90) L 03/10/17 05:10 Hgb 9.7 gm/dL (13.0-17.5) L 03/10/17 05:10 Hct 32.0 % (39.0-53.0) L 03/10/17 05:10 MCV 94.1 fL (80.0-100.0) 03/10/17 05:10 MCH 28.5 pg (25.0-35.0) 03/10/17 05:10 MCHC 30.3 g/dL (31.0-37.0) L 03/10/17 05:10 RDW 18.3 % (11.5-15.5) H 03/10/17 05:10 Plt Count 284 k/uL (150-450) 03/10/17 05:10 Neutrophils % 86 % 03/07/17 05:50 Lymphocytes % 7 % 03/07/17 05:50 Monocytes % 5 % 03/07/17 05:50 Eosinophils % 1 % 03/07/17 05:50 Basophils % 0 % 03/07/17 05:50 Neutrophils # 9.9 k/uL (1.3-7.7) H 03/07/17 05:50 Lymphocytes # 0.8 k/uL (1.0-4.8) L 03/07/17 05:50 Monocytes # 0.6 k/uL (0-1.0) 03/07/17 05:50 Eosinophils # 0.1 k/uL (0-0.7) 03/07/17 05:50 Basophils # 0.0 k/uL (0-0.2) 03/07/17 05:50 Hypochromasia Moderate 03/10/17 05:10 Anisocytosis Slight 03/10/17 05:10 Macrocytosis Slight 03/08/17 07:00 Sodium 135 mmol/L (137-145) L 03/10/17 05:10 Potassium 4.0 mmol/L (3.5-5.1) 03/10/17 05:10 Chloride 94 mmol/L (98-107) L 03/10/17 05:10 Carbon Dioxide 29 mmol/L (22-30) 03/10/17 05:10 Anion Gap 12 mmol/L 03/10/17 05:10 BUN 54 mg/dL (9-20) H 03/10/17 05:10 Creatinine 0.99 mg/dL (0.66-1.25) 03/10/17 05:10 Est GFR (MDRD) Af Amer >60 (>60 ml/min/1.73 sqM) 03/10/17 05:10 Est GFR (MDRD) Non-Af >60 (>60 ml/min/1.73 sqM) 03/10/17 05:10 Glucose 174 mg/dL (74-99) H 03/10/17 05:10 Plasma Lactic Acid Clif 1.2 mmol/L (0.7-2.0) 03/04/17 16:15 Calcium 9.4 mg/dL (8.4-10.2) 03/10/17 05:10 Magnesium 2.0 mg/dL (1.6-2.3) 03/10/17 05:10 Total Bilirubin 0.2 mg/dL (0.2-1.3) 03/10/17 05:10 AST 17 U/L (17-59) 03/10/17 05:10 ALT 38 U/L (21-72) 03/10/17 05:10 Alkaline Phosphatase 86 U/L (38-126) 03/10/17 05:10 NT-Pro-B Natriuret Pep 797 pg/mL 03/07/17 15:40 Total Protein 6.2 g/dL (6.3-8.2) L 03/10/17 05:10 Albumin 3.2 g/dL (3.5-5.0) L 03/10/17 05:10 Vancomycin Trough 37.1 ug/mL H* 03/09/17 05:55 Random Vancomycin 14.8 ug/mL 03/09/17 18:12 Blood Type O Positive 03/04/17 18:55 Blood Type Recheck No 03/04/17 18:55 Antibody Screen NEGATIVE 03/04/17 18:55 Spec Expiration Date 03/07/2017235403/04/17 18:55 Microbiology 03/04/17 18:55 Blood Blood Culture - Final No Growth after 144 hours 03/05/17 00:10 Sputum Gram Stain - Final 03/05/17 00:10 Sputum Sputum Culture - Final Jeanie albicans Assessment and Plan (1) COPD (chronic obstructive pulmonary disease) Current Visit: No Status: Acute Code(s): J44.9 - CHRONIC OBSTRUCTIVE PULMONARY DISEASE, UNSPECIFIED SNOMED Code(s): 20332832 (2) Lung cancer metastatic to bone Current Visit: No Status: Chronic Priority: High Code(s): C34.90 - MALIGNANT NEOPLASM OF UNSP PART OF UNSP BRONCHUS OR LUNG; C79.51 - SECONDARY MALIGNANT NEOPLASM OF BONE SNOMED Code(s): 30752432 (3) Bilateral lower extremity edema Narrative/Plan: 56-year-old male who has metastatic lung carcinoma is feeling slightly better today. The rest lower extremity have allowed him to have some improvement discomfort. He is quite surprised it was helpful. He is denying further fevers or chills. Has nausea steadily improved today. He is unable to ingest a bit of food. He is denying fevers or chills and there's been some slight improvement. We'll continue current antimicrobial therapy that has been descalated to levofloxacin. He is tolerating this well. Continue elevation local care and attempts to improve his nutrition. Current Visit: Yes Status: Acute Code(s): R60.0 - LOCALIZED EDEMA SNOMED Code(s): 371104334
[2017-03-11 02:06] VITALS: TEMP 97.8
[2017-03-11] MEDS: LEVOFLOXACIN 750 MG TAB PO SCH (05:50)
[2017-03-11] MEDS: ACETAMINOPHEN TAB 325 MG TAB PO SCH ×2 (05:50→12:52)
[2017-03-11 05:51] LABS: ALT 39 U/L (21-72); AST 20 U/L (17-59); Alkaline Phosphatase 98 U/L (38-126); Anion Gap 12 mmol/L; Blood Urea Nitrogen 58 mg/dL (9-20); Calcium 10.1 mg/dL (8.4-10.2); Carbon Dioxide 28 mmol/L (22-30); Chloride 92 mmol/L (98-107); Glucose 170 mg/dL (74-99); Non-African American GFR(MDRD) >60 (>60 ml/min/1.73 sqM); Potassium 4.9 mmol/L (3.5-5.1); Sodium 132 mmol/L (137-145); Total Bilirubin 0.3 mg/dL (0.2-1.3); Total Protein 6.6 g/dL (6.3-8.2)
[2017-03-11 07:35] VITALS: BP 112/70; RESP 18
[2017-03-11] MEDS: IPRATROPIUM-ALBUTEROL 3 ML NEB INHALATION SCH ×3 (08:25→16:27)
[2017-03-11] MEDS: FUROSEMIDE 10 MG/ML 4 ML VIAL IV SCH (08:28)
[2017-03-11] MEDS: NYSTATIN 100,000 UNIT/ML SUSP 500,000 UNIT/5 ML CUP PO SCH ×2 (08:29→12:53)
[2017-03-11] MEDS: POTASSIUM CHLORIDE ER 20 MEQ TAB.ER PO SCH (08:29)
[2017-03-11] MEDS: SPIRONOLACTONE 25 MG TAB PO SCH (08:29)
[2017-03-11] MEDS: predniSONE 20 MG TAB PO SCH ×2 (08:29→15:49)
[2017-03-11] MEDS: GABAPENTIN 300 MG CAP PO SCH ×2 (08:29→15:49)
[2017-03-11] MEDS: METOPROLOL TARTRATE 12.5 MG TAB PO SCH (08:29)
[2017-03-11] MEDS: guaiFENesin 600 MG TABLET.ER PO SCH (08:29)
[2017-03-11] MEDS: METOLAZONE 5 MG TAB PO SCH (08:29)
[2017-03-11] MEDS: LISINOPRIL 5 MG TAB PO SCH (08:29)
--- NOTE | 2017-03-11 12:44 | P.PN ---
Subjective Progress Note Date: 03/11/17 Principal diagnosis: Shortness of breath, weakness, lower extremity edema This is a very pleasant 56-year-old gentleman who follows with us in the office for chronic obstructive pulmonary disease and squamous cell carcinoma lung cancer. This was diagnosed in August 2016 via bronchoscopy with brushings and wash of the left upper lobe and lingula. A follow-up PET scan revealed evidence of lung cancer with multiple metastatic lymph nodes within the mediastinum along with a metastatic lesion in the left adrenal gland. He was recently admitted here for a fall. Computed tomography scan of the orbits status post fall revealed multifocal osseous metastatic disease. The patient had received 3 cycles of carboplatin and Gemzar but became quite weak with severe anemia and the treatments were stopped. He was recently started on immunotherapy of Keytruda and has received 1 dose thus far. The patient re- presented here again yesterday with continued complaints of worsening shortness of breath, worsening lower extremity edema and progressive weakness. A computed tomography scan done at [facility] revealed evidence of a left lung pneumonia and probable progression of the lung cancer. He is seen today in consultation on the oncology unit. He is currently awake and alert. He is quite dyspneic on minimal exertion. He is maintaining good O2 saturations in the high 90s on room air. He's been afebrile. He is quite tachycardic in the 120s. Current white count 14.7. Hemoglobin 8.9. Creatinine 0.85. He has been receiving Lasix 40 mg IV push every 12 hours. He is diuresing. The edema has improved today as compared to yesterday. He's also been initiated on bronchodilators and antibiotics in the form of Levaquin, vancomycin and Zosyn. On 03/06/2017 patient is reevaluated on oncology floor. Clinically he seems to have slightly improved since yesterday in terms of his weakness, shortness of breath and phlegm production. He is bringing up some blood tinged thick yellow sputum, we will try to send a specimen today for Gram stain and culture. No fevers, no chills overnight. He states he was able to sleep last night and feels much rested today. His white count is down to 8.9 today from 14.7, myoglobin is down to 7.8 from 8.9 with no obvious signs of bleeding. Lung sounds are diminished to absent over left middle and lower lobe, good air entry on the right with a few scattered crackles, but no wheezes no rhonchi. Bilateral lower extremity edema has slightly improved, still about 3+ pitting edema. Venous Doppler studies were negative for DVT on 03/05/2017. Patient states he was able to fit his feet into his slippers today. He is on DuoNeb 4 times a day and when necessary, IV Solu-Medrol and broad-spectrum antibiotic coverage in the form of vancomycin and Levaquin. Blood cultures have shown no growth in 24 hours. The patient is seen again today 03/07/2017 in follow-up on the oncology unit. He is doing better today. He is up ambulating in his room he is feeling stronger today as compared to yesterday. he still has some issues with dyspnea on exertion. He has been seen by oncology. The plan is to resume his Keytruda after he recovers from this acute episode. White count 11.5. Hemoglobin 7.3. Platelet count 216,000. On 03/08/2017 the patient is complaining some back pain for which she was given OxyContin. Pain has subsided. Having some difficulties with mobility and ambulation. He is weak. He has some tremors even at rest. Mental status is good and the patient has no confusion. COPD exacerbation is improving and the patient is less congested and wheezy compared to yesterday. Still on diuretics with improvement in the lower extremity edema. He is tolerating his diet. No nausea or vomiting. No abdominal pain. No abdominal distention. No falls. His white cell count is elevated at 20.9 and this could be potentially steroid effect. BNP is also up at 49 with a creatinine of 1.1 and it can be diuretic effect. He is currently on Lasix 40 mg every 12 hours. We will also continue his Zosyn and vancomycin and Levaquin combination in addition to systemic steroids were the patient is currently on prednisone burst taper. accompanies to be also monitored. Sputum was positive for Jeanie albicans. The patient was seen again today 03/09/2017 in follow-up on the oncology floor. He is awake and alert in no acute distress. He is currently sitting up in a chair at the bedside. He states his breathing is better today as compared to yesterday. He still has ongoing issues with lower extremity weakness and generalized fatigue. His appetite is better. He denies any worsening shortness of breath, cough or congestion. No fever, chills or night sweats. maintaining good O2 saturations up to 100% on 2 L/m per nasal cannula. He's been afebrile. Hemodynamically stable. On 03/10/2017 patient is resting in a recliner, denies any respiratory distress. He states his breathing is much improved but he is just feeling rundown overall. Lung sounds are clear diminished at the bases, no rhonchi, no wheezes, no rales. He remains on room air with O2 saturations are 95%. No febrile episodes. No significant sputum production. No chills or night sweats. White count is trending up, it's up to 21.6 today, patient remains on steroids, which were switched to oral. Bilateral lower leg edema is much improved, pt's legs are Steven wrapped. Patient remains on IV Lasix every 12 hours , has lost total of 6.9 kg in last 48 hours. Infectious disease service was consulted regarding patient's persistent leukocytosis. Patient was treated with Levaquin and Zosyn and vancomycin initially for possible infectious pneumonia. Blood cultures showed no growth after 120 hours, sputum cultures positive for Jeanie albicans. Per infectious disease service recommendation antibiotic coverage has been De-escalated to just Levaquin. Yesterday patient was complaining of nausea and vomiting and was treated with IV Zofran. No episodes of emesis or nausea today. On 03/11/2017 patient is awaiting discharge home. His breathing remains stable , he denies chest congestion, no wheezes or chest pain. No significant sputum production. No chills or night sweats. He remains on room air with O2 saturations at 97%. Respirations are even and nonlabored. Lower extremities are Steven wrapped, she continues on IV Lasix. Per ID recommendation patient will be sent home on oral Levaquin. No episodes of nausea or vomiting today. Objective - Vital Signs Vital signs: Vital Signs Temp 97.8 F 03/11/17 07:00 Pulse 74 03/11/17 12:25 Resp 18 03/11/17 07:00 BP 112/70 03/11/17 07:00 Pulse Ox 97 03/11/17 07:00 Intake & Output 03/10/17 03/11/17 03/11/17 18:59 06:59 18:59 Intake Total 50 1550 Balance 50 1550 Weight 65.6 kg Intake: IV 50 Piperacillin-Tazobactam 3 50 .375 gm In Dextrose/Water 1 50ml.bag @ 12.5 mls/hr IVPB Q8HR [facility] Rx#: [id number] Oral 1550 Other: Voiding Method Toilet Toilet Urinal Urinal # Voids 2 - Exam GENERAL EXAM: Weak, cachectic. HEAD: Normocephalic. EYES: Normal reaction of pupils, equal size. NOSE: Clear with pink turbinates. THROAT: No erythema or exudates. NECK: No masses, no JVD. CHEST: No chest wall deformity. LUNGS: diminished to no air entry on the left side, few scat crackles on the right CVS: S1 and S2 normal with no audible murmurs, regular rhythm. ABDOMEN: No hepatosplenomegaly, normal bowel sounds, no guarding or rigidity. SPINE: No scoliosis or deformity SKIN: Changes of chronic venous stations was healed lesions of the lower extremities. CENTRAL NERVOUS SYSTEM: No focal deficits, tone is normal in all 4 extremities. Extremities: There is 2-3+ lower extremity peripheral edema. No clubbing, no cyanosis. Peripheral pulses are intact. - Labs CBC & Chem 7: 03/10/17 05:10 03/11/17 05:10 Labs: Abnormal Lab Results - Last 24 Hours (Table) 03/11/17 Range/Units 05:10 Sodium 132 L (137-145) mmol/L Chloride 92 L (98-107) mmol/L BUN 58 H (9-20) mg/dL Glucose 170 H (74-99) mg/dL Microbiology - Last 24 Hours (Table) 03/04/17 18:55 Blood Culture - Final Blood No Growth after 144 hours Assessment and Plan Plan: Assessment and Plan Plan: Impression: #1 Dyspnea, multifactorial in a patient with a known history of squamous cell carcinoma of the left lung, acute exacerbation of chronic obstructive pulmonary disease, suspect underlying left lung pneumonia versus progression of lung cancer. 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 Diagnosed in August 2016. The patient did undergo 3 rounds of carboplatin and Gemzar and developed severe anemia, weakness and treatment was stopped. He has since had one treatment of immunotherapy. Most recent computed tomography scan of the chest reveals progression of disease including a large right paratracheal lymph node measuring 3 cm. There is also enlarged subcarinal lymph nodes. Fullness in the left hilum.. 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 #4 Acute exacerbation of chronic obstructive pulmonary disease. #5 Chronic and ongoing tobacco dependence. Plan: Patient continues to improve from a pulmonary standpoint, no significant sputum production, no fevers, no chills. Sputum culture is positive for Jeanie, blood cultures negative. Antibiotic coverage has been D escalated to just Levaquin per ID service. No nausea or vomiting today. Continue with oral prednisone, IV Lasix, bronchodilators. Patient's overall prognosis remains quite poor. Plan is to resume Keytryda once he fully recovers from this acute illness. Patient is stable for discharge home today from pulmonary standpoint. Follow-up with Dr. Gallego in 2 weeks. I performed a history & physical examination of the patient and discussed their management with my nurse practitioner, Radha Masters. I reviewed the nurse practitioner's note and agree with the documented findings and plan of care. Lung sounds are diminished with a few scattered rails. No wheezing, no rhonchi. Stable for discharge this afternoon. I attest the documentation by the nurse practitioner
--- NOTE | 2017-03-11 14:15 | P.DS ---
Providers Date of admission: 03/04/17 17:24 Expected date of discharge: 03/11/17 Attending physician: Irina Mcintyre DO Consults: 03/04/17 17:24 Consult Physician Routine Consulting Provider: Shahzad Gupta Consult Reason/Comments: Lung cancer Do you want consulting provider notified?: Yes 03/05/17 09:02 Consult Physician Routine Consulting Provider: Leah Sands Consult Reason/Comments: SOB Do you want consulting provider notified?: Yes 03/07/17 10:17 Consult Physician Routine Consulting Provider: Aziza Hurd Consult Reason/Comments: heart failure, EF 35-40% Do you want consulting provider notified?: Already Contacted 03/08/17 12:18 Consult Physician Routine Consulting Provider: Paramjit Tejeda Consult Reason/Comments: pneumonia Do you want consulting provider notified?: Yes, Notify in am Primary care physician: Jose Antonio Babcock - Discharge Diagnosis(es) (1) Dyspnea Current Visit: Yes Status: Acute Priority: High (2) Edema Current Visit: Yes Status: Acute (3) Pneumonia Current Visit: Yes Status: Acute (4) Stage IV squamous cell carcinoma of lung Current Visit: Yes Status: Chronic Priority: High (5) Acute systolic heart failure Current Visit: Yes Status: Acute Hospital Course: 26-year-old male that was admitted with symptoms of shortness of breath and altered mental status. Patient with multiple medical problems including metastatic lung cancer and COPD. Patient was found to have pneumonia treated with IV antibiotics initially with broad-spectrum antibiotic coverage, papillomata completely comfortable. Patient is feeling better at this time on room air denies any shortness of breath. Patient will be discharged home today. Will need home problems. The hope with a dressing to lower extremities. He will continue with Coumadin diabetes on oral Levaquin and he is to complete continue the nystatin treatment at home. lungs:clear no wheezes, no crackles heart: s1s2 abd soft and dep non tender ext:dressing in place discharge time 36min Patient Condition at Discharge: Stable Plan - Discharge Summary New Discharge Prescriptions: New Gabapentin [Neurontin] 300 mg PO TID #90 cap Levofloxacin [Levaquin] 750 mg PO Q24H #5 tab Lisinopril [Zestril] 5 mg PO DAILY #30 tab Metoprolol Tartrate [Lopressor] 12.5 mg PO BID #30 tab SILVER sulfADIAZINE CREAM [Silvadene Cream] 1 applic TOPICAL BID #30 applic Spironolactone [Aldactone] 25 mg PO BID #30 tab Continue fentaNYL 100MCG/HR PATCH [Duragesic 100MCG/HR] 1 patch TRANSDERM Q72H #10 patch Budesonide-Formot 160-4.5 Mcg [Symbicort 160-4.5 Mcg Inhaler] 2 puff INHALATION RT-BID Nystatin 100,000 Unit/ml Susp [Mycostatin Oral Susp] 500,000 unit PO QID # 300 dose Albuterol Inhaler [Ventolin Hfa Inhaler] 1 - 2 puff INHALATION RT-QID PRN PRN Reason: Shortness Of Breath Or Wheezing Albuterol Nebulized [Ventolin Nebulized] 2.5 mg INHALATION RT-QID PRN PRN Reason: Shortness Of Breath No Action Cephalexin [Keflex] 500 mg PO TID Discharge Medication List fentaNYL 100MCG/HR PATCH [Duragesic 100MCG/HR] 1 patch TRANSDERM Q72H #10 patch 01/16/17 [Rx] Budesonide-Formot 160-4.5 Mcg [Symbicort 160-4.5 Mcg Inhaler] 2 puff INHALATION RT-BID 01/20/17 [History] Nystatin 100,000 Unit/ml Susp [Mycostatin Oral Susp] 500,000 unit PO QID #300 dose 01/30/17 [Rx] Albuterol Inhaler [Ventolin Hfa Inhaler] 1 - 2 puff INHALATION RT-QID PRN [History] Albuterol Nebulized [Ventolin Nebulized] 2.5 mg INHALATION RT-QID PRN 03/04/17 [ History] Cephalexin [Keflex] 500 mg PO TID 03/04/17 [History] Gabapentin [Neurontin] 300 mg PO TID #90 cap 03/11/17 [Rx] Levofloxacin [Levaquin] 750 mg PO Q24H #5 tab 03/11/17 [Rx] Lisinopril [Zestril] 5 mg PO DAILY #30 tab 03/11/17 [Rx] Metoprolol Tartrate [Lopressor] 12.5 mg PO BID #30 tab 03/11/17 [Rx] SILVER sulfADIAZINE CREAM [Silvadene Cream] 1 applic TOPICAL BID #30 applic [Rx] Spironolactone [Aldactone] 25 mg PO BID #30 tab 03/11/17 [Rx] Follow up Appointment(s)/Referral(s): Arielle Rosas NPC [Nurse Practitioner] - 03/20/17 2:00 pm Miguelangel Gallego DO [Doctor of Osteopathic Medicine] - 04/01/17 3:00 pm Jose Antonio Babcock DO [Primary Care Provider] - 1-2 days
--- NOTE | 2017-03-11 14:17 | P.PN ---
Subjective Progress Note Date: 03/01/17 Mr. 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 He presented to the hospital with increasing shortness of breath and lower extremity edema. We are seeing him today in follow-up. He is currently receiving lasix 40 mg IV BID. His lower extremity edema is improving when he keeps them elevated but returns rather quickly once they are dependent. He states his shortness of breath has improved and he is no longer requiring oxygen around the clock only PRN. Blood pressure 112/70 with heart rate 84. BUN 58, Cr 0.9, potassium 4.9, BNP 797. Echocardiogram performed this admission reveals decreased LV function with EF 35 -40% with inferior wall hypokinesis, there is no old for comparison. The patient denies history of heart failure that he is aware of. He has never seen a feed handler for any reason and denies CAD. Repeat chest xray reveals ongoing left lower lobe infiltrate. Right lung is clear. His current cardiac medication includes Lasix 40 mg IV twice a day, lisinopril 5 mg daily, Aldactone 25 mg twice a day, metoprolol 12.5 mg BID. The patient states he is ready to go home. is at the bedside. Objective - Vital Signs Vital signs: Vital Signs Temp 97.8 F 03/11/17 07:00 Pulse 74 03/11/17 12:25 Resp 18 03/11/17 07:00 BP 112/70 03/11/17 07:00 Pulse Ox 97 03/11/17 07:00 Intake & Output 03/10/17 03/11/17 03/11/17 18:59 06:59 18:59 Intake Total 50 1550 Balance 50 1550 Weight 65.6 kg Intake: IV 50 Piperacillin-Tazobactam 3 50 .375 gm In Dextrose/Water 1 50ml.bag @ 12.5 mls/hr IVPB Q8HR [facility] Rx#: [id number] Oral 1550 Other: Voiding Method Toilet Toilet Urinal Urinal # Voids 2 - Exam GENERAL: Cachectic, in no acute distress. NECK: Supple without JVD or thyromegaly. LUNGS: Expiratory wheezing throughout. Diminished air entry. No rales. HEART: Regular rate and rhythm without murmurs, rubs or gallops. S1 and S2 heard. EXTREMITIES: Normal range of motion, improving b/l lower extremity edema 1+ pitting. No clubbing or cyanosis. Peripheral pulses intact and weak. - Labs CBC & Chem 7: 03/10/17 05:10 03/11/17 05:10 Labs: Abnormal Lab Results - Last 24 Hours (Table) 03/11/17 Range/Units 05:10 Sodium 132 L (137-145) mmol/L Chloride 92 L (98-107) mmol/L BUN 58 H (9-20) mg/dL Glucose 170 H (74-99) mg/dL Microbiology - Last 24 Hours (Table) 03/04/17 18:55 Blood Culture - Final Blood No Growth after 144 hours Assessment and Plan Plan: ASSESSMENT 1. Cardiomyopathy, unsure if ischemic or non-ischemic. 2. Increased dyspnea with rest and exertion, improving 3. Bilateral lower extremity swelling PLAN His fluid balance continues to be in the positive. Weight is improving. Change lasix to oral dose, he should go home on this as well. New medications that have been added will be sent to his pharmacy in preparation for discharge. He can follow up with Dr. Hurd in 2-4 weeks time. Nurse Practitioner note has been reviewed, I agree with a documented findings and plan of care. Patient was seen and examined.
[2017-03-11 16:45] VITALS: PULSE 76
--- NOTE | 2017-03-11 23:27 | P.PN ---
Subjective Progress Note Date: 03/11/17 Principal diagnosis: Shortness of breath This is a 56-year-old male with a past medical history significant for stage IV squamous cell lung cancer with metastatic disease to the adrenal gland and bones. He has been treated with carboplatin and Gemzar but developed anemia and weakness. Patient has been living at home with his and had home care in place. He states he developed increased lower extremity edema that extended above his knees for about 2 weeks. He states it felt like there was a cast on his legs. He had so much pain in his legs that he could not walk. It took his home care nurse and to help him into the car to come into [facility] for evaluation. CT of the chest showed worsening adenopathy left hilar mass and adenopathy and new multifocal consolidations concerning for bilateral multifocal pneumonia and underlying neoplasm versus lytic left rib lesion a large left adrenal mass. He was then transferred to [facility] emergency center found to be afebrile with a white count of 14.7 which is now 20.9. Lactic acid was 1.2. Patient was diagnosed with sepsis, postobstructive pneumonia secondary to stage IV squamous cell lung cancer and started on Levaquin, Zosyn and vancomycin. Patient states he was on Keflex at home prior to admission for his lungs and states he has been on and off antibiotics since August. Blood culture showing no growth at 96 hours and sputum is positive for Jeanie albicans. Patient has been followed in consultation by Dr. Gupta with concern for infectious pneumonia most likely versus drug-induced pneumonia. Plan is to resume chemotherapy as an outpatient. Patient did meet with hospice for informational meeting and made a choice to continue chemotherapy. Patient has been followed by Dr. Sands for COPD exacerbation and has been on steroids currently on oral prednisone. Cardiology has seen the patient for lower leg edema secondary to hypoalbuminemia. Ultrasound of bilateral lower extremities was negative for DVT. Echocardiogram reveals EF of 35%-40%, mild mitral regurgitation, mild tricuspid regurgitation. No evidence of pulmonary hypertension. He has been on IV Lasix and Aldactone and he states his lower extremity edema is improved and does not extend above his knee. He is able to walk a very short distance but he continues to have significant pain in both ankles. Patient did have a fall at home about 3 weeks ago at which time he said that everything just blacked out on him but he denies any injury. Note that there was other concerns from the patient's that he had increasing confusion and memory lapses. He had a PET scan 6 weeks ago that revealed metastases to his skull. Patient is feeling slightly better today. Is able to eat some food. Is less short of breath and more comfortable. Objective - Vital Signs Vital signs: Vital Signs Temp 97.8 F 03/11/17 07:00 Pulse 76 03/11/17 16:37 Resp 18 03/11/17 07:00 BP 112/70 03/11/17 07:00 Pulse Ox 97 03/11/17 07:00 Intake & Output 03/11/17 03/11/17 03/12/17 06:59 18:59 06:59 Intake Total 1550 Balance 1550 Intake: Oral 1550 Other: Voiding Method Toilet Urinal # Voids 2 2 - Exam Gen: This is a thin-appearing 56-year-old male. He is sitting up in a recliner with legs in a dependent position. He appears to be in no acute respiratory distress. He is not currently using oxygen. HEENT: Head is atraumatic, normocephalic. Pupils equal, round. Sclerae is anicteric. Conjunctiva pink. Mucous membranes of the mouth are dry. Patient is edentulous. He states he had his last 3 teeth pulled before he started chemotherapy. He does not have dentures. NECK: Supple. No JVD. No lymphadenopathy. No thyromegaly. LUNGS: Diminished with scattered crackles throughout and end expiratory wheeze. No intercostal retractions. HEART: Regular rate and rhythm. No murmur. Port noted in the anterior upper right chest wall. No tenderness, erythema or drainage noted. ABDOMEN: Soft. Bowel sounds are present. No masses. No tenderness. EXTREMITIES: +1 bilateral pedal edema. With multiple small abrasions noted from scratching. With utilization of Silvadene wrap there is no evidence of improvement. Edema is improved. He is much less uncomfortable. He is pleasantly surprised with this wrapping process, he was very concerned it was the cause pain and is actually comforted him NEUROLOGICAL: Patient is awake, alert and oriented x3 - Labs CBC & Chem 7: 03/10/17 05:10 03/11/17 05:10 Labs: Abnormal Lab Results - Last 24 Hours (Table) 03/11/17 Range/Units 05:10 Sodium 132 L (137-145) mmol/L Chloride 92 L (98-107) mmol/L BUN 58 H (9-20) mg/dL Glucose 170 H (74-99) mg/dL Microbiology - Last 24 Hours (Table) 03/04/17 18:55 Blood Culture - Final Blood No Growth after 144 hours Laboratory Results WBC 21.6 k/uL (3.8-10.6) H 03/10/17 05:10 RBC 3.40 m/uL (4.30-5.90) L 03/10/17 05:10 Hgb 9.7 gm/dL (13.0-17.5) L 03/10/17 05:10 Hct 32.0 % (39.0-53.0) L 03/10/17 05:10 MCV 94.1 fL (80.0-100.0) 03/10/17 05:10 MCH 28.5 pg (25.0-35.0) 03/10/17 05:10 MCHC 30.3 g/dL (31.0-37.0) L 03/10/17 05:10 RDW 18.3 % (11.5-15.5) H 03/10/17 05:10 Plt Count 284 k/uL (150-450) 03/10/17 05:10 Neutrophils % 86 % 03/07/17 05:50 Lymphocytes % 7 % 03/07/17 05:50 Monocytes % 5 % 03/07/17 05:50 Eosinophils % 1 % 03/07/17 05:50 Basophils % 0 % 03/07/17 05:50 Neutrophils # 9.9 k/uL (1.3-7.7) H 03/07/17 05:50 Lymphocytes # 0.8 k/uL (1.0-4.8) L 03/07/17 05:50 Monocytes # 0.6 k/uL (0-1.0) 03/07/17 05:50 Eosinophils # 0.1 k/uL (0-0.7) 03/07/17 05:50 Basophils # 0.0 k/uL (0-0.2) 03/07/17 05:50 Hypochromasia Moderate 03/10/17 05:10 Anisocytosis Slight 03/10/17 05:10 Macrocytosis Slight 03/08/17 07:00 Sodium 132 mmol/L (137-145) L 03/11/17 05:10 Potassium 4.9 mmol/L (3.5-5.1) 03/11/17 05:10 Chloride 92 mmol/L (98-107) L 03/11/17 05:10 Carbon Dioxide 28 mmol/L (22-30) 03/11/17 05:10 Anion Gap 12 mmol/L 03/11/17 05:10 BUN 58 mg/dL (9-20) H 03/11/17 05:10 Creatinine 0.90 mg/dL (0.66-1.25) 03/11/17 05:10 Est GFR (MDRD) Af Amer >60 (>60 ml/min/1.73 sqM) 03/11/17 05:10 Est GFR (MDRD) Non-Af >60 (>60 ml/min/1.73 sqM) 03/11/17 05:10 Glucose 170 mg/dL (74-99) H 03/11/17 05:10 Plasma Lactic Acid Clif 1.2 mmol/L (0.7-2.0) 03/04/17 16:15 Calcium 10.1 mg/dL (8.4-10.2) 03/11/17 05:10 Magnesium 2.0 mg/dL (1.6-2.3) 03/10/17 05:10 Total Bilirubin 0.3 mg/dL (0.2-1.3) 03/11/17 05:10 AST 20 U/L (17-59) 03/11/17 05:10 ALT 39 U/L (21-72) 03/11/17 05:10 Alkaline Phosphatase 98 U/L (38-126) 03/11/17 05:10 NT-Pro-B Natriuret Pep 797 pg/mL 03/07/17 15:40 Total Protein 6.6 g/dL (6.3-8.2) 03/11/17 05:10 Albumin 3.5 g/dL (3.5-5.0) 03/11/17 05:10 Vancomycin Trough 37.1 ug/mL H* 03/09/17 05:55 Random Vancomycin 14.8 ug/mL 03/09/17 18:12 Blood Type O Positive 03/04/17 18:55 Blood Type Recheck No 03/04/17 18:55 Antibody Screen NEGATIVE 03/04/17 18:55 Spec Expiration Date 03/07/2017235403/04/17 18:55 Microbiology 03/04/17 18:55 Blood Blood Culture - Final No Growth after 144 hours 03/05/17 00:10 Sputum Gram Stain - Final 03/05/17 00:10 Sputum Sputum Culture - Final Jeanie albicans Assessment and Plan (1) COPD (chronic obstructive pulmonary disease) Status: Acute Code(s): J44.9 - CHRONIC OBSTRUCTIVE PULMONARY DISEASE, UNSPECIFIED SNOMED Code(s): 93993374 (2) Lung cancer metastatic to bone Status: Chronic Priority: High Code(s): C34.90 - MALIGNANT NEOPLASM OF UNSP PART OF UNSP BRONCHUS OR LUNG; C79.51 - SECONDARY MALIGNANT NEOPLASM OF BONE SNOMED Code(s): 48883525 (3) Bilateral lower extremity edema Narrative/Plan: 56-year-old male who has metastatic lung carcinoma is feeling slightly better today. The rest lower extremity have allowed him to have some improvement discomfort. He is quite surprised it was helpful. He is denying further fevers or chills. Has nausea steadily improved today. He is unable to ingest a bit of food. He is denying fevers or chills and there's been some slight improvement. We'll continue current antimicrobial therapy that has been descalated to levofloxacin. Please complete 5 day course of therapy. He is tolerating this well. Continue elevation local care and attempts to improve his nutrition. Status: Acute Code(s): R60.0 - LOCALIZED EDEMA SNOMED Code(s): 216021876
--- NOTE | 2017-03-12 09:47 | CDI ---
In responding to this query, please exercise your independent professional judgment. The [facility] Coding Staff and Clinical Documentation Specialists appreciate your assistance in clarifying documentation, maintaining compliance with coding guidelines, accurately documenting patients condition and capturing severity of illness. The fact that a question is asked does not imply that any particular answer is desired or expected. Communication forms are a method of clarifying documentation and are not made part of the Legal Health Record. Thank you in advance for your clarification. Last Revision, August 2016 Lucian Kim [address] [facility] [place] [address] Documentation Clarification Form Date: 03/12/2017 9:32:00 AM From: Stephany Vallejo CCS, CCDS Admit Date: 03/04/2017 5:24:00 PM Patient Name: Eddie Dexter Visit Number: [id number] Discharge Date: 03/11/2017 Dr. Nazia Salmon: Per the History & Physical: The patient is admitted to the medical floor anticipated greater than two midnight stay with sepsis secondary to healthcare associated versus postobstructive pneumonia due to underlying stage IV squamous cell lung cancer. History/Risk Factors: Stage IV Lung CA with mets to adrenal gland, COPD, Former smoker. Clinical Indicators: VS on admission: T 97.2*, P 101^ LAB: WBC 14.7, neut 12.8, Hgb 8.9, Lactic acid: (1.2) Blood cultures: negative. Sputum culture: Jeanie albicans. Treatment: Albuterol INH, IV Heparin, IV Vanco, IV Lasix, IV Dilaudid, IV Zosyn , IV Levaquin, IV Morphine. Consults: ID, Oncology, Pulmonary, Cardiology, Pain management In your professional opinion, please clarify if these findings signify one of the following conditions, whether the condition is POA, and cause, if known: Sepsis, ruled in or ruled out o Due to: Severe Sepsis Septic Shock Unable to determine Other, please specify *Present on Admission: Yes No * Identify the (suspected) organism * Link or clarify if there is associated (due to/with): - Organ failure - Shock Please document in your progress notes and discharge summary in order to capture severity of illness and risk of mortality. Include clinical findings that support your diagnosis. FYI: Press F11 to launch patient chart. MTDD
== END 2017-03-11 17:00 | disposition home or self-care (01) | DRG 177 ==
LOC: EC 15:02 → 5ONC 17:24
PROVIDERS: ADMIT Internal Medicine; ATTEND Internal Medicine
DX: J15.6 Pneumonia due to other Gram-negative bacteria (principal); I50.23 Acute on chronic systolic (congestive) heart failure; C79.72 Secondary malignant neoplasm of left adrenal gland; C79.51 Secondary malignant neoplasm of bone; E44.1 Mild protein-calorie malnutrition; C34.92 Malignant neoplasm of unspecified part of left bronchus or lung; I42.9 Cardiomyopathy, unspecified; J44.0 Chronic obstructive pulmonary disease with (acute) lower respiratory infection; J44.1 Chronic obstructive pulmonary disease with (acute) exacerbation; D69.6 Thrombocytopenia, unspecified; D63.0 Anemia in neoplastic disease; E87.6 Hypokalemia; G89.3 Neoplasm related pain (acute) (chronic); G89.4 Chronic pain syndrome; I08.1 Rheumatic disorders of both mitral and tricuspid valves; Y95 Nosocomial condition; R00.0 Tachycardia, unspecified; R25.1 Tremor, unspecified; R59.0 Localized enlarged lymph nodes; R11.2 Nausea with vomiting, unspecified; Z87.891 Personal history of nicotine dependence; Z79.51 Long term (current) use of inhaled steroids; Z79.899 Other long term (current) drug therapy; Z68.20 Body mass index [BMI] 20.0-20.9, adult
CPT/HCPCS: 36415; 71010; 71020; 80048; 80053; 80202; 83605; 83735; 83880; 85025; 85027; 86850; 86900; 86901; 87040; 87070; 87205; 93306; 93970; 94640; 94760; 99285